=== PATIENT | female | born 1940 | race Caucasian/White ===

== ENCOUNTER → 2016-03-19 | Outpatient (CLI) | payer MEDICARE ==
[2016-03-19 07:48] LABS: ALT 32 U/L (9-52); AST 19 U/L (14-36); Alkaline Phosphatase 65 U/L (38-126); Anion Gap 11 mmol/L; Blood Urea Nitrogen 24 mg/dL (7-17); Calcium 9.8 mg/dL (8.4-10.2); Carbon Dioxide 29 mmol/L (22-30); Chloride 101 mmol/L (98-107); Cholesterol 224 mg/dL (<200); Glucose 154 mg/dL (74-99); HDL Cholesterol 56 mg/dL (40-60); Non-African American GFR(MDRD) 53 (>60 ml/min/1.73 sqM); Potassium 4.2 mmol/L (3.5-5.1); Sodium 141 mmol/L (137-145); Total Bilirubin 0.8 mg/dL (0.2-1.3); Total Protein 7.3 g/dL (6.3-8.2); Triglycerides 188 mg/dL (<150)
== END | disposition home or self-care (01) ==
LOC: LABWHC1 07:00
PROVIDERS: ATTEND Internal Medicine
DX: E11.9 Type 2 diabetes mellitus without complications (principal); E78.5 Hyperlipidemia, unspecified
CPT/HCPCS: 36415; 80053; 80061; 83036

== ENCOUNTER → 2016-06-13 | Outpatient (CLI) | payer MEDICARE ==
[2016-06-13 07:28] LABS: Appearance,Urine Cloudy (Clear); Bacteria,Urine Many /hpf; Bilirubin,Urine Negative (Negative); Glucose,Urine (UA) Negative (Negative); Ketones,Urine Negative (Negative); Leukocyte Esterase,Urine Large (Negative); Nitrite,Urine Negative (Negative); PH, Urine 5.5 (5.0-8.0); Particle Count 2012; Protein,Urine Negative (Negative); RBC,Urine 3 /hpf (0-5); Specific Gravity,Urine 1.009 (1.001-1.035); UA Billing (MACRO vs. MICRO) MICRO; Urobilinogen,Urine <2.0 mg/dL (<2.0); WBC,Urine >182 /hpf (0-5)
[2016-06-13 12:04] LABS: Calcium 9.9 mg/dL (8.4-10.2); Total Bilirubin 0.9 mg/dL (0.2-1.3); Total Protein 6.9 g/dL (6.3-8.2)
[2016-06-13 13:11] LABS: Hemoglobin A1C 7.9 % (4.2-6.1)
== END ==
LOC: LABWHC1 06:44
PROVIDERS: ATTEND Internal Medicine
DX: E11.9 Type 2 diabetes mellitus without complications (principal); E78.5 Hyperlipidemia, unspecified; E03.9 Hypothyroidism, unspecified
CPT/HCPCS: 36415; 80053; 80061; 81001; 82043; 83036; 84439; 84443

== ENCOUNTER → 2016-09-18 | Outpatient (CLI) | payer MEDICARE ==
[2016-09-18 07:05] LABS: CH 31.6; CHCM 33.7; HCT 39.8 % (34.0-46.0); HDW 2.35; HGB 13.1 gm/dL (11.4-16.0); MCH 30.9 pg (25.0-35.0); MCHC 32.8 g/dL (31.0-37.0); MCV 94.2 fL (80.0-100.0); Mean Platelet Volume 7.5; RBC 4.23 m/uL (3.80-5.40); RDW 13.3 % (11.5-15.5)
[2016-09-18 07:39] LABS: ALT 28 U/L (9-52); AST 20 U/L (14-36); Alkaline Phosphatase 56 U/L (38-126); Anion Gap 9 mmol/L; Blood Urea Nitrogen 15 mg/dL (7-17); Calcium 9.8 mg/dL (8.4-10.2); Carbon Dioxide 27 mmol/L (22-30); Chloride 103 mmol/L (98-107); Cholesterol 192 mg/dL (<200); Glucose 121 mg/dL (74-99); HDL Cholesterol 51 mg/dL (40-60); Hemoglobin A1C 8.6 % (4.2-6.1); Non-African American GFR(MDRD) >60 (>60 ml/min/1.73 sqM); Potassium 4.1 mmol/L (3.5-5.1); Sodium 139 mmol/L (137-145); Total Bilirubin 0.8 mg/dL (0.2-1.3); Total Protein 6.8 g/dL (6.3-8.2); Triglycerides 146 mg/dL (<150)
== END | disposition home or self-care (01) ==
LOC: LABWHC1 06:31
PROVIDERS: ATTEND Internal Medicine
DX: Z00.00 Encounter for general adult medical examination without abnormal findings (principal); E11.9 Type 2 diabetes mellitus without complications; E03.9 Hypothyroidism, unspecified; E78.5 Hyperlipidemia, unspecified
CPT/HCPCS: 36415; 80053; 80061; 83036; 84439; 84443; 85027

== ENCOUNTER → 2017-01-02 | Outpatient (CLI) | payer MEDICARE ==
--- NOTE | 2017-01-03 11:00 | MM ---
Reason for exam: screening (asymptomatic). Last mammogram was performed 1 year ago. History: Patient is postmenopausal. Family history of premenopausal breast cancer in maternal cousin at age 40. Benign core biopsy of the left breast. Benign excisional biopsy of the left breast. Took estrogen for 5 years. Took progesterone for 5 years. Physical Findings: A clinical breast exam by your physician is recommended on an annual basis and results should be correlated with mammographic findings. MG 3D Screening Mammo W/Cad Bilateral CC and MLO view(s) were taken. Prior study comparison: January 01, 2016, bilateral MG 3d screening mammo w/cad. December 30, 2014, bilateral MG screening mammo w CAD. There are scattered fibroglandular densities. There is no discrete abnormality. No significant changes when compared with prior studies. ASSESSMENT: Negative, BI-RAD 1 RECOMMENDATION: Routine screening mammogram of both breasts in 1 year.
== END | disposition home or self-care (01) ==
LOC: RADMAMWWP 09:54
PROVIDERS: ATTEND Obstetrics & Gynecology
DX: Z12.31 Encounter for screening mammogram for malignant neoplasm of breast (principal)
CPT/HCPCS: 77063; G0202

== ENCOUNTER → 2017-03-31 | Outpatient (CLI) | payer MEDICARE ==
[2017-03-31 07:58] LABS: Basophils % (A) 0 %; Eosinophils # (A) 0.2 k/uL (0-0.7); Eosinophils % (A) 3 %; HGB 13.4 gm/dL (11.4-16.0); Lymphocytes # (A) 1.2 k/uL (1.0-4.8); Lymphocytes % (A) 20 %; MCHC 32.8 g/dL (31.0-37.0); MCV 94.6 fL (80.0-100.0); Monocytes # (A) 0.4 k/uL (0-1.0); Monocytes % (A) 6 %; Neutrophils # (A) 4.1 k/uL (1.3-7.7); Neutrophils % (A) 69 %; Platelet Count 247 k/uL (150-450); RBC 4.33 m/uL (3.80-5.40); RDW 12.6 % (11.5-15.5)
[2017-03-31 08:24] LABS: ALT 33 U/L (9-52); AST 21 U/L (14-36); Albumin 4.2 g/dL (3.5-5.0); Alkaline Phosphatase 65 U/L (38-126); Anion Gap 12 mmol/L; Blood Urea Nitrogen 20 mg/dL (7-17); Calcium 10.3 mg/dL (8.4-10.2); Carbon Dioxide 29 mmol/L (22-30); Chloride 97 mmol/L (98-107); Cholesterol 219 mg/dL (<200); Glucose 184 mg/dL (74-99); HDL Cholesterol 55 mg/dL (40-60); LDL Cholesterol,Calculated 126 mg/dL (0-99); Potassium 4.1 mmol/L (3.5-5.1); Sodium 138 mmol/L (137-145); Triglycerides 189 mg/dL (<150)
[2017-03-31 08:39] LABS: T4, Free (Free Thyroxine) 1.17 ng/dL (0.78-2.19)
[2017-04-01 13:55] LABS: Hemoglobin A1C 8.6 % (4.0-6.0)
== END | disposition home or self-care (01) ==
LOC: LABWHC1 06:48
PROVIDERS: ATTEND Family Medicine
DX: E03.9 Hypothyroidism, unspecified (principal); E55.9 Vitamin D deficiency, unspecified; E78.5 Hyperlipidemia, unspecified; E11.65 Type 2 diabetes mellitus with hyperglycemia; J20.9 Acute bronchitis, unspecified
CPT/HCPCS: 36415; 80053; 80061; 82043; 82306; 82570; 83036; 84439; 84443; 85025

== ENCOUNTER → 2017-08-08 | Outpatient (CLI) | payer MEDICARE ==
[2017-08-08 07:23] LABS: HCT 42.2 % (34.0-46.0); HGB 13.7 gm/dL (11.4-16.0); MCH 30.5 pg (25.0-35.0); MCHC 32.6 g/dL (31.0-37.0); MCV 93.6 fL (80.0-100.0); Mean Platelet Volume 6.7; Platelet Count 253 k/uL (150-450); RDW 13.4 % (11.5-15.5); WBC 7.2 k/uL (3.8-10.6)
[2017-08-08 07:29] LABS: Albumin 4.2 g/dL (3.5-5.0); Calcium 9.9 mg/dL (8.4-10.2); Magnesium 1.6 mg/dL (1.6-2.3); Potassium 5.1 mmol/L (3.5-5.1); Total Bilirubin 0.9 mg/dL (0.2-1.3); Total Protein 6.7 g/dL (6.3-8.2)
[2017-08-08 07:45] LABS: T4, Free (Free Thyroxine) 1.28 ng/dL (0.78-2.19)
[2017-08-08 11:06] LABS: Vitamin D 25 Hydroxy 44.6 ng/mL (30.0-100.0)
[2017-08-08 11:21] LABS: Rheumatoid Factor 7 IU/mL (0-15)
[2017-08-08 11:42] LABS: Eosinophils # (M) 0.14 k/uL (0-0.7); Lymphocytes # (M) 1.44 k/uL (1.0-4.8); Monocytes # (M) 0.58 k/uL (0-1.0); Neutrophils # (M) 5.04 k/uL (1.3-7.7); Neutrophils % (M) 70 %; Nucleated Red Blood Cells 0 /100 WBC (0-0); Total Cells Counted 100
[2017-08-08 13:26] LABS: Hemoglobin A1C 8.5 % (4.0-6.0)
== END | disposition home or self-care (01) ==
LOC: LABWHC1 06:33
PROVIDERS: ATTEND Family Medicine
DX: E11.22 Type 2 diabetes mellitus with diabetic chronic kidney disease (principal); E11.65 Type 2 diabetes mellitus with hyperglycemia; N18.2 Chronic kidney disease, stage 2 (mild); E03.9 Hypothyroidism, unspecified; E55.9 Vitamin D deficiency, unspecified; R25.2 Cramp and spasm; M25.50 Pain in unspecified joint; E78.5 Hyperlipidemia, unspecified
CPT/HCPCS: 36415; 80053; 80061; 82043; 82306; 82570; 83036; 83735; 84439; 84443; 84550; 85027; 86038; 86431

== ENCOUNTER → 2017-11-11 | Outpatient (CLI) | payer MEDICARE ==
[2017-11-11 13:13] LABS: Basophils % (A) 0 %; Eosinophils # (A) 0.2 k/uL (0-0.7); Eosinophils % (A) 2 %; HCT 39.9 % (34.0-46.0); Lymphocytes # (A) 1.4 k/uL (1.0-4.8); Lymphocytes % (A) 16 %; MCH 30.4 pg (25.0-35.0); MCHC 32.6 g/dL (31.0-37.0); MCV 93.1 fL (80.0-100.0); Mean Platelet Volume 7.1; Monocytes # (A) 0.5 k/uL (0-1.0); Monocytes % (A) 6 %; Neutrophils # (A) 6.6 k/uL (1.3-7.7); Neutrophils % (A) 75 %; Platelet Count 282 k/uL (150-450); RBC 4.29 m/uL (3.80-5.40); RDW 13.2 % (11.5-15.5); WBC 8.8 k/uL (3.8-10.6)
[2017-11-11 13:43] LABS: Albumin 4.1 g/dL (3.5-5.0); Calcium 9.8 mg/dL (8.4-10.2); Magnesium 1.3 mg/dL (1.6-2.3); Phosphorus 3.8 mg/dL (2.5-4.5); Potassium 4.2 mmol/L (3.5-5.1); Total Bilirubin 0.7 mg/dL (0.2-1.3); Total Protein 6.9 g/dL (6.3-8.2)
[2017-11-11 13:49] LABS: T4, Free (Free Thyroxine) 1.18 ng/dL (0.78-2.19)
[2017-11-11 21:44] LABS: Hemoglobin A1C 7.4 % (4.0-6.0)
== END ==
LOC: LABWHC1 11:45
PROVIDERS: ATTEND Family Medicine
DX: E11.22 Type 2 diabetes mellitus with diabetic chronic kidney disease (principal); N18.2 Chronic kidney disease, stage 2 (mild); E11.65 Type 2 diabetes mellitus with hyperglycemia; R80.9 Proteinuria, unspecified; E03.9 Hypothyroidism, unspecified
CPT/HCPCS: 36415; 80053; 82043; 82570; 83036; 83735; 84100; 84439; 84443; 85025

== ENCOUNTER → 2018-02-26 | Outpatient (CLI) | payer MEDICARE ==
--- NOTE | 2018-03-01 13:18 | MM ---
Reason for exam: screening (asymptomatic). Last mammogram was performed 1 year and 2 months ago. History: Patient is postmenopausal. Family history of premenopausal breast cancer in maternal cousin at age 40. Benign core biopsy of the left breast. Benign excisional biopsy of the left breast. Took estrogen for 5 years. Took progesterone for 5 years. MG 3D Screening Mammo W/Cad Bilateral CC and MLO view(s) were taken. Prior study comparison: January 02, 2017, bilateral MG 3d screening mammo w/cad. January 01, 2016, bilateral MG 3d screening mammo w/cad. There are scattered fibroglandular densities. No suspicious abnormality. There are benign-appearing bilateral breast calcifications. No significant changes when compared with prior studies. ASSESSMENT: Benign, BI-RAD 2 RECOMMENDATION: Routine screening mammogram of both breasts in 1 year.
== END | disposition home or self-care (01) ==
LOC: RADMAMWWP 15:49
PROVIDERS: ATTEND Obstetrics & Gynecology
DX: Z12.31 Encounter for screening mammogram for malignant neoplasm of breast (principal); Z80.3 Family history of malignant neoplasm of breast
CPT/HCPCS: 77063; 77067

== ENCOUNTER → 2018-02-26 | Outpatient (CLI) | payer MEDICARE ==
[2018-02-26 07:38] LABS: HCT 40.3 % (34.0-46.0); HGB 13.1 gm/dL (11.4-16.0); MCH 30.1 pg (25.0-35.0); MCHC 32.6 g/dL (31.0-37.0); MCV 92.5 fL (80.0-100.0); Mean Platelet Volume 6.9; Platelet Count 274 k/uL (150-450); RBC 4.35 m/uL (3.80-5.40); RDW 13.5 % (11.5-15.5); WBC 6.6 k/uL (3.8-10.6)
[2018-02-26 12:22] LABS: Albumin 4.2 g/dL (3.80-4.90); Albumin/Globulin Ratio 2.21 (1.20-2.10); Anion Gap 8.3 mmol/L (4.00-12.00); Carbon Dioxide 28.7 mmol/L (21.6-31.8); Globulin 1.9 g/dL (1.6-3.3); LDL Cholesterol,Calculated 68.8 mg/dL (0.0-131.0); Magnesium 1.5 mg/dL (1.5-2.4); Parathyroid Hormone Intact 54.1 pg/mL (14.0-72.0); Phosphorus 3.6 mg/dL (2.4-5.1); Potassium 5.2 mmol/L (3.5-5.5); Total Bilirubin 0.8 mg/dL (0.3-1.2); Total Protein 6.1 g/dL (6.2-8.2); VLDL Calculation 32.2 mg/dL (5.00-40.00)
[2018-02-26 12:26] LABS: Vitamin D 25 Hydroxy 53.5 ng/mL (30.0-100.0)
[2018-02-26 14:03] LABS: Hemoglobin A1C 8.1 % (4.0-6.0)
== END | disposition home or self-care (01) ==
LOC: LABWHC1 06:52
PROVIDERS: ATTEND Family Medicine
DX: E11.22 Type 2 diabetes mellitus with diabetic chronic kidney disease (principal); N18.2 Chronic kidney disease, stage 2 (mild); E83.42 Hypomagnesemia; E55.9 Vitamin D deficiency, unspecified; E78.5 Hyperlipidemia, unspecified; R80.9 Proteinuria, unspecified
CPT/HCPCS: 36415; 80053; 80061; 82043; 82306; 82570; 83036; 83735; 83970; 84100; 85027

== ENCOUNTER → 2018-02-27 | Outpatient (CLI) | payer MEDICARE ==
--- NOTE | 2018-03-01 22:39 | MR ---
EXAMINATION TYPE: MR shoulder LT wo con DATE OF EXAM: 02/27/2018 COMPARISON: Outside left shoulder x-ray February 16, 2018 HISTORY: Lt shoulder pain S/P fall Oct 2017 TECHNIQUE: Multiplanar, multisequence imaging of the left shoulder is performed without contrast. FINDINGS: Rotator Cuff: Distal supraspinatus shows full-thickness retracted tear of the anterior one third port ion measuring roughly 14 mm parasagittal image 7. Infraspinatus tendon is intact. Subscapularis tendo n is intact with surrounding fluid anteriorly. Rotator cuff muscle bulk is preserved. Fluid surrounds the superior aspect supraspinatus muscle bulk. Acromioclavicular Joint: Fairly advanced narrowing with mild spurring acromioclavicular joint is iden tified, moderate capsular hypertrophy seen. Inferior fat plane is lost. Distal acromion morphology sh ows mild inferior spurring peripheral aspect. Glenohumeral Joint: Large glenohumeral joint effusion is present. Mild narrowing is seen. No signific ant spurring is present. Labrum: The superior labrum shows blunted appearance with increased signal likely reflecting degenera tive change or tear. Biceps Tendon: The long head of biceps is in normal location within bicipital groove. Bone marrow signal: No focal abnormal marrow signal is appreciated. Other: No additional significant abnormality is appreciated. IMPRESSION: 1. Full-thickness retracted tear anterior one third fibers of supraspinatus tendon. 2. Large glenohumeral joint effusion with anterior, inferior, and superior extension. 3. 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
== END ==
LOC: RADMRIMAIN 19:18
PROVIDERS: ATTEND Orthopaedic Surgery
DX: M75.122 Complete rotator cuff tear or rupture of left shoulder, not specified as traumatic (principal); M12.812 Other specific arthropathies, not elsewhere classified, left shoulder; M25.812 Other specified joint disorders, left shoulder

== ENCOUNTER 2018-03-31 08:55 | Day surgery (SDC) | payer MEDICARE ==
[2018-03-26 15:48] VITALS: BMI 30.7
--- NOTE | 2018-03-30 09:58 | HP ---
HISTORY AND PHYSICAL CHIEF COMPLAINT: Left shoulder pain. HISTORY OF PRESENT ILLNESS: Patient is a 77-year-old, right-hand dominant, retired female who presents with progressive left shoulder pain after an injury in October of last year. She is having a difficult time with any overhead use and at night. She has tried rest, medication, and therapy. She is quite limited because of pain. PAST MEDICAL HISTORY: Significant for type 2 diabetes, hypercholesteremia, hypertension, and hypothyroidism. PAST SURGICAL HISTORY: Negative. CURRENT MEDICATIONS: 1. Amlodipine. 2. Aspirin. 3. Levothyroxine. 4. Metformin. ALLERGIES: SULFA. FAMILY HISTORY: Significant for heart disease. SOCIAL HISTORY: Negative for current tobacco or alcohol use. REVIEW OF SYSTEMS: A 16-point review of systems otherwise reviewed and is noncontributory. PHYSICAL EXAMINATION: On examination, the patient is approximately 5 foot 1, 179 pounds of endomorphic habitus. HEENT exam is nonfocal. Neck is supple. Active motion left shoulder. Forward elevation 95 degrees, external rotation with arm at side 40 degrees, internal rotation to L2. Passively, I am able to forward elevate her 150 degrees. She has moderate subacromial crepitus. Motor strength is 5-/5 for external rotation with arm at side, 4/5 for abduction. Her distal neurovascular exam appears intact in the left upper extremity. MRI report from 02/27/2018 shows evidence of a supraspinatus tear with some retraction. There is a large effusion. There is a questionable superior labral tear as well. IMPRESSION: 1. Symptomatic left acute rotator cuff tear. 2. [id number] diabetes. RECOMMENDATIONS: I talked to the patient at length regarding her condition and treatment options. At this point, she is quite symptomatic despite conservative measures and opts to proceed with surgery. We will plan to proceed with arthroscopic evaluation with probable subacromial decompression, possible rotator cuff repair, and possible biceps tendon tenotomy. Risks and benefits were discussed at length in layman's terms. We will likely perform that as an outpatient procedure. BRIANL / EVARISTON: [id number] /
[~2018-03-31 08:55] MED LIST: DEXAMETHASONE SOD PHOSPHATE 10 MG/ML 1 ML VIAL IV ONE; HYDROmorphone 0.5 MG/0.5 ML SYRINGE IVP PRN; LACTATED RINGERS 1,000 ML IV SCH; LIDOCAINE 1% 20 ML VIAL (10MG/ML) FOR IV START INTRADERMA PRN; MIDAZOLAM (PF) 2 MG/2 ML VIAL IV PRN; ONDANSETRON 4 MG/2 ML VIAL IVP ONE; ceFAZolin IN SWFI 2 GM/20 ML SYRINGE IVP ONE; fentaNYL (PF) 50 MCG/ML 2 ML AMP IV PRN
[2018-03-31 09:56] LABS: Glucose,Whole Blood 187 mg/dL (75-99)
--- NOTE | 2018-03-31 10:47 | P.ONQ ---
Anesthesiology Proc Note - PNB - Peripheral Nerve Block Performed Left Interscalene Single Time Out Performed: Yes Procedure Start Time: 10:06 Indication: Acute Post-Operative Pain Specifically requested for management of pain by DrLanre: Nick Siegel Sedation Type: Sedate with meaningful contact maintained Preparation: Sterile Prep Position: Supine Catheter: None Needle Types: Other (see comment) (pajunk) Needle Size: 50mm (2") Needle Gauge: 21 Technique: Ultrasound Injectate: 0.5% Ropivacaine (see comment for volume) (20 cc) Blood Aspirated: No Pain Paresthesia on Injection Noted: No Resistance on Injection: Normal Events: Uneventful and Well Tolerated
[2018-03-31] MEDS ORDERED: fentaNYL (PF) 50 MCG/ML 2 ML AMP ONE (11:12)
[2018-03-31] MEDS ORDERED: LIDOCAINE 1% INJ 10MG/ML (20 ML MDV) ONE (11:12)
[2018-03-31] MEDS ORDERED: PROPOFOL 10 MG/ML 20 ML VIAL IV ONE (11:12)
[2018-03-31] MEDS ORDERED: MIDAZOLAM 2 MG/2 ML VIAL ONE (11:12)
[2018-03-31] MEDS ORDERED: SUCCINYLCHOLINE CHLORIDE 100 MG/5 ML SYR IV ONE (11:12)
[2018-03-31] MEDS ORDERED: PHENYLEPHRINE-0.9% NACL SYG 1 MG/10 ML SYRINGE ONE (11:12)
[2018-03-31] MEDS ORDERED: ROPIVACAINE 5 MG/ML 30 ML VIAL ONE (11:12)
[2018-03-31] MEDS ORDERED: EPINEPHrine (PF) 1 ML in SODIUM CHLORIDE 0.9% IRRIGATIO 3,000 ML IRRIGATION ONE ×8 (11:20)
[2018-03-31] MEDS ORDERED: LACTATED RINGERS 1,000 ML IV ONE (12:54)
--- NOTE | 2018-03-31 12:58 | P.OP ---
Date of Procedure: 03/31/18 Preoperative Diagnosis: Symptomatic left rotator cuff tear Postoperative Diagnosis: 2 cm left rotator cuff tear, high-grade partial-thickness tear long head biceps intra-articular Procedure(s) Performed: Left shoulder arthroscopic subacromial decompression/rotator cuff repair/biceps tenotomy Implants: Arthrex 4.75 mm swivel lock anchor 2, 5.5 mm swivel lock anchor 2. Anesthesia: [facility], [facility] Surgeon: Nick Siegel Moccasin Sewer #1: Karel Salazar Estimated Blood Loss (ml): 10 Pathology: none sent Condition: stable Disposition: PACU Indications for Procedure: The patient is a 77-year-old female who presents with left shoulder pain after a previous fall. Clinically she is noted of evidence of a symptom right rotator cuff tear. He discussion of the risks and benefits of operative intervention versus continued conservative measures was made with the patient. She opted proceed with surgery. Operative risks to include infection, neurovascular injury, development of blood clots, possible tendon rerupture, possible postoperative stiffness, and possible need for subsequent procedures was discussed. Informed consent was obtained. Operative Findings: As below Description of Procedure: The patient was brought to the operating room, and after induction of general anesthesia was placed in a beachchair position. A preoperative interscalene block was placed for postoperative analgesia. I examined the left shoulder. There was no gross block to passive motion or gross glenohumeral instability. The left upper extremity was prepped and draped in normal fashion. The bony outlines the acromion, distal clavicle, and coracoid process were outlined with a skin marker. The glenohumeral joint was inflated with 50 mL of saline utilizing a spinal needle from posterior approach. A posterior portal was made through a 5 mm skin incision 1 cm medial and inferior to the posterior lateral border time. A blunt trocar was used to easily into the joint. Diagnostic arthroscopy was performed. An anterior portal was made just lateral to the coracoid process entering the joint above the subscapularis tendon. The subscapularis tendon appeared to be intact. Anterior labrum was intact. The inferior recess was inspected. The posterior labrum was intact. There was a high-grade partial-thickness tear of the long head of the biceps involving interarticular portion. Was elected to proceed with release at this point. This was released from the superior labrum with electrocautery and was allowed to retract to the bicipital groove. On inspection the rotator cuff, a 3 centimeter tear involving the supraspinatus and a portion the infraspinatus was noted with some retraction. A lateral portal was made 2 centimeters inferior to the anterior lateral border of the acromion. The rotator cuff was then mobilized with a traction suture. This was then easily brought back to the greater tuberosity. The soft tissue on the undersurface of the acromion was debrided with a motorized shaver and electrocautery clearly defining the anterior medial and lateral borders as well as the distal clavicle. An anterior inferior acromioplasty was performed with a motorized earl starting anterolateral, then extending this posteriorly, then extending this medially. I converted to a flat acromion and this was verified in the posterior and lateral viewing portals. The greater tuberosity was lightly decorticating with a shaver down to a bleeding bony surface. An accessory superior lateral portals made just off the lateral edge of the acromion for anchor placement. 2 anchors were then placed just off the articular surface with the appropriate starting awl. 4.75 mm anchors preloaded with #2 fiber tape were placed. Good purchase was obtained. These fiber tapes were then passed the rotator cuff with a scorpion suture passer. A lateral row was created crisscrossing these tapes. Two 5.5 mm swivel lock anchors were placed laterally. Good purchase was obtained. Final arthroscopic view showed adequate compression at the footprint. The arthroscope was then removed. The portals were closed with simple 3-0 nylon sutures. A sterile dressing was applied in addition to an abductor brace. The patient was then awoken from general anesthesia and transferred to recovery room in good condition. Blood loss was estimated at 10 mL. No complications were incurred. Sponge and needle counts were correct in the case. Samm FATIMA assisted and the major components of the case to include arm positioning, anchor placement, and rotator cuff repair.
[2018-03-31 13:08] VITALS: TEMP 97.3
[2018-03-31 13:10] LABS: Glucose,Whole Blood 177 mg/dL (75-99)
[2018-03-31] MEDS: LABETALOL 5 MG/ML VIAL MDV IVP ONE ×2 (13:14→13:22)
[2018-03-31 14:21] VITALS: RESP 18
[2018-03-31] MEDS ORDERED: ACETAMINOPHEN TAB 500 MG TAB PO ONE (14:24)
[2018-03-31 15:04] VITALS: BP 137/85; PULSE 94
[2018-03-31 15:06] LABS: Glucose,Whole Blood 212 mg/dL (75-99)
== END 2018-03-31 15:48 | disposition home or self-care (01) ==
LOC: OR 08:55
PROVIDERS: ATTEND Orthopaedic Surgery
DX: S46.012A Strain of muscle(s) and tendon(s) of the rotator cuff of left shoulder, initial encounter (principal); S46.112A Strain of muscle, fascia and tendon of long head of biceps, left arm, initial encounter; W19.XXXA Unspecified fall, initial encounter; E11.9 Type 2 diabetes mellitus without complications; Z79.4 Long term (current) use of insulin; E78.00 Pure hypercholesterolemia, unspecified; I10 Essential (primary) hypertension; Z82.49 Family history of ischemic heart disease and other diseases of the circulatory system; R41.3 Other amnesia; E03.9 Hypothyroidism, unspecified; Z79.82 Long term (current) use of aspirin; Z79.890 Hormone replacement therapy; Z79.899 Other long term (current) drug therapy; Z88.2 Allergy status to sulfonamides; Z91.09 Other allergy status, other than to drugs and biological substances
CPT/HCPCS: 64415; 29826; 29827; C1713 ×3; C1894; J2250 ×2; J1100; J2405; J0171; J2001; J3010; J2795; J2370; J0330; J2704; J0690

== ENCOUNTER → 2018-10-12 | Outpatient (CLI) | payer MEDICARE ==
[2018-10-12 07:31] LABS: Basophils % (A) 0 %; Eosinophils # (A) 0.3 k/uL (0-0.7); Eosinophils % (A) 4 %; HGB 12.9 gm/dL (11.4-16.0); Lymphocytes # (A) 1.3 k/uL (1.0-4.8); Lymphocytes % (A) 19 %; MCH 30.5 pg (25.0-35.0); MCHC 33.1 g/dL (31.0-37.0); MCV 91.9 fL (80.0-100.0); Mean Platelet Volume 7.5; Monocytes # (A) 0.4 k/uL (0-1.0); Monocytes % (A) 6 %; Neutrophils # (A) 4.6 k/uL (1.3-7.7); Neutrophils % (A) 69 %; Platelet Count 291 k/uL (150-450); RBC 4.25 m/uL (3.80-5.40); RDW 14.2 % (11.5-15.5); WBC 6.7 k/uL (3.8-10.6)
[2018-10-12 11:38] LABS: African American GFR (CKD) 56.9 (60.0-200.0); Albumin 4.2 g/dL (3.80-4.90); Albumin/Globulin Ratio 2.21 (1.60-3.17); Anion Gap 6.6 mmol/L (4.00-12.00); BUN/Creat Ratio 16.36 Ratio (12.00-20.00); Calcium 9.8 mg/dL (8.7-10.3); Carbon Dioxide 25.4 mmol/L (21.6-31.8); Chol/HDL Ratio 2.96; Globulin 1.9 g/dL (1.6-3.3); LDL Cholesterol,Calculated 79.6 mg/dL (0.0-131.0); Magnesium 1.6 mg/dL (1.5-2.4); Potassium 4.4 mmol/L (3.5-5.5); Total Bilirubin 0.6 mg/dL (0.3-1.2); Total Protein 6.1 g/dL (6.2-8.2); VLDL Calculation 28.4 mg/dL (5.00-40.00)
[2018-10-12 11:44] LABS: T4, Free (Free Thyroxine) 1.3 ng/dL (0.80-1.80)
== END | disposition home or self-care (01) ==
LOC: LABWHC1 06:33
PROVIDERS: ATTEND Family Medicine
DX: E03.9 Hypothyroidism, unspecified (principal); E11.65 Type 2 diabetes mellitus with hyperglycemia; E78.5 Hyperlipidemia, unspecified; E83.42 Hypomagnesemia; N18.2 Chronic kidney disease, stage 2 (mild)
CPT/HCPCS: 36415; 80053; 80061; 82043; 82306; 82570; 83036; 83735; 84439; 84443; 85025

== ENCOUNTER → 2019-02-25 | Outpatient (CLI) | payer MEDICARE ==
[2019-02-25 18:52] LABS: T4, Free (Free Thyroxine) 1.4 ng/dL (0.80-1.80)
== END | disposition home or self-care (01) ==
LOC: LABWHC1 13:25
PROVIDERS: ATTEND Internal Medicine
DX: E03.9 Hypothyroidism, unspecified (principal)
CPT/HCPCS: 36415; 84439; 84443

== ENCOUNTER → 2019-03-30 | Outpatient (CLI) | payer MEDICARE ==
[2019-03-30 11:47] LABS: Urine Creatinine 42.9 mg/dL
[2019-03-30 11:53] LABS: African American GFR (CKD) 50.8 (60.0-200.0); Anion Gap 10.2 mmol/L (4.00-12.00); BUN/Creat Ratio 13.33 Ratio (12.00-20.00); Carbon Dioxide 28.8 mmol/L (21.6-31.8); Chol/HDL Ratio 2.75; Non-African American GFR(CKD) 43.9 (60.0-200.0); Potassium 4.3 mmol/L (3.5-5.5)
[2019-03-30 13:28] LABS: Hemoglobin A1C 8.2 % (4.0-6.0)
== END | disposition home or self-care (01) ==
LOC: LABWHC1 06:50
PROVIDERS: ATTEND Internal Medicine
DX: E11.65 Type 2 diabetes mellitus with hyperglycemia (principal)
CPT/HCPCS: 36415; 80048; 80061; 82043; 82570; 83036

== ENCOUNTER → 2019-04-27 | Outpatient (CLI) | payer MEDICARE ==
[2019-04-27 18:00] LABS: African American GFR (CKD) 56.5 (60.0-200.0); Magnesium 1.8 mg/dL (1.5-2.4); Non-African American GFR(CKD) 48.7 (60.0-200.0)
[2019-04-27 18:07] LABS: T4, Free (Free Thyroxine) 1.4 ng/dL (0.80-1.80)
== END | disposition home or self-care (01) ==
LOC: LABWHC1 07:34
PROVIDERS: ATTEND Internal Medicine
DX: E03.9 Hypothyroidism, unspecified (principal); E11.65 Type 2 diabetes mellitus with hyperglycemia; E55.9 Vitamin D deficiency, unspecified; R25.2 Cramp and spasm
CPT/HCPCS: 36415; 82306; 82565; 83735; 84439; 84443

== ENCOUNTER → 2019-10-13 | Outpatient (CLI) | payer MEDICARE ==
[2019-10-13 16:26] LABS: Anion Gap 8.8 mmol/L (4.00-12.00); Calcium 10.1 mg/dL (8.7-10.3); Carbon Dioxide 26.2 mmol/L (21.6-31.8); Non-African American GFR(CKD) 62.1 (60.0-200.0)
== END | disposition home or self-care (01) ==
LOC: LABWHC1 08:42
PROVIDERS: ATTEND Internal Medicine
DX: E11.65 Type 2 diabetes mellitus with hyperglycemia (principal)
CPT/HCPCS: 36415; 80048; 83036

== ENCOUNTER → 2020-03-15 | Outpatient (CLI) | payer MEDICARE ==
--- NOTE | 2020-03-17 08:15 | MM ---
Reason for exam: screening (asymptomatic). Last mammogram was performed 2 years and 1 month ago. History: Patient is postmenopausal. Family history of premenopausal breast cancer in maternal cousin at age 40. Benign core biopsy of the left breast. Benign excisional biopsy of the left breast. Took estrogen for 5 years. Took progesterone for 5 years. Physical Findings: A clinical breast exam by your physician is recommended on an annual basis and results should be correlated with mammographic findings. MG 3D Screening Mammo W/Cad Bilateral CC and MLO view(s) were taken. Prior study comparison: February 26, 2018, bilateral MG 3d screening mammo w/cad. January 02, 2017, bilateral MG 3d screening mammo w/cad. There are scattered fibroglandular densities. There is chronic nodularity bilaterally posteriorly on the right and subareolar on the left. No significant changes when compared with prior studies. ASSESSMENT: Benign, BI-RAD 2 RECOMMENDATION: Routine screening mammogram of both breasts in 1 year.
== END | disposition home or self-care (01) ==
LOC: RADMAMWWP 14:40
PROVIDERS: ATTEND Obstetrics & Gynecology
DX: Z12.31 Encounter for screening mammogram for malignant neoplasm of breast (principal); Z80.3 Family history of malignant neoplasm of breast
CPT/HCPCS: 77063; 77067

== ENCOUNTER → 2020-03-22 | Outpatient (CLI) | payer MEDICARE ==
[2020-03-22 11:01] LABS: African American GFR (CKD) 62.9 (60.0-200.0); Anion Gap 7.9 mmol/L (4.00-12.00); Calcium 9.8 mg/dL (8.7-10.3); Carbon Dioxide 28.1 mmol/L (21.6-31.8); Chol/HDL Ratio 2.92; LDL Cholesterol,Calculated 98.6 mg/dL (0.0-131.0); Non-African American GFR(CKD) 54.3 (60.0-200.0); Potassium 3.9 mmol/L (3.5-5.5); VLDL Calculation 24.4 mg/dL (5.00-40.00)
[2020-03-22 11:09] LABS: T4, Free (Free Thyroxine) 1.3 ng/dL (0.80-1.80)
[2020-03-22 16:24] LABS: Hemoglobin A1C 7.8 % (4.0-6.0)
[2020-03-22 23:24] LABS: Urine Creatinine 49.8 mg/dL
== END | disposition home or self-care (01) ==
LOC: LABWHC1 07:34
PROVIDERS: ATTEND Internal Medicine
DX: E11.65 Type 2 diabetes mellitus with hyperglycemia (principal)
CPT/HCPCS: 36415; 80048; 80061; 82043; 82570; 83036; 84439; 84443

== ENCOUNTER → 2020-07-18 | Outpatient (CLI) | payer MEDICARE ==
[2020-07-18 11:40] LABS: African American GFR (CKD) 62.9 (60.0-200.0); Anion Gap 7.4 mmol/L (4.00-12.00); Calcium 9.7 mg/dL (8.7-10.3); Carbon Dioxide 26.6 mmol/L (21.6-31.8); Non-African American GFR(CKD) 54.3 (60.0-200.0); Potassium 4.2 mmol/L (3.5-5.5)
[2020-07-18 12:54] LABS: Hemoglobin A1C 7.9 % (4.0-6.0)
== END | disposition home or self-care (01) ==
LOC: LABWHC1 07:08
PROVIDERS: ATTEND Nurse Practitioner
DX: E11.65 Type 2 diabetes mellitus with hyperglycemia (principal)
CPT/HCPCS: 36415; 80048; 80061; 83036

== ENCOUNTER → 2020-11-30 | Outpatient (CLI) | payer MEDICARE ==
[2020-11-30 17:27] LABS: African American GFR (CKD) 58.9 (60.0-200.0); Anion Gap 12.7 mmol/L (4.00-12.00); BUN/Creat Ratio 21.43 Ratio (12.00-20.00); Blood Urea Nitrogen 22.5 mg/dL (9.0-27.0); Calcium 10.4 mg/dL (8.7-10.3); Carbon Dioxide 23.4 mmol/L (21.6-31.8); Non-African American GFR(CKD) 50.8 (60.0-200.0); Potassium 4.4 mmol/L (3.5-5.5)
== END | disposition home or self-care (01) ==
LOC: LABWHC1 08:10
PROVIDERS: ATTEND Nurse Practitioner
DX: E11.65 Type 2 diabetes mellitus with hyperglycemia (principal)
CPT/HCPCS: 36415; 80048; 83036

== ENCOUNTER 2020-12-13 06:58 | Inpatient (IN) | payer MEDICARE ==
[2020-12-13] MEDS ORDERED: SODIUM CHLORIDE 0.9% 1,000 ML IV STA (07:25)
[2020-12-13 07:30] LABS: Glucose,Whole Blood 335 mg/dL (75-99)
[2020-12-13] MEDS ORDERED: DILTIAZEM DRIP BOLUS FROM BAG 1 MG SOLN IV ONE (07:53)
[2020-12-13 07:59] LABS: Basophils % (A) 0 %; Eosinophils # (A) 0.1 k/uL (0-0.7); Eosinophils % (A) 1 %; HCT 41.3 % (34.0-46.0); HGB 13.3 gm/dL (11.4-16.0); Lymphocytes # (A) 0.2 k/uL (1.0-4.8); Lymphocytes % (A) 3 %; MCH 30.7 pg (25.0-35.0); MCHC 32.2 g/dL (31.0-37.0); MCV 95.4 fL (80.0-100.0); Mean Platelet Volume 8.2; Monocytes # (A) 0.2 k/uL (0-1.0); Monocytes % (A) 3 %; Neutrophils # (A) 7.1 k/uL (1.3-7.7); Neutrophils % (A) 93 %; Platelet Count 173 k/uL (150-450); RBC 4.33 m/uL (3.80-5.40); RDW 12.9 % (11.5-15.5); WBC 7.7 k/uL (3.8-10.6)
[2020-12-13 08:09] LABS: ALT 30 U/L (4-34); AST 34 U/L (14-36); African American GFR (CKD) 50 (>60 ml/min/1.73 sqM); Albumin 3.4 g/dL (3.5-5.0); Alkaline Phosphatase 76 U/L (38-126); Anion Gap 10 mmol/L; Appearance,Urine Clear (Clear); Bilirubin,Urine Negative (Negative); Blood Urea Nitrogen 33 mg/dL (7-17); Blood,Urine Negative (Negative); Calcium 9.4 mg/dL (8.4-10.2); Carbon Dioxide 22 mmol/L (22-30); Chloride 96 mmol/L (98-107); Color,Urine Yellow; Glucose 336 mg/dL (74-99); Glucose,Urine (UA) 4+ (Negative); Hyaline Casts,Urine 1 /lpf (0-2); Ketones,Urine 1+ (Negative); Leukocyte Esterase,Urine Negative (Negative); Magnesium 1.6 mg/dL (1.6-2.3); Mucus,Urine Rare /hpf; Nitrite,Urine Negative (Negative); Non-African American GFR(CKD) 44 (>60 ml/min/1.73 sqM); PH, Urine 5.5 (5.0-8.0); Potassium 4.2 mmol/L (3.5-5.1); Protein,Urine 2+ (Negative); RBC,Urine 2 /hpf (0-5); Sodium 128 mmol/L (137-145); Specific Gravity,Urine 1.015 (1.001-1.035); Squamous Epithelial Cell,Urine <1 /hpf (0-4); Total Bilirubin 0.8 mg/dL (0.2-1.3); Total Protein 6.1 g/dL (6.3-8.2); Urobilinogen,Urine <2.0 mg/dL (<2.0); WBC,Urine 2 /hpf (0-5)
[2020-12-13 08:30] LABS: INR 0.9 (<1.2)
[2020-12-13] MEDS: DILTIAZEM 125 MG in SODIUM CHLORIDE 0.9% 100 ML IV SCH ×2 (08:32→16:44)
[2020-12-13 08:33] LABS: Partial Thromboplastin Time 19.5 sec (22.0-30.0)
[2020-12-13] MEDS: MAGNESIUM SULFATE-D5W PMX 1 GM in DEXTROSE/WATER 1 100ML.BAG IVPB SCH ×2 (08:43→10:06)
--- NOTE | 2020-12-13 08:57 | XR ---
EXAMINATION TYPE: XR chest 2V DATE OF EXAM: 12/13/2020 COMPARISON: NONE HISTORY: Trauma and pain TECHNIQUE: Frontal and lateral views of the chest are obtained. FINDINGS: There is no focal air space opacity, pleural effusion, or pneumothorax seen. Bandlike area of increased attenuation in the left mid lung may reflect atelectasis or scar. The aorta is dense. The cardiac silhouette size is enlarged, there are overlying leads, patient is rotated. The aorta is dense. There is thoracic spondylosis. The osseous structures are intact, there is arthropathy in the shoulders. IMPRESSION: Cardiomegaly. Probable atelectasis.
--- NOTE | 2020-12-13 08:57 | ED ---
General Adult HPI - General Chief complaint: Arrhythmia/Palpitations Stated complaint: Weakness Source: patient, EMS Mode of arrival: EMS Limitations: no limitations - History of Present Illness Initial comments: 80-year-old female with past medical history of diabetes, hypertension, hyperlipidemia presents to the emergency department with altered mental status, fall and weakness. Patient has had symptoms since this past weekend. She did not take her medications on Friday because she wasn't feeling well. Friday the patient had a fall. Her boyfriend called EMS. They performed a lift assist however the patient did not want to go to the hospital to be evaluated. She co ntinued to progress and became slightly confused. The boyfriend called EMS again today. EKG was performed and the patient was found to be in A. fib with a rate anywhere from 120-200. Patient denies a previous history of A. fib. When she sustained her fall she began developing left hip pain. Still has been able to ambulate. Denies any head trauma. Patient denies any fevers, chest pain. She denies shortness of breath however oxygenation at home was 88%. Denies history of DVT or PE. No lower external swelling. Appetite has been suppressed. No other alleviating, precipitating or modifying factors - Related Data Home Medications Medication Instructions Recorded Confirmed Aspirin 81 mg PO DAILY 12/31/13 12/13/20 Levothyroxine Sodium [Synthroid] 37.5 mcg PO QAM 12/31/13 12/13/20 Simvastatin [Zocor] 20 mg PO HS 12/31/13 12/13/20 metFORMIN HCL [Glucophage] 1,000 mg PO BID 03/26/17 12/13/20 Folic Acid 0.4 mg PO DAILY 03/26/18 12/13/20 Magnesium Oxide 400 mg PO DAILY 03/26/18 12/13/20 Ascorbic Acid [Vitamin C] 1,000 mg PO DAILY 12/13/20 12/13/20 Glimepiride [Amaryl] 2 mg PO AC-BRKFST 12/13/20 12/13/20 L.acidoph,Paracasei, B.lactis 1 cap PO DAILY 12/13/20 12/13/20 [Probiotic] Pioglitazone [Actos] 15 mg PO DAILY 12/13/20 12/13/20 Repaglinide [Prandin] 1 mg PO AC-BRKFST 12/13/20 12/13/20 Valsartan [Diovan] 160 mg PO DAILY 12/13/20 12/13/20 Vitamin E (Dl,Tocopheryl Acet) 400 unit PO DAILY 12/13/20 12/13/20 [Vitamin E (400 Iu = 180 mg)] amLODIPine [Norvasc] 5 mg PO DAILY 12/13/20 12/13/20 Allergies Allergy/AdvReac Type Severity Reaction Status Date / Time adhesive AdvReac peels skin Verified 12/13/20 11:41 off Sulfa (Sulfonamide AdvReac Diarrhea Verified 12/13/20 11:41 Antibiotics) food preservatives Allergy Unknown Uncoded 12/13/20 11:41 Review of Systems ROS Statement: Those systems with pertinent positive or pertinent negative responses have been documented in the HPI. ROS Other: All systems not noted in ROS Statement are negative. Past Medical History Past Medical History: Diabetes Mellitus, Hyperlipidemia, Hypertension, Memory Impairment, Osteoarthritis (OA), Skin Disorder, Thyroid Disorder Additional Past Medical History / Comment(s): Seasonal allergies, psoriasis. 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 Past Anesthesia/Blood Transfusion Reactions: No Reported Reaction Additional Past Anesthesia/Blood Transfusion Reaction / Comment(s): Clausterphobia Past Psychological History: Anxiety Smoking Status: Never smoker Past Alcohol Use History: Occasional Past Drug Use History: None Reported - Past Family History Mother Family Medical History: No Reported History General Exam Limitations: no limitations Course Vital Signs 12/13/20 12/13/20 12/13/20 07:22 07:51 08:39 Temperature 98.7 F Pulse Rate 163 H 147 H Pulse Rate [ 158 H Outsole Compressor ] Respiratory 22 20 Rate Blood Pressure 114/79 117/73 O2 Sat by Pulse 96 98 Oximetry 12/13/20 12/13/20 09:01 10:07 Temperature Pulse Rate 150 H 133 H Pulse Rate [ Outsole Compressor ] Respiratory 20 20 Rate Blood Pressure 111/81 107/74 O2 Sat by Pulse 98 96 Oximetry EKG Findings - EKG Comments: EKG Findings:: EKG demonstrates A. fib with a rapid ventricular rate. Rate of 162. QRS 66. QTC of 436. PVC. No acute ST segment elevations or amount of ST depression likely rate dependent Medical Decision Making - Medical Decision Making Upon arrival patient was placed into room 1. A thorough history and physical exam was performed. IV is established and laboratory studies were conducted. Review the patient's labs demonstrate that her d-dimer is 2.29. Sodium 128. Glucose 336. Lactic acid 2.8. Acetone negative. Covid not detected. Chest x- ray demonstrates cardiomegaly with probable atelectasis. Hip and pelvic x-ray d emonstrates no acute fractures. CT of the head and cervical spine demonstrates age-related atrophic and chronic small vessel ischemic change. Chest CT demonstrates few scattered filling defects within the second and third order branches right pulmonary artery as well as left lower lobe. Cannot exclude pulmonary embolism. 12-lead EKG does demonstrate atrial fibrillation for which the patient does not have a history of. She is placed on a Cardizem drip and a heparin drip. I did recommend admission to the hospital for lactic acidosis, hyperglycemia, new onset A. fib which the patient did agree to. Spoke with Dr. Agudelo who agreed to admit the patient. Patient remained in stable condition and is awaiting bed - Lab Data Result diagrams: 12/13/20 07:51 12/13/20 07:51 Lab Results 12/13/20 12/13/20 12/13/20 Range/Units 07:29 07:51 07:51 WBC 7.7 (3.8-10.6) k/uL RBC 4.33 (3.80-5.40) m/uL Hgb 13.3 (11.4-16.0) gm/dL Hct 41.3 (34.0-46.0) % MCV 95.4 (80.0-100.0) fL MCH 30.7 (25.0-35.0) pg MCHC 32.2 (31.0-37.0) g/dL RDW 12.9 (11.5-15.5) % Plt Count 173 (150-450) k/uL MPV 8.2 Neutrophils % 93 % Lymphocytes % 3 % Monocytes % 3 % Eosinophils % 1 % Basophils % 0 % Neutrophils # 7.1 (1.3-7.7) k/uL Lymphocytes # 0.2 L (1.0-4.8) k/uL Monocytes # 0.2 (0-1.0) k/uL Eosinophils # 0.1 (0-0.7) k/uL Basophils # 0.0 (0-0.2) k/uL PT 10.0 (9.0-12.0) sec INR 0.9 (<1.2) APTT 19.5 L (22.0-30.0) sec D-Dimer 2.29 H (<0.60) mg/L FEU Sodium (137-145) mmol/L Potassium (3.5-5.1) mmol/L Chloride (98-107) mmol/L Carbon Dioxide (22-30) mmol/L Anion Gap mmol/L BUN (7-17) mg/dL Creatinine (0.52-1.04) mg/dL Est GFR (CKD-EPI)AfAm (>60 ml/min/1.73 sqM) Est GFR (CKD-EPI)NonAf (>60 ml/min/1.73 sqM) Glucose (74-99) mg/dL POC Glucose (mg/dL) 335 H (75-99) mg/dL POC Glu [employer] Driver ID Valerio, Cecilia Lactic Ac Sepsis Rflx Plasma Lactic Acid Nikita (0.7-2.0) mmol/L Calcium (8.4-10.2) mg/dL Magnesium (1.6-2.3) mg/dL Total Bilirubin (0.2-1.3) mg/dL AST (14-36) U/L ALT (4-34) U/L Alkaline Phosphatase (38-126) U/L Troponin I (0.000-0.034) ng/mL Total Protein (6.3-8.2) g/dL Albumin (3.5-5.0) g/dL TSH (0.465-4.680) mIU/L Urine Color Urine Appearance (Clear) Urine pH (5.0-8.0) Ur Specific Neeses (1.001-1.035) Urine Protein (Negative) Urine Glucose (UA) (Negative) Urine Ketones (Negative) Urine Blood (Negative) Urine Nitrite (Negative) Urine Bilirubin (Negative) Urine Urobilinogen (<2.0) mg/dL Ur Leukocyte Esterase (Negative) Urine RBC (0-5) /hpf Urine WBC (0-5) /hpf Ur Squamous Epith Cells (0-4) /hpf Hyaline Casts (0-2) /lpf Urine Mucus (None) /hpf Acetone, Qual (Negative) Coronavirus (PCR) (Not Detectd) 12/13/20 12/13/20 12/13/20 Range/Units 07:51 07:51 07:51 WBC (3.8-10.6) k/uL RBC (3.80-5.40) m/uL Hgb (11.4-16.0) gm/dL Hct (34.0-46.0) % MCV (80.0-100.0) fL MCH (25.0-35.0) pg MCHC (31.0-37.0) g/dL RDW (11.5-15.5) % Plt Count (150-450) k/uL MPV Neutrophils % % Lymphocytes % % Monocytes % % Eosinophils % % Basophils % % Neutrophils # (1.3-7.7) k/uL Lymphocytes # (1.0-4.8) k/uL Monocytes # (0-1.0) k/uL Eosinophils # (0-0.7) k/uL Basophils # (0-0.2) k/uL PT (9.0-12.0) sec INR (<1.2) APTT (22.0-30.0) sec D-Dimer (<0.60) mg/L FEU Sodium 128 L (137-145) mmol/L Potassium 4.2 (3.5-5.1) mmol/L Chloride 96 L (98-107) mmol/L Carbon Dioxide 22 (22-30) mmol/L Anion Gap 10 mmol/L BUN 33 H (7-17) mg/dL Creatinine 1.20 H (0.52-1.04) mg/dL Est GFR (CKD-EPI)AfAm 50 (>60 ml/min/1.73 sqM) Est GFR (CKD-EPI)NonAf 44 (>60 ml/min/1.73 sqM) Glucose 336 H (74-99) mg/dL POC Glucose (mg/dL) (75-99) mg/dL POC Glu [employer] Driver ID Lactic Ac Sepsis Rflx Plasma Lactic Acid Nikita 2.8 H* (0.7-2.0) mmol/L Calcium 9.4 (8.4-10.2) mg/dL Magnesium 1.6 (1.6-2.3) mg/dL Total Bilirubin 0.8 (0.2-1.3) mg/dL AST 34 (14-36) U/L ALT 30 (4-34) U/L Alkaline Phosphatase 76 (38-126) U/L Troponin I (0.000-0.034) ng/mL Total Protein 6.1 L (6.3-8.2) g/dL Albumin 3.4 L (3.5-5.0) g/dL TSH 0.793 (0.465-4.680) mIU/L Urine Color Yellow Urine Appearance Clear (Clear) Urine pH 5.5 (5.0-8.0) Ur Specific Neeses 1.015 (1.001-1.035) Urine Protein 2+ H (Negative) Urine Glucose (UA) 4+ H (Negative) Urine Ketones 1+ H (Negative) Urine Blood Negative (Negative) Urine Nitrite Negative (Negative) Urine Bilirubin Negative (Negative) Urine Urobilinogen <2.0 (<2.0) mg/dL Ur Leukocyte Esterase Negative (Negative) Urine RBC 2 (0-5) /hpf Urine WBC 2 (0-5) /hpf Ur Squamous Epith Cells <1 (0-4) /hpf Hyaline Casts 1 (0-2) /lpf Urine Mucus Rare H (None) /hpf Acetone, Qual Negative (Negative) Coronavirus (PCR) (Not Detectd) 12/13/20 12/13/20 12/13/20 Range/Units 07:51 07:51 08:12 WBC (3.8-10.6) k/uL RBC (3.80-5.40) m/uL Hgb (11.4-16.0) gm/dL Hct (34.0-46.0) % MCV (80.0-100.0) fL MCH (25.0-35.0) pg MCHC (31.0-37.0) g/dL RDW (11.5-15.5) % Plt Count (150-450) k/uL MPV Neutrophils % % Lymphocytes % % Monocytes % % Eosinophils % % Basophils % % Neutrophils # (1.3-7.7) k/uL Lymphocytes # (1.0-4.8) k/uL Monocytes # (0-1.0) k/uL Eosinophils # (0-0.7) k/uL Basophils # (0-0.2) k/uL PT (9.0-12.0) sec INR (<1.2) APTT (22.0-30.0) sec D-Dimer (<0.60) mg/L FEU Sodium (137-145) mmol/L Potassium (3.5-5.1) mmol/L Chloride (98-107) mmol/L Carbon Dioxide (22-30) mmol/L Anion Gap mmol/L BUN (7-17) mg/dL Creatinine (0.52-1.04) mg/dL Est GFR (CKD-EPI)AfAm (>60 ml/min/1.73 sqM) Est GFR (CKD-EPI)NonAf (>60 ml/min/1.73 sqM) Glucose (74-99) mg/dL POC Glucose (mg/dL) (75-99) mg/dL POC Glu [employer] Driver ID Lactic Ac Sepsis Rflx Y Plasma Lactic Acid Nikita (0.7-2.0) mmol/L Calcium (8.4-10.2) mg/dL Magnesium (1.6-2.3) mg/dL Total Bilirubin (0.2-1.3) mg/dL AST (14-36) U/L ALT (4-34) U/L Alkaline Phosphatase (38-126) U/L Troponin I <0.012 (0.000-0.034) ng/mL Total Protein (6.3-8.2) g/dL Albumin (3.5-5.0) g/dL TSH (0.465-4.680) mIU/L Urine Color Urine Appearance (Clear) Urine pH (5.0-8.0) Ur Specific Neeses (1.001-1.035) Urine Protein (Negative) Urine Glucose (UA) (Negative) Urine Ketones (Negative) Urine Blood (Negative) Urine Nitrite (Negative) Urine Bilirubin (Negative) Urine Urobilinogen (<2.0) mg/dL Ur Leukocyte Esterase (Negative) Urine RBC (0-5) /hpf Urine WBC (0-5) /hpf Ur Squamous Epith Cells (0-4) /hpf Hyaline Casts (0-2) /lpf Urine Mucus (None) /hpf Acetone, Qual (Negative) Coronavirus (PCR) Not Detected (Not Detectd) 12/13/20 12/13/20 Range/Units 10:45 10:45 WBC (3.8-10.6) k/uL RBC (3.80-5.40) m/uL Hgb (11.4-16.0) gm/dL Hct (34.0-46.0) % MCV (80.0-100.0) fL MCH (25.0-35.0) pg MCHC (31.0-37.0) g/dL RDW (11.5-15.5) % Plt Count (150-450) k/uL MPV Neutrophils % % Lymphocytes % % Monocytes % % Eosinophils % % Basophils % % Neutrophils # (1.3-7.7) k/uL Lymphocytes # (1.0-4.8) k/uL Monocytes # (0-1.0) k/uL Eosinophils # (0-0.7) k/uL Basophils # (0-0.2) k/uL PT (9.0-12.0) sec INR (<1.2) APTT 23.9 (22.0-30.0) sec D-Dimer (<0.60) mg/L FEU Sodium (137-145) mmol/L Potassium (3.5-5.1) mmol/L Chloride (98-107) mmol/L Carbon Dioxide (22-30) mmol/L Anion Gap mmol/L BUN (7-17) mg/dL Creatinine (0.52-1.04) mg/dL Est GFR (CKD-EPI)AfAm (>60 ml/min/1.73 sqM) Est GFR (CKD-EPI)NonAf (>60 ml/min/1.73 sqM) Glucose (74-99) mg/dL POC Glucose (mg/dL) (75-99) mg/dL POC Glu [employer] Driver ID Lactic Ac Sepsis Rflx Plasma Lactic Acid Nikita 1.4 (0.7-2.0) mmol/L Calcium (8.4-10.2) mg/dL Magnesium (1.6-2.3) mg/dL Total Bilirubin (0.2-1.3) mg/dL AST (14-36) U/L ALT (4-34) U/L Alkaline Phosphatase (38-126) U/L Troponin I (0.000-0.034) ng/mL Total Protein (6.3-8.2) g/dL Albumin (3.5-5.0) g/dL TSH (0.465-4.680) mIU/L Urine Color Urine Appearance (Clear) Urine pH (5.0-8.0) Ur Specific Neeses (1.001-1.035) Urine Protein (Negative) Urine Glucose (UA) (Negative) Urine Ketones (Negative) Urine Blood (Negative) Urine Nitrite (Negative) Urine Bilirubin (Negative) Urine Urobilinogen (<2.0) mg/dL Ur Leukocyte Esterase (Negative) Urine RBC (0-5) /hpf Urine WBC (0-5) /hpf Ur Squamous Epith Cells (0-4) /hpf Hyaline Casts (0-2) /lpf Urine Mucus (None) /hpf Acetone, Qual (Negative) Coronavirus (PCR) (Not Detectd) Disposition Clinical Impression: New onset a-fib, Pulmonary embolism, Lactic acidosis Disposition: ADMITTED IP TO THIS [facility] Condition: Serious Is patient prescribed a controlled substance at d/c from ED?: No Decision to Admit Reason: Admit from [facility] Decision Date: 12/13/20 Decision Time: 11:14
--- NOTE | 2020-12-13 09:00 | XR ---
EXAMINATION TYPE: XR Hip LT and AP Pelvis DATE OF EXAM: 12/13/2020 COMPARISON: None HISTORY: Trauma, left hip pain TECHNIQUE: AP view of the pelvis is obtained. Two views of the left hip are obtained, total 4 images. FINDINGS: There is no acute fracture/dislocation evident in the pelvis. The hip and sacroiliac join ts appear symmetric and unremarkable. The overlying soft tissue appears unremarkable. Two views of left hip show no acute fracture or dislocation. No focal lytic or sclerotic lesion seen in the proximal left femur. The overlying soft tissue is unremarkable. Osteoarthritic changes are present within the hips right greater than left. Degenerative disc changes are present in the visuali zed spine. There are vascular calcifications within the pelvis. Bone mineralization is reduced. IMPRESSION: There is no acute fracture or dislocation in the pelvis or left hip.
--- NOTE | 2020-12-13 10:01 | CT ---
EXAMINATION TYPE: CT brain [facility] woodson DATE OF EXAM: 12/13/2020 COMPARISON: 12/07/2009 HISTORY: Recent fall, AMS CT DLP: 1437.[address] of the brain was performed. The ventricles, basal cisterns and sulci overlying the cerebral convexities demonstrate mild enlargem ent. There is no evidence for intracranial hemorrhage or sulcal effacement. There is decreased attenuatio n about the periventricular white matter and deep white matter of both cerebral hemispheres, compatib le with chronic small vessel ischemia. No mass effects are seen. If symptoms persist consider MRI. Osseous calvarium is intact. IMPRESSION: 1. Age related atrophic and chronic small vessel ischemic change without acute intracranial process seen at this time. CT Cervical Spine: Unenhanced CT of the cervical spine was performed with bone and soft tissue window settings submitted . Coronal and sagittal reconstruction is obtained. There is normal alignment and prevertebral soft tissues. No evidence for acute cervical fracture . Scattered degenerative disc disease and spondylosis. Biapical scarring. IMPRESSION: 1. No evidence for acute fracture or subluxation of the cervical spine.
--- NOTE | 2020-12-13 10:08 | CT ---
EXAMINATION TYPE: CT chest angio for PE DATE OF EXAM: 12/13/2020 COMPARISON: None HISTORY: Weakness, elevated d dimer, hypoxia, tachycardia CT DLP: 554.4 mGycm CONTRAST: CT chest with contrast and 3D reconstruction with MIP imaging is performed with IV Contrast, patient injected with 70 mL of Isovue 370. Contrast-enhanced CT of the chest was performed through the course of the pulmonary arteries with nehemiah g and mediastinal window settings submitted. 3D reconstruction with MIP imaging was also performed. PULMONARY ARTERIES: There are few scattered filling defects within the second and third order branche s right pulmonary arterial tree as well as the left lower lobe. I cannot exclude pulmonary embolism. No evidence for large central embolus. LUNGS: The lungs are clear and free of infiltrate. No evidence for atelectasis. No pulmonary nodule or mass is detected. No pleural effusion. MEDIASTINUM: Thoracic aorta is of normal caliber,however, evaluation is limited given timing of the contrast bolus. If there is concern for thoracic aortic pathology consider JESSE. Correlate clinicall y . The heart is not enlarged. No evidence for mediastinal mass. No mediastinal lymph nodes greater than 1cm. HILAR STRUCTURES: No evidence for mass. No hilar lymph nodes greater than 1 cm. UPPER ABDOMEN: No significant abnormality is seen. IMPRESSION: 1. There are few scattered filling defects within the second and third order branches right pulmonar y arterial tree as well as the left lower lobe. I cannot exclude pulmonary embolism.
[2020-12-13] MEDS ORDERED: HEPARIN SODIUM 1,000 UN/ML (10ML VL) IV PRN (10:21)
[2020-12-13] MEDS ORDERED: HEPARIN SODIUM 1,000 UN/ML (10ML VL) IV ONE (10:21)
[2020-12-13] MEDS ORDERED: NALOXONE 0.4 MG/ML 1 ML VIAL IV PRN (11:15)
[2020-12-13] MEDS: HEPARIN SOD,PORK IN 0.45% NACL 25,000 UNIT in 0.45% NACL 1 250ML.BAG IV SCH (11:19)
--- NOTE | 2020-12-13 14:05 | CONS ---
CONSULTATION Ms. Schwarz is a 80-year-old female with known history of hypertension, history of diabetes mellitus, history of hyperlipidemia, who presented to the hospital with change in mental status, feeling weak. Apparently she fell on Friday in the bathroom but did not have a syncopal episode. Subsequently she felt somewhat confused and eventually her symptoms resolved, but she felt the same way this morning and came into the emergency room. Patient was noted to be in atrial fibrillation in the emergency room, but she is unaware of the arrhythmia in the past, has not been told that she has atrial fibrillation. She is limited in her physical activity, has fatigue and some dyspnea. She has been under an increased amount of stress over the last few months. She denies any history of PND or orthopnea. No significant peripheral edema. No chest discomfort, and she is not aware of the arrhythmia. Her coronary risk factors are noted for hypertension, hyperlipidemia and diabetes. She is a nonsmoker. MEDICATIONS: Her medications at home included vitamin D, Prandin, Actos, Diovan 160 mg daily, amlodipine 5 mg daily, Amaryl 2 mg daily, metformin 1 gram twice a day, magnesium, folic acid, aspirin and levothyroxine. She stopped her simvastatin recently. REVIEW OF SYSTEMS: RESPIRATORY SYSTEM: She had the dyspnea. No recent wheezing or cough. GI SYSTEM: No recent GI bleeding. No peptic ulcer disease. SYSTEM: No dysuria or hematuria. NERVOUS SYSTEM: No stroke or seizure. PHYSICAL EXAMINATION: She is a 80-year-old female, alert, oriented, in no apparent distress. Blood pressure running in the 110s with a heart rate in the 130s to 160s. Afebrile. HEAD: Normocephalic. EYES: Sclerae anicteric. NECK: Good carotid upstroke. No bruit. No jugular venous distention. LUNGS: Clear to auscultation. HEART: Irregularly irregular. S1, S2. No S3, with systolic murmur heard at the base. No diastolic murmur. No rub. ABDOMEN: Soft, nontender. Positive bowel sounds. No organomegaly. EXTREMITIES: No edema. Intact distal pulses. Varicosities noted. LAB DATA: Hemoglobin 13.3, white blood cells 7.7, platelet count 173. D-dimer 2.29. Sodium 128. BUN and creatinine 32 and 1.2. Plasma lactic acid, venous, 2.8 down to 1.4. Her blood sugar was 336. Troponin less than 0.012. EKG revealed atrial fibrillation with rapid ventricular response and nonspecific ST-T wave changes. Chest CT angiogram revealed a few scattered filling defects in the second and third order branch of the right pulmonary artery. Possibility of a pulmonary embolism cannot be excluded. Head CT revealed no evidence of fracture. Pelvis CT showed no fracture. Chest x-ray shows probable atelectasis. IMPRESSION: 1. Change in mental status; could be related to hypoxemia or atrial fibrillation with rapid ventricular response. 2. Atrial fibrillation of new onset, not documented in the past. 3. History of hypertension. 4. Hyperlipidemia. 5. Diabetes mellitus. 6. Possible pulmonary embolism, although it appears to be in a small branch. Patient is not hypoxemic at this time. 7. Falls but no syncope. 8. Renal insufficiency with abnormal renal function tests, new. Reviewing the lab data from 11/30, the creatinine was 1.1. RECOMMENDATIONS: I will add to her regimen a beta ramez. Will continue on the intravenous anticoagulation at this time. I will restart the statin. I will obtain echocardiogram with Doppler to evaluate her status. Patient will need to be chronically anticoagulated in view of her CHADS VASC score. Will check her serial enzymes and depending on her progress, further recommendations will be made. Those findings and recommendations were discussed with the patient and her daughter, and they are in full understanding and agreement. Thank you for this consult. Will follow with you. RICKI / JUANCHO: [id number] /
[2020-12-13] MEDS: SODIUM CHLORIDE 0.9% 1,000 ML IV SCH ×2 (15:00→16:44)
[2020-12-13] MEDS: ATORVASTATIN 40 MG TAB PO SCH (15:00)
[2020-12-13] MEDS: METOPROLOL TARTRATE 25 MG TAB PO SCH ×2 (15:00→16:45)
[2020-12-13 16:42] LABS: Glucose,Whole Blood 341 mg/dL (75-99)
[2020-12-13] MEDS: INSULIN ASPART (NovoLOG) 100 UNIT/ML VIAL SQ SCH ×2 (17:44→20:49)
[2020-12-13] MEDS: ACETAMINOPHEN TAB 325 MG TAB PO PRN (18:45)
[2020-12-13 20:00] LABS: Glucose,Whole Blood 306 mg/dL (75-99)
[2020-12-13] MEDS ORDERED: NON FORMULARY DRUG (Simvastatin [Zocor] 20 MG Tablet) PO SCH (21:00)
[2020-12-13] MEDS ORDERED: INSULIN DETEMIR (LEVEMIR) 100 UNIT/ML SYR SQ SCH (21:00)
--- NOTE | 2020-12-13 21:40 | US ---
EXAMINATION TYPE: US venous doppler duplex LE DATE OF EXAM: 12/13/2020 9:02 PM COMPARISON: [facility] US 2011 CLINICAL HISTORY: R/O DVT, bilateral calf pain, recent fall. Bilateral calf pain, recent fall. No hx of DVT. Patient is on heparin. SIDE PERFORMED: Bilateral TECHNIQUE: The lower extremity deep venous system is examined utilizing real time linear array sonog stevie with graded compression, doppler sonography and color-flow sonography. VESSELS IMAGED: Common Femoral Vein Deep Femoral Vein Greater Saphenous Vein * Femoral Vein Popliteal Vein Small Saphenous Vein * Proximal Calf Veins (* superficial vessels) Right Leg: No evidence of DVT in veins imaged at this time. Left Leg: No evidence of DVT in veins imaged at this time. IMPRESSION: No evidence of deep vein thrombosis in both legs.
[2020-12-13 21:57] LABS: Chol/HDL Ratio 5.48 Ratio; HDL Cholesterol 37.8 mg/dL (40.00-60.00); VLDL Calculation 24.2 mg/dL (5.00-40.00)
--- NOTE | 2020-12-13 22:40 | P.HPIM ---
History of Present Illness H&P Date: 12/13/20 Chief Complaint: Altered mental status Patient is a 80-year-old female with a known history of hypertension, hyperlipidemia diabetes type 2 [id number], osteoarthritis, memory impairment, hypothyroidism and previous history of fall in October 2020 and anxiety presents to ER due to altered mental status,, generalized weakness and fall. Patient had similar symptoms couple days ago and felt very weak in the legs bilaterally, shaky and fell in the toilet. Patient states that she had aching feeling in the right calf region. Denied any loss of consciousness. Denies any head injury. Patient had similar episodes again today and was brought to ER for evaluation. Patient's boyfriend called EMS. EKG performed by EMS showed A. fib with RVR with heart rate went up to 200. Patient otherwise denied any complaints of dizziness or lightheadedness. No palpitations. No leg swelling. Patient has been afebrile. Denied complaints of dysuria or hematuria. No n ausea vomiting or abdominal pain or diarrhea. Patient was recently treated for urinary tract infection. Patient was hypoxic with oxygen saturation 88% on room air at home. No prior history of DVT/PE. Chest x-ray showed cardiomegaly. Probable atelectasis. Hip pain pelvic x-ray showed no acute fracture or dislocation in the pelvis or left hip. CT head and cervical spine showed is related atrophic and chronic small vessel ischemic changes without acute intracranial process. CT cervical spine showed unenhanced CT of the cervical spine was performed with bone and soft tissue window settings submitted. No acute evidence for acute fracture or subluxation the cervical spine. Patient was found to elevated D-dimer level 2.29. CT angiogram of the chest showed few scattered filling defects within the second and third order branches right pulmonary arterial tree as well as left lower lobe. Cannot exclude PE EKG showed atrial fibrillation with rapid ventricular rate. Review of Systems Constitutional: Patient denies any fever or chills . generalized weakness . no w eight loss. Abdomen: Patient denied nausea vomiting and diarrhea and abdominal pain. Cardiovascular: Patient denies any chest pain or short of breath no palpitations. Respiratory: patient denied any cough or sputum production. No shortness of breath Neurologic: Patient denied any numbness or tingling headache. Musculoskeletal: Patient denies any complaints of joint swelling or deformity. Skin: Negative Psychiatric: Negative Endocrine: No heat or cold intolerance. No recent weight gain. Genitourinary: No dysuria or hematuria. All other 14 point ROS negative except the above Past Medical History Past Medical History: Diabetes Mellitus, Hyperlipidemia, Hypertension, Memory Impairment, Osteoarthritis (OA), Skin Disorder, Thyroid Disorder Additional Past Medical History / Comment(s): Seasonal allergies, psoriasis. 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 Past Anesthesia/Blood Transfusion Reactions: No Reported Reaction Additional Past Anesthesia/Blood Transfusion Reaction / Comment(s): Clausterphobia Past Psychological History: Anxiety Smoking Status: Never smoker Past Alcohol Use History: Occasional Past Drug Use History: None Reported - Past Family History Mother Family Medical History: No Reported History Medications and Allergies Home Medications Medication Instructions Recorded Confirmed Type Aspirin 81 mg PO DAILY 12/31/13 12/13/20 History Levothyroxine Sodium [Synthroid] 37.5 mcg PO QAM 12/31/13 12/13/20 History Simvastatin [Zocor] 20 mg PO HS 12/31/13 12/13/20 History metFORMIN HCL [Glucophage] 1,000 mg PO BID 03/26/17 12/13/20 History Folic Acid 0.4 mg PO DAILY 03/26/18 12/13/20 History Magnesium Oxide 400 mg PO DAILY 03/26/18 12/13/20 History Ascorbic Acid [Vitamin C] 1,000 mg PO DAILY 12/13/20 12/13/20 History Glimepiride [Amaryl] 2 mg PO AC-BRKFST 12/13/20 12/13/20 History Insulin Glargine,Hum.rec.anlog 10 unit SQ HS 12/13/20 12/13/20 History [Lantus Solostar Pen] L.acidoph,Paracasei, B.lactis 1 cap PO DAILY 12/13/20 12/13/20 History [Probiotic] Pioglitazone [Actos] 15 mg PO DAILY 12/13/20 12/13/20 History Repaglinide [Prandin] 1 mg PO AC-BRKFST 12/13/20 12/13/20 History Valsartan [Diovan] 160 mg PO DAILY 12/13/20 12/13/20 History Vitamin E (Dl,Tocopheryl Acet) 400 unit PO DAILY 12/13/20 12/13/20 History [Vitamin E (400 Iu = 180 mg)] amLODIPine [Norvasc] 5 mg PO DAILY 12/13/20 12/13/20 History Allergies Allergy/AdvReac Type Severity Reaction Status Date / Time adhesive AdvReac peels skin Verified 12/13/20 11:41 off Sulfa (Sulfonamide AdvReac Diarrhea Verified 12/13/20 11:41 Antibiotics) food preservatives Allergy Unknown Uncoded 12/13/20 11:41 Physical Exam Vitals: Vital Signs Temp Pulse Pulse Resp BP Pulse Ox 12/13/20 10:07 133 H 20 107/74 96 12/13/20 09:01 150 H 20 111/81 98 12/13/20 08:39 147 H 20 117/73 98 12/13/20 07:51 158 H 12/13/20 07:22 98.7 F 163 H 22 114/79 96 Intake and Output 12/12/20 12/13/20 12/13/20 22:59 06:59 14:59 Intake Total 7.917 Balance 7.917 Intake: Intake, IV Titration 7.917 Amount Diltiazem 125 mg In 7.917 Sodium Chloride 0.9% 100 ml @ 5 MG/HR 5 mls/hr IV .Q24H [facility] Rx#:[id number] Other: Weight 90.718 kg PHYSICAL EXAMINATION: Patient is lying in the bed comfortably, no acute distress, awake alert and oriented.. HEENT: Normocephalic. Neck is supple. Pupils reactive. Nostrils clear. Oral cavity is moist. Neck reveals no JVD, carotid bruits, or thyromegaly. CHEST EXAMINATION: Trachea is central. Symmetrical expansion. Lung hilton clear to auscultation and percussion. CARDIAC: Normal S1, S2 with no gallops. No murmurs , irregular rhythm ABDOMEN: Soft. Bowel sounds normal. No organomegaly. No abdominal bruits. Extremities: reveal no edema. No clubbing or cyanosis Neurologically awake, alert, oriented x2 with well-coordinated movements. No focal deficits noted Skin: No rash or skin lesions. Psychiatric: Cooperative. Musculoskeletal: No joint swelling or deformity. Normal range of motion. Results CBC & Chem 7: 12/13/20 07:51 12/13/20 07:51 Labs: Abnormal Lab Results - Last 24 Hours (Table) 12/13/20 12/13/20 12/13/20 Range/Units 07:29 07:51 07:51 Lymphocytes # 0.2 L (1.0-4.8) k/uL APTT 19.5 L (22.0-30.0) sec D-Dimer 2.29 H (<0.60) mg/L FEU Sodium (137-145) mmol/L Chloride (98-107) mmol/L BUN (7-17) mg/dL Creatinine (0.52-1.04) mg/dL Glucose (74-99) mg/dL POC Glucose (mg/dL) 335 H (75-99) mg/dL Plasma Lactic Acid Nikita (0.7-2.0) mmol/L Total Protein (6.3-8.2) g/dL Albumin (3.5-5.0) g/dL Urine Protein (Negative) Urine Glucose (UA) (Negative) Urine Ketones (Negative) Urine Mucus (None) /hpf 12/13/20 12/13/20 12/13/20 Range/Units 07:51 07:51 07:51 Lymphocytes # (1.0-4.8) k/uL APTT (22.0-30.0) sec D-Dimer (<0.60) mg/L FEU Sodium 128 L (137-145) mmol/L Chloride 96 L (98-107) mmol/L BUN 33 H (7-17) mg/dL Creatinine 1.20 H (0.52-1.04) mg/dL Glucose 336 H (74-99) mg/dL POC Glucose (mg/dL) (75-99) mg/dL Plasma Lactic Acid Nikita 2.8 H* (0.7-2.0) mmol/L Total Protein 6.1 L (6.3-8.2) g/dL Albumin 3.4 L (3.5-5.0) g/dL Urine Protein 2+ H (Negative) Urine Glucose (UA) 4+ H (Negative) Urine Ketones 1+ H (Negative) Urine Mucus Rare H (None) /hpf Assessment and Plan Assessment: Altered mental status possible metabolic encephalopathy and hypoxia on admission. New onset atrial fibrillation with rapid regular rate Possible acute pulmonary embolism with hypoxia on admission and small filling defects in the CTA chest. Hypovolemic hyponatremia/ Pseudohyponatremia Acute kidney injury likely prerenal Hyperglycemia with uncontrolled diabetes type 2 memory impairment Hyperlipidemia Hypothyroidism Anxiety DVT prophylaxis already on full anticoagulation Plan: Patient will be continued on Cardizem drip and heparin drip and continue with gentle IV hydration. Monitor renal function closely and sodium level. Patient will be started on insulin sliding scale and hold hypoglycemics at this time and titrate dose as needed. A1c level will be ordered. Continue with home medications including statins. Follow-up closely. Time with Patient: Greater than 30
[2020-12-14] MEDS: METOPROLOL TARTRATE 25 MG TAB PO SCH ×2 (00:08→09:58)
[2020-12-14] MEDS: HEPARIN SOD,PORK IN 0.45% NACL 25,000 UNIT in 0.45% NACL 1 250ML.BAG IV SCH (03:49)
[2020-12-14] MEDS: SODIUM CHLORIDE 0.9% 1,000 ML IV SCH (03:50)
[2020-12-14 05:55] LABS: Basophils % (A) 1 %; Eosinophils # (A) 0.4 k/uL (0-0.7); Eosinophils % (A) 6 %; HCT 36.3 % (34.0-46.0); HGB 12.1 gm/dL (11.4-16.0); Lymphocytes # (A) 1.4 k/uL (1.0-4.8); Lymphocytes % (A) 21 %; MCH 31.9 pg (25.0-35.0); MCHC 33.3 g/dL (31.0-37.0); MCV 95.7 fL (80.0-100.0); Mean Platelet Volume 8.5; Monocytes # (A) 0.3 k/uL (0-1.0); Monocytes % (A) 4 %; Neutrophils # (A) 4.3 k/uL (1.3-7.7); Neutrophils % (A) 66 %; Platelet Count 210 k/uL (150-450); WBC 6.6 k/uL (3.8-10.6)
[2020-12-14 06:18] LABS: Potassium 3.2 mmol/L (3.5-5.1)
[2020-12-14 06:30] LABS: Magnesium 2.4 mg/dL (1.6-2.3)
[2020-12-14] MEDS ORDERED: Potassium Replacement Protocol 1 EACH MISC MISCELLANE PRN (06:38)
[2020-12-14 06:40] LABS: Glucose,Whole Blood 138 mg/dL (75-99)
[2020-12-14] MEDS: INSULIN ASPART (NovoLOG) 100 UNIT/ML VIAL SQ SCH ×4 (06:47→21:09)
[2020-12-14] MEDS: POTASSIUM CHLORIDE ER 20 MEQ TAB.ER PO SCH ×2 (06:47→09:58)
[2020-12-14] MEDS: ACETAMINOPHEN TAB 325 MG TAB PO PRN (07:09)
[2020-12-14] MEDS: ATORVASTATIN 40 MG TAB PO SCH (09:57)
[2020-12-14] MEDS: LEVOTHYROXINE 75 MCG TAB PO SCH (09:57)
[2020-12-14] MEDS: LACTOBACILLUS ACIDOPH & BULGAR 1 EACH PACKET PO SCH (09:57)
[2020-12-14] MEDS: ASCORBIC ACID 500 MG TAB PO SCH (09:58)
[2020-12-14] MEDS: VITAMIN E (DL,TOCOPHERYL ACET) 400 UNIT (180 MG) CAP PO SCH (09:58)
[2020-12-14] MEDS: FOLIC ACID 1 MG TAB PO SCH (09:58)
[2020-12-14] MEDS: ASPIRIN 81 MG PO SCH (09:58)
[2020-12-14] MEDS: MAGNESIUM OXIDE 400 MG TAB PO SCH (09:59)
--- NOTE | 2020-12-14 10:45 | ECHOF ---
Referral Reason:afib MEASUREMENTS -------- HEIGHT: 172.7 cm WEIGHT: 90.7 kg BP: 107/74 RVIDd: 2.9 cm (< 3.3) IVSd: 1.3 cm (0.6 - 1.1) LVIDd: 4.8 cm (3.9 - 5.3) LVPWd: 1.3 cm (0.6 - 1.1) IVSs: 1.8 cm LVIDs: 3.4 cm LVPWs: 2.0 cm LA Diam: 4.1 cm (2.7 - 3.8) LAESV Index (A-L): 30.38 ml/m Ao Diam: 3.1 cm (2.0 - 3.7) AV Cusp: 1.9 cm (1.5 - 2.6) RAP: 15.00 mmHg RVSP: 46.80 mmHg FINDINGS -------- Atrial fibrillation. This was a technically adequate study. The left ventricular size is normal. There is mild concentric left ventricular hypertrophy. Overa ll left ventricular systolic function is mild-moderately impaired with, an EF between 40 - 45 %. The right ventricle is normal in size. LA is midly dilated 29-33ml/m2. The right atrium is normal in size. Interatrial and interventricular septum intact. Trace to mild aortic regurgitation. The mitral valve leaflets are mildly thickened. Mild mitral annular calcification present. Mild tricuspid regurgitation present. There is mild to moderate pulmonary hypertension. The right ventricular systolic pressure, as measured by Doppler, is 46.80mmHg. Trace/mild (physiologic) pulmonic regurgitation. The aortic root size is normal. The inferior vena cava is dilated with poor inspiratory collapse which is consistent with estimated r ight atrial pressure of 15 mmHg. There is no pericardial effusion. CONCLUSIONS -------- 1. The left ventricular size is normal. 2. There is mild concentric left ventricular hypertrophy. 3. Overall left ventricular systolic function is mild-moderately impaired with, an EF between 40 - 45 %. 4. LA is midly dilated 29-33ml/m2. 5. Trace to mild aortic regurgitation. 6. The mitral valve leaflets are mildly thickened. 7. Mild mitral annular calcification present. 8. Mild tricuspid regurgitation present. 9. There is mild to moderate pulmonary hypertension. 10. The right ventricular systolic pressure, as measured by Doppler, is 46.80mmHg. 11. Trace/mild (physiologic) pulmonic regurgitation. 12. The inferior vena cava is dilated with poor inspiratory collapse which is consistent with estimat ed right atrial pressure of 15 mmHg. 13. There is no pericardial effusion. SURGICAL NURSE PRACTITIONER: Tressa Navarro RDCS
[2020-12-14 11:38] LABS: Glucose,Whole Blood 308 mg/dL (75-99)
[2020-12-14] MEDS: APIXABAN 5 MG TAB PO SCH ×2 (12:16→21:09)
[2020-12-14] MEDS: DILTIAZEM ORAL 30 MG TAB PO SCH ×3 (12:16→21:12)
--- NOTE | 2020-12-14 13:50 | P.PN ---
Subjective This is a 80-year-old female with a past medical history of hypertension, diabetes, hyperlipidemia. Patient presented to the hospital with change of mental status and feeling of weakness. In the emergency room patient was found to be in atrial fibrillation with rapid ventricular response. Cardiology was consulted. Echocardiogram revealed EF of 4045 percent, mild to moderate pulmonary hypertension. CTA revealed few scattered filling defects in the second and third order branch of right pulmonary artery. Possibility of pulmonary embolism cannot be excluded. Patient seen and examined at bedside, she endorses a cough and shortness of breath. She denies any chest pain, palpitations, lightheadedness, dizziness. Telemetry reviewed patient in atrial fibrillation with uncontrolled ventricular rates. She is currently maintained on IV heparin, aspirin 81 mg daily, atorvastatin 40 mg daily, IV Cardizem 10mg/hr, metoprolol titrate 25 mg twice a day. Labs reviewed, sodium 131, potassium 3.2, BUN 37, serum creatinine 1.1, TSH within normal limits. GENERAL: Well-appearing, well-nourished and in no acute distress. NECK: Supple without JVD or thyromegaly. LUNGS: Breath sounds diminished to auscultation bilaterally. Respiration equal and unlabored. No wheezes, rales or rhonchi. HEART: Irregular rate and rhythm without murmurs, rubs or gallops. S1 and S2 heard. EXTREMITIES: Normal range of motion, no edema. No clubbing or cyanosis. Peripheral pulses intact. ASSESSMENT Change in mental status, improved, could be related to hypoxemia or atrial fibrillation with RVR New onset paroxysmal atrial fibrillation, CHADSVASC score 5 History of hypertension Hyperlipidemia Type 2 diabetes Possible pulmonary embolism Fall but no syncope Acute kidney injury PLAN Stop IV Cardizem Start Cardizem 30mg TID Increase metoprolol tartrate to 50mg BID Start Lasix 20mg BID Start Eliquis 5mg BID, stop IV heparin Consult case managment for Eliquis coverage Continue statin Continue cardiac telemetry Further recommendations based on clinical course Nurse Practitioner note has been reviewed, I agree with a documented findings and plan of care. Patient was seen and examined. Objective - Vital Signs Vital signs: Vital Signs Temp 97.2 F L 12/14/20 12:00 Pulse 98 12/14/20 12:00 Resp 18 12/14/20 12:00 BP 101/62 12/14/20 12:00 Pulse Ox 94 L 12/14/20 12:00 Intake & Output 12/13/20 12/14/20 12/14/20 18:59 06:59 18:59 Intake Total 74.084 270 792.797 Output Total 400 600 Balance -325.916 -330 792.797 Weight 93.3 kg 92.1 kg Intake: IV 20 Invasive Line 1 10 Invasive Line 2 10 Intake, IV Titration 74.084 250 52.797 Amount Diltiazem 125 mg In 74.084 Sodium Chloride 0.9% 100 ml @ 5 MG/HR 5 mls/hr IV .Q24H [facility] Rx#:[id number] Heparin Sod,Pork in 0.45% 250 52.797 NaCl 25,000 unit In 0.45 % NaCl 1 250ml.bag @ 18 UNITS/KG/HR 16.329 mls/hr IV .[id number] [facility] Rx#: [id number] Oral 740 Output: Urine 400 600 Uretheral (Gomez) 400 Other: Voiding Method Bedside Commode # Voids 0 1 - Labs CBC & Chem 7: 12/14/20 05:18 12/14/20 05:18 Labs: Abnormal Lab Results - Last 24 Hours (Table) 12/13/20 12/13/20 12/13/20 Range/Units 13:21 16:37 16:38 APTT 56.4 H (22.0-30.0) sec Sodium (137-145) mmol/L Potassium (3.5-5.1) mmol/L BUN (7-17) mg/dL Creatinine (0.52-1.04) mg/dL Glucose (74-99) mg/dL POC Glucose (mg/dL) 341 H (75-99) mg/dL Magnesium (1.6-2.3) mg/dL Cholesterol 207.00 H (0.00-200.00) mg/dL LDL Cholesterol, Calc 145.0 H (0.0-131.0) mg/dL HDL Cholesterol 37.80 L (40.00-60.00) mg/dL 12/13/20 12/14/20 12/14/20 Range/Units 19:59 05:18 05:18 APTT 86.3 H (22.0-30.0) sec Sodium 131 L (137-145) mmol/L Potassium 3.2 L (3.5-5.1) mmol/L BUN 37 H (7-17) mg/dL Creatinine 1.16 H (0.52-1.04) mg/dL Glucose 133 H (74-99) mg/dL POC Glucose (mg/dL) 306 H (75-99) mg/dL Magnesium 2.4 H (1.6-2.3) mg/dL Cholesterol (0.00-200.00) mg/dL LDL Cholesterol, Calc (0.0-131.0) mg/dL HDL Cholesterol (40.00-60.00) mg/dL 12/14/20 12/14/20 Range/Units 06:34 11:35 APTT (22.0-30.0) sec Sodium (137-145) mmol/L Potassium (3.5-5.1) mmol/L BUN (7-17) mg/dL Creatinine (0.52-1.04) mg/dL Glucose (74-99) mg/dL POC Glucose (mg/dL) 138 H 308 H (75-99) mg/dL Magnesium (1.6-2.3) mg/dL Cholesterol (0.00-200.00) mg/dL LDL Cholesterol, Calc (0.0-131.0) mg/dL HDL Cholesterol (40.00-60.00) mg/dL
--- NOTE | 2020-12-14 14:24 | XR ---
EXAMINATION TYPE: XR chest 1V portable DATE OF EXAM: 12/14/2020 CLINICAL HISTORY: Difficulty breathing progress study. TECHNIQUE: Single AP portable upright view of the chest is obtained. COMPARISON: Chest x-ray and CTA chest from one day earlier FINDINGS: Some mild linear scarring and/or atelectasis bilaterally. Persistent cardiomegaly with ath erosclerotic thoracic aorta. Osseous structures are intact. IMPRESSION: Cardiomegaly with mild bilateral mid to lower lung linear scarring and/or atelectasis.
--- NOTE | 2020-12-14 14:47 | P.PN ---
Subjective Progress Note Date: 12/14/20 Patient is a 80-year-old female with a known history of hypertension, hyperlipidemia diabetes type 2 [id number], osteoarthritis, memory impairment, hypothyroidism and previous history of fall in October 2020 and anxiety presents to ER due to altered mental status,, generalized weakness and fall. Patient had similar symptoms couple days ago and felt very weak in the legs bilaterally, shaky and fell in the toilet. Patient states that she had aching feeling in the right calf region. Denied any loss of consciousness. Denies any head injury. Patient had similar episodes again today and was brought to ER for evaluation. Patient's boyfriend called EMS. EKG performed by EMS showed A. fib with RVR with heart rate went up to 200. Patient otherwise denied any complaints of dizziness or lightheadedness. No palpitations. No leg swelling. Patient has been afebrile. Denied complaints of dysuria or hematuria. No nausea vomiting or abdominal pain or diarrhea. Patient was recently treated for urinary tract infection. Patient was hypoxic with oxygen saturation 88% on room air at home. No prior history of DVT/PE. Chest x-ray showed cardiomegaly. Probable atelectasis. Hip pain pelvic x-ray showed no acute fracture or dislocation in the pelvis or left hip. CT head and cervical spine showed is related atrophic and chronic small vessel ischemic changes without acute intracranial process. CT cervical spine showed unenhanced CT of the cervical spine was performed with bone and soft tissue window settings submitted. No acute evidence for acute fracture or subluxation the cervical spine. Patient was found to elevated D-dimer level 2.29. CT angiogram of the chest showed few scattered filling defects within the second and third order branches right pulmonary arterial tree as well as left lower lobe. Cannot exclude PE EKG showed atrial fibrillation with rapid ventricular rate. 12/14/2020 Patient is seen and evaluated in follow-up this morning continues to be on IV heparin along with IV Cardizem and cardiology following closely. Patient admitted for atrial fibrillation with RVR new onset. Working on transitioning to oral medications along with anticoagulant and metoprolol. Patient also on gentle IV hydration as she had some acute kidney injury which is mildly improved at 1.16, sodium is low at 131 and potassium was found to be 3.2 and will replace. IV fluids as continued. Daughter at the bedside states patient has been feeling slightly more short of breath with a dry cough since admission which could be a component of IV fluids. Will obtain chest x-ray. Repeat labs for the morning pending. Review of systems: Constitutional: No reports of fatigue, fever, or chills Cardiovascular: No reports of chest pain or palpitations Respiratory: reports mild shortness of breath with hoarseness and mild cough GI: No reports of nausea, vomiting, or diarrhea : No reports of dysuria or retention Neurovascular: Reports generalized weakness All medications have been reviewed Physical exam: Patient is lying in the bed comfortably, no acute distress, awake alert and oriented.. HEENT: Normocephalic. Neck is supple. Pupils reactive. Nostrils clear. Oral c avity is moist. Neck reveals no JVD, carotid bruits, or thyromegaly. CHEST EXAMINATION: Trachea is central. Symmetrical expansion. Lung hilton clear to auscultation and percussion. CARDIAC: Normal S1, S2 with no gallops. No murmurs , irregular rhythm ABDOMEN: Soft. Bowel sounds normal. No organomegaly. No abdominal bruits. Extremities: reveal no edema. No clubbing or cyanosis Neurologically awake, alert, oriented x2 with well-coordinated movements. No focal deficits noted Skin: No rash or skin lesions. Psychiatric: Cooperative. Musculoskeletal: No joint swelling or deformity. Normal range of motion. Assessment: Altered mental status possible metabolic encephalopathy and hypoxia on admission, improved New onset atrial fibrillation with rapid regular rate Possible acute pulmonary embolism with hypoxia on admission and small filling defects in the CTA chest. Hypovolemic hyponatremia/ Pseudohyponatremia Mild hypokalemia Acute kidney injury likely prerenal, improving Hyperglycemia with uncontrolled diabetes type 2 memory impairment Hyperlipidemia Hypothyroidism Anxiety DVT prophylaxis: eliquis Plan: Recommend continue current medications and management. Patient being followed closely by cardiology and working on transitioning off Cardizem drip and heparin drip to Eliquis and oral Cardizem with metoprolol. Patient having some mild hoarseness of her voice and shortness of breath which may be a component of the IV fluids and will discontinue IV fluids. Potassium was found to be mildly low at 3.1 and will replace per protocol and repeat a.m. labs. Patient and daughter at the bedside stating she is more weak and requiring assistance with getting up and will have PT/OT evaluate the patient. Blood sugars mildly elevated and will continue with sliding scale along with long-acting and continue Accu-Cheks before meals and at bedtime. Cardiology also initiating low dose Lasix twice daily oral and will continue to monitor. Chest x-ray shows cardiomegaly with mild bilateral mid to lower lung lineal scarring and/or atelectasis. Patient is currently room air. Venous Doppler of bilateral lower extremities were negative for DVT and echo shows mild concentric left ventricular hypertrophy with overall left ventricular systolic function is mild to moderately impaired with an EF of 40-45% with mild mitral annular calcification present along with mild tricuspid regurgitation with mild to moderate pulmonary hypertension. Will repeat a.m. labs and continue to monitor closely. A1c is pending at this time and will continue to hold oral hypoglycemics at this time. Further recommendations to follow based on the clinical course of the patient. Possible discharge in 24-48 hours. Objective - Vital Signs Vital signs: Vital Signs Temp 97.6 F 12/14/20 04:00 Pulse 92 12/14/20 04:00 Resp 18 12/14/20 04:00 BP 125/78 12/14/20 04:00 Pulse Ox 95 12/14/20 04:00 Intake & Output 12/13/20 12/14/20 12/14/20 18:59 06:59 18:59 Intake Total 74.084 270 292.797 Output Total 400 600 Balance -325.916 -330 292.797 Weight 93.3 kg 92.1 kg Intake: IV 20 Invasive Line 1 10 Invasive Line 2 10 Intake, IV Titration 74.084 250 52.797 Amount Diltiazem 125 mg In 74.084 Sodium Chloride 0.9% 100 ml @ 5 MG/HR 5 mls/hr IV .Q24H [facility] Rx#:[id number] Heparin Sod,Pork in 0.45% 250 52.797 NaCl 25,000 unit In 0.45 % NaCl 1 250ml.bag @ 18 UNITS/KG/HR 16.329 mls/hr IV .[id number] [facility] Rx#: [id number] Oral 240 Output: Urine 400 600 Uretheral (Gomez) 400 Other: Voiding Method Bedside Commode # Voids 0 1 - Labs CBC & Chem 7: 12/14/20 05:18 12/14/20 05:18 Labs: Abnormal Lab Results - Last 24 Hours (Table) 12/13/20 12/13/20 12/13/20 Range/Units 13:21 16:37 16:38 APTT 56.4 H (22.0-30.0) sec Sodium (137-145) mmol/L Potassium (3.5-5.1) mmol/L BUN (7-17) mg/dL Creatinine (0.52-1.04) mg/dL Glucose (74-99) mg/dL POC Glucose (mg/dL) 341 H (75-99) mg/dL Magnesium (1.6-2.3) mg/dL Cholesterol 207.00 H (0.00-200.00) mg/dL LDL Cholesterol, Calc 145.0 H (0.0-131.0) mg/dL HDL Cholesterol 37.80 L (40.00-60.00) mg/dL 12/13/20 12/14/20 12/14/20 Range/Units 19:59 05:18 05:18 APTT 86.3 H (22.0-30.0) sec Sodium 131 L (137-145) mmol/L Potassium 3.2 L (3.5-5.1) mmol/L BUN 37 H (7-17) mg/dL Creatinine 1.16 H (0.52-1.04) mg/dL Glucose 133 H (74-99) mg/dL POC Glucose (mg/dL) 306 H (75-99) mg/dL Magnesium 2.4 H (1.6-2.3) mg/dL Cholesterol (0.00-200.00) mg/dL LDL Cholesterol, Calc (0.0-131.0) mg/dL HDL Cholesterol (40.00-60.00) mg/dL 12/14/20 Range/Units 06:34 APTT (22.0-30.0) sec Sodium (137-145) mmol/L Potassium (3.5-5.1) mmol/L BUN (7-17) mg/dL Creatinine (0.52-1.04) mg/dL Glucose (74-99) mg/dL POC Glucose (mg/dL) 138 H (75-99) mg/dL Magnesium (1.6-2.3) mg/dL Cholesterol (0.00-200.00) mg/dL LDL Cholesterol, Calc (0.0-131.0) mg/dL HDL Cholesterol (40.00-60.00) mg/dL
[2020-12-14 16:37] LABS: Glucose,Whole Blood 303 mg/dL (75-99)
[2020-12-14] MEDS ORDERED: METOPROLOL TARTRATE 25 MG TAB PO STA (18:42)
[2020-12-14 18:44] LABS: Glucose,Whole Blood 276 mg/dL (75-99)
--- NOTE | 2020-12-14 19:35 | CT ---
EXAMINATION TYPE: CT brain wo con DATE OF EXAM: 12/14/2020 COMPARISON: 12/13/2020 HISTORY: confusion and weakness CT DLP: 1261.[address] of the brain was performed. The ventricles, basal cisterns and sulci overlying the cerebral convexities demonstrate mild enlargem ent. There is no evidence for intracranial hemorrhage or sulcal effacement. There is decreased attenuation about the periventricular white matter and deep white matter of both c erebral hemispheres, compatible with chronic small vessel ischemia. Differential diagnosis does inclu de demyelination. No mass effects are seen.No midline shift. Osseous calvarium is intact. If symptoms persist consider MRI. IMPRESSION: 1. Age related atrophic and chronic small vessel ischemic change without acute intracranial process s een at this time.
[2020-12-14] MEDS: FUROSEMIDE 20 MG TAB PO SCH (21:09)
[2020-12-14] MEDS: INSULIN DETEMIR (LEVEMIR) 100 UNIT/ML SYR SQ SCH (21:09)
[2020-12-14] MEDS: QUEtiapine 25 MG TAB PO SCH (21:09)
[2020-12-14] MEDS: METOPROLOL TARTRATE 50 MG TAB PO SCH (21:09)
[2020-12-14 21:10] LABS: Glucose,Whole Blood 219 mg/dL (75-99)
[2020-12-14 22:26] LABS: Basophils % (A) 0 %; Eosinophils # (A) 0.1 k/uL (0-0.7); Eosinophils % (A) 1 %; HCT 33.5 % (34.0-46.0); HGB 10.9 gm/dL (11.4-16.0); Lymphocytes # (A) 0.8 k/uL (1.0-4.8); Lymphocytes % (A) 12 %; MCH 31.4 pg (25.0-35.0); MCHC 32.4 g/dL (31.0-37.0); MCV 96.8 fL (80.0-100.0); Mean Platelet Volume 8.3; Monocytes # (A) 0.3 k/uL (0-1.0); Monocytes % (A) 4 %; Neutrophils # (A) 5.6 k/uL (1.3-7.7); Neutrophils % (A) 81 %; Platelet Count 181 k/uL (150-450); RBC 3.46 m/uL (3.80-5.40)
[2020-12-14 22:38] LABS: Potassium 4.3 mmol/L (3.5-5.1)
[2020-12-14] MEDS: DILTIAZEM 125 MG in SODIUM CHLORIDE 0.9% 100 ML IV SCH (22:57)
[2020-12-15] MEDS: BENZONATATE 100 MG CAP PO PRN ×3 (04:55→21:32)
[2020-12-15 05:18] LABS: Appearance,Urine Clear (Clear); Bilirubin,Urine Negative (Negative); Blood,Urine Negative (Negative); Color,Urine Yellow; Glucose,Urine (UA) 2+ (Negative); Ketones,Urine Negative (Negative); Leukocyte Esterase,Urine Negative (Negative); Mucus,Urine Rare /hpf; Nitrite,Urine Negative (Negative); PH, Urine 5.5 (5.0-8.0); Protein,Urine 1+ (Negative); RBC,Urine 3 /hpf (0-5); Specific Gravity,Urine 1.017 (1.001-1.035); Urobilinogen,Urine <2.0 mg/dL (<2.0); WBC,Urine <1 /hpf (0-5)
[2020-12-15 07:02] LABS: Glucose,Whole Blood 180 mg/dL (75-99)
[2020-12-15] MEDS: INSULIN ASPART (NovoLOG) 100 UNIT/ML VIAL SQ SCH ×4 (10:01→21:33)
[2020-12-15] MEDS: DILTIAZEM 125 MG in SODIUM CHLORIDE 0.9% 100 ML IV SCH (10:11)
[2020-12-15] MEDS: APIXABAN 5 MG TAB PO SCH ×2 (10:12→21:31)
[2020-12-15] MEDS: ASCORBIC ACID 500 MG TAB PO SCH (10:13)
[2020-12-15] MEDS: MAGNESIUM OXIDE 400 MG TAB PO SCH (10:13)
[2020-12-15] MEDS: ASPIRIN 81 MG PO SCH (10:13)
[2020-12-15] MEDS: LEVOTHYROXINE 75 MCG TAB PO SCH (10:13)
[2020-12-15] MEDS: ATORVASTATIN 40 MG TAB PO SCH (10:13)
[2020-12-15] MEDS: VITAMIN E (DL,TOCOPHERYL ACET) 400 UNIT (180 MG) CAP PO SCH (10:13)
[2020-12-15] MEDS: FOLIC ACID 1 MG TAB PO SCH (10:14)
[2020-12-15] MEDS: METOPROLOL TARTRATE 50 MG TAB PO SCH ×2 (10:14→21:33)
[2020-12-15] MEDS: FUROSEMIDE 20 MG TAB PO SCH ×2 (10:14→21:31)
[2020-12-15] MEDS: LACTOBACILLUS ACIDOPH & BULGAR 1 EACH PACKET PO SCH (10:14)
[2020-12-15 10:22] LABS: Calcium 9.3 mg/dL (8.4-10.2); Potassium 4.1 mmol/L (3.5-5.1)
[2020-12-15] MEDS ORDERED: FUROSEMIDE 10 MG/ML 4 ML VIAL IV STA (11:04)
[2020-12-15 11:21] LABS: Glucose,Whole Blood 222 mg/dL (75-99)
--- NOTE | 2020-12-15 11:40 | P.CNNES ---
History of Present Illness Consult date: 12/15/20 Requesting physician: Lisa Frey Reason for Consult: new onset altered mental status. Rule out TIA/stroke History of Present Illness: This is a 80-year-old woman with medical history of reported history of hypertension, hyperlipidemia, type 2 diabetes, hypothyroidism, previous history of fall in October 2020 osteoarthritis, anxiety presented emergency department on the 12/13/2020 for altered mental status, generalized weakness and a fall. History was obtained from patient's daughter who is at bedside. Neurologist consulted for altered mental status. Per the patient's daughter she stated that the this past Friday (11/21/20) patient went to bathroom and the one to get up but her legs gave out. She did not lose any consciousness. She felt cold and tremulous. She denied any tongue bites or soreness. As a result of her weakness she was crawling on the floor. She spoke with her daughter over the phone but patient refused going the hospital. Her boyfriend that came to her house and he called EMS but patient refused to be taken to the hospital. Again on 12/13/2020 daughter stated that the patient was taken to the hospital via EMS since wasn't feeling well was tremulous and it is reported that she was confused as well. She denies any trauma to her head from the fall. Then when she was in the hospital initially she was doing well but then yesterday in the morning and early afternoon she was doing well as well as walking to the bathroom talking and conversing being herself but then the she went to sleep and in the late afternoon and the after 5:00pm when she was walk-in she was confused had difficulty walking to the bathroom. According to the patient as well as daughter she's been having raspy cough shortness of breath and wheezing since the patient was started on new medication in the hospital they think. She had a mechanical fall about 3 weeks ago. Of note ED the patient was found to have new onset A. fib and was started on are on IV heparin drip that was stopped and that currently the patient started on Eliquis 5 mg 1 tablet twice a day. Currently patient is back to baseline. She denies any history of strokes, TIAs or seizures in the past. According to the daughter patient had history of trauma to the head about 3 years ago from a fall and was a mechanical fall and she had the bruises over his all bleeding. She refused to go the hospital. As a result of the fall she was having confusion but with time that was improving. She was having difficulty with walk-in and balance since the fall. The daughter her mentation the improved since the fall but time to time she'll have episodes of confusion. Some of the workup in hospital consisted of: Initial vital signs: Blood pressure of 114/79, heart rate of 163, respiratory of 22, temperature of 98.7 Fahrenheit oral and pulse ox of 96% room air. And this hospital stay the patient has been tachycardic as mentioned earlier in the 160s but it's been ranging in the 110 to 160. Patient has been afebrile. He's been hypoxic with a peak O2 of [address] of the head and CT cervical spine on 12/13/2020 inch reported as age- related atrophic and chronic small vessel ischemic change without acute intracranial process seen at this time. While the CT of the cervical spine was reported as no evidence for fracture that is acute or subluxation of the cervical spine. She had CT of the head on 12/14/2020 is reported as age-related atrophic and chronic small vessel ischemic change without acute intracranial process seen at this time. I personally reviewed the CT of the head and there is no evidence of acute or subacute ischemia or any hemorrhage. The echo was reported as mild concentric left ventricular hypertrophy. Ejection fraction of 40-45%. Left atrium is mildly dilated that. White blood cell is 7.7 thousand she had no leukocytosis during this stay. Most recent sodium was 127. Creatinine 0.90, glucose has been in the range of 180s to 300. And her hemoglobin A1c as a 8.7. Calcium is 9.0, magnesium is 2.4. AST of 34 and ALT of 30. Lipid Panel: Triglyceride is 21, cholesterol 207, LDL is 145 and HDL of the 37. TSH is a 0.793. Fontenot virus PCR was not detected. Review of Systems Review of system: The 12 point system was reviewed and apparent positive and n egative per HPI. Past Medical History Past Medical History: Diabetes Mellitus, Hyperlipidemia, Hypertension, Memory Impairment, Osteoarthritis (OA), Skin Disorder, Thyroid Disorder Additional Past Medical History / Comment(s): Seasonal allergies, psoriasis. 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 Past Anesthesia/Blood Transfusion Reactions: No Reported Reaction Additional Past Anesthesia/Blood Transfusion Reaction / Comment(s): Gideon rivas Past Psychological History: Anxiety Smoking Status: Never smoker Past Alcohol Use History: Occasional Past Drug Use History: None Reported - Past Family History Mother Family Medical History: No Reported History Additional Family Medical History / Comment(s): Valve replacement, CAD Medications and Allergies Home Medications Medication Instructions Recorded Confirmed Type Aspirin 81 mg PO DAILY 12/31/13 12/13/20 History Levothyroxine Sodium [Synthroid] 37.5 mcg PO QAM 12/31/13 12/13/20 History Simvastatin [Zocor] 20 mg PO HS 12/31/13 12/13/20 History metFORMIN HCL [Glucophage] 1,000 mg PO BID 03/26/17 12/13/20 History Folic Acid 0.4 mg PO DAILY 03/26/18 12/13/20 History Magnesium Oxide 400 mg PO DAILY 03/26/18 12/13/20 History Ascorbic Acid [Vitamin C] 1,000 mg PO DAILY 12/13/20 12/13/20 History Glimepiride [Amaryl] 2 mg PO AC-BRKFST 12/13/20 12/13/20 History Insulin Glargine,Hum.rec.anlog 10 unit SQ HS 12/13/20 12/13/20 History [Lantus Solostar Pen] L.acidoph,Paracasei, B.lactis 1 cap PO DAILY 12/13/20 12/13/20 History [Probiotic] Pioglitazone [Actos] 15 mg PO DAILY 12/13/20 12/13/20 History Repaglinide [Prandin] 1 mg PO AC-BRKFST 12/13/20 12/13/20 History Valsartan [Diovan] 160 mg PO DAILY 12/13/20 12/13/20 History Vitamin E (Dl,Tocopheryl Acet) 400 unit PO DAILY 12/13/20 12/13/20 History [Vitamin E (400 Iu = 180 mg)] amLODIPine [Norvasc] 5 mg PO DAILY 12/13/20 12/13/20 History Apixaban [Eliquis] 5 mg PO BID 30 Days #60 tab 12/14/20 Rx Allergies Allergy/AdvReac Type Severity Reaction Status Date / Time adhesive AdvReac peels skin Verified 12/13/20 11:41 off Sulfa (Sulfonamide AdvReac Diarrhea Verified 12/13/20 11:41 Antibiotics) food preservatives Allergy Unknown Uncoded 12/13/20 11:41 Physical Examination - Vital Signs Vital Signs: Vital Signs Temp Pulse Resp BP Pulse Ox 12/15/20 10:08 97.2 F L 133 H 18 108/62 93 L 12/15/20 07:46 140 H 12/15/20 04:00 133 H 18 127/70 93 L 12/15/20 00:00 150 H 18 106/73 96 12/14/20 20:00 97.9 F 122 H 18 134/89 96 12/14/20 17:30 99.7 F H 125 H 18 137/87 95 12/14/20 16:10 140 H 12/14/20 12:00 97.2 F L 98 18 101/62 94 L Intake and Output 12/14/20 12/15/20 12/15/20 22:59 06:59 14:59 Output Total 150 Balance -150 Output: Urine 150 Other: Voiding Method Diaper Diaper Incontinent Incontinent # Voids 1 1 # Bowel Movements 1 GENERAL: The patient is lying in bed and is not in acute distress. CHEST: The heart rate is regular rate rhythm. No murmurs to auscultation. No carotid bruit bilaterally. LUNG: Sounded wheezy occasionally. Not labored breathing. ABDOMEN/GI: Bowel sounds present in all 4 quadrants. No tenderness to palpation throughout. NEUROLOGICAL: Higher mental function: The patient is awake, alert, oriented to self, place and time. Patient is following commands. No aphasia and no neglect. Cranial nerves: The pupils are round, equal and reactive to light and accommodation. Visual hilton are full to confrontation throughout. Has ptosis of both eyes. Extraocular movement is intact no nystagmus is noted. Facial sensation is normal to touch throughout. The facial strength is normal throughout. Hearing is normal bilaterally to hand rub. Tongue is midline and moved [id number] without any difficulty. No dysarthria is noted. Shoulder shrug is normal bilaterally. Motor: The strength is 5 over 5 throughout. Normal tone and bulk. Cerebellum: Normal finger to nose bilaterally. Sensation: Sensation is normal to touch throughout. Reflexes (right/left): 2+ in uppers while in patellar she refused because of pain while ankles are 1+ Plantars are downgoing bilaterally. Results Urinalysis negative for urinary tract infection. Acetone is negative. - Laboratory Findings CBC and BMP: 12/14/20 22:15 12/15/20 09:29 Abnormal Lab Findings: Abnormal Labs 12/13/20 12/13/20 12/13/20 07:29 07:51 07:51 RBC Hgb Hct Lymphocytes # 0.2 L APTT 19.5 L D-Dimer 2.29 H Sodium Potassium Chloride Carbon Dioxide BUN Creatinine Glucose POC Glucose (mg/dL) 335 H Hemoglobin A1c Plasma Lactic Acid Nikita Magnesium Total Protein Albumin Cholesterol LDL Cholesterol, Calc HDL Cholesterol Urine Protein Urine Glucose (UA) Urine Ketones Urine Mucus 12/13/20 12/13/20 12/13/20 07:51 07:51 07:51 RBC Hgb Hct Lymphocytes # APTT D-Dimer Sodium 128 L Potassium Chloride 96 L Carbon Dioxide BUN 33 H Creatinine 1.20 H Glucose 336 H POC Glucose (mg/dL) Hemoglobin A1c Plasma Lactic Acid Nikita 2.8 H* Magnesium Total Protein 6.1 L Albumin 3.4 L Cholesterol LDL Cholesterol, Calc HDL Cholesterol Urine Protein 2+ H Urine Glucose (UA) 4+ H Urine Ketones 1+ H Urine Mucus Rare H 12/13/20 12/13/20 12/13/20 13:21 16:37 16:38 RBC Hgb Hct Lymphocytes # APTT 56.4 H D-Dimer Sodium Potassium Chloride Carbon Dioxide BUN Creatinine Glucose POC Glucose (mg/dL) 341 H Hemoglobin A1c Plasma Lactic Acid Nikita Magnesium Total Protein Albumin Cholesterol 207.00 H LDL Cholesterol, Calc 145.0 H HDL Cholesterol 37.80 L Urine Protein Urine Glucose (UA) Urine Ketones Urine Mucus 12/13/20 12/14/20 12/14/20 19:59 05:18 05:18 RBC Hgb Hct Lymphocytes # APTT 86.3 H D-Dimer Sodium 131 L Potassium 3.2 L Chloride Carbon Dioxide BUN 37 H Creatinine 1.16 H Glucose 133 H POC Glucose (mg/dL) 306 H Hemoglobin A1c Plasma Lactic Acid Nikita Magnesium 2.4 H Total Protein Albumin Cholesterol LDL Cholesterol, Calc HDL Cholesterol Urine Protein Urine Glucose (UA) Urine Ketones Urine Mucus 12/14/20 12/14/20 12/14/20 05:18 06:34 11:35 RBC Hgb Hct Lymphocytes # APTT D-Dimer Sodium Potassium Chloride Carbon Dioxide BUN Creatinine Glucose POC Glucose (mg/dL) 138 H 308 H Hemoglobin A1c 8.7 H Plasma Lactic Acid Nikita Magnesium Total Protein Albumin Cholesterol LDL Cholesterol, Calc HDL Cholesterol Urine Protein Urine Glucose (UA) Urine Ketones Urine Mucus 12/14/20 12/14/20 12/14/20 16:34 18:25 20:20 RBC Hgb Hct Lymphocytes # APTT D-Dimer Sodium Potassium Chloride Carbon Dioxide BUN Creatinine Glucose POC Glucose (mg/dL) 303 H 276 H 219 H Hemoglobin A1c Plasma Lactic Acid Nikita Magnesium Total Protein Albumin Cholesterol LDL Cholesterol, Calc HDL Cholesterol Urine Protein Urine Glucose (UA) Urine Ketones Urine Mucus 12/14/20 12/14/20 12/14/20 22:15 22:15 22:36 RBC 3.46 L Hgb 10.9 L Hct 33.5 L Lymphocytes # 0.8 L APTT D-Dimer Sodium 127 L Potassium Chloride Carbon Dioxide 21 L BUN 29 H Creatinine Glucose 213 H POC Glucose (mg/dL) Hemoglobin A1c Plasma Lactic Acid Nikita Magnesium Total Protein Albumin Cholesterol LDL Cholesterol, Calc HDL Cholesterol Urine Protein 1+ H Urine Glucose (UA) 2+ H Urine Ketones Urine Mucus Rare H 12/15/20 06:33 RBC Hgb Hct Lymphocytes # APTT D-Dimer Sodium Potassium Chloride Carbon Dioxide BUN Creatinine Glucose POC Glucose (mg/dL) 180 H Hemoglobin A1c Plasma Lactic Acid Nikita Magnesium Total Protein Albumin Cholesterol LDL Cholesterol, Calc HDL Cholesterol Urine Protein Urine Glucose (UA) Urine Ketones Urine Mucus Assessment and Plan Assessment: Altered mental status seems due to multifactorial: Metabolic encephalopathy, mild hypoxic encephalopathy--currently patient is back to baseline. Delerium due to above (and possibly her episode of confusion could be due to sun-downing) Diabetes mellitus and her current hemoglobin A1c is 8.7 which is not controlled on presentation her glucose was 336 History of unsteady gait/falls: unknown exact etiology at this time. Possibly multifactorial: Uncontrolled diabetes that can cause neuropathy, also possibly result of concussion (which her falls started). New Onset atrial fibrillation on eliquis History of concussion about 3 years ago (ever since having balance issues) Dyslipidemia History of hypertension History of a hyperlipidemia Osteoarthritis Osteoarthritis Plan: I ordered MRI of the brain. I ordered routine EEG. I'll not start the patient on an antiepileptic drug unless there is epileptiform discharges or seizure on the EEG. Ordered vitamin B-12 and folate level. Ordered orthostatic vitals. Ordered every 4 hours neuro checks. PT and OT are consulted Cardiology team is on board We'll defer the sugar management and the rest of the medical management to the primary team. Upon discharge the patient needs to follow-up with a neurologist within 2-3 weeks. Recommend neuropsychology balance as an outpatient. The plan was discussed with the patient, her daughter was at bedside and the patient's nurse. Thank you for the consultation. Will Cabrera MD Neuro-Hospitalist. Time with Patient: Greater than 30
[2020-12-15] MEDS: DILTIAZEM ORAL 30 MG TAB PO SCH (11:47)
[2020-12-15] MEDS ORDERED: ALPRAZolam 0.5 MG TAB PO STA (12:14)
--- NOTE | 2020-12-15 13:03 | PN ---
PROGRESS NOTE Mrs. Schwarz is a 80-year-old female who presented with symptoms of progressive dyspnea, change in mental status and feeling weak. She was noted to be in atrial fibrillation on presentation. She still has dyspnea and some wheezing and she has some cough. She continues to be in atrial fibrillation with episodes of rapid ventricular response. She denies any chest pain. She denies any knowledge of the arrhythmia. No palpitations. No syncope. She had an echocardiogram performed that revealed an ejection fraction of 40% to 45% with mild mitral and tricuspid regurgitation with mild to moderate pulmonary hypertension. She underwent a chest x-ray yesterday that showed mild bilateral possible atelectasis. She continues to be on IV Cardizem drip in addition to metoprolol tartrate 50 mg twice a day, Eliquis 5 mg twice a day, Lasix 20 mg twice a day, insulin, and Lipitor 40 mg daily. PHYSICAL EXAMINATION: Blood pressure is running in the 120s with a heart rate in the 110s to 120s. Afebrile. LUNGS: A few crackles. No wheezes. HEART: Irregularly irregular. S1, S2. No S3. No rub. ABDOMEN: Soft, nontender. EXTREMITIES: No edema. LAB DATA: BUN and creatinine 23 and 0.92. Potassium 4.1. Sodium 130. IMPRESSION: 1. Symptoms of cough and dyspnea. Clinically she is not in overt heart failure. The possibility of underlying lung disease cannot be totally excluded. 2. Atrial fibrillation of unknown duration. She continues to have episodes of rapid ventricular response. Anticoagulation was initiated. 3. Diabetes. 4. Hyperlipidemia. 5. History of hypertension. 6. Acute renal injury, improved. RECOMMENDATIONS: I will give her one dose of IV Lasix at this time. Will switch her to oral Cardizem. I will obtain the input of Dr. Jones regarding her lung status. At this time I see no evidence of hemodynamic compromise that requires an attempt to cardiovert her and restore sinus mechanism. I have discussed those findings with the family and the patient. Depending her progress, further recommendations will be made. MMODL / IJN: [id number] /
--- NOTE | 2020-12-15 14:23 | P.CNPUL ---
History of Present Illness Consult date: 12/15/20 Requesting physician: Balbina Agudelo Reason for consult: dyspnea, cough Chief complaint: Altered mental status. History of present illness: This is a 80-year-old female no previous pulmonary history whatsoever. Patient had no previous history of COPD, no previous history of asthma, nonsmoker, patient is known to have history of hypertension dyslipidemia type 2 diabetes hypothyroidism admitted through the emergency room on 12/13 for altered mental status and generalized weakness, and recurrent fall. On 11/21/20, patient fell in the bathroom, however she did not lose consciousness. She felt cold and tremulous. She was able to crawl on the floor, and when daughter came to see her at home, patient refused to go to the hospital. EMS was called and, again the patient refused to be taken to the hospital. On 12/13, agent was noted to be tremulous, confused, and had some difficulty walking to the bathroom. She was also noted to have some raspy cough, shortness of breath, and at times wheezing. In the ER, patient was noted to have atrial fibrillation with RVR. And she was started on IV heparin, and later transitioned to Eliquis at 5 mg tablets twice a day. Since admission the patient has been seen by many consultants including cardiology and neurology, and I was asked to see the patient because of intermittent cough. And some shortness of breath. CT angiogram done on admission didn't show filling defects within the second and third order branches of the right pulmonary artery clearly consistent with pulmonary embolism. However the patient is already on Eliquis, and she received heparin for her atrial fibrillation and RVR, hence no need to pursue this any further, and on physical examination patient sounded quite clear and did not have any rhonchi or wheezes on physical examination. Chest x-ray yesterday showed cardiomegaly and minimal bibasilar atelectasis. No evidence of congestive heart failure, and no evidence of pneumonia. Review of Systems Constitutional: Mostly generalized weakness, no fever no chills, no weight loss.. Abdomen: Negative. Cardiovascular: Negative except for the patient presented with A. fib and RVR with generalized weakness and intermittent episodes of mental status changes as well as falling. Respiratory: As noted in HPI, mostly intermittent cough, occasional wheezing. Shortness of breath. Neurologic: As noted in HPI. Musculoskeletal: Weakness and falling easily. Skin: Negative Psychiatric: Negative Endocrine: Negative. Genitourinary: Negative. Past Medical History Past Medical History: Diabetes Mellitus, Hyperlipidemia, Hypertension, Memory Impairment, Osteoarthritis (OA), Skin Disorder, Thyroid Disorder Additional Past Medical History / Comment(s): Seasonal allergies, psoriasis. 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 Past Anesthesia/Blood Transfusion Reactions: No Reported Reaction Additional Past Anesthesia/Blood Transfusion Reaction / Comment(s): Clausterphobia Past Psychological History: Anxiety Smoking Status: Never smoker Past Alcohol Use History: Occasional Past Drug Use History: None Reported - Past Family History Mother Family Medical History: No Reported History Additional Family Medical History / Comment(s): Valve replacement, CAD Medications and Allergies Home Medications Medication Instructions Recorded Confirmed Type Aspirin 81 mg PO DAILY 12/31/13 12/13/20 History Levothyroxine Sodium [Synthroid] 37.5 mcg PO QAM 12/31/13 12/13/20 History Simvastatin [Zocor] 20 mg PO HS 12/31/13 12/13/20 History metFORMIN HCL [Glucophage] 1,000 mg PO BID 03/26/17 12/13/20 History Folic Acid 0.4 mg PO DAILY 03/26/18 12/13/20 History Magnesium Oxide 400 mg PO DAILY 03/26/18 12/13/20 History Ascorbic Acid [Vitamin C] 1,000 mg PO DAILY 12/13/20 12/13/20 History Glimepiride [Amaryl] 2 mg PO AC-BRKFST 12/13/20 12/13/20 History Insulin Glargine,Hum.rec.anlog 10 unit SQ HS 12/13/20 12/13/20 History [Lantus Solostar Pen] L.acidoph,Paracasei, B.lactis 1 cap PO DAILY 12/13/20 12/13/20 History [Probiotic] Pioglitazone [Actos] 15 mg PO DAILY 12/13/20 12/13/20 History Repaglinide [Prandin] 1 mg PO AC-BRKFST 12/13/20 12/13/20 History Valsartan [Diovan] 160 mg PO DAILY 12/13/20 12/13/20 History Vitamin E (Dl,Tocopheryl Acet) 400 unit PO DAILY 12/13/20 12/13/20 History [Vitamin E (400 Iu = 180 mg)] amLODIPine [Norvasc] 5 mg PO DAILY 12/13/20 12/13/20 History Apixaban [Eliquis] 5 mg PO BID 30 Days #60 tab 12/14/20 Rx Allergies Allergy/AdvReac Type Severity Reaction Status Date / Time adhesive AdvReac peels skin Verified 12/13/20 11:41 off Sulfa (Sulfonamide AdvReac Diarrhea Verified 12/13/20 11:41 Antibiotics) food preservatives Allergy Unknown Uncoded 12/13/20 11:41 Physical Exam Vitals: Vital Signs Temp Pulse Resp BP Pulse Ox 12/15/20 11:15 97.6 F 104 H 18 106/72 96 12/15/20 10:08 97.2 F L 133 H 18 108/62 93 L 12/15/20 07:46 140 H 12/15/20 04:00 133 H 18 127/70 93 L 12/15/20 00:00 150 H 18 106/73 96 12/14/20 20:00 97.9 F 122 H 18 134/89 96 12/14/20 17:30 99.7 F H 125 H 18 137/87 95 12/14/20 16:10 140 H Intake and Output 12/14/20 12/15/20 12/15/20 22:59 06:59 14:59 Intake Total 352.333 Output Total 150 Balance -150 352.333 Intake: Intake, IV Titration 112.333 Amount Diltiazem 125 mg In 112.333 Sodium Chloride 0.9% 100 ml @ 10 MG/HR 10 mls/hr IV .[id number] [facility] Rx#: [id number] Oral 240 Output: Urine 150 Other: Voiding Method Diaper Diaper Incontinent Incontinent # Voids 1 1 2 # Bowel Movements 1 Weight 87.5 kg Physical Exam revealed a 80-year-old female in no distress. Head: Atraumatic, normocephalic. HEENT:[Neck is supple.] [No neck masses.] [No thyromegaly.] [No JVD.] Chest: [Symmetrical chest expansion. Clear throughout, no crackles, no rhonchi, no wheezes.] Cardiac Exam: [Irregular irregular rhythm, no S3 gallop. 2/6 systolic murmur throughout the precordium..] Abdomen: [Obese, Soft, nontender, no megaly, no rebound, no guarding, normal bowel sounds.] Extremities: [No clubbing, no edema, no cyanosis.] Neurological Exam: Alert oriented 3, no gross focal neurologic deficits. However she was noted to be intermittently lethargic, forgetful during my conversation with her, and she was forgetting what she was telling me earlier. Psychiatric: Depressed mood, blunt affect, and confused mental status. Results - Laboratory Findings CBC and BMP: 12/14/20 22:15 12/15/20 09:29 PT/INR, D-dimer PT 10.0 sec (9.0-12.0) 12/13/20 07:51 INR 0.9 (<1.2) 12/13/20 07:51 D-Dimer 2.29 mg/L FEU (<0.60) H 12/13/20 07:51 Abnormal lab findings: Abnormal Labs 12/13/20 12/13/20 12/13/20 07:29 07:51 07:51 RBC Hgb Hct Lymphocytes # 0.2 L APTT 19.5 L D-Dimer 2.29 H Sodium Potassium Chloride Carbon Dioxide BUN Creatinine Glucose POC Glucose (mg/dL) 335 H Hemoglobin A1c Plasma Lactic Acid Nikita Magnesium Total Protein Albumin Cholesterol LDL Cholesterol, Calc HDL Cholesterol Urine Protein Urine Glucose (UA) Urine Ketones Urine Mucus 12/13/20 12/13/20 12/13/20 07:51 07:51 07:51 RBC Hgb Hct Lymphocytes # APTT D-Dimer Sodium 128 L Potassium Chloride 96 L Carbon Dioxide BUN 33 H Creatinine 1.20 H Glucose 336 H POC Glucose (mg/dL) Hemoglobin A1c Plasma Lactic Acid Nikita 2.8 H* Magnesium Total Protein 6.1 L Albumin 3.4 L Cholesterol LDL Cholesterol, Calc HDL Cholesterol Urine Protein 2+ H Urine Glucose (UA) 4+ H Urine Ketones 1+ H Urine Mucus Rare H 12/13/20 12/13/20 12/13/20 13:21 16:37 16:38 RBC Hgb Hct Lymphocytes # APTT 56.4 H D-Dimer Sodium Potassium Chloride Carbon Dioxide BUN Creatinine Glucose POC Glucose (mg/dL) 341 H Hemoglobin A1c Plasma Lactic Acid Nikita Magnesium Total Protein Albumin Cholesterol 207.00 H LDL Cholesterol, Calc 145.0 H HDL Cholesterol 37.80 L Urine Protein Urine Glucose (UA) Urine Ketones Urine Mucus 12/13/20 12/14/20 12/14/20 19:59 05:18 05:18 RBC Hgb Hct Lymphocytes # APTT 86.3 H D-Dimer Sodium 131 L Potassium 3.2 L Chloride Carbon Dioxide BUN 37 H Creatinine 1.16 H Glucose 133 H POC Glucose (mg/dL) 306 H Hemoglobin A1c Plasma Lactic Acid Nikita Magnesium 2.4 H Total Protein Albumin Cholesterol LDL Cholesterol, Calc HDL Cholesterol Urine Protein Urine Glucose (UA) Urine Ketones Urine Mucus 12/14/20 12/14/20 12/14/20 05:18 06:34 11:35 RBC Hgb Hct Lymphocytes # APTT D-Dimer Sodium Potassium Chloride Carbon Dioxide BUN Creatinine Glucose POC Glucose (mg/dL) 138 H 308 H Hemoglobin A1c 8.7 H Plasma Lactic Acid Nikita Magnesium Total Protein Albumin Cholesterol LDL Cholesterol, Calc HDL Cholesterol Urine Protein Urine Glucose (UA) Urine Ketones Urine Mucus 12/14/20 12/14/20 12/14/20 16:34 18:25 20:20 RBC Hgb Hct Lymphocytes # APTT D-Dimer Sodium Potassium Chloride Carbon Dioxide BUN Creatinine Glucose POC Glucose (mg/dL) 303 H 276 H 219 H Hemoglobin A1c Plasma Lactic Acid Nikita Magnesium Total Protein Albumin Cholesterol LDL Cholesterol, Calc HDL Cholesterol Urine Protein Urine Glucose (UA) Urine Ketones Urine Mucus 12/14/20 12/14/20 12/14/20 22:15 22:15 22:36 RBC 3.46 L Hgb 10.9 L Hct 33.5 L Lymphocytes # 0.8 L APTT D-Dimer Sodium 127 L Potassium Chloride Carbon Dioxide 21 L BUN 29 H Creatinine Glucose 213 H POC Glucose (mg/dL) Hemoglobin A1c Plasma Lactic Acid Nikita Magnesium Total Protein Albumin Cholesterol LDL Cholesterol, Calc HDL Cholesterol Urine Protein 1+ H Urine Glucose (UA) 2+ H Urine Ketones Urine Mucus Rare H 12/15/20 12/15/20 12/15/20 06:33 09:29 11:20 RBC Hgb Hct Lymphocytes # APTT D-Dimer Sodium 130 L Potassium Chloride Carbon Dioxide BUN 23 H Creatinine Glucose 196 H POC Glucose (mg/dL) 180 H 222 H Hemoglobin A1c Plasma Lactic Acid Nikita Magnesium Total Protein Albumin Cholesterol LDL Cholesterol, Calc HDL Cholesterol Urine Protein Urine Glucose (UA) Urine Ketones Urine Mucus - Diagnostic Findings Chest x-ray: image reviewed (As noted in HPI) CT scan - chest: image reviewed (As noted in HPI) Assessment and Plan Assessment: Impression: Altered mental status, most likely secondary to acute metabolic encephalopathy. Suspect acute or subacute pulmonary embolism patient is now on Eliquis. Bibasilar atelectasis on chest x-ray. Shortness of breath secondary to above. Atrial fibrillation with RVR, on multiple meds and on Eliquis. New onset. Benign essential hypertension. Dyslipidemia. Degenerative joint disease. Type 2 diabetes. Recommendation: Neurologically patient is being followed by neurology, and extensive workup has been ordered including MRI of the brain which is pending. EEG is pending. Cardiac miller, patient is being followed by cardiology. Pulmonary-miller, my recommendation is to continue Eliquis. Encourage incentive spirometry. Bronchodilators in the form of DuoNeb. Discussed her condition with family at bedside. We will continue to follow. Time with Patient: Greater than 30
--- NOTE | 2020-12-15 14:35 | MR ---
MR brain without contrast HISTORY: Altered mental status, claustrophobia Multiplanar multisequence imaging through the brain, fast brain protocol was utilized due to patient' s inability to cooperate Correlation CT brain 12/14/2020 There is extensive motion. Cortical atrophy is present. Confluent hyperintensities present in the per iventricular, pericallosal white matter and inversion recovery T2-weighted sequences. No evident hemo rrhage or hydrocephalus. Subacute ischemia suspected along the left frontal cortex medially, axial im age #17 of series 408, suspect some corresponding hyperintensity is present and inversion recovery an d T2-weighted sequences. Orbits are symmetric. IMPRESSION: Small focus of subacute infarction involving the left frontal lobe cortex medial aspect. Age-related changes of atrophy and chronic small vessel ischemia. Exam is somewhat limited.
--- NOTE | 2020-12-15 14:50 | P.PN ---
Subjective Progress Note Date: 12/15/20 Patient is a 80-year-old female with a known history of hypertension, hyperlipidemia diabetes type 2 lie-wqremvb-lsilpwxsh, osteoarthritis, memory impairment, hypothyroidism and previous history of fall in October 2020 and anxiety presents to ER due to altered mental status,, generalized weakness and fall. Patient had similar symptoms couple days ago and felt very weak in the legs bilaterally, shaky and fell in the toilet. Patient states that she had aching feeling in the right calf region. Denied any loss of consciousness. Denies any head injury. Patient had similar episodes again today and was brought to ER for evaluation. Patient's boyfriend called EMS. EKG performed by EMS showed A. fib with RVR with heart rate went up to 200. Patient otherwise denied any complaints of dizziness or lightheadedness. No palpitations. No leg swelling. Patient has been afebrile. Denied complaints of dysuria or hematuria. No nausea vomiting or abdominal pain or diarrhea. Patient was recently treated for urinary tract infection. Patient was hypoxic with oxygen saturation 88% on room air at home. No prior history of DVT/PE. Chest x-ray showed cardiomegaly. Probable atelectasis. Hip pain pelvic x-ray showed no acute fracture or dislocation in the pelvis or left hip. CT head and cervical spine showed is related atrophic and chronic small vessel ischemic changes without acute intracranial process. CT cervical spine showed unenhanced CT of the cervical spine was performed with bone and soft tissue window settings submitted. No acute evidence for acute fracture or subluxation the cervical spine. Patient was found to elevated D-dimer level 2.29. CT angiogram of the chest showed few scattered filling defects within the second and third order branches right pulmonary arterial tree as well as left lower lobe. Cannot exclude PE EKG showed atrial fibrillation with rapid ventricular rate. 12/14/2020 Patient is seen and evaluated in follow-up this morning continues to be on IV heparin along with IV Cardizem and cardiology following closely. Patient admitted for atrial fibrillation with RVR new onset. Working on transitioning to oral medications along with anticoagulant and metoprolol. Patient also on gentle IV hydration as she had some acute kidney injury which is mildly improved at 1.16, sodium is low at 131 and potassium was found to be 3.2 and will replace. IV fluids as continued. Daughter at the bedside states patient has been feeling slightly more short of breath with a dry cough since admission which could be a component of IV fluids. Will obtain chest x-ray. Repeat labs for the morning pending. 12/15/2020 patient is seen and evaluated and follow-up this morning with daughter at the bedside again and continues to be lethargic and mildly confused. Patient had an episode of increased confusion and altered mental status and slightly combative with nursing staff last night and CT of the brain was done showing age-related atrophic and chronic small vessel ischemia without acute intracranial process seen along with some decreased attenuation at the periventricular white matter and deep white matter of both cerebral hemispheres. MRI suggested if symptoms persist. Neurology was consulted recommending MRI. Urinalysis was done which was negative and patient recently finished antibiotic therapy of UTI in the outpatient setting. patient denies any burning or frequency with urinary retention. patient was transitioned off of Cardizem drip to oral along with metoprolol and oral anticoagulant and heparin was discontinued and throughout the night patient went back into A. fib RVR and was placed back on Cardizem. Patient started experiencing some shortness of breath again along with this cough and pulmonary will be consulted. Cardiology following closely. Review of systems: Constitutional: No reports of fatigue, fever, or chills Cardiovascular: No reports of chest pain or palpitations Respiratory: reports mild shortness of breath with hoarseness and mild cough GI: No reports of nausea, vomiting, or diarrhea : No reports of dysuria or retention Neurovascular: Reports generalized weakness All medications have been reviewed Active Medications Acetaminophen (Acetaminophen Tab 325 Mg Tab) 650 mg PO Q6HR PRN PRN Reason: Mild Pain or Fever > 100.5 Last Admin: 12/14/20 07:09 Dose: 650 mg Documented by: Albuterol/Ipratropium (Ipratropium-Albuterol 3 Ml Neb) 3 ml INHALATION RT-QID PRN PRN Reason: Shortness Of Breath Or Wheezing Apixaban (Apixaban 5 Mg Tab) 5 mg PO BID [facility]; Protocol Last Admin: 12/15/20 10:12 Dose: 5 mg Documented by: Ascorbic Acid (Ascorbic Acid 500 Mg Tab) 1,000 mg PO DAILY [facility] Last Admin: 12/15/20 10:13 Dose: 1,000 mg Documented by: Aspirin (Aspirin 81 Mg) 81 mg PO DAILY [facility] Last Admin: 12/15/20 10:13 Dose: 81 mg Documented by: Atorvastatin Calcium (Atorvastatin 40 Mg Tab) 40 mg PO DAILY [facility] Last Admin: 12/15/20 10:13 Dose: 40 mg Documented by: Benzonatate (Benzonatate 100 Mg Cap) 100 mg PO TID PRN PRN Reason: Cough Last Admin: 12/15/20 12:34 Dose: 100 mg Documented by: Diltiazem HCl (Diltiazem Oral 60 Mg Tab) 60 mg PO TID [facility] Folic Acid (Folic Acid 1 Mg Tab) 0.4 mg PO DAILY [facility] Last Admin: 12/15/20 10:14 Dose: 0.4 mg Documented by: Furosemide (Furosemide 20 Mg Tab) 20 mg PO BID [facility] Last Admin: 12/15/20 10:14 Dose: Not Given Documented by: Insulin Aspart (Insulin Aspart (Novolog) 100 Unit/Ml Vial) 0 unit SQ [facility]; Protocol Last Admin: 12/15/20 11:23 Dose: 3 unit Documented by: Insulin Detemir (Insulin Detemir (Levemir) 100 Unit/Ml Syr) 15 unit SQ [facility] Last Admin: 12/14/20 21:09 Dose: 15 unit Documented by: Lactobacillus Acidoph/Bulgaricus (Lactobacillus Acidoph & Bulgar 1 Each Packet) 1 each PO DAILY [facility] Last Admin: 12/15/20 10:14 Dose: Not Given Documented by: Levothyroxine Sodium (Levothyroxine 75 Mcg Tab) 37.5 mcg PO QAM [facility] Last Admin: 12/15/20 10:13 Dose: 37.5 mcg Documented by: Magnesium Oxide (Magnesium Oxide 400 Mg Tab) 400 mg PO DAILY [facility] Last Admin: 12/15/20 10:13 Dose: 400 mg Documented by: Metoprolol Tartrate (Metoprolol Tartrate 50 Mg Tab) 50 mg PO BID [facility] Last Admin: 12/15/20 10:14 Dose: 50 mg Documented by: Miscellaneous Information (Potassium Replacement Protocol 1 Each [facility]) 1 each MISCELLANE DAILY PRN; Protocol PRN Reason: Per Protocol Naloxone HCl (Naloxone 0.4 Mg/Ml 1 Ml Vial) 0.2 mg IV Q2M PRN PRN Reason: Opioid Reversal Quetiapine Fumarate (Quetiapine 25 Mg Tab) 25 mg PO HS [facility] Last Admin: 12/14/20 21:09 Dose: 25 mg Documented by: Vitamin E (Vitamin E (Dl,Tocopheryl Acet) 400 Unit (180 Mg) Cap) 400 unit PO DAILY [facility] Last Admin: 12/15/20 10:13 Dose: 400 unit Documented by: Physical exam: Patient is sitting up in the bed , awake alert and oriented this morning.. HEENT: Normocephalic. Neck is supple. Pupils reactive. Nostrils clear. Oral cavity is moist. Neck reveals no JVD, carotid bruits, or thyromegaly. CHEST EXAMINATION: Trachea is central. Symmetrical expansion. Diminished breath sounds bilaterally with some mild expiratory wheezing noted.. CARDIAC: Normal S1, S2 with no gallops. No murmurs , irregular rhythm ABDOMEN: Soft. Bowel sounds normal. No organomegaly. No abdominal bruits. Extremities: reveal no edema. No clubbing or cyanosis Neurologically awake, alert, oriented x2 with well-coordinated movements. No focal deficits noted Skin: No rash or skin lesions. Psychiatric: Cooperative. Musculoskeletal: No joint swelling or deformity. Normal range of motion. Assessment: Altered mental status possible metabolic encephalopathy and hypoxia on admission New onset atrial fibrillation with rapid regular rate Possible acute pulmonary embolism with hypoxia on admission and small filling defects in the CTA chest. Hypovolemic hyponatremia/ Pseudohyponatremia Mild hypokalemia Acute kidney injury likely prerenal Hyperglycemia with uncontrolled diabetes type 2 memory impairment Hyperlipidemia Hypothyroidism Anxiety DVT prophylaxis: eliquis Plan: Recommend continue current medications and management. Patient being followed closely by cardiology andis recently transitioned off Cardizem drip and heparin and placed on oral Cardizem and Eliquis and metoprolol. patient had an episode of A. fib with RVR in the middle of the night and placed back on IV Cardizem and cardiology following closely. Patient was also having an episode of increased confusion and underwent brain CT as mentioned previously. Neurology consulted and urinalysis was done which was negative. brain MRI ordered and pending at this time. Patient continues with this cough and hoarseness of voice while being on the Cardizem drip which started again when placed back on Cardizem drip throughout the night and will consult pulmonary and appreciate input. Patient and daughter at the bedside stating she is more weak and requiring assistance with getting up and will have PT/OT evaluate the patient. Blood sugars mildly elevated and will continue with sliding scale along with long-acting and continue Accu-Cheks before meals and at bedtime. will increase long-acting insulin as blood sugars are elevated still. Patient will receive a dose of IV Lasix today. Echo shows mild concentric left ventricular hypertrophy with overall left ventricular systolic function is mild to moderately impaired with an EF of 40-45% with mild mitral annular calcification present along with mild tricuspid regurgitation with mild to moderate pulmonary hypertension. Will repeat a.m. labs and continue to monitor closely. A1c is pending at this time and will continue to hold oral hypoglycemics at this time. Further recommendations to follow based on the clinical course of the patient. Objective - Vital Signs Vital signs: Vital Signs Temp 97.9 F 12/14/20 20:00 Pulse 140 H 12/15/20 07:46 Resp 18 12/15/20 04:00 BP 127/70 12/15/20 04:00 Pulse Ox 93 L 12/15/20 04:00 Intake & Output 12/14/20 12/15/20 12/15/20 18:59 06:59 18:59 Intake Total 812.797 Output Total 150 Balance 812.797 -150 Intake: IV 20 Invasive Line 1 10 Invasive Line 2 10 Intake, IV Titration 52.797 Amount Heparin Sod,Pork in 0.45% 52.797 NaCl 25,000 unit In 0.45 % NaCl 1 250ml.bag @ 18 UNITS/KG/HR 16.329 mls/hr IV .[id number] [facility] Rx#: [id number] Oral 740 Output: Urine 150 Other: Voiding Method Diaper Incontinent # Voids 1 1 # Bowel Movements 1 - Labs CBC & Chem 7: 12/14/20 22:15 12/15/20 09:29 Labs: Abnormal Lab Results - Last 24 Hours (Table) 12/14/20 12/14/20 12/14/20 Range/Units 05:18 11:35 16:34 RBC (3.80-5.40) m/uL Hgb (11.4-16.0) gm/dL Hct (34.0-46.0) % Lymphocytes # (1.0-4.8) k/uL Sodium (137-145) mmol/L Carbon Dioxide (22-30) mmol/L BUN (7-17) mg/dL Glucose (74-99) mg/dL POC Glucose (mg/dL) 308 H 303 H (75-99) mg/dL Hemoglobin A1c 8.7 H (4.0-6.0) % Urine Protein (Negative) Urine Glucose (UA) (Negative) Urine Mucus (None) /hpf 12/14/20 12/14/20 12/14/20 Range/Units 18:25 20:20 22:15 RBC 3.46 L (3.80-5.40) m/uL Hgb 10.9 L (11.4-16.0) gm/dL Hct 33.5 L (34.0-46.0) % Lymphocytes # 0.8 L (1.0-4.8) k/uL Sodium (137-145) mmol/L Carbon Dioxide (22-30) mmol/L BUN (7-17) mg/dL Glucose (74-99) mg/dL POC Glucose (mg/dL) 276 H 219 H (75-99) mg/dL Hemoglobin A1c (4.0-6.0) % Urine Protein (Negative) Urine Glucose (UA) (Negative) Urine Mucus (None) /hpf 12/14/20 12/14/20 12/15/20 Range/Units 22:15 22:36 06:33 RBC (3.80-5.40) m/uL Hgb (11.4-16.0) gm/dL Hct (34.0-46.0) % Lymphocytes # (1.0-4.8) k/uL Sodium 127 L (137-145) mmol/L Carbon Dioxide 21 L (22-30) mmol/L BUN 29 H (7-17) mg/dL Glucose 213 H (74-99) mg/dL POC Glucose (mg/dL) 180 H (75-99) mg/dL Hemoglobin A1c (4.0-6.0) % Urine Protein 1+ H (Negative) Urine Glucose (UA) 2+ H (Negative) Urine Mucus Rare H (None) /hpf
[2020-12-15] MEDS ORDERED: DILTIAZEM ORAL 60 MG TAB PO SCH (16:00)
--- NOTE | 2020-12-15 16:25 | EEG ---
ELECTROENCEPHALOGRAM REPORT DATE OF SERVICE: 12/15/2020. CLINICAL HISTORY: There is a 80-year-old woman with altered mental status. The video EEG is obtained to evaluate for seizure epileptiform activity. RELEVANT MEDICATION: The patient is not on any antiepileptic drugs. EEG TYPE: A routine 21-channel EEG is performed with video using the using the 10/20 electrode placement system. DESCRIPTION: Awake state is obtained. During awake state the background consists of low to moderate voltage of 8 to 8.5 hertz that is well modulated. There is no physiological sleep architecture seen. There is no focal slowing seen. Interictal and ictal is none. ACTIVATION PROCEDURE: Photic stimulation did not evoke a posterior driving response. There is no abnormality during the photic stimulation. Hyperventilation is not performed. CLINICAL INTERPRETATION: This is a normal routine EEG. There are no focal slowing, epileptiform discharges or seizure on the EEG. Clinical correlation is recommended. RICKI / JUANCHO: [id number] / [email or web address]
[2020-12-15 16:29] LABS: Glucose,Whole Blood 274 mg/dL (75-99)
[2020-12-15 16:38] LABS: Folate, Serum >20.00 ng/mL (4.40-31.00)
[2020-12-15] MEDS: DILTIAZEM ORAL 60 MG TAB PO SCH ×2 (16:42→23:47)
[2020-12-15] MEDS ORDERED: METOPROLOL TARTRATE 50 MG TAB PO STA (18:13)
--- NOTE | 2020-12-15 19:08 | US ---
EXAMINATION TYPE: US carotid duplex BILAT DATE OF EXAM: 12/15/2020 COMPARISON: NONE CLINICAL HISTORY: stroke. PE's. HTN controlled with meds. EXAM MEASUREMENTS: RIGHT: Peak Systolic Velocity (PSV) cm/sec ----- Right CCA: 52.6 ----- Right ICA: 94.4 ----- Right ECA: 63.6 ICA/CCA ratio: 1.8 RIGHT: End Diastole cm/sec ----- Right CCA: 9.8 ----- Right ICA: 25.4 ----- Right ECA: 0.0 LEFT: Peak Systolic Velocity (PSV) cm/sec ----- Left CCA: 64.6 ----- Left ICA: 147.5 ----- Left ECA: 71.1 ICA/CCA ratio: 2.3 LEFT: End Diastole cm/sec ----- Left CCA: 16.7 ----- Left ICA: 51.5 ----- Left ECA: 0.0 VERTEBRALS (direction of flow): Right Vertebral: Antegrade Left Vertebral: Antegrade Rhythm: Arrhythmia Suboptimal exam due to arrhythmia. Limited due to patient small patient neck/window for exam Plaque in bilateral bulbs. Elevated mid and distal left ICA, but could be due to curvature of vessel . IMPRESSION: There is antegrade flow in the vertebral arteries. The images and measurements suggest less than 25% stenosis in both internal carotid arteries. Criteria for Assigning % of Stenosis / Diameter reduction (Estimation based on the indirect measurements of the internal carotid artery velocities (ICA PSV). 1. Normal (no stenosis)=ICA PSV < 125 cm/s: ratio < 2.0: ICA EDV<40 cm/s. 2. Less than 50% stenosis=ICA PSV < 125 cm/s: ratio < 2.0: ICA EDV<40 cm/s. 3. 50 to 69% stenosis=ICA PSV of 125 to 230 cm/s: ration 2.0 ? 4.0: ICA EDV 40-100 cm/s. 4. Greater than 70% stenosis to near occlusion= ICA PSV > 230 cm/s: ratio > 4.0: ICA EDV > 100 cm/s. 5. Near occlusion= ICA PSV velocities may be low or undetectable: variable ratio and ICA EDV. 6. Total occlusion=unable to detect flow.
[2020-12-15 20:15] LABS: Glucose,Whole Blood 242 mg/dL (75-99)
[2020-12-15] MEDS: QUEtiapine 25 MG TAB PO SCH (21:32)
[2020-12-15] MEDS: INSULIN DETEMIR (LEVEMIR) 100 UNIT/ML SYR SQ SCH (21:34)
[2020-12-16 06:18] LABS: Glucose,Whole Blood 189 mg/dL (75-99)
[2020-12-16] MEDS: INSULIN ASPART (NovoLOG) 100 UNIT/ML VIAL SQ SCH ×4 (07:03→22:37)
[2020-12-16] MEDS: BENZONATATE 100 MG CAP PO PRN ×2 (07:14→22:37)
--- NOTE | 2020-12-16 09:39 | P.PN ---
Subjective Progress Note Date: 12/16/20 He seen at bedside and is accompanied by her daughter and brother who are at bedside. The daughter stated the patient had a better sleep yesterday and continues to sleep today which she is happy about. Denies any new neurological problems. Objective - Vital Signs Vital signs: Vital Signs Temp 97.8 F 12/15/20 19:31 Pulse 92 12/16/20 04:00 Resp 20 12/16/20 04:00 BP 108/72 12/16/20 04:00 Pulse Ox 92 L 12/16/20 04:00 Intake & Output 12/15/20 12/16/20 12/16/20 18:59 06:59 18:59 Intake Total 592.333 Output Total 300 Balance 592.333 -300 Weight 87.5 kg 93.5 kg Intake: Intake, IV Titration 112.333 Amount Diltiazem 125 mg In 112.333 Sodium Chloride 0.9% 100 ml @ 10 MG/HR 10 mls/hr IV .[id number] [facility] Rx#: [id number] Oral 480 Output: Urine 300 Other: Voiding Method External Catheter # Voids 0 - Exam GENERAL: The patient is lying in bed and is not in acute distress. NEUROLOGICAL: Somnolent so exam was limited and per daughter to allow her sleep. She does not have facial weakness. Other exam is limited. WORK-UP: Orthostatic is the supine of 116/79, sitting is 115/72 and standing is 124/80. Orthostatics is negative. Creatinine 0.90, glucose has been in the range of 180s to 300. And her hemoglobin A1c as a 8.7. Calcium is 9.0, magnesium is 2.4. AST of 34 and ALT of 30. Lipid Panel: Triglyceride is 21, cholesterol 207, LDL is 145 and HDL of the 37. TSH is a 0.793. Vitamin B-12 is 481 and the serum folate is more than 20. Fontenot virus PCR was not detected. CT of the head and CT cervical spine on 12/13/2020 inch reported as age-related atrophic and chronic small vessel ischemic change without acute intracranial process seen at this time. While the CT of the cervical spine was reported as no evidence for fracture that is acute or subluxation of the cervical spine. CT of the head on 12/14/2020 is reported as age-related atrophic and chronic small vessel ischemic change without acute intracranial process seen at this time. I personally reviewed the CT of the head and there is no evidence of acute or subacute ischemia or any hemorrhage. The echo was reported as mild concentric left ventricular hypertrophy. Ejection fraction of 40-45%. Left atrium is mildly dilated that. MRI of the brain is reported as small focus of subacute infarct involving the frontal lobe cortex medial aspect. Age-related changes of atrophy and chronic s mall vessel ischemia. I did review the MRI and the patient does have a infarct over the left frontal lobe which seems small. Carotid duplex on 12/15/2020 is reported as there is antegrade flow in the vertebral arteries. The images and measurements suggest less than 25% stenosis in both internal carotid arteries. Routine EEG on 12/15/2020 is normal. 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 Delerium due to above (and possibly her episode of confusion could be due to sun-downing) New Onset atrial fibrillation on eliquis Diabetes mellitus and her current hemoglobin A1c is 8.7 which is not controlled on presentation her glucose was 336 History of unsteady gait/falls: unknown exact etiology at this time. Possibly multifactorial: Uncontrolled diabetes that can cause neuropathy, also possibly result of concussion (which her falls started). History of concussion about 3 years ago (ever since having balance issues) Dyslipidemia History of hypertension History of a hyperlipidemia Osteoarthritis Osteoarthritis Plan: Patient is currently on Eliquis 5 mg 1 tablet twice a day as well as aspirin 81 mg daily. We'll defer the use of aspirin to the primary as well as cardiology team from a neurological perspective IS sufficient enough. Notified the patient daughter and son that there is a risk of a bleed since the patient has a history of falls and the benefits and the risk was explained to them and that was decided that for the patient to continue on Eliquis and if she has any further falls though consider stopping Eliquis down the line. Continue Lipitor 40 mg daily for secondary stroke prophylaxis (the patient has any muscle cramps recommend to decrease the dose to 20 mg daily and if she continues to also have muscle cramps try 10 mg and if that doesn't help to stop fattens because of the side effects). Continue every 4 hours neuro checks. PT and OT are consulted Cardiology team is on board Pulmonary team is on board. We'll defer the sugar management and the rest of the medical management to the primary team. Upon discharge the patient needs to follow-up with a neurologist (consider Dr. Korey Blackman) within 1-2 weeks. Recommend neuropsychology balance as an outpatient. I feel patient would benefit from rehab. The plan was discussed with the patient daughter and brother who are at bedside. She is clear from neurological perspective. Will Cabrera MD Neuro-Hospitalist. Time with Patient: Less than 30
[2020-12-16] MEDS: DILTIAZEM ORAL 60 MG TAB PO SCH ×3 (09:52→22:36)
[2020-12-16] MEDS: ATORVASTATIN 40 MG TAB PO SCH (09:53)
[2020-12-16] MEDS: APIXABAN 5 MG TAB PO SCH ×2 (09:53→22:36)
[2020-12-16] MEDS: MAGNESIUM OXIDE 400 MG TAB PO SCH (09:53)
[2020-12-16] MEDS: ASPIRIN 81 MG PO SCH (09:53)
[2020-12-16] MEDS: METOPROLOL TARTRATE 50 MG TAB PO SCH ×2 (09:53→17:57)
[2020-12-16] MEDS: ASCORBIC ACID 500 MG TAB PO SCH (09:53)
[2020-12-16] MEDS: LACTOBACILLUS ACIDOPH & BULGAR 1 EACH PACKET PO SCH (09:53)
[2020-12-16] MEDS: VITAMIN E (DL,TOCOPHERYL ACET) 400 UNIT (180 MG) CAP PO SCH (09:53)
[2020-12-16] MEDS: FOLIC ACID 1 MG TAB PO SCH (09:53)
[2020-12-16] MEDS: LEVOTHYROXINE 75 MCG TAB PO SCH (09:54)
[2020-12-16] MEDS: FUROSEMIDE 20 MG TAB PO SCH ×2 (09:54→22:36)
[2020-12-16 10:29] LABS: Calcium 9.2 mg/dL (8.4-10.2); Potassium 3.6 mmol/L (3.5-5.1)
[2020-12-16 11:46] LABS: Glucose,Whole Blood 336 mg/dL (75-99)
--- NOTE | 2020-12-16 14:45 | PN ---
PROGRESS NOTE HISTORY: Mrs. Schwarz is a 80-year-old female who presented with change in mental status and weakness. She was noted to be in atrial fibrillation. She continues to have a cough on and off, although slightly better. She denies any chest discomfort. She denies any palpitations. Her ventricular response is under better control. She was evaluated by Dr. Jones yesterday. She was continued on the bronchodilators. She underwent an MRI that was consistent with a focus subacute infarction involving the left frontal lobe. She continues to be at this time on Eliquis 5 mg twice a day, aspirin 81 mg daily, diltiazem 60 mg 3 times a day, Lasix 20 mg twice a day, metoprolol tartrate 50 mg twice a day. PHYSICAL EXAMINATION: Blood pressure 108/60 with a heart rate in 90s. Lungs with decreased air exchange. No wheezes. Heart is irregularly, irregular, S1, S2. No S3. No rub. Abdomen soft nontender. Extremities no edema. IMPRESSION: 1. Atrial fibrillation, rate controlled and anticoagulated. 2. Probable pulmonary embolism. 3. Cerebrovascular accident. 4. Change in mental status. 5. History of diabetes. 6. Hypertension. 7. Hyperlipidemia. RECOMMENDATIONS: From the cardiac standpoint, we will continue present therapy. Increase her level of activity. I will continue on the low-dose diuretics at this point. Depending on her progress, she should be discharged home in the next 48 hours. RICKI / JUANCHO: [id number] /
[2020-12-16 16:54] LABS: Glucose,Whole Blood 271 mg/dL (75-99)
--- NOTE | 2020-12-16 17:01 | P.PN ---
Subjective Progress Note Date: 12/16/20 Principal diagnosis: Altered mental status suspect acute metabolic encephalopathy This is a 80-year-old female no previous pulmonary history whatsoever. Patient had no previous history of COPD, no previous history of asthma, nonsmoker, patient is known to have history of hypertension dyslipidemia type 2 diabetes hypothyroidism admitted through the emergency room on 12/13 for altered mental status and generalized weakness, and recurrent fall. On 11/21/20, patient fell in the bathroom, however she did not lose consciousness. She felt cold and tremulous. She was able to crawl on the floor, and when daughter came to see her at home, patient refused to go to the hospital. EMS was called and, again the patient refused to be taken to the hospital. On 12/13, agent was noted to be tremulous, confused, and had some difficulty walking to the bathroom. She was also noted to have some raspy cough, shortness of breath, and at times wheezing. In the ER, patient was noted to have atrial fibrillation with RVR. And she was started on IV heparin, and later transitioned to Eliquis at 5 mg tablets twice a day. Since admission the patient has been seen by many consultants including cardiology and neurology, and I was asked to see the patient because of intermittent cough. And some shortness of breath. CT angiogram done on admission didn't show filling defects within the second and third order branches of the right pulmonary artery clearly consistent with pulmonary embolism. However the patient is already on Eliquis, and she received heparin for her atrial fibrillation and RVR, hence no need to pursue this any further, and on physical examination patient sounded quite clear and did not have any rhonchi or wheezes on physical examination. Chest x-ray yesterday showed cardiomegaly and minimal bibasilar atelectasis. No evidence of congestive heart failure, and no evidence of pneumonia. The patient is seen today 12/16/2020 in follow-up on the selective care unit. Currently resting comfortably in bed. Awake and alert in no acute distress. A bit more oriented today. Maintaining O2 saturations in the low 90s on room air. No worsening shortness of breath. MRI of the brain revealed a small focus of subacute infarct involving the left frontal lobe cortex medial aspect. Age related changes of atrophy and chronic small vessel ischemia. Carotid Dopplers revealed less than 25% stenosis bilaterally. EEG normal. Sodium 129. Potassium 3.6. Creatinine 0.89. Glucose 312. She remains anticoagulated with Eliquis. Continued on bronchodilators, Tessalon Perles. He remains on beta blockers. Heart rate better controlled. Objective - Vital Signs Vital signs: Vital Signs Temp 97.8 F 12/16/20 13:15 Pulse 96 12/16/20 13:15 Resp 16 12/16/20 13:15 BP 108/63 12/16/20 13:15 Pulse Ox 95 12/16/20 13:15 Intake & Output 12/15/20 12/16/20 12/16/20 18:59 06:59 18:59 Intake Total 592.333 236 Output Total 300 301 Balance 592.333 -300 -65 Weight 87.5 kg 93.5 kg Intake: Intake, IV Titration 112.333 Amount Diltiazem 125 mg In 112.333 Sodium Chloride 0.9% 100 ml @ 10 MG/HR 10 mls/hr IV .[id number] [facility] Rx#: [id number] Oral 480 236 Output: Urine 300 300 Stool 1 Other: Voiding Method External Catheter External Catheter # Voids 0 - Exam GENERAL EXAM: Alert, oriented, 72-year-old female patient, on room air, comfortable in no apparent distress. HEAD: Normocephalic. EYES: Normal reaction of pupils, equal size. NOSE: Clear with pink turbinates. THROAT: No erythema or exudates. NECK: No masses, no JVD. CHEST: No chest wall deformity. LUNGS: Equal air entry with no crackles, wheeze, rhonchi or dullness. CVS: S1 and S2 normal with no audible murmur, irregular rhythm. ABDOMEN: No hepatosplenomegaly, normal bowel sounds, no guarding or rigidity. SPINE: No scoliosis or deformity SKIN: No rashes CENTRAL NERVOUS SYSTEM: No gross focal deficits, tone is normal in all 4 extremities. EXTREMITIES: There is no peripheral edema. No clubbing, no cyanosis. Peripheral pulses are intact. - Labs CBC & Chem 7: 12/14/20 22:15 12/16/20 09:24 Labs: Abnormal Lab Results - Last 24 Hours (Table) 12/15/20 12/16/20 12/16/20 Range/Units 20:14 06:17 09:24 Sodium 129 L (137-145) mmol/L BUN 22 H (7-17) mg/dL Glucose 312 H (74-99) mg/dL POC Glucose (mg/dL) 242 H 189 H (75-99) mg/dL 12/16/20 Range/Units 11:43 Sodium (137-145) mmol/L BUN (7-17) mg/dL Glucose (74-99) mg/dL POC Glucose (mg/dL) 336 H (75-99) mg/dL Assessment and Plan Assessment: 1 Altered mental status, most likely secondary to acute metabolic encephalopathy. Improved. EEG normal. Carotid doppler normal. MRI of the brain did show a small focus of subacute infarction involving the left frontal lobe cortex medial aspect. 2 Suspect acute or subacute pulmonary embolism patient is now on Eliquis. 3 Bibasilar atelectasis on chest x-ray. 4 Shortness of breath secondary to above. 5 Atrial fibrillation with RVR, on multiple meds and on Eliquis. New onset. 6 Benign essential hypertension. 7 Dyslipidemia. 8 Degenerative joint disease. 9 Type 2 diabetes. Plan: The patient was seen and evaluated by Dr. Robert Castaneda from the pulmonary standpoint, on room air Anticoagulated with Eliquis We will see as needed I, the cosigning physician, performed a history & physical examination of the patient. Lungs sounds are clear. Maintaining good O2 saturations in the 90s on room air. I discussed the assessment and plan of care with my nurse practitioner, Krista Cid. I attest to the above note as dictated by her.
[2020-12-16] MEDS: SODIUM CHLORIDE 0.9% 1,000 ML IV SCH (17:57)
[2020-12-16] MEDS: ACETAMINOPHEN TAB 325 MG TAB PO PRN (20:10)
[2020-12-16 21:42] LABS: Glucose,Whole Blood 301 mg/dL (75-99)
[2020-12-16] MEDS: QUEtiapine 25 MG TAB PO SCH (22:36)
[2020-12-16] MEDS: INSULIN DETEMIR (LEVEMIR) 100 UNIT/ML SYR SQ SCH (22:37)
[2020-12-17 06:18] LABS: Glucose,Whole Blood 271 mg/dL (75-99)
[2020-12-17] MEDS: INSULIN ASPART (NovoLOG) 100 UNIT/ML VIAL SQ SCH ×4 (06:46→22:28)
[2020-12-17] MEDS: LEVOTHYROXINE 75 MCG TAB PO SCH (08:28)
[2020-12-17] MEDS: ASCORBIC ACID 500 MG TAB PO SCH (08:28)
[2020-12-17] MEDS: VITAMIN E (DL,TOCOPHERYL ACET) 400 UNIT (180 MG) CAP PO SCH (08:28)
[2020-12-17] MEDS: DILTIAZEM ORAL 60 MG TAB PO SCH ×3 (08:28→22:27)
[2020-12-17] MEDS: FOLIC ACID 1 MG TAB PO SCH (08:28)
[2020-12-17] MEDS: LACTOBACILLUS ACIDOPH & BULGAR 1 EACH PACKET PO SCH (08:28)
[2020-12-17] MEDS: APIXABAN 5 MG TAB PO SCH ×2 (08:28→22:27)
[2020-12-17] MEDS: ATORVASTATIN 40 MG TAB PO SCH (08:28)
[2020-12-17] MEDS: FUROSEMIDE 20 MG TAB PO SCH ×2 (08:28→22:29)
[2020-12-17] MEDS: METOPROLOL TARTRATE 50 MG TAB PO SCH ×2 (08:29→22:27)
[2020-12-17] MEDS: ASPIRIN 81 MG PO SCH (08:29)
[2020-12-17 09:27] LABS: Calcium 9.5 mg/dL (8.4-10.2)
[2020-12-17 12:07] LABS: Glucose,Whole Blood 370 mg/dL (75-99)
--- NOTE | 2020-12-17 13:32 | PN ---
PROGRESS NOTE Mrs. Schwarz is a 80-year-old female who presented with symptoms of progressive and change in mental status. Was found to have evidence of atrial fibrillation as well as pulmonary embolism and cerebrovascular accident. She is feeling better today. Her breathing is better. Her cough has improved. She denies any dizziness or palpitation. She denies any nausea. She is more active physically. She continues to be at this time on Eliquis 5 mg twice a day, aspirin once a day, Lipitor 40 mg daily, diltiazem 60 mg 3 times a day, furosemide 20 mg twice a day, metoprolol tartrate 50 mg twice a day. PHYSICAL EXAMINATION: Blood pressure 106/70 with a heart rate in the 80s. LUNGS: With no wheezes or rales. HEART: Irregular regular. S1, S2. No S3 with a systolic murmur at the base, no diastolic murmur. ABDOMEN: Soft, nontender. EXTREMITIES: No edema. LAB DATA: Lab data revealed BUN and creatinine 23 and 1.02, potassium 4.0. IMPRESSION: 1. Change in mental status with evidence of cerebrovascular accident. 2. Atrial fibrillation, rate controlled and anticoagulated. 3. Pulmonary embolism. 4. Diabetes mellitus. 5. Hyperlipidemia. RECOMMENDATIONS: From the cardiac standpoint, I will continue to increase her level of activity, follow her symptoms. If she remains stable I would expect she should be able to be discharged home and followed as an outpatient. RICKI / JUANCHO: [id number] /
[2020-12-17] MEDS: SODIUM CHLORIDE 0.9% 1,000 ML IV SCH (16:30)
[2020-12-17 16:42] LABS: Glucose,Whole Blood 210 mg/dL (75-99)
[2020-12-17 20:17] LABS: Glucose,Whole Blood 222 mg/dL (75-99)
[2020-12-17] MEDS: INSULIN DETEMIR (LEVEMIR) 100 UNIT/ML SYR SQ SCH (22:27)
[2020-12-17] MEDS: ACETAMINOPHEN TAB 325 MG TAB PO PRN (22:29)
[2020-12-17] MEDS: BENZONATATE 100 MG CAP PO PRN (22:29)
[2020-12-17] MEDS: QUEtiapine 25 MG TAB PO SCH (22:29)
[2020-12-18] MEDS: IPRATROPIUM-ALBUTEROL 3 ML NEB INHALATION PRN ×2 (00:44→05:39)
--- NOTE | 2020-12-18 02:27 | P.PN ---
Subjective Progress Note Date: 12/16/20 Principal diagnosis: Subacute left frontal lobe infarct Atrial fibrillation with RVR Altered mental status; possible metabolic encephalopathy Suspect acute or subacute pulmonary embolism 12/16/2020 Patient is seen and evaluated at bedside in the selective care unit. patient is currently resting in bed and seems to be in no acute distress. Patient is awake, alert, and slightly more oriented today compared to yesterday. Patient's O2 saturations are being maintained in the low 90s. Patient does not complain of shortness or breath or worsening of shortness of breath. MRI scan of brain reveals small focus of subacute infarct involving the left fontal lobe's medial aspect. Vital signs have been reviewed: Sodium is 129, Potassium is 3.6, Creatinine is 0.90, and Glucose is 312 Lab results have been reviewed: Dopplers reveal less than 25% stenosis bi laterally, EEG is normal Patient remains on Elaquis for anticoagulation therapy and continued on bro nchodilators Continue with supportive care. , Objective - Vital Signs Vital signs: Vital Signs Temp 97.8 F 12/16/20 13:15 Pulse 96 12/16/20 13:15 Resp 16 12/16/20 13:15 BP 108/63 12/16/20 13:15 Pulse Ox 95 12/16/20 13:15 Intake & Output 12/15/20 12/16/20 12/16/20 18:59 06:59 18:59 Intake Total 592.333 236 Output Total 300 301 Balance 592.333 -300 -65 Weight 87.5 kg 93.5 kg Intake: Intake, IV Titration 112.333 Amount Diltiazem 125 mg In 112.333 Sodium Chloride 0.9% 100 ml @ 10 MG/HR 10 mls/hr IV .[id number] [facility] Rx#: [id number] Oral 480 236 Output: Urine 300 300 Stool 1 Other: Voiding Method External Catheter External Catheter # Voids 0 - Labs CBC & Chem 7: 12/14/20 22:15 12/17/20 08:35 Labs: Abnormal Lab Results - Last 24 Hours (Table) 12/15/20 12/15/20 12/16/20 Range/Units 16:25 20:14 06:17 Sodium (137-145) mmol/L BUN (7-17) mg/dL Glucose (74-99) mg/dL POC Glucose (mg/dL) 274 H 242 H 189 H (75-99) mg/dL 12/16/20 12/16/20 Range/Units 09:24 11:43 Sodium 129 L (137-145) mmol/L BUN 22 H (7-17) mg/dL Glucose 312 H (74-99) mg/dL POC Glucose (mg/dL) 336 H (75-99) mg/dL
--- NOTE | 2020-12-18 02:33 | P.PN ---
Subjective Progress Note Date: 12/17/20 Principal diagnosis: Subacute left frontal lobe infarct Atrial fibrillation with RVR Altered mental status; possible metabolic encephalopathy Suspect acute or subacute pulmonary embolism 12/16/2020 Patient is seen and evaluated at bedside in the selective care unit. patient is currently resting in bed and seems to be in no acute distress. Patient is awake, alert, and slightly more oriented today compared to yesterday. Patient's O2 saturations are being maintained in the low 90s. Patient does not complain of shortness or breath or worsening of shortness of breath. MRI scan of brain reveals small focus of subacute infarct involving the left fontal lobe's medial aspect. Vital signs have been reviewed: Sodium is 129, Potassium is 3.6, Creatinine is 0.90, and Glucose is 312 Lab results have been reviewed: Dopplers reveal less than 25% stenosis bilaterally, EEG is normal Patient remains on Elaquis for anticoagulation therapy and continued on bronchodilators Continue with supportive care. 12/17/2020 Patient is seen and evaluated at bedside. Patient is discussed with nursing staff. Patient is feeling better today. She states that her breathing is better and her cough has improved. She denies any dizziness or palpitations or even nausea. Patient remains on anticoagulation therapy with Eliquis along with aspirin, Lipitor, Diltiazem, Fureosemide, Metoprolol. Patients vital signs are reviewed with BP of 106/70, heart rate in 80s Lab results are reviewed with BUN 23 and creatinine at 1.02 Patient does not seem to be in any acute distress, there are no major changes or events since yesterday. Continue with supportive care Objective - Vital Signs Vital signs: Vital Signs Temp 98.0 F 12/17/20 12:04 Pulse 67 12/17/20 12:04 Resp 18 12/17/20 14:00 BP 122/79 12/17/20 12:04 Pulse Ox 99 12/17/20 12:04 Intake & Output 12/16/20 12/17/20 12/17/20 18:59 06:59 18:59 Intake Total 1314 358 Output Total 901 650 300 Balance 413 -650 58 Weight 96.6 kg Intake: Oral 1314 358 Output: Urine 900 650 300 Stool 1 Other: Voiding Method External Catheter External Catheter # Voids 1 # Bowel Movements 1 - Labs CBC & Chem 7: 12/14/20 22:15 12/17/20 08:35 Labs: Abnormal Lab Results - Last 24 Hours (Table) 12/16/20 12/16/20 12/17/20 Range/Units 16:52 21:40 06:16 Sodium (137-145) mmol/L BUN (7-17) mg/dL Glucose (74-99) mg/dL POC Glucose (mg/dL) 271 H 301 H 271 H (75-99) mg/dL 12/17/20 12/17/20 Range/Units 08:35 12:04 Sodium 134 L (137-145) mmol/L BUN 23 H (7-17) mg/dL Glucose 283 H (74-99) mg/dL POC Glucose (mg/dL) 370 H (75-99) mg/dL
[2020-12-18 06:03] LABS: Glucose,Whole Blood 231 mg/dL (75-99)
[2020-12-18] MEDS: INSULIN ASPART (NovoLOG) 100 UNIT/ML VIAL SQ SCH ×4 (06:54→21:09)
[2020-12-18] MEDS: METOPROLOL TARTRATE 50 MG TAB PO SCH (08:45)
[2020-12-18] MEDS: ASPIRIN 81 MG PO SCH (08:46)
[2020-12-18] MEDS: VITAMIN E (DL,TOCOPHERYL ACET) 400 UNIT (180 MG) CAP PO SCH (08:46)
[2020-12-18] MEDS: APIXABAN 5 MG TAB PO SCH ×2 (08:46→21:07)
[2020-12-18] MEDS: MAGNESIUM OXIDE 400 MG TAB PO SCH (08:46)
[2020-12-18] MEDS: LEVOTHYROXINE 75 MCG TAB PO SCH (08:46)
[2020-12-18] MEDS: ASCORBIC ACID 500 MG TAB PO SCH (08:46)
[2020-12-18] MEDS: ATORVASTATIN 40 MG TAB PO SCH (08:46)
[2020-12-18] MEDS: DILTIAZEM ORAL 60 MG TAB PO SCH ×3 (08:47→21:07)
[2020-12-18] MEDS: FUROSEMIDE 20 MG TAB PO SCH ×2 (08:47→17:10)
[2020-12-18] MEDS: LACTOBACILLUS ACIDOPH & BULGAR 1 EACH PACKET PO SCH (08:47)
[2020-12-18] MEDS: FOLIC ACID 1 MG TAB PO SCH (08:47)
[2020-12-18 11:50] LABS: Glucose,Whole Blood 487 mg/dL (75-99)
[2020-12-18] MEDS ORDERED: METOPROLOL TARTRATE 25 MG TAB PO STA (11:56)
[2020-12-18] MEDS ORDERED: INSULIN ASPART (NovoLOG) 100 UNIT/ML VIAL SQ ONE (13:00)
--- NOTE | 2020-12-18 15:18 | P.PN ---
Subjective Progress Note Date: 12/18/20 HISTORY OF PRESENT ILLNESS: This is a 80-year-old female with a past medical history of hypertension, diabetes, hyperlipidemia. Patient presented to the hospital with change of men kristina status and feeling of weakness. In the emergency room patient was found to be in atrial fibrillation with rapid ventricular response. Cardiology was consulted. Echocardiogram revealed EF of 4045 percent, mild to moderate pulmonary hypertension. CTA revealed few scattered filling defects in the second and third order branch of right pulmonary artery. Possibility of pulmonary embolism cannot be excluded. Patient seen and examined at bedside, she endorses a cough and shortness of breath. She denies any chest pain, palpitations, lightheadedness, dizziness. Telemetry reviewed patient in atrial fibrillation with uncontrolled ventricular rates. She is currently maintained on IV heparin, aspirin 81 mg daily, atorvastatin 40 mg daily, IV Cardizem 10mg/hr, metoprolol titrate 25 mg twice a day. Labs reviewed, sodium 131, potassium 3.2, BUN 37, serum creatinine 1.1, TSH within normal limits. 12/18/2020 Patient examined this morning by Dr. Umana. Patient denies chest pain or pressure. Denies SOB. Telemetry reveals atrial fibrillation with a heart rate 100-120. PHYSICAL EXAM: VITAL SIGNS: Reviewed. GENERAL: Well-developed in no acute distress. NECK: Supple. No JVD or thyromegaly LUNGS: Respirations even and unlabored. Lungs diminished to auscultation bilaterally. HEART: Irregular rate and rhythm. S1 and S2 heard. EXTREMITIES: Normal range of motion. No clubbing or cyanosis. Peripheral pulses intact. Bilateral lower extremity edema ASSESSMENT: Altered mental status New-onset paroxysmal atrial fibrillation with RVR Hypertension Hyperlipidemia Diabetes Status post fall Acute kidney injury Subacute left frontal lobe infarct Acute or subacute pulmonary embolism PLAN: Continue current cardiac medications Increase metoprolol to 75mg BID Give additional 25mg now Patient may be discharged home this afternoon if heart rate improves Nurse practitioner note has been reviewed by physician. Signing provider agrees with the documented findings, assessment, and plan of care. Objective - Vital Signs Vital signs: Vital Signs Temp 97.1 F L 12/18/20 08:00 Pulse 98 12/18/20 14:00 Resp 20 12/18/20 14:00 BP 141/66 12/18/20 12:00 Pulse Ox 97 12/18/20 12:00 Intake & Output 12/17/20 12/18/20 12/18/20 18:59 06:59 18:59 Intake Total 358 420 Output Total 300 250 200 Balance 58 -250 220 Weight 97.1 kg Intake: Oral 358 420 Output: Urine 300 250 200 Other: Voiding Method External Catheter # Voids 1 1 1 # Bowel Movements 1 - Labs CBC & Chem 7: 12/14/20 22:15 12/17/20 08:35 Labs: Abnormal Lab Results - Last 24 Hours (Table) 12/17/20 12/17/20 12/18/20 Range/Units 16:40 20:15 06:01 POC Glucose (mg/dL) 210 H 222 H 231 H (75-99) mg/dL 12/18/20 Range/Units 11:48 POC Glucose (mg/dL) 487 H (75-99) mg/dL
[2020-12-18] MEDS: ACETAMINOPHEN TAB 325 MG TAB PO PRN (15:59)
[2020-12-18] MEDS: BENZONATATE 100 MG CAP PO PRN (16:03)
[2020-12-18] MEDS: ALPRAZolam 0.25 MG TAB PO PRN (16:30)
[2020-12-18 16:45] LABS: Glucose,Whole Blood 145 mg/dL (75-99)
[2020-12-18] MEDS: SODIUM CHLORIDE 0.9% 1,000 ML IV SCH (19:03)
[2020-12-18 19:59] LABS: Glucose,Whole Blood 182 mg/dL (75-99)
[2020-12-18] MEDS: QUEtiapine 25 MG TAB PO SCH (21:08)
[2020-12-18] MEDS: METOPROLOL TARTRATE 25 MG TAB PO SCH (21:08)
[2020-12-18] MEDS: INSULIN DETEMIR (LEVEMIR) 100 UNIT/ML SYR SQ SCH (21:09)
--- NOTE | 2020-12-19 02:04 | P.PN ---
Subjective Progress Note Date: 12/18/20 Patient is a 80-year-old female with a known history of hypertension, hyperlipidemia diabetes type 2 [id number], osteoarthritis, memory impairment, hypothyroidism and previous history of fall in October 2020 and anxiety presents to ER due to altered mental status,, generalized weakness and fall. Patient had similar symptoms couple days ago and felt very weak in the legs bilaterally, shaky and fell in the toilet. Patient states that she had aching feeling in the right calf region. Denied any loss of consciousness. Denies any head injury. Patient had similar episodes again today and was brought to ER for evaluation. Patient's boyfriend called EMS. EKG performed by EMS showed A. fib with RVR with heart rate went up to 200. Patient otherwise denied any complaints of dizziness or lightheadedness. No palpitations. No leg swelling. Patient has been afebrile. Denied complaints of dysuria or hematuria. No nausea vomiting or abdominal pain or diarrhea. Patient was recently treated for urinary tract infection. Patient was hypoxic with oxygen saturation 88% on room air at home. No prior history of DVT/PE. Chest x-ray showed cardiomegaly. Probable atelectasis. Hip pain pelvic x-ray showed no acute fracture or dislocation in the pelvis or left hip. CT head and cervical spine showed is related atrophic and chronic small vessel ischemic changes without acute intracranial process. CT cervical spine showed unenhanced CT of the cervical spine was performed with bone and soft tissue window settings submitted. No acute evidence for acute fracture or subluxation the cervical spine. Patient was found to elevated D-dimer level 2.29. CT angiogram of the chest showed few scattered filling defects within the second and third order branches right pulmonary arterial tree as well as left lower lobe. Cannot exclude PE EKG showed atrial fibrillation with rapid ventricular rate. 12/14/2020 Patient is seen and evaluated in follow-up this morning continues to be on IV heparin along with IV Cardizem and cardiology following closely. Patient admitted for atrial fibrillation with RVR new onset. Working on transitioning to oral medications along with anticoagulant and metoprolol. Patient also on gentle IV hydration as she had some acute kidney injury which is mildly improved at 1.16, sodium is low at 131 and potassium was found to be 3.2 and will replace. IV fluids as continued. Daughter at the bedside states patient has been feeling slightly more short of breath with a dry cough since admission which could be a component of IV fluids. Will obtain chest x-ray. Repeat labs for the morning pending. 12/15/2020 patient is seen and evaluated and follow-up this morning with daughter at the bedside again and continues to be lethargic and mildly confused. Patient had an episode of increased confusion and altered mental status and slightly combative with nursing staff last night and CT of the brain was done showing age-related atrophic and chronic small vessel ischemia without acute intracranial process seen along with some decreased attenuation at the periventricular white matter and deep white matter of both cerebral hemispheres. MRI suggested if symptoms persist. Neurology was consulted recommending MRI. Urinalysis was done which was negative and patient recently finished antibiotic therapy of UTI in the outpatient setting. patient denies any burning or frequency with urinary retention. patient was transitioned off of Cardizem drip to oral along with metoprolol and oral anticoagulant and heparin was discontinued and throughout the night patient went back into A. fib RVR and was placed back on Cardizem. Patient started experiencing some shortness of breath again along with this cough and pulmonary will be consulted. Cardiology following closely. 12/18/2020 Patient is seen and evaluated this morning sitting up at the side of the bed conversing with family members present. Multiple medical consultations following recommending outpatient follow up with neurology and pulmonary. Cardiology following closely and making adjustments to medications as she continues to have an elevated HR. Patient is extremely anxious as well. Patient denies any worsening shortness of breath or chest pain or palpitations. Patient continues with cough. Review of systems: Constitutional: No reports of fatigue, fever, or chills, anxious Cardiovascular: No reports of chest pain or palpitations Respiratory: reports no worsening shortness of breath with continued hoarseness and mild cough GI: No reports of nausea, vomiting, or diarrhea : No reports of dysuria or retention Neurovascular: Reports generalized weakness All medications have been reviewed Active Medications Acetaminophen (Acetaminophen Tab 325 Mg Tab) 650 mg PO Q6HR PRN PRN Reason: Mild Pain or Fever > 100.5 Last Admin: 12/18/20 15:59 Dose: 650 mg Documented by: Albuterol/Ipratropium (Ipratropium-Albuterol 3 Ml Neb) 3 ml INHALATION RT-QID PRN PRN Reason: Shortness Of Breath Or Wheezing Last Admin: 12/18/20 05:39 Dose: 3 ml Documented by: Alprazolam (Alprazolam 0.25 Mg Tab) 0.125 mg PO BID PRN PRN Reason: Anxiety Last Admin: 12/18/20 16:30 Dose: 0.125 mg Documented by: Apixaban (Apixaban 5 Mg Tab) 5 mg PO BID [facility]; Protocol Last Admin: 12/18/20 21:07 Dose: 5 mg Documented by: Ascorbic Acid (Ascorbic Acid 500 Mg Tab) 1,000 mg PO DAILY [facility] Last Admin: 12/18/20 08:46 Dose: 1,000 mg Documented by: Aspirin (Aspirin 81 Mg) 81 mg PO DAILY [facility] Last Admin: 12/18/20 08:46 Dose: 81 mg Documented by: Atorvastatin Calcium (Atorvastatin 40 Mg Tab) 40 mg PO DAILY [facility] Last Admin: 12/18/20 08:46 Dose: 40 mg Documented by: Benzonatate (Benzonatate 100 Mg Cap) 100 mg PO TID PRN PRN Reason: Cough Last Admin: 12/18/20 16:03 Dose: 100 mg Documented by: Diltiazem HCl (Diltiazem Oral 60 Mg Tab) 60 mg PO TID [facility] Last Admin: 12/18/20 21:07 Dose: 60 mg Documented by: Folic Acid (Folic Acid 1 Mg Tab) 0.4 mg PO DAILY [facility] Last Admin: 12/18/20 08:47 Dose: 0.4 mg Documented by: Furosemide (Furosemide 20 Mg Tab) 20 mg PO BID@0900,1600 [facility] Sodium Chloride (Saline 0.9%) 1,000 mls @ 50 mls/hr IV .Q20H [facility] Last Admin: 12/18/20 19:03 Dose: Not Given Documented by: Insulin Aspart (Insulin Aspart (Novolog) 100 Unit/Ml Vial) 0 unit SQ ACHS [facility]; Protocol Last Admin: 12/18/20 21:09 Dose: 2 unit Documented by: Insulin Detemir (Insulin Detemir (Levemir) 100 Unit/Ml Syr) 20 unit SQ HS [facility] Last Admin: 12/18/20 21:09 Dose: 20 unit Documented by: Lactobacillus Acidoph/Bulgaricus (Lactobacillus Acidoph & Bulgar 1 Each Packet) 1 each PO DAILY [facility] Last Admin: 12/18/20 08:47 Dose: 1 each Documented by: Levothyroxine Sodium (Levothyroxine 75 Mcg Tab) 37.5 mcg PO QAM [facility] Last Admin: 12/18/20 08:46 Dose: 37.5 mcg Documented by: Magnesium Oxide (Magnesium Oxide 400 Mg Tab) 400 mg PO DAILY [facility] Last Admin: 12/18/20 08:46 Dose: 400 mg Documented by: Metoprolol Tartrate (Metoprolol Tartrate 25 Mg Tab) 75 mg PO BID [facility] Last Admin: 12/18/20 21:08 Dose: 75 mg Documented by: Miscellaneous Information (Potassium Replacement Protocol 1 Each Misc) 1 each MISCELLANE DAILY PRN; Protocol PRN Reason: Per Protocol Naloxone HCl (Naloxone 0.4 Mg/Ml 1 Ml Vial) 0.2 mg IV Q2M PRN PRN Reason: Opioid Reversal Quetiapine Fumarate (Quetiapine 25 Mg Tab) 25 mg PO HS [facility] Last Admin: 12/18/20 21:08 Dose: 25 mg Documented by: Vitamin E (Vitamin E (Dl,Tocopheryl Acet) 400 Unit (180 Mg) Cap) 400 unit PO DAILY [facility] Last Admin: 12/18/20 08:46 Dose: 400 unit Documented by: Physical exam: Patient is sitting up at the side of the bed , awake alert and oriented this morning HEENT: Normocephalic. Neck is supple. Pupils reactive. Nostrils clear. Oral cavity is moist. Neck reveals no JVD, carotid bruits, or thyromegaly. CHEST EXAMINATION: Trachea is central. Symmetrical expansion. Diminished breath sounds bilaterally CARDIAC: Normal S1, S2 with no gallops. No murmurs , irregular rhythm ABDOMEN: Soft. Bowel sounds normal. No organomegaly. No abdominal bruits. Extremities: reveal no edema. No clubbing or cyanosis Neurologically awake, alert, oriented x3 with well-coordinated movements. No focal deficits noted Skin: No rash or skin lesions. Psychiatric: Cooperative. Musculoskeletal: No joint swelling or deformity. Normal range of motion. Assessment: Altered mental status possible metabolic encephalopathy and hypoxia on admission New onset paroxysmal atrial fibrillation with rapid regular rate Possible acute pulmonary embolism with hypoxia on admission and small filling defects in the CTA chest. Hypovolemic hyponatremia/ Pseudohyponatremia Mild hypokalemia Acute kidney injury likely prerenal Hyperglycemia with uncontrolled diabetes type 2 memory impairment Hyperlipidemia Hypothyroidism Anxiety DVT prophylaxis: eliquis Full code Plan: Recommend continue current medications and management. Patient being followed closely by cardiology and making medication adjustments to help control heart rate. Blood sugars increasingly elevated and will continue with sliding scale along with will also increase dose of long-acting and continue Accu-Cheks before meals and at bedtime. Will continue to monitor closely. Further recommendations to follow based on the clinical course of the patient. Awaiting insurance authorization to go to [facility] for continued PT/OT therapy. Possible discharge in 24-48 hours. Prognosis is guarded. Objective - Vital Signs Vital signs: Vital Signs Temp 97.1 F L 12/17/20 20:00 Pulse 77 12/18/20 05:50 Resp 22 12/18/20 04:00 BP 125/85 12/18/20 04:00 Pulse Ox 96 12/18/20 04:00 Intake & Output 12/17/20 12/18/20 12/18/20 18:59 06:59 18:59 Intake Total 358 180 Output Total 300 250 200 Balance 58 -250 -20 Weight 97.1 kg Intake: Oral 358 180 Output: Urine 300 250 200 Other: Voiding Method External Catheter # Voids 1 1 # Bowel Movements 1 - Labs CBC & Chem 7: 12/14/20 22:15 12/17/20 08:35 Labs: Abnormal Lab Results - Last 24 Hours (Table) 12/17/20 12/17/20 12/17/20 Range/Units 08:35 12:04 16:40 Sodium 134 L (137-145) mmol/L BUN 23 H (7-17) mg/dL Glucose 283 H (74-99) mg/dL POC Glucose (mg/dL) 370 H 210 H (75-99) mg/dL 12/17/20 12/18/20 Range/Units 20:15 06:01 Sodium (137-145) mmol/L BUN (7-17) mg/dL Glucose (74-99) mg/dL POC Glucose (mg/dL) 222 H 231 H (75-99) mg/dL
[2020-12-19] MEDS: SODIUM CHLORIDE 0.9% 1,000 ML IV SCH (03:26)
[2020-12-19 06:29] LABS: Glucose,Whole Blood 157 mg/dL (75-99)
[2020-12-19] MEDS: INSULIN ASPART (NovoLOG) 100 UNIT/ML VIAL SQ SCH ×5 (07:01→22:40)
[2020-12-19 07:35] LABS: Calcium 9.8 mg/dL (8.4-10.2)
[2020-12-19 08:12] VITALS: BMI 31.7
[2020-12-19] MEDS: IPRATROPIUM-ALBUTEROL 3 ML NEB INHALATION PRN (09:34)
[2020-12-19] MEDS: APIXABAN 5 MG TAB PO SCH ×2 (10:18→20:34)
[2020-12-19] MEDS: ASPIRIN 81 MG PO SCH (10:18)
[2020-12-19] MEDS: ASCORBIC ACID 500 MG TAB PO SCH (10:18)
[2020-12-19] MEDS: LEVOTHYROXINE 75 MCG TAB PO SCH (10:19)
[2020-12-19] MEDS: LACTOBACILLUS ACIDOPH & BULGAR 1 EACH PACKET PO SCH (10:19)
[2020-12-19] MEDS: FOLIC ACID 1 MG TAB PO SCH (10:19)
[2020-12-19] MEDS: ATORVASTATIN 40 MG TAB PO SCH (10:19)
[2020-12-19] MEDS: FUROSEMIDE 20 MG TAB PO SCH ×2 (10:19→16:29)
[2020-12-19] MEDS: VITAMIN E (DL,TOCOPHERYL ACET) 400 UNIT (180 MG) CAP PO SCH (10:20)
[2020-12-19] MEDS: MAGNESIUM OXIDE 400 MG TAB PO SCH (10:20)
[2020-12-19] MEDS: DILTIAZEM ORAL 30 MG TAB PO SCH ×3 (10:20→20:34)
[2020-12-19] MEDS: METOPROLOL TARTRATE 50 MG TAB PO SCH ×2 (10:21→20:34)
[2020-12-19] MEDS: ALPRAZolam 0.25 MG TAB PO PRN (10:32)
[2020-12-19 12:09] LABS: Glucose,Whole Blood 327 mg/dL (75-99)
[2020-12-19] MEDS: DILTIAZEM ORAL 60 MG TAB PO SCH (12:20)
[2020-12-19] MEDS: METOPROLOL TARTRATE 25 MG TAB PO SCH (12:20)
--- NOTE | 2020-12-19 13:47 | P.PN ---
Subjective Progress Note Date: 12/19/20 HISTORY OF PRESENT ILLNESS: This is a 80-year-old female with a past medical history of hypertension, diabetes, hyperlipidemia. Patient presented to the hospital with change of men kristina status and feeling of weakness. In the emergency room patient was found to be in atrial fibrillation with rapid ventricular response. Cardiology was consulted. Echocardiogram revealed EF of 4045 percent, mild to moderate pulmonary hypertension. CTA revealed few scattered filling defects in the second and third order branch of right pulmonary artery. Possibility of pulmonary embolism cannot be excluded. Patient seen and examined at bedside, she endorses a cough and shortness of breath. She denies any chest pain, palpitations, lightheadedness, dizziness. Telemetry reviewed patient in atrial fibrillation with uncontrolled ventricular rates. She is currently maintained on IV heparin, aspirin 81 mg daily, atorvastatin 40 mg daily, IV Cardizem 10mg/hr, metoprolol titrate 25 mg twice a day. Labs reviewed, sodium 131, potassium 3.2, BUN 37, serum creatinine 1.1, TSH within normal limits. 12/18/2020 Patient examined this morning by Dr. Umana. Patient denies chest pain or pressure. Denies SOB. Telemetry reveals atrial fibrillation with a heart rate 100-120. 12/19/2020 Patient remains in atrial fibrillation with controlled ventricular rates. She denies chest pain or pressure. Denies shortness of breath. She is very anxious to be discharged home today. PHYSICAL EXAM: VITAL SIGNS: Reviewed. GENERAL: Well-developed in no acute distress. NECK: Supple. No JVD or thyromegaly LUNGS: Respirations even and unlabored. Lungs diminished to auscultation bilaterally. HEART: Irregular rate and rhythm. S1 and S2 heard. EXTREMITIES: Normal range of motion. No clubbing or cyanosis. Peripheral pulses intact. Bilateral lower extremity edema ASSESSMENT: Altered mental status New-onset paroxysmal atrial fibrillation with RVR Hypertension Hyperlipidemia Diabetes Status post fall Acute kidney injury Subacute left frontal lobe infarct Acute or subacute pulmonary embolism PLAN: Continue current cardiac medications Increase Cardizem to 90 mg 3 times a day Increase metoprolol to 100 mg twice a day Patient may be discharged home this afternoon if heart rate improves Nurse practitioner note has been reviewed by physician. Signing provider agrees with the documented findings, assessment, and plan of care. Objective - Vital Signs Vital signs: Vital Signs Temp 98.0 F 12/19/20 12:00 Pulse 111 H 11/02/21 12:00 Resp 22 12/19/20 09:48 BP 126/79 12/19/20 12:00 Pulse Ox 94 L 12/19/20 08:00 Intake & Output 12/18/20 12/19/20 12/19/20 18:59 06:59 18:59 Intake Total 660 240 118 Output Total 200 Balance 460 240 118 Weight 94.8 kg 94.8 kg Intake: Oral 660 240 118 Output: Urine 200 Other: Voiding Method Toilet Toilet Diaper Diaper # Voids 1 2 1 - Labs CBC & Chem 7: 12/14/20 22:15 12/19/20 06:37 Labs: Abnormal Lab Results - Last 24 Hours (Table) 12/18/20 12/18/20 12/19/20 Range/Units 16:43 19:56 06:28 BUN (7-17) mg/dL Glucose (74-99) mg/dL POC Glucose (mg/dL) 145 H 182 H 157 H (75-99) mg/dL 12/19/20 12/19/20 Range/Units 06:37 12:07 BUN 20 H (7-17) mg/dL Glucose 141 H (74-99) mg/dL POC Glucose (mg/dL) 327 H (75-99) mg/dL
--- NOTE | 2020-12-19 15:30 | P.DS ---
Providers Date of admission: 12/13/20 11:16 Expected date of discharge: 12/19/20 Attending physician: Balbina Agudelo Consults: 12/13/20 11:15 Consult Physician Urgent Consulting Provider: [facility] Consult Reason/Comments: new onset afib Do you want consulting provider notified?: Yes 12/14/20 23:12 Consult Physician Routine Consulting Provider: Will Cabrera Consult Reason/Comments: new onset ams, r/o cva/tia Do you want consulting provider notified?: Yes, Notify in am 12/15/20 11:05 Consult Physician Routine Consulting Provider: Klaudia Jones Consult Reason/Comments: shortness of breath, wheezing, unclear if underlying lung disease Do you want consulting provider notified?: Yes Primary care physician: Stated None Hospital Course: Final diagnosis Altered mental status possible metabolic encephalopathy and hypoxia on admission New onset paroxysmal atrial fibrillation with rapid regular rate Subacute infarct over the medial left frontal lobe likely embolic in the setting of new onset atrial fibrillation Possible acute pulmonary embolism with hypoxia on admission and small filling defects in the CTA chest. Hypovolemic hyponatremia/ Pseudohyponatremia Mild hypokalemia Acute kidney injury likely prerenal Hyperglycemia with uncontrolled diabetes type 2 memory impairment Hyperlipidemia Hypothyroidism Anxiety DVT prophylaxis: eliquis Full code Discharge disposition Patient is being discharged in a stable condition with guarded prognosis to [facility] for continued PT/OT therapy. Patient will follow-up with Dr. Lofton in the outpatient setting upon discharge. Patient is to follow-up with cardiology outpatient in 1-2 weeks. Patient to follow up with neurology in the outpatient setting as well. Total time taken is greater than 35 minutes. Hospital course Patient is a 80-year-old female with a known history of hypertension, hyperlipidemia diabetes type 2 [id number], osteoarthritis, memory impairment, hypothyroidism and previous history of fall in October 2020 and anxiety presents to ER due to altered mental status,, generalized weakness and fall. Patient had similar symptoms couple days ago and felt very weak in the legs bilaterally, shaky and fell in the toilet. Patient states that she had aching feeling in the right calf region. Denied any loss of consciousness. Denies any head injury. Patient had similar episodes again today and was brought to ER for evaluation. Patient's boyfriend called EMS. EKG performed by EMS showed A. fib with RVR with heart rate went up to 200. Patient otherwise denied any complaints of dizziness or lightheadedness. No palpitations. No leg swelling. Patient has been afebrile. Denied complaints of dysuria or hematuria. No nausea vomiting or abdominal pain or diarrhea. Patient was recently treated for urinary tract infection. Patient was hypoxic with oxygen saturation 88% on room air at home. No prior history of DVT/PE. Chest x-ray showed cardiomegaly. Probable atelectasis. Hip pain pelvic x-ray showed no acute fracture or dislocation in the pelvis or left hip. CT head and cervical spine showed is related atrophic and chronic small vessel ischemic changes without acute intracranial process. CT cervical spine showed unenhanced CT of the cervical spine was performed with bone and soft tissue window settings submitted. No acute evidence for acute fra cture or subluxation the cervical spine. Patient was found to elevated D-dimer level 2.29. CT angiogram of the chest showed few scattered filling defects within the second and third order branches right pulmonary arterial tree as well as left lower lobe. Cannot exclude PE EKG showed atrial fibrillation with rapid ventricular rate. 12/14/2020 Patient is seen and evaluated in follow-up this morning continues to be on IV heparin along with IV Cardizem and cardiology following closely. Patient admitted for atrial fibrillation with RVR new onset. Working on transitioning to oral medications along with anticoagulant and metoprolol. Patient also on gentle IV hydration as she had some acute kidney injury which is mildly improved at 1.16, sodium is low at 131 and potassium was found to be 3.2 and will replace. IV fluids as continued. Daughter at the bedside states patient has been feeling slightly more short of breath with a dry cough since admission which could be a component of IV fluids. Will obtain chest x-ray. Repeat labs for the morning pending. 12/15/2020 patient is seen and evaluated and follow-up this morning with daughter at the bedside again and continues to be lethargic and mildly confused. Patient had an episode of increased confusion and altered mental status and slightly combative with nursing staff last night and CT of the brain was done showing age-related atrophic and chronic small vessel ischemia without acute intracranial process seen along with some decreased attenuation at the periventricular white matter and deep white matter of both cerebral hemispheres. MRI suggested if symptoms persist. Neurology was consulted recommending MRI. Urinalysis was done which was negative and patient recently finished antibiotic therapy of UTI in the outpatient setting. patient denies any burning or frequency with urinary retention. patient was transitioned off of Cardizem drip to oral along with metoprolol and oral anticoagulant and heparin was discontinued and throughout the night patient went back into A. fib RVR and was placed back on Cardizem. Patient started experiencing some shortness of breath again along with this cough and pulmonary will be consulted. Cardiology following closely. 12/18/2020 Patient is seen and evaluated this morning sitting up at the side of the bed conversing with family members present. Multiple medical consultations following recommending outpatient follow up with neurology and pulmonary. Cardiology following closely and making adjustments to medications as she continues to have an elevated HR. Patient is extremely anxious as well. Patient denies any worsening shortness of breath or chest pain or palpitations. Patient continues with cough. 12/19/2020 Patient is seen in follow-up this morning continues to have elevated heart rate and adjustments are being made to oral Cardizem and metoprolol and cardiology following closely. If heart rate improves patient may be discharged to [facility] this afternoon. Patient is extremely anxious and adamant about being discharged today. She will continue on current medication regimen on the med reconciliation. Currently no reports of chest pain, shortness of breath, or palpitations. Patient is afebrile. No reports of nausea or vomiting and patient is tolerating diet. Patient will be discharged to [facility] today. Guarded prognosis. Patient is sitting up in the chair , awake alert and oriented this morning HEENT: Normocephalic. Neck is supple. Pupils reactive. Nostrils clear. Oral cavity is moist. Neck reveals no JVD, carotid bruits, or thyromegaly. CHEST EXAMINATION: Trachea is central. Symmetrical expansion. Diminished breath sounds bilaterally CARDIAC: Normal S1, S2 with no gallops. No murmurs , irregular rhythm ABDOMEN: Soft. Bowel sounds normal. No organomegaly. No abdominal bruits. Extremities: reveal no edema. No clubbing or cyanosis Neurologically awake, alert, oriented x3 with well-coordinated movements. No focal deficits noted Skin: No rash or skin lesions. Psychiatric: Cooperative. Musculoskeletal: No joint swelling or deformity. Normal range of motion. Please refer to medication reconciliation sheet for a list of medications. Patient Condition at Discharge: Stable Plan - Discharge Summary Discharge Rx Participant: No New Discharge Prescriptions: New Diltiazem Oral [Cardizem*] 90 mg PO TID tab Ipratropium-Albuterol Nebulize [Duoneb 0.5 mg-3 mg/3 ml Soln] 3 ml INHALATION RT-QID PRN ml PRN Reason: Shortness Of Breath Or Wheezing Furosemide [Lasix] 20 mg PO BID@0900,1600 tab Atorvastatin [Lipitor] 40 mg PO DAILY tab QUEtiapine [SEROquel] 25 mg PO HS tab Acetaminophen Tab [Tylenol] 650 mg PO Q6HR PRN tab PRN Reason: Mild Pain Or Fever > 100.5 Apixaban [Eliquis] 5 mg PO BID 30 Days #60 tab Metoprolol Tartrate [Lopressor] 100 mg PO BID tab INSULIN ASPART (NovoLOG) [NovoLOG (formulary)] 0 unit SQ ACHS ml Benzonatate [Tessalon Perles] 100 mg PO TID PRN cap PRN Reason: Cough Continue Aspirin 81 mg PO DAILY Levothyroxine Sodium [Synthroid] 37.5 mcg PO QAM Folic Acid 0.4 mg PO DAILY Magnesium Oxide 400 mg PO DAILY Glimepiride [Amaryl] 2 mg PO AC-BRKFST Vitamin E (Dl,Tocopheryl Acet) [Vitamin E (400 Iu = 180 mg)] 400 unit PO DAILY Ascorbic Acid [Vitamin C] 1,000 mg PO DAILY L.acidoph,Paracasei, B.lactis [Probiotic] 1 cap PO DAILY Changed Insulin Glargine,Hum.rec.anlog [Lantus Solostar Pen] 20 unit SQ HS #0 Discontinued Simvastatin [Zocor] 20 mg PO HS metFORMIN HCL [Glucophage] 1,000 mg PO BID Repaglinide [Prandin] 1 mg PO AC-BRKFST Pioglitazone [Actos] 15 mg PO DAILY Valsartan [Diovan] 160 mg PO DAILY amLODIPine [Norvasc] 5 mg PO DAILY Discharge Medication List Aspirin 81 mg PO DAILY 12/31/13 [History] Levothyroxine Sodium [Synthroid] 37.5 mcg PO QAM 12/31/13 [History] Folic Acid 0.4 mg PO DAILY 03/26/18 [History] Magnesium Oxide 400 mg PO DAILY 03/26/18 [History] Ascorbic Acid [Vitamin C] 1,000 mg PO DAILY 12/13/20 [History] Glimepiride [Amaryl] 2 mg PO AC-BRKFST 12/13/20 [History] L.acidoph,Paracasei, B.lactis [Probiotic] 1 cap PO DAILY 12/13/20 [History] Vitamin E (Dl,Tocopheryl Acet) [Vitamin E (400 Iu = 180 mg)] 400 unit PO DAILY 12/13/20 [History] Apixaban [Eliquis] 5 mg PO BID 30 Days #60 tab 12/14/20 [Rx] Acetaminophen Tab [Tylenol] 650 mg PO Q6HR PRN tab 12/19/20 [Rx] Atorvastatin [Lipitor] 40 mg PO DAILY tab 12/19/20 [Rx] Benzonatate [Tessalon Perles] 100 mg PO TID PRN cap 12/19/20 [Rx] Diltiazem Oral [Cardizem*] 90 mg PO TID tab 12/19/20 [Rx] Furosemide [Lasix] 20 mg PO BID@0900,1600 tab 12/19/20 [Rx] INSULIN ASPART (NovoLOG) [NovoLOG (formulary)] 0 unit SQ ACHS ml 12/19/20 [Rx] Insulin Glargine,Hum.rec.anlog [Lantus Solostar Pen] 20 unit SQ HS #0 12/19/20 [Rx] Ipratropium-Albuterol Nebulize [Duoneb 0.5 mg-3 mg/3 ml Soln] 3 ml INHALATION RT-QID PRN ml 12/19/20 [Rx] Metoprolol Tartrate [Lopressor] 100 mg PO BID tab 12/19/20 [Rx] QUEtiapine [SEROquel] 25 mg PO HS tab 12/19/20 [Rx] Follow up Appointment(s)/Referral(s): Morenita Venegas MD [STAFF PHYSICIAN] - 2 Weeks None,Stated [Primary Care Provider] - 1-2 days Activity/Diet/Wound Care/Special Instructions: Copay for Eliquis will be $40 monthly after the $90 deductible is met. Patient is going to [facility] Activity as tolerated Continue consistent carb heart healthy diet Follow-up with cardiology outpatient Follow-up with neurology outpatient Follow-up with primary care provider upon discharge Discharge Disposition: TRANSFER TO SNF/ECF
[2020-12-19 16:45] LABS: Glucose,Whole Blood 327 mg/dL (75-99)
[2020-12-19 17:16] VITALS: RESP 18
[2020-12-19 19:57] LABS: Glucose,Whole Blood 312 mg/dL (75-99)
[2020-12-19] MEDS: QUEtiapine 25 MG TAB PO SCH (20:34)
[2020-12-19] MEDS: INSULIN DETEMIR (LEVEMIR) 100 UNIT/ML SYR SQ SCH (20:35)
[2020-12-19 22:21] LABS: Glucose,Whole Blood 302 mg/dL (75-99)
[2020-12-20] MEDS: SODIUM CHLORIDE 0.9% 1,000 ML IV SCH (01:57)
[2020-12-20 02:09] VITALS: TEMP 98.8
[2020-12-20] MEDS: ACETAMINOPHEN TAB 325 MG TAB PO PRN (04:59)
[2020-12-20 05:56] VITALS: PULSE 60
[2020-12-20 06:24] LABS: Glucose,Whole Blood 269 mg/dL (75-99)
[2020-12-20] MEDS: INSULIN ASPART (NovoLOG) 100 UNIT/ML VIAL SQ SCH ×2 (06:39→12:17)
[2020-12-20] MEDS: DILTIAZEM ORAL 30 MG TAB PO SCH (09:44)
[2020-12-20] MEDS: LEVOTHYROXINE 75 MCG TAB PO SCH (09:45)
[2020-12-20] MEDS: FOLIC ACID 1 MG TAB PO SCH (09:45)
[2020-12-20] MEDS: ATORVASTATIN 40 MG TAB PO SCH (09:45)
[2020-12-20] MEDS: ASPIRIN 81 MG PO SCH (09:45)
[2020-12-20] MEDS: FUROSEMIDE 20 MG TAB PO SCH (09:45)
[2020-12-20] MEDS: METOPROLOL TARTRATE 50 MG TAB PO SCH (09:45)
[2020-12-20] MEDS: LACTOBACILLUS ACIDOPH & BULGAR 1 EACH PACKET PO SCH (09:45)
[2020-12-20] MEDS: MAGNESIUM OXIDE 400 MG TAB PO SCH (09:45)
[2020-12-20] MEDS: APIXABAN 5 MG TAB PO SCH (09:45)
[2020-12-20] MEDS: VITAMIN E (DL,TOCOPHERYL ACET) 400 UNIT (180 MG) CAP PO SCH (09:46)
[2020-12-20] MEDS: ASCORBIC ACID 500 MG TAB PO SCH (09:46)
[2020-12-20 10:51] VITALS: BP 116/73
[2020-12-20 11:37] LABS: Glucose,Whole Blood 293 mg/dL (75-99)
--- NOTE | 2020-12-20 12:19 | XR ---
Abdomen HISTORY: Right-sided abdomen pain Frontal view the abdomen on 2 images, no comparisons There is retained fecal debris throughout much of the distribution of the colon. Lung bases are clear . There is no evident bowel obstruction or pneumoperitoneum. No pathologic calcification is evident. Osteoarthritic change is extensive in the right hip. Probable phleboliths are present within the pelv is. Close chronic vascular calcifications are also noted incidentally throughout the abdomen. IMPRESSION: Correlate for possible fecal stasis. Additional findings above.
--- NOTE | 2020-12-20 13:19 | P.DS ---
Providers Date of admission: 12/13/20 11:16 Expected date of discharge: 12/20/20 Attending physician: Balbina Agudelo Consults: 12/13/20 11:15 Consult Physician Urgent Consulting Provider: [facility] Consult Reason/Comments: new onset afib Do you want consulting provider notified?: Yes 12/14/20 23:12 Consult Physician Routine Consulting Provider: Will Cabrera Consult Reason/Comments: new onset ams, r/o cva/tia Do you want consulting provider notified?: Yes, Notify in am 12/15/20 11:05 Consult Physician Routine Consulting Provider: Klaudia Jones Consult Reason/Comments: shortness of breath, wheezing, unclear if underlying lung disease Do you want consulting provider notified?: Yes Primary care physician: Stated None Hospital Course: Final diagnosis Altered mental status possible metabolic encephalopathy and hypoxia on admission, improved New onset paroxysmal atrial fibrillation with rapid regular rate Subacute infarct over the medial left frontal lobe likely embolic in the setting of new onset atrial fibrillation Possible acute pulmonary embolism with hypoxia on admission and small filling defects in the CTA chest. Hypovolemic hyponatremia/ Pseudohyponatremia Mild hypokalemia Acute kidney injury likely prerenal Hyperglycemia with uncontrolled diabetes type 2 memory impairment Hyperlipidemia Hypothyroidism Anxiety DVT prophylaxis: eliquis Full code Discharge disposition Patient is being discharged in a stable condition with guarded prognosis to [facility] for continued PT/OT therapy. Patient will follow-up with Dr. Lofton in the outpatient setting upon discharge. Patient is to follow-up with cardiology outpatient in 1-2 weeks. Patient to follow up with neurology in the outpatient setting as well. Total time taken is greater than 35 minutes. Hospital course Patient is a 80-year-old female with a known history of hypertension, hyperlipidemia diabetes type 2 [id number], osteoarthritis, memory impairment, hypothyroidism and previous history of fall in October 2020 and anxiety presents to ER due to altered mental status,, generalized weakness and fall. Patient had similar symptoms couple days ago and felt very weak in the legs bilaterally, shaky and fell in the toilet. Patient states that she had aching feeling in the right calf region. Denied any loss of consciousness. Denies any head injury. Patient had similar episodes again today and was brought to ER for evaluation. Patient's boyfriend called EMS. EKG performed by EMS showed A. fib with RVR with heart rate went up to 200. Patient otherwise denied any complaints of dizziness or lightheadedness. No palpitations. No leg swelling. Patient has been afebrile. Denied complaints of dysuria or hematuria. No nausea vomiting or abdominal pain or diarrhea. Patient was recently treated for urinary tract infection. Patient was hypoxic with oxygen saturation 88% on room air at home. No prior history of DVT/PE. Chest x-ray showed cardiomegaly. Probable atelectasis. Hip pain pelvic x-ray showed no acute fracture or dislocation in the pelvis or left hip. CT head and cervical spine showed is related atrophic and chronic small vessel ischemic changes without acute intracranial process. CT cervical spine showed unenhanced CT of the cervical spine was performed with bone and soft tissue window settings submitted. No acute evidence for acute fracture or subluxation the cervical spine. Patient was found to elevated D-dimer level 2.29. CT angiogram of the chest showed few scattered filling defects within the second and third order branches right pulmonary arterial tree as well as left lower lobe. Cannot exclude PE EKG showed atrial fibrillation with rapid ventricular rate. 12/14/2020 Patient is seen and evaluated in follow-up this morning continues to be on IV heparin along with IV Cardizem and cardiology following closely. Patient admitted for atrial fibrillation with RVR new onset. Working on transitioning to oral medications along with anticoagulant and metoprolol. Patient also on gentle IV hydration as she had some acute kidney injury which is mildly improved at 1.16, sodium is low at 131 and potassium was found to be 3.2 and will replace. IV fluids as continued. Daughter at the bedside states patient has been feeling slightly more short of breath with a dry cough since admission which could be a component of IV fluids. Will obtain chest x-ray. Repeat labs for the morning pending. 12/15/2020 patient is seen and evaluated and follow-up this morning with daughter at the bedside again and continues to be lethargic and mildly confused. Patient had an episode of increased confusion and altered mental status and slightly combative with nursing staff last night and CT of the brain was done showing age-related atrophic and chronic small vessel ischemia without acute intracranial process seen along with some decreased attenuation at the periventricular white matter and deep white matter of both cerebral hemispheres. MRI suggested if symptoms persist. Neurology was consulted recommending MRI. Urinalysis was done which was negative and patient recently finished antibiotic therapy of UTI in the outpatient setting. patient denies any burning or frequency with urinary retention. patient was transitioned off of Cardizem drip to oral along with metoprolol and oral anticoagulant and heparin was discontinued and throughout the night patient went back into A. fib RVR and was placed back on Cardizem. Patient started experiencing some shortness of breath again along with this cough and pulmonary will be consulted. Cardiology following closely. 12/18/2020 Patient is seen and evaluated this morning sitting up at the side of the bed conversing with family members present. Multiple medical consultations following recommending outpatient follow up with neurology and pulmonary. Cardiology following closely and making adjustments to medications as she continues to have an elevated HR. Patient is extremely anxious as well. Patient denies any worsening shortness of breath or chest pain or palpitations. Patient continues with cough. 12/19/2020 Patient is seen in follow-up this morning continues to have elevated heart rate and adjustments are being made to oral Cardizem and metoprolol and cardiology following closely. If heart rate improves patient may be discharged to [facility] this afternoon. Patient is extremely anxious and adamant about being discharged today. She will continue on current medication regimen on the med reconciliation. Currently no reports of chest pain, shortness of breath, or palpitations. Patient is afebrile. No reports of nausea or vomiting and patient is tolerating diet. Patient will be discharged to [facility] today. Guarded prognosis. 12/20/2020 Patient is seen and evaluated and follow-up this morning and per nursing staff converted to normal sinus around 3 or 4 this morning and patient is continued on metoprolol and Cardizem and will continue on current dose and recommend outpatient neurology and cardiology. She was having some right lower abdominal pain and discomfort next to the umbilical region that is related to her coughing spells that she has been experiencing an x-ray was done which was negative and showed some osteoarthritic changes in the right hip otherwise not abnormal and instructed the patient to hold pressure 1 coughing and deep breathing to that area and continue with physical therapy. She denies any chest pain or worsening shortness of breath. Patient is afebrile. Patient tolerating diet with no reports of nausea or vomiting noted. Patient is being discharged to [facility] today. Patient is sitting up in the chair , awake alert and oriented this morning HEENT: Normocephalic. Neck is supple. Pupils reactive. Nostrils clear. Oral cavity is moist. Neck reveals no JVD, carotid bruits, or thyromegaly. CHEST EXAMINATION: Trachea is central. Symmetrical expansion. Diminished breath sounds bilaterally CARDIAC: Normal S1, S2 with no gallops. No murmurs , irregular rhythm ABDOMEN: Soft. Bowel sounds normal. No organomegaly. No abdominal bruits. Extremities: reveal no edema. No clubbing or cyanosis Neurologically awake, alert, oriented x3 with well-coordinated movements. No focal deficits noted Skin: No rash or skin lesions. Psychiatric: Cooperative. Musculoskeletal: No joint swelling or deformity. Normal range of motion. Please refer to medication reconciliation sheet for a list of medications. Patient Condition at Discharge: Stable Plan - Discharge Summary Discharge Rx Participant: No New Discharge Prescriptions: New Diltiazem Oral [Cardizem*] 90 mg PO TID tab Ipratropium-Albuterol Nebulize [Duoneb 0.5 mg-3 mg/3 ml Soln] 3 ml INHALATION RT-QID PRN ml PRN Reason: Shortness Of Breath Or Wheezing Furosemide [Lasix] 20 mg PO BID@0900,1600 tab Atorvastatin [Lipitor] 40 mg PO DAILY tab QUEtiapine [SEROquel] 25 mg PO HS tab Acetaminophen Tab [Tylenol] 650 mg PO Q6HR PRN tab PRN Reason: Mild Pain Or Fever > 100.5 Apixaban [Eliquis] 5 mg PO BID 30 Days #60 tab Metoprolol Tartrate [Lopressor] 100 mg PO BID tab INSULIN ASPART (NovoLOG) [NovoLOG (formulary)] 0 unit SQ ACHS ml Benzonatate [Tessalon Perles] 100 mg PO TID PRN cap PRN Reason: Cough Continue Aspirin 81 mg PO DAILY Levothyroxine Sodium [Synthroid] 37.5 mcg PO QAM Folic Acid 0.4 mg PO DAILY Magnesium Oxide 400 mg PO DAILY Glimepiride [Amaryl] 2 mg PO AC-BRKFST Vitamin E (Dl,Tocopheryl Acet) [Vitamin E (400 Iu = 180 mg)] 400 unit PO DAILY Ascorbic Acid [Vitamin C] 1,000 mg PO DAILY L.acidoph,Paracasei, B.lactis [Probiotic] 1 cap PO DAILY Changed Insulin Glargine,Hum.rec.anlog [Lantus Solostar Pen] 20 unit SQ HS #0 Discontinued Simvastatin [Zocor] 20 mg PO HS metFORMIN HCL [Glucophage] 1,000 mg PO BID Repaglinide [Prandin] 1 mg PO AC-BRKFST Pioglitazone [Actos] 15 mg PO DAILY Valsartan [Diovan] 160 mg PO DAILY amLODIPine [Norvasc] 5 mg PO DAILY Discharge Medication List Aspirin 81 mg PO DAILY 12/31/13 [History] Levothyroxine Sodium [Synthroid] 37.5 mcg PO QAM 12/31/13 [History] Folic Acid 0.4 mg PO DAILY 03/26/18 [History] Magnesium Oxide 400 mg PO DAILY 03/26/18 [History] Ascorbic Acid [Vitamin C] 1,000 mg PO DAILY 12/13/20 [History] Glimepiride [Amaryl] 2 mg PO AC-BRKFST 12/13/20 [History] L.acidoph,Paracasei, B.lactis [Probiotic] 1 cap PO DAILY 12/13/20 [History] Vitamin E (Dl,Tocopheryl Acet) [Vitamin E (400 Iu = 180 mg)] 400 unit PO DAILY 12/13/20 [History] Apixaban [Eliquis] 5 mg PO BID 30 Days #60 tab 12/14/20 [Rx] Acetaminophen Tab [Tylenol] 650 mg PO Q6HR PRN tab 12/19/20 [Rx] Atorvastatin [Lipitor] 40 mg PO DAILY tab 12/19/20 [Rx] Benzonatate [Tessalon Perles] 100 mg PO TID PRN cap 12/19/20 [Rx] Diltiazem Oral [Cardizem*] 90 mg PO TID tab 12/19/20 [Rx] Furosemide [Lasix] 20 mg PO BID@0900,1600 tab 12/19/20 [Rx] INSULIN ASPART (NovoLOG) [NovoLOG (formulary)] 0 unit SQ ACHS ml 12/19/20 [Rx] Insulin Glargine,Hum.rec.anlog [Lantus Solostar Pen] 20 unit SQ HS #0 12/19/20 [Rx] Ipratropium-Albuterol Nebulize [Duoneb 0.5 mg-3 mg/3 ml Soln] 3 ml INHALATION RT-QID PRN ml 12/19/20 [Rx] Metoprolol Tartrate [Lopressor] 100 mg PO BID tab 12/19/20 [Rx] QUEtiapine [SEROquel] 25 mg PO HS tab 12/19/20 [Rx] Follow up Appointment(s)/Referral(s): Morenita Venegas MD [STAFF PHYSICIAN] - 2 Weeks None,Stated [Primary Care Provider] - 1-2 days Activity/Diet/Wound Care/Special Instructions: Copay for Eliquis will be $40 monthly after the $90 deductible is met. Patient is going to [employer] Activity as tolerated Continue consistent carb heart healthy diet Follow-up with cardiology outpatient Follow-up with neurology outpatient Follow-up with primary care provider upon discharge Discharge Disposition: TRANSFER TO SNF/ECF
--- NOTE | 2020-12-20 14:23 | P.PN ---
Subjective Progress Note Date: 12/20/20 HISTORY OF PRESENT ILLNESS: This is a 80-year-old female with a past medical history of hypertension, diabetes, hyperlipidemia. Patient presented to the hospital with change of men kristina status and feeling of weakness. In the emergency room patient was found to be in atrial fibrillation with rapid ventricular response. Cardiology was consulted. Echocardiogram revealed EF of 4045 percent, mild to moderate pulmonary hypertension. CTA revealed few scattered filling defects in the second and third order branch of right pulmonary artery. Possibility of pulmonary embolism cannot be excluded. Patient seen and examined at bedside, she endorses a cough and shortness of breath. She denies any chest pain, palpitations, lightheadedness, dizziness. Telemetry reviewed patient in atrial fibrillation with uncontrolled ventricular rates. She is currently maintained on IV heparin, aspirin 81 mg daily, atorvastatin 40 mg daily, IV Cardizem 10mg/hr, metoprolol titrate 25 mg twice a day. Labs reviewed, sodium 131, potassium 3.2, BUN 37, serum creatinine 1.1, TSH within normal limits. 12/18/2020 Patient examined this morning by Dr. Umana. Patient denies chest pain or pressure. Denies SOB. Telemetry reveals atrial fibrillation with a heart rate 100-120. 12/19/2020 Patient remains in atrial fibrillation with controlled ventricular rates. She denies chest pain or pressure. Denies shortness of breath. She is very anxious to be discharged home today. 12/20/2020 Patient examined at the bedside. Patient denies chest pain or pressure. No shortness of breath. Patient has converted to sinus mechanism. Vital signs stable. PHYSICAL EXAM: VITAL SIGNS: Reviewed. GENERAL: Well-developed in no acute distress. NECK: Supple. No JVD or thyromegaly LUNGS: Respirations even and unlabored. Lungs diminished to auscultation bilaterally. HEART: Irregular rate and rhythm. S1 and S2 heard. EXTREMITIES: Normal range of motion. No clubbing or cyanosis. Peripheral pulses intact. Bilateral lower extremity edema ASSESSMENT: Altered mental status New-onset paroxysmal atrial fibrillation with RVR Hypertension Hyperlipidemia Diabetes Status post fall Acute kidney injury Subacute left frontal lobe infarct Acute or subacute pulmonary embolism PLAN: Patient is stable for discharge from a cardiac standpoint. We will sign off. Please reconsult if needed. Nurse practitioner note has been reviewed by physician. Signing provider agrees with the documented findings, assessment, and plan of care. Objective - Vital Signs Vital signs: Vital Signs Temp 98.8 F 12/20/20 00:00 Pulse 60 12/20/20 08:00 Resp 18 12/20/20 08:00 BP 116/73 12/20/20 08:00 Pulse Ox 94 L 12/19/20 08:00 Intake & Output 12/19/20 12/20/20 12/20/20 18:59 06:59 18:59 Intake Total 356 118 Output Total 1 Balance 356 117 Weight 94.8 kg Intake: Oral 356 118 Output: Stool 1 Other: Voiding Method Toilet Toilet Toilet Diaper Diaper Diaper # Voids 4 2 1 - Labs CBC & Chem 7: 12/14/20 22:15 12/19/20 06:37 Labs: Abnormal Lab Results - Last 24 Hours (Table) 12/19/20 12/19/20 12/19/20 Range/Units 16:43 19:55 22:20 POC Glucose (mg/dL) 327 H 312 H 302 H (75-99) mg/dL 12/20/20 12/20/20 Range/Units 06:23 11:36 POC Glucose (mg/dL) 269 H 293 H (75-99) mg/dL
== END 2020-12-20 13:46 | DRG 64 ==
LOC: EC 06:58 → 3SCARD 11:16
PROVIDERS: ADMIT Internal Medicine; ATTEND Internal Medicine
DX: I63.40 Cerebral infarction due to embolism of unspecified cerebral artery (principal); I26.99 Other pulmonary embolism without acute cor pulmonale; G93.41 Metabolic encephalopathy; E87.1 Hypo-osmolality and hyponatremia; E87.2 Acidosis; G93.1 Anoxic brain damage, not elsewhere classified; N17.9 Acute kidney failure, unspecified; R00.2 Palpitations; E03.9 Hypothyroidism, unspecified; E11.65 Type 2 diabetes mellitus with hyperglycemia; E78.5 Hyperlipidemia, unspecified; E86.1 Hypovolemia; E87.6 Hypokalemia; F41.9 Anxiety disorder, unspecified; I10 Essential (primary) hypertension; I27.20 Pulmonary hypertension, unspecified; I48.0 Paroxysmal atrial fibrillation; I65.23 Occlusion and stenosis of bilateral carotid arteries; Z20.822 Contact with and (suspected) exposure to COVID-19; M16.11 Unilateral primary osteoarthritis, right hip; R09.02 Hypoxemia; W19.XXXA Unspecified fall, initial encounter; Z79.01 Long term (current) use of anticoagulants; Z79.82 Long term (current) use of aspirin; Z79.84 Long term (current) use of oral hypoglycemic drugs; Z79.899 Other long term (current) drug therapy; Z82.49 Family history of ischemic heart disease and other diseases of the circulatory system; Z87.440 Personal history of urinary (tract) infections; Z87.820 Personal history of traumatic brain injury; Z90.710 Acquired absence of both cervix and uterus; Z91.81 History of falling
CPT/HCPCS: 36415; 70450; 70551; 71045; 71046; 71275; 72125; 73502; 74018; 80048; 80053; 80061; 81001; 82009; 82607; 82746; 83036; 83605; 83735; 84132; 84443; 84484; 85025; 85379; 85610; 85730; 87635; 93005; 93306; 93880; 93970; 94640; 94760; 95816; 96365; 96366; 96367; 96368; 99285

== ENCOUNTER 2021-05-31 21:27 | Emergency (ER) | payer MEDICARE ==
[2021-05-31 22:20] VITALS: RESP 18
--- NOTE | 2021-05-31 22:20 | ED ---
General Adult HPI - General Chief complaint: Fall Stated complaint: hip pain Time Seen by Provider: 05/31/21 21:54 Source: patient Mode of arrival: ambulatory - History of Present Illness Initial comments: Patient is a 80-year-old female on blood thinners presenting for evaluation post fall. Patient states that one week ago she had a mechanical fall landing on her left side. Patient states that the fall occurred while bringing in groceries, her foot was caught onto the handle and she did not realize before stepping forward. Patient states that it seemed her hip and knee pain were getting progressively better, but over the last few days she has been taking Tylenol around the clock and has been having constant aching pain of the hip and knee. Patient is still able to bear weight and ambulate with her walker which is normal for her at baseline. She denies numbness, tingling, weakness, back pain, vision changes, hearing changes, chest pain, shortness of breath, loss of consciousness, palpitations,, abdominal pain, nausea, vomiting, dizziness. - Related Data Home Medications Medication Instructions Recorded Confirmed Levothyroxine Sodium [Synthroid] 37.5 mcg PO DAILY 12/31/13 05/31/21 Ascorbic Acid [Vitamin C] 1,000 mg PO DAILY@0900 12/13/20 05/31/21 Vitamin E (Dl,Tocopheryl Acet) 400 unit PO HS@209912/13/20 05/31/21 [Vitamin E (400 Iu = 180 mg)] Amiodarone [Cordarone] 200 mg PO DAILY@0905/31/21 05/31/21 Apixaban [Eliquis] 5 mg PO BID@0900,209905/31/21 05/31/21 Atorvastatin [Lipitor] 20 mg PO HS@209905/31/21 05/31/21 Cholecalciferol [Vitamin D3 (25 50 mcg PO DAILY@89905/31/21 05/31/21 Mcg = 1000 Iu)] Diltiazem Oral [Cardizem*] 30 mg PO TID@0900,1400,209905/31/21 05/31/21 Fish Oil/Dha/Epa [Fish Oil 1,200 1 cap PO DAILY@0905/31/21 05/31/21 mg Fish Oil] Folic Acid 0.8 mg PO HS@209905/31/21 05/31/21 Furosemide [Lasix] 20 mg PO BID@0900,1400 05/31/21 05/31/21 Insulin Glargine,Hum.rec.anlog 28 unit SQ HS@2100 05/31/21 05/31/21 [Lantus Solostar Pen] Magnesium Oxide [Gay] 500 mg PO DAILY@1400 05/31/21 05/31/21 Metoprolol Tartrate [Lopressor] 50 mg PO BID@0900,1700 05/31/21 05/31/21 Pioglitazone [Actos] 15 mg PO DAILY@0900 05/31/21 05/31/21 Vitamin K2 100 mcg PO DAILY@1400 05/31/21 05/31/21 Zinc Gluconate [Zinc] 50 mg PO DAILY@1400 05/31/21 05/31/21 metFORMIN HCL [Glucophage] 500 mg PO BID@0900,1700 05/31/21 05/31/21 Allergies Allergy/AdvReac Type Severity Reaction Status Date / Time adhesive AdvReac peels skin Verified 05/31/21 23:05 off Sulfa (Sulfonamide AdvReac Diarrhea Verified 05/31/21 23:05 Antibiotics) food preservatives Allergy Unknown Uncoded 05/31/21 23:05 Review of Systems ROS Statement: Those systems with pertinent positive or pertinent negative responses have been documented in the HPI. ROS Other: All systems not noted in ROS Statement are negative. Past Medical History Past Medical History: Atrial Fibrillation, Diabetes Mellitus, Hyperlipidemia, Hypertension, Memory Impairment, Osteoarthritis (OA), Skin Disorder, Thyroid Disorder Additional Past Medical History / Comment(s): Seasonal allergies, psoriasis. 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 Past Anesthesia/Blood Transfusion Reactions: No Reported Reaction Additional Past Anesthesia/Blood Transfusion Reaction / Comment(s): Clausterphobia Past Psychological History: Anxiety Smoking Status: Never smoker Past Alcohol Use History: Occasional Past Drug Use History: None Reported - Past Family History Mother Family Medical History: No Reported History Additional Family Medical History / Comment(s): Valve replacement, CAD General Exam Limitations: no limitations General appearance: alert, in no apparent distress Head exam: Present: atraumatic, normocephalic, normal inspection Eye exam: Present: normal appearance, PERRL, EOMI. Absent: scleral icterus, conjunctival injection, periorbital swelling Neck exam: Present: normal inspection Extremities exam: Present: normal inspection, full ROM. Absent: tenderness Left Hip exam: Present: normal inspection, full ROM. Absent: tenderness, swelling Knee exam: Present: normal inspection, full ROM. Absent: tenderness, swelling Neurological exam: Present: alert, oriented X3, CN II-XII intact Expanded Patient oriented to: Present: person, place, time Speech: Present: fluid speech Cranial nerves: EOM's Intact: Normal Eye Response: (4) open spontaneously Motor Response: (6) obeys commands Verbal Response: (5) oriented Henning Total: 15 Psychiatric exam: Present: normal affect, normal mood Skin exam: Present: warm, dry, intact, normal color. Absent: rash Course Vital Signs 05/31/21 05/31/21 21:41 23:56 Temperature 97.8 F 97.7 F Pulse Rate 56 L 53 L Respiratory 18 18 Rate Blood Pressure 178/69 152/72 O2 Sat by Pulse 96 96 Oximetry Medical Decision Making - Medical Decision Making Patient is a 80-year-old female presenting with chief complaint of left hip and knee pain. Patient states that the pain initially began about 1 week ago after she had a mechanical fall at home landing on the left side. Patient is on blood thinners. Patient has consistently been taking Tylenol throughout the week, in the last few days pain has intensified in the hip and knee. Patient is able to bear weight and ambulate with the use of her walker, which she normally ut ilizes at baseline. Exam is unremarkable, no focal neurological deficits, no pain with palpation of the hip or knee, there is full range of motion. X-ray of hip and knee are negative for fracture or dislocation. CT of the brain and cervical spine without contrast shows no acute intracranial process or fracture of the cervical spine. I explained the findings to the patient. Continue use of Tylenol for pain control as needed. Occasional use of 400 mg of Motrin once a day for pain control may be appropriate, discussed this with her PCP. Follow- up with PCP this week. Inform your physical therapist of your current condition. Educated on return parameters and answered all questions. Report back to ER with any worsening symptoms. Patient conveyed verbal understanding and agreed to the plan. I discussed this case with my attending Dr. Bee. Disposition Clinical Impression: Knee pain, Hip pain Disposition: HOME SELF-CARE Condition: Good Instructions (If sedation given, give patient instructions): Fall Prevention for Older Adults (ED), Knee Pain (ED), Hip Pain (ED) Additional Instructions: Follow-up with her primary care regarding this issue. Informed her physical therapist of this issue. Take Tylenol as needed for pain control. An occasional dose of 400 mg of Motrin may be helpful in controlling the pain, discussed Motrin use with primary care provider. Apply heat and ice as needed. Report back to ER if any worsening symptoms. Is patient prescribed a controlled substance at d/c from ED?: No Referrals: Ar Lofton MD [Primary Care Provider] - 1-2 days Time of Disposition: 23:37
--- NOTE | 2021-05-31 22:47 | XR ---
EXAMINATION TYPE: XR Hip LT and AP Pelvis DATE OF EXAM: 05/31/2021 COMPARISON: 12/13/2020 HISTORY: Fall. Pain TECHNIQUE: 3 views FINDINGS: Pelvic ring is intact. Proximal femurs are intact. There is moderate narrowing of the right hip joint space with spur formation. Sacroiliac joints are intact. Proximal left femur and hip joint are intact. No fracture seen. There is some vascular calcification. IMPRESSION: No fracture seen of the left hip. Moderate osteoarthritis in the right hip joint. No change.
--- NOTE | 2021-05-31 22:49 | XR ---
EXAMINATION TYPE: XR knee complete LT DATE OF EXAM: 05/31/2021 COMPARISON: NONE HISTORY: Fall. Pain TECHNIQUE: 3 views FINDINGS: There is narrowing of the medial joint space. There is spurring of the medial femoral and t ibial condyles. There is spurring at the patella. No fracture seen. No evidence of joint effusion. IMPRESSION: Moderate osteoarthritis. No fracture seen.
--- NOTE | 2021-05-31 23:01 | CT ---
EXAMINATION TYPE: CT brain flavioine wo con DATE OF EXAM: 05/31/2021 COMPARISON: 12/13/2020 HISTORY: Fall, on blood thinners CT DLP: 1485.2 mGycm Automated exposure control for dose reduction was used. Images of the brain and cervical spine obtained without contrast. Cervical vertebra show fairly normal alignment. There is a minimal anterior subluxation at C7-T1. Fac et joints are intact. There is mild facet arthropathy at C7-T1. There is degenerative disc space narr owing throughout the cervical spine. There is spurring of the endplates. No fracture seen. The skull base is intact. There is normal aeration of the mastoid sinuses. There is cerebral atrophy. There is patchy hypodensity in the periventricular white matter. Calvarium is intact. Skull base is intact. IMPRESSION: Cerebral atrophy and chronic small vessel ischemia. No acute intracranial abnormality. No change. Multilevel cervical spondylotic changes. Degenerative first degree C7-T1 spondylolisthesis. No change compared to old exam. No fracture.
[2021-05-31 23:58] VITALS: BP 152/72; PULSE 53; TEMP 97.7
== END 2021-05-31 23:57 | disposition home or self-care (01) ==
LOC: EC 21:27
DX: Z91.048 Other nonmedicinal substance allergy status (principal); M25.552 Pain in left hip; M25.562 Pain in left knee; E11.9 Type 2 diabetes mellitus without complications; I10 Essential (primary) hypertension; E07.9 Disorder of thyroid, unspecified; Z79.899 Other long term (current) drug therapy; Z88.2 Allergy status to sulfonamides; Z91.02 Food additives allergy status; W19.XXXA Unspecified fall, initial encounter
CPT/HCPCS: 70450; 72125; 73502; 99284

== ENCOUNTER → 2021-08-18 | Outpatient (CLI) | payer MEDICARE ==
--- NOTE | 2021-08-18 17:37 | MR ---
EXAMINATION TYPE: MR hip LT wo con DATE OF EXAM: 08/18/2021 COMPARISON: None HISTORY: Multiplanar multiecho imaging of the pelvis and left hip without contrast. The pelvic ring is intact. The proximal left femur and hip joint appear intact. No evidence of any si gnificant hip joint effusion. There is more hip joint fluid on the right side compared to the left. T here is some narrowing of the hip joint spaces and more noticeable on the right side compared to the left. There is mild acetabular bilateral spurring. Spurring is more on the right side compared to the left. There is spurring of the right femoral head. There is increased fluid signal around the greater trochanter of the left femur on the STIR images in the soft tissues that measures 7 x 1 x 3 cm. IMPRESSION: There is evidence of left side trochanteric bursitis with edema around the greater trochanter. There is moderate osteoarthritis in the right hip joint. There is minimal osteoarthritis in the left hip joint.
== END | disposition home or self-care (01) ==
LOC: RADMRIMAIN 14:16
PROVIDERS: ATTEND Orthopaedic Surgery
DX: M70.62 Trochanteric bursitis, left hip (principal); M25.552 Pain in left hip

== ENCOUNTER → 2021-11-06 | Outpatient (CLI) | payer MEDICARE ==
[2021-11-06 07:50] LABS: Basophils % (A) 0 %; Eosinophils # (A) 0.2 k/uL (0-0.7); Eosinophils % (A) 3 %; HCT 38.3 % (34.0-46.0); HGB 12.1 gm/dL (11.4-16.0); Lymphocytes # (A) 1.3 k/uL (1.0-4.8); Lymphocytes % (A) 19 %; MCH 30.8 pg (25.0-35.0); MCHC 31.7 g/dL (31.0-37.0); MCV 97.1 fL (80.0-100.0); Mean Platelet Volume 8.6; Monocytes # (A) 0.4 k/uL (0-1.0); Monocytes % (A) 7 %; Neutrophils # (A) 4.7 k/uL (1.3-7.7); Neutrophils % (A) 70 %; Platelet Count 318 k/uL (150-450); RBC 3.95 m/uL (3.80-5.40); RDW 13.4 % (11.5-15.5); WBC 6.8 k/uL (3.8-10.6)
[2021-11-06 07:57] LABS: ALT 18 U/L (4-34); AST 18 U/L (14-36); African American GFR (CKD) 57 (>60 ml/min/1.73 sqM); Albumin 3.6 g/dL (3.5-5.0); Albumin/Globulin Ratio 1.4; Alkaline Phosphatase 67 U/L (38-126); Anion Gap 9 mmol/L; Blood Urea Nitrogen 14 mg/dL (7-17); Calcium 9.5 mg/dL (8.4-10.2); Carbon Dioxide 29 mmol/L (22-30); Chloride 100 mmol/L (98-107); Globulin 2.6 g/dL; Glucose 124 mg/dL (74-99); Non-African American GFR(CKD) 49 (>60 ml/min/1.73 sqM); Potassium 3.6 mmol/L (3.5-5.1); Sodium 138 mmol/L (137-145); Total Bilirubin 0.8 mg/dL (0.2-1.3); Total Protein 6.2 g/dL (6.3-8.2)
== END | disposition home or self-care (01) ==
LOC: LABWHC1 07:22
PROVIDERS: ATTEND Family Medicine
DX: Z00.01 Encounter for general adult medical examination with abnormal findings (principal)
CPT/HCPCS: 36415; 80053; 85025

== ENCOUNTER 2022-03-14 16:23 | Inpatient (IN) | payer MEDICARE ==
--- NOTE | 2022-03-14 17:08 | ED ---
Altered Mental Status HPI - General Chief Complaint: Altered Mental Status Stated Complaint: AMS,Weakness Time Seen by Provider: 03/14/22 16:46 Source: patient, family, RN notes reviewed Mode of arrival: wheelchair Limitations: no limitations - History of Present Illness Initial Comments: This is a 81-year-old female who presents to the emergency department for weakness. Her daughter states that in December, she was diagnosed with RSV and took 4-5 weeks to recover. Afterwards, she has never the same. However the last week has been particularly bad. She has been very weak, is no longer able to drive, and is now requiring a walker to get around. She has also had bowel movements without any warning and gets confused at random points throughout the day. During these points of confusion, she forgets to eat, feed her dog, and let her dog out. She is also having difficulty getting herself dressed during the day. Her daughter is concerned about a UTI or another stroke. Additionally, she lives alone, and her daughter has had to stay with her over this last week. Denies any fevers, chills, sore throat, cough, dyspnea, chest pain, palpitations, abdominal pain, nausea, vomiting, diarrhea, back pain, or headaches. MD Complaint: altered mental status, weakness - Related Data Home Medications Medication Instructions Recorded Confirmed Levothyroxine Sodium [Synthroid] 37.5 mcg PO DAILY 12/31/13 05/31/21 Ascorbic Acid [Vitamin C] 1,000 mg PO DAILY@0900 12/13/20 05/31/21 Vitamin E (Dl,Tocopheryl Acet) 400 unit PO HS@209912/13/20 05/31/21 [Vitamin E (400 Iu = 180 mg)] Amiodarone [Cordarone] 200 mg PO DAILY@89905/31/21 05/31/21 Apixaban [Eliquis] 5 mg PO BID@0900,209905/31/21 05/31/21 Atorvastatin [Lipitor] 20 mg PO HS@209905/31/21 05/31/21 Cholecalciferol [Vitamin D3 (25 50 mcg PO DAILY@0905/31/21 05/31/21 Mcg = 1000 Iu)] Diltiazem Oral [Cardizem*] 30 mg PO TID@0900,1400,209905/31/21 05/31/21 Fish Oil/Dha/Epa [Fish Oil 1,200 1 cap PO DAILY@0900 05/31/21 05/31/21 mg Fish Oil] Folic Acid 0.8 mg PO HS@209905/31/21 05/31/21 Furosemide [Lasix] 20 mg PO BID@0900,1400 05/31/21 05/31/21 Insulin Glargine,Hum.rec.anlog 28 unit SQ HS@209905/31/21 05/31/21 [Lantus Solostar Pen] Magnesium Oxide [Gay] 500 mg PO DAILY@1400 05/31/21 05/31/21 Metoprolol Tartrate [Lopressor] 50 mg PO BID@0900,1700 05/31/21 05/31/21 Pioglitazone [Actos] 15 mg PO DAILY@0900 05/31/21 05/31/21 Vitamin K2 100 mcg PO DAILY@1400 05/31/21 05/31/21 Zinc Gluconate [Zinc] 50 mg PO DAILY@1400 05/31/21 05/31/21 metFORMIN HCL [Glucophage] 500 mg PO BID@0900,1700 05/31/21 05/31/21 Allergies Allergy/AdvReac Type Severity Reaction Status Date / Time adhesive AdvReac peels skin Verified 05/31/21 23:05 off Sulfa (Sulfonamide AdvReac Diarrhea Verified 05/31/21 23:05 Antibiotics) food preservatives Allergy Unknown Uncoded 05/31/21 23:05 Review of Systems ROS Statement: Those systems with pertinent positive or pertinent negative responses have been documented in the HPI. ROS Other: All systems not noted in ROS Statement are negative. Past Medical History Past Medical History: Atrial Fibrillation, Diabetes Mellitus, Hyperlipidemia, Hypertension, Memory Impairment, Osteoarthritis (OA), Skin Disorder, Thyroid Disorder Additional Past Medical History / Comment(s): Seasonal allergies, psoriasis. 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 Past Anesthesia/Blood Transfusion Reactions: No Reported Reaction Additional Past Anesthesia/Blood Transfusion Reaction / Comment(s): Clausterphobia Past Psychological History: Anxiety Smoking Status: Never smoker Past Alcohol Use History: Occasional Past Drug Use History: None Reported - Past Family History Mother Family Medical History: No Reported History Additional Family Medical History / Comment(s): Valve replacement, CAD General Exam Limitations: no limitations General appearance: alert, in no apparent distress Head exam: Present: atraumatic, normocephalic, normal inspection Eye exam: Present: normal appearance, PERRL, EOMI. Absent: scleral icterus, conjunctival injection, periorbital swelling Respiratory exam: Present: normal lung sounds bilaterally. Absent: respiratory distress, wheezes, rales, rhonchi, stridor Cardiovascular Exam: Present: regular rate, normal rhythm, normal heart sounds. Absent: systolic murmur, diastolic murmur, rubs, gallop, clicks GI/Abdominal exam: Present: soft, normal bowel sounds. Absent: distended, tenderness, guarding, rebound, rigid Neurological exam: Present: alert, oriented X3, CN II-XII intact Psychiatric exam: Present: normal affect, normal mood Skin exam: Present: warm, dry, intact, normal color. Absent: rash Course Vital Signs 03/14/22 03/14/22 16:29 18:54 Temperature 98.4 F 97.5 F L Pulse Rate 57 L 64 Respiratory 16 14 Rate Blood Pressure 164/79 142/76 O2 Sat by Pulse 96 94 L Oximetry Medical Decision Making - Medical Decision Making This is a 81-year-old female who presents to the emergency department for weakness and altered mental status. Was pt. sent in by a medical professional or institution? @ -No Did you speak to anyone other than the patient for history? @ -Her daughter Did you review nursing and triage notes? @ -Yes, and I agree, it is accurate with regards to the patient's symptoms. Were old charts reviewed? @ -No Differential Diagnosis? @ -Differential Altered Mental Status: Hypoglycemia, DKA, hypercapnia, ETOH, overdose, CO poisoning, trauma, myxedema coma, HTN encephalopathy, infection, encephalitis, psychosis, intercranial hemorrhage, hepatic encephalopathy, meningitis, CVA, this is not meant to be an all-inclusive list Differential Weakness: Hypoglycemia, shock, sepsis, hyponatremia, anemia, infection, SC, ETOH, adverse medicine reaction, overdose, stroke, this is not meant to be an all-inclusive list. EKG interpreted by me (3pts min.)? @ -Sinus bradycardia. Ventricular rate 55 bpm, SC interval 163 ms, QRS duration 86 ms, QTC 464 ms. X-rays interpreted by me (1pt min.)? @ -My interpretation of the chest x-ray identifies no localized consolidations or infiltrates. CT interpreted by me (1pt min.)? @ -CT scan of the brain obtained, my interpretation identifies no signs of an acute intracranial hemorrhage or acute ischemic changes. What testing was considered but not performed? (CT, X-rays, U/S, labs)? Why? @ -None What meds were considered but not given? Why? @ -None Did you discuss the management of the patient with other professionals? @ -No Did you reconcile home meds? @ -No Was smoking cessation discussed for >3mins.? @ -No Was critical care preformed (if so, how long)? @ -No Were there social determinants of health that impacted care today? How? (Homelessness, low income, unemployed, alcoholism, drug addiction, transportation, low edu. Level, literacy, decrease access to med. care, fci, rehab)? @ -No Was there de-escalation of care discussed even if they declined? (Discuss DNR or withdrawal of care, Hospice)? @ -No What co-morbidities impacted this encounter? (DM, HTN, Smoking, COPD, CAD, Cancer, CVA, Hep., AIDS, mental health diagnosis, sleep apnea, morbid obesity)? @ -Diabetes mellitus, atrial fibrillation, hyperlipidemia, hypertension, memory impairment. Was patient admitted / discharged? @ -Admitted. Lab work obtained and found to be nonactionable. Chest x-ray and computed tomography scan of the brain obtained, all revealing no acute findings. Urinalysis is consistent with an infection. She was given a dose of ceftriaxone in the emergency department. Given the patient's increasing weakness and confusion and because she lives alone, patient will be admitted to medicine for IV antibiotics and evaluation by PT/OT. Undiagnosed new problem with uncertain prognosis? @ -None Drug Therapy requiring intensive monitoring for toxicity (Heparin, Nitro, Insulin, Cardizem)? @ -None Were any procedures done? @ -None Diagnosis/symptom? @ -UTI Acute, or Chronic, or Acute on Chronic? @ -Acute Uncomplicated (without systemic symptoms) or Complicated (systemic symptoms)? @ -Complicated Side effects of treatment? @ -None Exacerbation, Progression, or Severe Exacerbation] @ -Not applicable Poses a threat to life or bodily function? @ -Yes Diagnosis/symptom? @ -Weakness Acute, or Chronic, or Acute on Chronic? @ -Acute Uncomplicated (without systemic symptoms) or Complicated (systemic symptoms)? @ -Complicated Side effects of treatment? @ -None Exacerbation, Progression, or Severe Exacerbation] @ -Progression Poses a threat to life or bodily function? @ -Yes This case was discussed in detail with the attending ED physician, Dr. Bustillos. Presentation, findings, and treatment plan discussed in detail as well. - Lab Data Result diagrams: 03/14/22 17:30 03/14/22 17:30 Lab Results 03/14/22 03/14/22 03/14/22 Range/Units 16:14 17:30 17:30 WBC 7.1 (3.8-10.6) k/uL RBC 3.89 (3.80-5.40) m/uL Hgb 12.1 (11.4-16.0) gm/dL Hct 37.4 (34.0-46.0) % MCV 96.1 (80.0-100.0) fL MCH 31.0 (25.0-35.0) pg MCHC 32.2 (31.0-37.0) g/dL RDW 14.9 (11.5-15.5) % Plt Count 209 (150-450) k/uL MPV 8.4 Neutrophils % 77 % Lymphocytes % 13 % Monocytes % 6 % Eosinophils % 2 % Basophils % 0 % Neutrophils # 5.5 (1.3-7.7) k/uL Lymphocytes # 0.9 L (1.0-4.8) k/uL Monocytes # 0.4 (0-1.0) k/uL Eosinophils # 0.1 (0-0.7) k/uL Basophils # 0.0 (0-0.2) k/uL PT 9.9 (9.0-12.0) sec INR 0.9 (<1.2) APTT 24.9 (22.0-30.0) sec Sodium (137-145) mmol/L Potassium (3.5-5.1) mmol/L Chloride (98-107) mmol/L Carbon Dioxide (22-30) mmol/L Anion Gap mmol/L BUN (7-17) mg/dL Creatinine (0.52-1.04) mg/dL Est GFR (CKD-EPI)AfAm (>60 ml/min/1.73 sqM) Est GFR (CKD-EPI)NonAf (>60 ml/min/1.73 sqM) Glucose (74-99) mg/dL Calcium (8.4-10.2) mg/dL Total Bilirubin (0.2-1.3) mg/dL AST (14-36) U/L ALT (4-34) U/L Alkaline Phosphatase (38-126) U/L Troponin I (0.000-0.034) ng/mL Total Protein (6.3-8.2) g/dL Albumin (3.5-5.0) g/dL Urine Color Yellow Urine Appearance Cloudy H (Clear) Urine pH 6.5 (5.0-8.0) Ur Specific [place] 1.012 (1.001-1.035) Urine Protein 3+ H (Negative) Urine Glucose (UA) 4+ H (Negative) Urine Ketones Negative (Negative) Urine Blood Trace H (Negative) Urine Nitrite Negative (Negative) Urine Bilirubin Negative (Negative) Urine Urobilinogen <2.0 (<2.0) mg/dL Ur Leukocyte Esterase Moderate H (Negative) Urine RBC 1 (0-5) /hpf Urine WBC 79 H (0-5) /hpf Urine WBC Clumps Few H (None) /hpf Urine Bacteria Many H (None) /hpf Urine Mucus Rare H (None) /hpf Influenza Type A (PCR) (Not Detectd) Influenza Type B (PCR) (Not Detectd) RSV (PCR) (Not Detectd) SARS-CoV-2 (PCR) (Not Detectd) 03/14/22 03/14/22 03/14/22 Range/Units 17:30 17:30 17:30 WBC (3.8-10.6) k/uL RBC (3.80-5.40) m/uL Hgb (11.4-16.0) gm/dL Hct (34.0-46.0) % MCV (80.0-100.0) fL MCH (25.0-35.0) pg MCHC (31.0-37.0) g/dL RDW (11.5-15.5) % Plt Count (150-450) k/uL MPV Neutrophils % % Lymphocytes % % Monocytes % % Eosinophils % % Basophils % % Neutrophils # (1.3-7.7) k/uL Lymphocytes # (1.0-4.8) k/uL Monocytes # (0-1.0) k/uL Eosinophils # (0-0.7) k/uL Basophils # (0-0.2) k/uL PT (9.0-12.0) sec INR (<1.2) APTT (22.0-30.0) sec Sodium 135 L (137-145) mmol/L Potassium 3.7 (3.5-5.1) mmol/L Chloride 102 (98-107) mmol/L Carbon Dioxide 30 (22-30) mmol/L Anion Gap 3 mmol/L BUN 15 (7-17) mg/dL Creatinine 0.97 (0.52-1.04) mg/dL Est GFR (CKD-EPI)AfAm 65 (>60 ml/min/1.73 sqM) Est GFR (CKD-EPI)NonAf 56 (>60 ml/min/1.73 sqM) Glucose 280 H (74-99) mg/dL Calcium 9.2 (8.4-10.2) mg/dL Total Bilirubin 0.8 (0.2-1.3) mg/dL AST 22 (14-36) U/L ALT 24 (4-34) U/L Alkaline Phosphatase 70 (38-126) U/L Troponin I <0.012 (0.000-0.034) ng/mL Total Protein 5.9 L (6.3-8.2) g/dL Albumin 3.4 L (3.5-5.0) g/dL Urine Color Urine Appearance (Clear) Urine pH (5.0-8.0) Ur Specific [place] (1.001-1.035) Urine Protein (Negative) Urine Glucose (UA) (Negative) Urine Ketones (Negative) Urine Blood (Negative) Urine Nitrite (Negative) Urine Bilirubin (Negative) Urine Urobilinogen (<2.0) mg/dL Ur Leukocyte Esterase (Negative) Urine RBC (0-5) /hpf Urine WBC (0-5) /hpf Urine WBC Clumps (None) /hpf Urine Bacteria (None) /hpf Urine Mucus (None) /hpf Influenza Type A (PCR) Not Detected (Not Detectd) Influenza Type B (PCR) Not Detected (Not Detectd) RSV (PCR) Not Detected (Not Detectd) SARS-CoV-2 (PCR) Not Detected (Not Detectd) - Radiology Data Radiology results: report reviewed, image reviewed Disposition Clinical Impression: AMS (altered mental status), UTI (urinary tract infection) Disposition: ADMITTED IP TO THIS HOSP
[2022-03-14 17:45] LABS: Appearance,Urine Cloudy (Clear); Bacteria,Urine Many /hpf; Bilirubin,Urine Negative (Negative); Blood,Urine Trace (Negative); Color,Urine Yellow; Glucose,Urine (UA) 4+ (Negative); Ketones,Urine Negative (Negative); Leukocyte Esterase,Urine Moderate (Negative); Mucus,Urine Rare /hpf; Nitrite,Urine Negative (Negative); PH, Urine 6.5 (5.0-8.0); Protein,Urine 3+ (Negative); RBC,Urine 1 /hpf (0-5); Specific Gravity,Urine 1.012 (1.001-1.035); Urobilinogen,Urine <2.0 mg/dL (<2.0); WBC,Urine 79 /hpf (0-5)
[2022-03-14 17:47] LABS: Basophils % (A) 0 %; Eosinophils # (A) 0.1 k/uL (0-0.7); Eosinophils % (A) 2 %; HCT 37.4 % (34.0-46.0); HGB 12.1 gm/dL (11.4-16.0); Lymphocytes # (A) 0.9 k/uL (1.0-4.8); Lymphocytes % (A) 13 %; MCHC 32.2 g/dL (31.0-37.0); MCV 96.1 fL (80.0-100.0); Mean Platelet Volume 8.4; Monocytes # (A) 0.4 k/uL (0-1.0); Monocytes % (A) 6 %; Neutrophils # (A) 5.5 k/uL (1.3-7.7); Neutrophils % (A) 77 %; Platelet Count 209 k/uL (150-450); RBC 3.89 m/uL (3.80-5.40); RDW 14.9 % (11.5-15.5); WBC 7.1 k/uL (3.8-10.6)
--- NOTE | 2022-03-14 17:51 | XR ---
EXAMINATION TYPE: XR chest 2V DATE OF EXAM: 03/14/2022 COMPARISON: Chest x-ray December 14, 2020 HISTORY: Altered mental status and weakness. TECHNIQUE: Frontal and lateral views of the chest are obtained. FINDINGS: Cardiomegaly is redemonstrated. There is some chronic parenchymal change without suspicious new focal air space opacity, pleural effusion, or pneumothorax seen. The osseous structures are int act. IMPRESSION: Cardiomegaly without acute pulmonary process.
[2022-03-14 17:57] LABS: Albumin 3.4 g/dL (3.5-5.0); Calcium 9.2 mg/dL (8.4-10.2); INR 0.9 (<1.2); Partial Thromboplastin Time 24.9 sec (22.0-30.0); Potassium 3.7 mmol/L (3.5-5.1); Prothrombin Time 9.9 sec (9.0-12.0); Total Bilirubin 0.8 mg/dL (0.2-1.3); Total Protein 5.9 g/dL (6.3-8.2)
--- NOTE | 2022-03-14 18:22 | CT ---
EXAMINATION TYPE: CT brain wo con DATE OF EXAM: 03/14/2022 HISTORY: AMS, shaking CT DLP: 1159.4 mGycm. Automated Exposure Control for Dose Reduction was Utilized. TECHNIQUE: CT scan of the head is performed without contrast. COMPARISON: CT brain May 31, 2021. FINDINGS: There is no acute intracranial hemorrhage or midline shift identified. There is mild to m oderate diffuse ventricular and sulcal prominence consistent with diffuse age-related cerebral atroph y. There is mild to moderate low-attenuation in the periventricular white matter consistent with chr onic small vessel ischemic change. The globes are intact and the visualized sinuses are clear. IMPRESSION: No acute intracranial hemorrhage or midline shift. There is mild to moderate diffuse ce rebral atrophy and chronic small vessel ischemic change redemonstrated. No significant change from p rior CT.
[2022-03-14] MEDS ORDERED: cefTRIAXone IN SWFI 1,000 MG/10 ML SYRINGE IVP STA (18:50)
[2022-03-14] MEDS ORDERED: NALOXONE 0.4 MG/ML 1 ML VIAL IV PRN (18:53)
[2022-03-14] MEDS ORDERED: HYDROcodone/APAP 5-325MG 1 EACH TAB PO PRN (18:53)
[2022-03-14] MEDS ORDERED: ONDANSETRON 4 MG/2 ML VIAL IVP PRN (18:53)
[2022-03-14] MEDS ORDERED: ACETAMINOPHEN TAB 325 MG TAB PO PRN (18:53)
[2022-03-14 20:28] LABS: Glucose,Whole Blood 235 mg/dL (70-110)
[2022-03-15] MEDS ORDERED: DEXTROSE 50% SYRINGE 50 ML IVP PRN ×2 (00:09)
[2022-03-15] MEDS: OFLOXACIN 0.3% OPHTH DROPS 5 ML BOTTLE LEFT EYE SCH ×5 (00:50→21:10)
[2022-03-15] MEDS: KETOROLAC 0.5% OPHTH DROPS 5 ML BTL LEFT EYE SCH ×5 (00:50→21:07)
[2022-03-15] MEDS: prednisoLONE ACETATE 1% OPHTH DROPS 5 ML BTL LEFT EYE SCH ×5 (00:50→21:03)
[2022-03-15] MEDS: LOSARTAN 50 MG TAB PO SCH (02:55)
[2022-03-15] MEDS: LEVOTHYROXINE 75 MCG TAB PO SCH (05:59)
[2022-03-15 07:55] LABS: Glucose,Whole Blood 234 mg/dL (70-110)
[2022-03-15] MEDS: INSULIN ASPART (NovoLOG) 100 UNIT/ML VIAL SQ SCH ×6 (08:43→21:06)
[2022-03-15] MEDS: APIXABAN 5 MG TAB PO SCH ×2 (08:44→21:05)
[2022-03-15] MEDS: METOPROLOL TARTRATE 50 MG TAB PO SCH ×2 (08:44→18:33)
[2022-03-15] MEDS: FOLIC ACID 1 MG TAB PO SCH (08:45)
[2022-03-15] MEDS: AMIODARONE 200 MG TAB PO SCH (08:45)
[2022-03-15] MEDS: CHOLECALCIFEROL 25 MCG (1000 IU) TABLET PO SCH (08:46)
[2022-03-15] MEDS: PIOGLITAZONE 15 MG TAB PO SCH (08:46)
[2022-03-15 08:59] LABS: Basophils # (A) 0.01 X 10*3/uL (0.00-0.10); Basophils % (A) 0.1 %; Eosinophils % (A) 2.9 %; HCT 34.4 % (37.2-46.3); HGB 11.1 g/dL (12.0-15.0); Immature Grans, Automated 0.3 %; Lymphocytes # (A) 1.23 X 10*3/uL (0.90-5.00); Lymphocytes % (A) 17.7 %; MCHC 32.3 g/dL (32.0-37.0); MCV 96.1 fL (80.0-97.0); Mean Platelet Volume 10.9 fL (9.5-12.2); Monocytes # (A) 0.66 X 10*3/uL (0.20-1.00); Monocytes % (A) 9.5 %; NRBC Per 100 WBC 0 /100 WBCS (0.0-0.0); Neutrophils # (A) 4.84 X 10*3/uL (1.80-7.70); Neutrophils % (A) 69.5 %; Platelet Count 218 X 10*3/uL (140-440); RBC 3.58 X 10*6/uL (4.10-5.20); RDW 14.4 % (11.5-14.5); WBC 6.96 X 10*3/uL (4.50-10.00)
[2022-03-15 09:30] LABS: African American GFR (CKD) 53.5 (60.0-200.0); Anion Gap 8.9 mmol/L (10.00-18.00); BUN/Creat Ratio 10.18 Ratio (12.00-20.00); Blood Urea Nitrogen 11.5 mg/dL (9.0-27.0); Calcium 9.3 mg/dL (8.7-10.3); Carbon Dioxide 29.3 mmol/L (20.0-27.5); Non-African American GFR(CKD) 46.2 (60.0-200.0); Potassium 3.4 mmol/L (3.5-5.5)
--- NOTE | 2022-03-15 10:43 | P.HPIM ---
History of Present Illness This is a pleasant 81 years old female with past medical history of atrial fibrillation on Eliquis, diabetes mellitus, hyperlipidemia, hypertension, memory problems, osteoarthritis, hypothyroidism Patient states she came from home because she has tremor. However per documentation she is alert and confused. Also patient she knows she is in [facility] but she could not tell me the date or the name of the president however she follows commands appropriately, answers appropriately and she has insight into her illness. She denies any headache dizziness weakness or numbness. No chest pain or dyspnea. No dysuria urgency or suprapubic pain or tenderness. No other urinary complaints. No vomiting diarrhea or abdominal pain. He has recent surgery in her left eye, she cannot remember all the details, no complaints regarding this right now She denies smoking alcohol or illicit drugs Walker at bedside Patient is afebrile and vital signs stable, blood pressure is on the high side unremarkable including CBC, INR, BMP and liver enzymes. TSH is normal at 1.9. Troponin is negative. EKG showing sinus bradycardia at [address]-T changes CT of the brain: No acute intracranial hemorrhage or midline shift. No significant change from prior Chest x-ray: Cardiomegaly with no acute changes Urine analysis was suspicious of infection Covid and influenza not detected Past Medical History Past Medical History: Atrial Fibrillation, Diabetes Mellitus, Hyperlipidemia, Hypertension, Memory Impairment, Osteoarthritis (OA), Skin Disorder, Thyroid Disorder Additional Past Medical History / Comment(s): Seasonal allergies, psoriasis. 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; Cataract surgery on right eye Feb 26; left eye on Mar 12 with lens implants Past Anesthesia/Blood Transfusion Reactions: No Reported Reaction Additional Past Anesthesia/Blood Transfusion Reaction / Comment(s): Claustrophobia Past Psychological History: Anxiety Smoking Status: Never smoker Past Alcohol Use History: Occasional Past Drug Use History: None Reported - Past Family History Mother Family Medical History: No Reported History Additional Family Medical History / Comment(s): Valve replacement, CAD Medications and Allergies Home Medications Medication Instructions Recorded Confirmed Type Levothyroxine Sodium [Synthroid] 37.5 mcg PO DAILY@0900 12/31/13 03/14/22 History Amiodarone [Cordarone] 100 mg PO DAILY@0900 05/31/21 03/14/22 History Apixaban [Eliquis] 5 mg PO BID@0900,2100 05/31/21 03/14/22 History Atorvastatin [Lipitor] 20 mg PO HS@209905/31/21 03/14/22 History Cholecalciferol [Vitamin D3 (25 50 mcg PO DAILY@0900 05/31/21 03/14/22 History Mcg = 1000 Iu)] Folic Acid 0.8 mg PO DAILY@0900 05/31/21 03/14/22 History Furosemide [Lasix] 20 mg PO BID@0900,1400 05/31/21 03/14/22 History Insulin Glargine,Hum.rec.anlog 20 unit SQ HS@209905/31/21 03/14/22 History [Lantus Solostar Pen] Metoprolol Tartrate [Lopressor] 50 mg PO BID@0900,1700 05/31/21 03/14/22 History Pioglitazone [Actos] 15 mg PO DAILY@0900 05/31/21 03/14/22 History metFORMIN HCL [Glucophage] 500 mg PO BID@0900,1700 05/31/21 03/14/22 History Ketorolac 0.5% Ophth Soln [Acular 1 drops LEFT EYE QID 03/14/22 03/14/22 History 0.5%] Losartan Potassium [Cozaar] 50 mg PO DAILY@0900 03/14/22 03/14/22 History Ofloxacin 0.3% Ophth Soln [Ocuflox 1 drops LEFT EYE QID 03/14/22 03/14/22 History Ophth Soln] prednisoLONE ACETATE 1% OPHTH 1 drops LEFT EYE QID 03/14/22 03/14/22 History [Pred Forte 1%] Allergies Allergy/AdvReac Type Severity Reaction Status Date / Time adhesive AdvReac peels skin Verified 03/14/22 19:39 off Sulfa (Sulfonamide AdvReac Diarrhea Verified 03/14/22 19:39 Antibiotics) food preservatives Allergy Unknown Uncoded 05/31/21 23:05 Physical Exam Vitals: Vital Signs Temp Pulse Pulse Resp BP BP Pulse Ox 03/14/22 20:00 97.5 F L 54 L 18 198/75 96 03/14/22 18:54 97.5 F L 64 14 142/76 94 L 03/14/22 16:29 98.4 F 57 L 16 164/79 96 Intake and Output 03/14/22 03/14/22 03/15/22 14:59 22:59 06:59 Other: Voiding Method Toilet Bedside Commode Weight 92.986 kg -GENERAL: The patient is alert and oriented x1, not in any acute distress. Well developed, well nourished. -HEENT: Pupils are round and equally reacting to light. EOMI. No scleral icterus. No conjunctival pallor. Normocephalic, atraumatic. No pharyngeal erythema. No thyromegaly. Left eye with dressing in place CARDIOVASCULAR: S1 and S2 present. No murmurs, rubs, or gallops. PULMONARY: Chest is clear to auscultation, no wheezing or crackles. ABDOMEN: Soft, nontender, nondistended, normoactive bowel sounds. No palpable organomegaly. MUSCULOSKELETAL: No joint swelling or deformity. EXTREMITIES: No cyanosis, clubbing, or pedal edema. NEUROLOGICAL: Gross neurological examination did not reveal any focal deficits. SKIN: No rashes. no petechiae. Results CBC & Chem 7: 03/15/22 05:54 03/15/22 05:54 Labs: Abnormal Lab Results - Last 24 Hours (Table) 03/14/22 03/14/22 03/14/22 Range/Units 16:14 17:30 17:30 Lymphocytes # 0.9 L (1.0-4.8) k/uL Sodium 135 L (137-145) mmol/L Glucose 280 H (74-99) mg/dL POC Glucose (mg/dL) (70-110) mg/dL Total Protein 5.9 L (6.3-8.2) g/dL Albumin 3.4 L (3.5-5.0) g/dL Urine Appearance Cloudy H (Clear) Urine Protein 3+ H (Negative) Urine Glucose (UA) 4+ H (Negative) Urine Blood Trace H (Negative) Ur Leukocyte Esterase Moderate H (Negative) Urine WBC 79 H (0-5) /hpf Urine WBC Clumps Few H (None) /hpf Urine Bacteria Many H (None) /hpf Urine Mucus Rare H (None) /hpf 03/14/22 Range/Units 20:26 Lymphocytes # (1.0-4.8) k/uL Sodium (137-145) mmol/L Glucose (74-99) mg/dL POC Glucose (mg/dL) 235 H (70-110) mg/dL Total Protein (6.3-8.2) g/dL Albumin (3.5-5.0) g/dL Urine Appearance (Clear) Urine Protein (Negative) Urine Glucose (UA) (Negative) Urine Blood (Negative) Ur Leukocyte Esterase (Negative) Urine WBC (0-5) /hpf Urine WBC Clumps (None) /hpf Urine Bacteria (None) /hpf Urine Mucus (None) /hpf Thrombosis Risk Factor Assmnt - Choose All That Apply Any of the Below Risk Factors Present?: Yes Each Factor Represents 1 point: Obesity (BMI >25), Swollen legs (current) Other Risk Factors: Yes Each Risk Factor Represents 3 Points: Age 75 years or older, History of DVT/PE Other congenital or acquired thrombophilia - If yes, enter type in comment: No Thrombosis Risk Factor Assessment Total Risk Factor Score: 8 Thrombosis Risk Factor Assessment Level: High Risk Assessment and Plan Assessment: Acute urinary tract infection Metabolic encephalopathy secondary to above, mild Chronic atrial fibrillation on Eliquis Mild bilateral pitting leg edema Diabetes mellitus Hypertension, uncontrolled on admission Hyperlipidemia History of recent arthritis Hypothyroidism Plan: continue with antibiotic Follow-up urine culture continue with metoprolol and losartan, and Lasix 40 mg daily. Continue of flexor seen eyedrops via follow-up with statuary painter and PCP upon discharge Continue with Levemir 20 units and Actos 15 mg, and at insulin lispro 3 units with meals Labs and medication were reviewed.. Continue same treatment. Continue with symptomatic treatment. Resume home medication. Monitor lytes and vitals. DVT and GI prophylaxis. Further recommendations as per clinical course of the patient DVT prophylaxis: On Eliquis GI Prophylaxis: Pepcid PT/OT: Pending Prognosis is guarded
[2022-03-15 11:28] LABS: Glucose,Whole Blood 286 mg/dL (70-110)
[2022-03-15] MEDS: FUROSEMIDE 40 MG TAB PO SCH (13:18)
--- NOTE | 2022-03-15 17:00 | P.CONS ---
History of Present Illness - Reason for Consult Consult date: 03/15/22 - History of Present Illness Patient is a 81 year old female with a past medical history significant for diabetes mellitus hypertension hyperlipidemia memory impairment atrial fibrillation apparently the patient did have a RSV infection in December 2021 and the patient did have a hard time recovering from it since then the patient has been very weak no longer able to drive and requiring a walker to get around the patient also complained of generalized weakness but no focal weakness denies having any falls loss of consciousness or hitting her head patient also combining of diarrhea with loose stools without any warning however denies having any blood or mucus in the stools and no abdominal pain patient did have some vague urinary symptoms with concern for UTI the patient has been brought in the hospital for further evaluation on arrival to the hospital the patient was afebrile and no fever has been recorded subsequently patient did have a normal white count, did have normal BUN/creatinine liver enzymes are normal patient did have a positive UA, influenza RSV and covid PCR were negative, patient did have a CT of the brain that was negative for any bleed chest x-ray without acute pulmonary participation did received a dose of Rocephin has been admitted to the hospital infectious disease was consulted for further management of antibiotic therapy Past Medical History Past Medical History: Atrial Fibrillation, Diabetes Mellitus, Hyperlipidemia, Hypertension, Memory Impairment, Osteoarthritis (OA), Skin Disorder, Thyroid Disorder Additional Past Medical History / Comment(s): Seasonal allergies, psoriasis. 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; Cataract surgery on right eye Feb 26; left eye on Mar 12 with lens implants Past Anesthesia/Blood Transfusion Reactions: No Reported Reaction Additional Past Anesthesia/Blood Transfusion Reaction / Comm: Claustrophobia Past Psychological History: Anxiety Smoking Status: Never smoker Past Alcohol Use History: Occasional Past Drug Use History: None Reported - Past Family History Mother Family Medical History: No Reported History Additional Family Medical History / Comment(s): Valve replacement, CAD Medications and Allergies Home Medications Medication Instructions Recorded Confirmed Type Levothyroxine Sodium [Synthroid] 37.5 mcg PO DAILY@0900 12/31/13 03/14/22 Hi story Amiodarone [Cordarone] 100 mg PO DAILY@0900 05/31/21 03/14/22 History Apixaban [Eliquis] 5 mg PO BID@0900,2100 05/31/21 03/14/22 History Atorvastatin [Lipitor] 20 mg PO HS@209905/31/21 03/14/22 History Cholecalciferol [Vitamin D3 (25 50 mcg PO DAILY@0900 05/31/21 03/14/22 History Mcg = 1000 Iu)] Folic Acid 0.8 mg PO DAILY@0900 05/31/21 03/14/22 History Furosemide [Lasix] 20 mg PO BID@0900,1400 05/31/21 03/14/22 History Insulin Glargine,Hum.rec.anlog 20 unit SQ HS@209905/31/21 03/14/22 History [Lantus Solostar Pen] Metoprolol Tartrate [Lopressor] 50 mg PO BID@0900,1700 05/31/21 03/14/22 History Pioglitazone [Actos] 15 mg PO DAILY@0900 05/31/21 03/14/22 History metFORMIN HCL [Glucophage] 500 mg PO BID@0900,1700 05/31/21 03/14/22 History Ketorolac 0.5% Ophth Soln [Acular 1 drops LEFT EYE QID 03/14/22 03/14/22 History 0.5%] Losartan Potassium [Cozaar] 50 mg PO DAILY@0900 03/14/22 03/14/22 History Ofloxacin 0.3% Ophth Soln [Ocuflox 1 drops LEFT EYE QID 03/14/22 03/14/22 History Ophth Soln] prednisoLONE ACETATE 1% OPHTH 1 drops LEFT EYE QID 03/14/22 03/14/22 History [Pred Forte 1%] Allergies Allergy/AdvReac Type Severity Reaction Status Date / Time adhesive AdvReac peels skin Verified 03/14/22 19:39 off Sulfa (Sulfonamide AdvReac Diarrhea Verified 03/14/22 19:39 Antibiotics) salsa Allergy Abdominal Uncoded 03/15/22 14:53 Pain Physical Exam Vitals: Vital Signs Temp Pulse Pulse Resp BP BP Pulse Ox 03/15/22 09:36 52 L 01/27/23 07:20 97.7 F 56 L 14 179/71 95 03/15/22 02:00 98.2 F 51 L 16 191/75 94 L 03/14/22 20:00 97.5 F L 54 L 18 198/75 96 03/14/22 18:54 97.5 F L 64 14 142/76 94 L 03/14/22 16:29 98.4 F 57 L 16 164/79 96 Intake and Output 03/14/22 03/15/22 03/15/22 22:59 06:59 14:59 Intake Total 590 Balance 590 Intake: Oral 590 Other: Voiding Method Toilet Toilet Bedside Commode Bedside Commode # Voids 3 2 # Bowel Movements 1 Weight 92.986 kg Results CBC & Chem 7: 03/15/22 05:54 03/15/22 05:54 Labs: Abnormal Lab Results - Last 24 Hours (Table) 03/14/22 03/14/22 03/14/22 Range/Units 16:14 17:30 17:30 RBC (4.10-5.20) X 10*6/uL Hgb (12.0-15.0) g/dL Hct (37.2-46.3) % Lymphocytes # 0.9 L (1.0-4.8) k/uL Sodium 135 L (137-145) mmol/L Potassium (3.5-5.5) mmol/L Carbon Dioxide (20.0-27.5) mmol/L Anion Gap (10.00-18.00) mmol/L Est GFR (CKD-EPI)AfAm (60.0-200.0) Est GFR (CKD-EPI)NonAf (60.0-200.0) BUN/Creatinine Ratio (12.00-20.00) Ratio Glucose 280 H (74-99) mg/dL POC Glucose (mg/dL) (70-110) mg/dL Hemoglobin A1c (0.0-6.0) % Total Protein 5.9 L (6.3-8.2) g/dL Albumin 3.4 L (3.5-5.0) g/dL Urine Appearance Cloudy H (Clear) Urine Protein 3+ H (Negative) Urine Glucose (UA) 4+ H (Negative) Urine Blood Trace H (Negative) Ur Leukocyte Esterase Moderate H (Negative) Urine WBC 79 H (0-5) /hpf Urine WBC Clumps Few H (None) /hpf Urine Bacteria Many H (None) /hpf Urine Mucus Rare H (None) /hpf 03/14/22 03/15/22 03/15/22 Range/Units 20:26 05:54 05:54 RBC 3.58 L (4.10-5.20) X 10*6/uL Hgb 11.1 L (12.0-15.0) g/dL Hct 34.4 L (37.2-46.3) % Lymphocytes # (1.0-4.8) k/uL Sodium (137-145) mmol/L Potassium (3.5-5.5) mmol/L Carbon Dioxide (20.0-27.5) mmol/L Anion Gap (10.00-18.00) mmol/L Est GFR (CKD-EPI)AfAm (60.0-200.0) Est GFR (CKD-EPI)NonAf (60.0-200.0) BUN/Creatinine Ratio (12.00-20.00) Ratio Glucose (74-99) mg/dL POC Glucose (mg/dL) 235 H (70-110) mg/dL Hemoglobin A1c 9.3 H (0.0-6.0) % Total Protein (6.3-8.2) g/dL Albumin (3.5-5.0) g/dL Urine Appearance (Clear) Urine Protein (Negative) Urine Glucose (UA) (Negative) Urine Blood (Negative) Ur Leukocyte Esterase (Negative) Urine WBC (0-5) /hpf Urine WBC Clumps (None) /hpf Urine Bacteria (None) /hpf Urine Mucus (None) /hpf 03/15/22 03/15/22 Range/Units 05:54 07:51 RBC (4.10-5.20) X 10*6/uL Hgb (12.0-15.0) g/dL Hct (37.2-46.3) % Lymphocytes # (1.0-4.8) k/uL Sodium (137-145) mmol/L Potassium 3.4 L (3.5-5.5) mmol/L Carbon Dioxide 29.3 H (20.0-27.5) mmol/L Anion Gap 8.90 L (10.00-18.00) mmol/L Est GFR (CKD-EPI)AfAm 53.5 L (60.0-200.0) Est GFR (CKD-EPI)NonAf 46.2 L (60.0-200.0) BUN/Creatinine Ratio 10.18 L (12.00-20.00) Ratio Glucose 227 H (74-99) mg/dL POC Glucose (mg/dL) 234 H (70-110) mg/dL Hemoglobin A1c (0.0-6.0) % Total Protein (6.3-8.2) g/dL Albumin (3.5-5.0) g/dL Urine Appearance (Clear) Urine Protein (Negative) Urine Glucose (UA) (Negative) Urine Blood (Negative) Ur Leukocyte Esterase (Negative) Urine WBC (0-5) /hpf Urine WBC Clumps (None) /hpf Urine Bacteria (None) /hpf Urine Mucus (None) /hpf Microbiology - Last 24 Hours (Table) 03/14/22 16:14 Urine Culture - Preliminary Urine,Voided Assessment and Plan Plan: 1patient is in the hospital with generalized weakness have some vague urinary symptoms positive UA concerning for a symptomatic urinary tract infection from enteric Gram-negative pathogen 2-sulfa ALLERGY. that we limit the number of antibiotic safety use 3we will start the patient Rocephin 2 g daily while waiting for the cultures to finalize 4gentle IV fluid We will follow on clinical condition and cultures to further adjust medication if needed Thank you for this consultation will follow this patient with you Time with Patient: Greater than 30
[2022-03-15 17:39] LABS: Glucose,Whole Blood 187 mg/dL (70-110)
[2022-03-15 20:28] LABS: Glucose,Whole Blood 224 mg/dL (70-110)
[2022-03-15] MEDS: ATORVASTATIN 20 MG TAB PO SCH (21:05)
[2022-03-15] MEDS: INSULIN DETEMIR (LEVEMIR) 100 UNIT/ML SYR SQ SCH (21:06)
[2022-03-16] MEDS: LEVOTHYROXINE 75 MCG TAB PO SCH (06:20)
[2022-03-16 07:30] LABS: Glucose,Whole Blood 135 mg/dL (70-110)
[2022-03-16] MEDS: INSULIN ASPART (NovoLOG) 100 UNIT/ML VIAL SQ SCH ×7 (08:05→21:11)
[2022-03-16] MEDS: AMIODARONE 200 MG TAB PO SCH (08:43)
[2022-03-16] MEDS: APIXABAN 5 MG TAB PO SCH ×2 (08:44→21:11)
[2022-03-16] MEDS: LOSARTAN 50 MG TAB PO SCH (08:44)
[2022-03-16] MEDS: FUROSEMIDE 40 MG TAB PO SCH (08:44)
[2022-03-16] MEDS: FOLIC ACID 1 MG TAB PO SCH (08:44)
[2022-03-16] MEDS: CHOLECALCIFEROL 25 MCG (1000 IU) TABLET PO SCH (08:44)
[2022-03-16] MEDS: prednisoLONE ACETATE 1% OPHTH DROPS 5 ML BTL LEFT EYE SCH ×4 (08:45→21:12)
[2022-03-16] MEDS: METOPROLOL TARTRATE 50 MG TAB PO SCH ×2 (08:49→16:07)
[2022-03-16] MEDS: KETOROLAC 0.5% OPHTH DROPS 5 ML BTL LEFT EYE SCH ×4 (09:56→21:12)
[2022-03-16] MEDS: PIOGLITAZONE 15 MG TAB PO SCH (09:56)
[2022-03-16] MEDS: OFLOXACIN 0.3% OPHTH DROPS 5 ML BOTTLE LEFT EYE SCH ×4 (09:57→21:12)
[2022-03-16 11:25] LABS: Basophils # (A) 0.01 X 10*3/uL (0.00-0.10); Basophils % (A) 0.1 %; Eosinophils # (A) 0.22 X 10*3/uL (0.04-0.35); Eosinophils % (A) 3.1 %; HCT 35.6 % (37.2-46.3); HGB 11.2 g/dL (12.0-15.0); Immature Grans, Automated 0.4 %; Lymphocytes # (A) 1.08 X 10*3/uL (0.90-5.00); Lymphocytes % (A) 15.4 %; MCH 30.8 pg (27.0-32.0); MCHC 31.5 g/dL (32.0-37.0); MCV 97.8 fL (80.0-97.0); Mean Platelet Volume 10.7 fL (9.5-12.2); Monocytes # (A) 0.62 X 10*3/uL (0.20-1.00); Monocytes % (A) 8.8 %; NRBC Per 100 WBC 0 /100 WBCS (0.0-0.0); Neutrophils # (A) 5.05 X 10*3/uL (1.80-7.70); Neutrophils % (A) 72.2 %; Platelet Count 247 X 10*3/uL (140-440); RBC 3.64 X 10*6/uL (4.10-5.20); RDW 14.6 % (11.5-14.5); WBC 7.01 X 10*3/uL (4.50-10.00)
[2022-03-16 11:46] LABS: African American GFR (CKD) 45.2 (60.0-200.0); Anion Gap 9.1 mmol/L (10.00-18.00); BUN/Creat Ratio 14.77 Ratio (12.00-20.00); Blood Urea Nitrogen 19.2 mg/dL (9.0-27.0); Calcium 9.3 mg/dL (8.7-10.3); Carbon Dioxide 29.9 mmol/L (20.0-27.5); Potassium 3.9 mmol/L (3.5-5.5)
[2022-03-16 12:16] LABS: Glucose,Whole Blood 376 mg/dL (70-110)
[2022-03-16 13:26] VITALS: BMI 33.0
--- NOTE | 2022-03-16 15:56 | P.PN ---
Subjective This is a pleasant 81 years old female with past medical history of atrial fibrillation on Eliquis, diabetes mellitus, hyperlipidemia, hypertension, memory problems, osteoarthritis, hypothyroidism Patient states she came from home because she has tremor. However per documentation she is alert and confused. Also patient she knows she is in [facility] but she could not tell me the date or the name of the president however she follows commands appropriately, answers appropriately and she has insight into her illness. She denies any headache dizziness weakness or numbness. No chest pain or dyspnea. No dysuria urgency or suprapubic pain or tenderness. No other urinary complaints. No vomiting diarrhea or abdominal pain. He has recent surgery in her left eye, she cannot remember all the details, no complaints regarding this right now She denies smoking alcohol or illicit drugs Walker at bedside Patient is afebrile and vital signs stable, blood pressure is on the high side unremarkable including CBC, INR, BMP and liver enzymes. TSH is normal at 1.9. Troponin is negative. EKG showing sinus bradycardia at [address]-T changes CT of the brain: No acute intracranial hemorrhage or midline shift. No signific ant change from prior Chest x-ray: Cardiomegaly with no acute changes Urine analysis was suspicious of infection Covid and influenza not detected 03/16/2022 Patient clinically stable, awake and alert, she has mild confusion which looks her baseline. No significant urinary symptoms or suprapubic tenderness Weakness is improving Urine culture is growing gram-negative bacilli She Ceftriaxone Old Lasix for Slightly Trending up Creatinine 1.1 up to 1.3 Blood Sugar Is Better Controlled after Placing the Patient and Short Acting Insulin 5 Units with Meals. PT/OT: Home Health Care Which Is Ordered Objective - Vital Signs Vital signs: Vital Signs Temp 97.8 F 03/16/22 07:17 Pulse 50 L 03/16/22 08:30 Resp 13 03/16/22 08:30 BP 179/82 03/16/22 07:17 Pulse Ox 95 03/16/22 02:03 FiO2 Intake & Output 03/15/22 03/16/22 03/16/22 18:59 06:59 18:59 Intake Total 500 Balance 500 Intake: Oral 500 Other: Voiding Method Toilet Toilet Toilet Bedside Commode Bedside Commode Bedside Commode # Voids 2 1 1 # Bowel Movements 1 1 - Exam -GENERAL: The patient is alert and oriented x1, not in any acute distress. Well developed, well nourished. HEENT: Pupils are round and equally reacting to light. EOMI. No scleral icterus. No conjunctival pallor. Normocephalic, atraumatic. No pharyngeal erythema. No thyromegaly. CARDIOVASCULAR: S1 and S2 present. No murmurs, rubs, or gallops. PULMONARY: Chest is clear to auscultation, no wheezing or crackles. ABDOMEN: Soft, nontender, nondistended, normoactive bowel sounds. No palpable organomegaly. MUSCULOSKELETAL: No joint swelling or deformity. EXTREMITIES: No cyanosis, clubbing, or pedal edema. NEUROLOGICAL: Gross neurological examination did not reveal any focal deficits. SKIN: No rashes. no petechiae. - Labs CBC & Chem 7: 03/16/22 07:13 03/16/22 07:13 Labs: Abnormal Lab Results - Last 24 Hours (Table) 03/15/22 03/15/22 03/16/22 Range/Units 17:37 20:19 07:13 RBC 3.64 L (4.10-5.20) X 10*6/uL Hgb 11.2 L (12.0-15.0) g/dL Hct 35.6 L (37.2-46.3) % MCV 97.8 H (80.0-97.0) fL MCHC 31.5 L (32.0-37.0) g/dL RDW 14.6 H (11.5-14.5) % Carbon Dioxide (20.0-27.5) mmol/L Anion Gap (10.00-18.00) mmol/L Est GFR (CKD-EPI)AfAm (60.0-200.0) Est GFR (CKD-EPI)NonAf (60.0-200.0) Glucose (70-110) mg/dL POC Glucose (mg/dL) 187 H 224 H (70-110) mg/dL 03/16/22 03/16/22 03/16/22 Range/Units 07:13 07:20 12:13 RBC (4.10-5.20) X 10*6/uL Hgb (12.0-15.0) g/dL Hct (37.2-46.3) % MCV (80.0-97.0) fL MCHC (32.0-37.0) g/dL RDW (11.5-14.5) % Carbon Dioxide 29.9 H (20.0-27.5) mmol/L Anion Gap 9.10 L (10.00-18.00) mmol/L Est GFR (CKD-EPI)AfAm 45.2 L (60.0-200.0) Est GFR (CKD-EPI)NonAf 39.0 L (60.0-200.0) Glucose 129 H (70-110) mg/dL POC Glucose (mg/dL) 135 H 376 H (70-110) mg/dL Microbiology - Last 24 Hours (Table) 03/14/22 16:14 Urine Culture - Preliminary Urine,Voided Gram Neg Bacilli Assessment and Plan Assessment: Acute urinary tract infection Metabolic encephalopathy secondary to above, mild Chronic atrial fibrillation on Eliquis Mild bilateral pitting leg edema Diabetes mellitus Hypertension, uncontrolled on admission Hyperlipidemia History of recent arthritis Hypothyroidism Plan: continue with antibiotic Follow-up urine culture continue with metoprolol and losartan, and Lasix 40 mg daily. Continue of flexor seen eyedrops via follow-up with professor of poultry science and PCP upon discharge Continue with Levemir 20 units and Actos 15 mg, and at insulin lispro 3 units with meals Labs and medication were reviewed.. Continue same treatment. Continue with symptomatic treatment. Resume home medication. Monitor lytes and vitals. DVT and GI prophylaxis. Further recommendations as per clinical course of the patient DVT prophylaxis: On Eliquis GI Prophylaxis: Pepcid PT/OT: Pending Prognosis is guarded
[2022-03-16 16:57] LABS: Glucose,Whole Blood 163 mg/dL (70-110)
--- NOTE | 2022-03-16 17:59 | P.PN ---
Subjective Progress Note Date: 03/16/22 Principal diagnosis: Urinary tract infection Patient is a 81 year old female with a past medical history significant for diabetes mellitus hypertension hyperlipidemia memory impairment atrial fibrillation , presenting to the hospital with weakness. Has some diarrhea positive UA concerning for symptomatic UTI. on today's evaluation that is 03/16/2022, the patient denies having any fever or any chills, the patient is breathing comfortably on room air, the patient denies any chest pain shortness of breath or cough no nausea vomiting no abdominal pain or diarrhea Objective - Vital Signs Vital signs: Vital Signs Temp 97.8 F 03/16/22 07:17 Pulse 50 L 03/16/22 07:17 Resp 13 03/16/22 07:17 BP 179/82 03/16/22 07:17 Pulse Ox 95 03/16/22 02:03 FiO2 Intake & Output 03/15/22 03/16/22 03/16/22 18:59 06:59 18:59 Intake Total 500 Balance 500 Intake: Oral 500 Other: Voiding Method Toilet Toilet Bedside Commode Bedside Commode # Voids 2 1 # Bowel Movements 1 1 - Exam GENERAL DESCRIPTION: An elderly female up in the chair in no distress RESPIRATORY SYSTEM: Unlabored breathing , decreased breath sounds at bases HEART: S1 S2 regular rate and rhythm , ABDOMEN: Soft , no tenderness EXTREMITIES: No edema feet - Labs CBC & Chem 7: 03/16/22 07:13 03/16/22 07:13 Labs: Abnormal Lab Results - Last 24 Hours (Table) 03/15/22 03/15/22 03/15/22 Range/Units 11:25 17:37 20:19 POC Glucose (mg/dL) 286 H 187 H 224 H (70-110) mg/dL 03/16/22 Range/Units 07:20 POC Glucose (mg/dL) 135 H (70-110) mg/dL Microbiology - Last 24 Hours (Table) 03/14/22 16:14 Urine Culture - Preliminary Urine,Voided Gram Neg Bacilli Assessment and Plan (1) UTI (urinary tract infection) Current Visit: Yes Status: Acute Code(s): N39.0 - URINARY TRACT INFECTION, SITE NOT SPECIFIED SNOMED Code(s): 61200546 Plan: 1patient is in the hospital with generalized weakness have some vague urinary symptoms positive UA concerning for a symptomatic urinary tract infection from enteric Gram-negative pathogen 2-sulfa ALLERGY. that we limit the number of antibiotic safe to use 3. Urine cultures are currently growing gram-negative bacilli, patient to continue with Rocephin 2 g daily while waiting for the cultures to finalize Time with Patient: Less than 30
[2022-03-16 20:43] LABS: Glucose,Whole Blood 214 mg/dL (70-110)
[2022-03-16] MEDS: INSULIN DETEMIR (LEVEMIR) 100 UNIT/ML SYR SQ SCH (21:11)
[2022-03-16] MEDS: ATORVASTATIN 20 MG TAB PO SCH (21:11)
[2022-03-17] MEDS: LEVOTHYROXINE 75 MCG TAB PO SCH (05:33)
[2022-03-17 07:16] LABS: Glucose,Whole Blood 124 mg/dL (70-110)
[2022-03-17] MEDS: INSULIN ASPART (NovoLOG) 100 UNIT/ML VIAL SQ SCH ×7 (07:47→21:00)
[2022-03-17] MEDS: CHOLECALCIFEROL 25 MCG (1000 IU) TABLET PO SCH (08:49)
[2022-03-17] MEDS: FOLIC ACID 1 MG TAB PO SCH (08:49)
[2022-03-17] MEDS: AMIODARONE 200 MG TAB PO SCH (08:49)
[2022-03-17] MEDS: APIXABAN 5 MG TAB PO SCH ×2 (08:50→21:00)
[2022-03-17] MEDS: LOSARTAN 50 MG TAB PO SCH (08:50)
[2022-03-17] MEDS: PIOGLITAZONE 15 MG TAB PO SCH (08:50)
[2022-03-17] MEDS: prednisoLONE ACETATE 1% OPHTH DROPS 5 ML BTL LEFT EYE SCH ×4 (08:51→21:01)
[2022-03-17] MEDS: KETOROLAC 0.5% OPHTH DROPS 5 ML BTL LEFT EYE SCH ×4 (08:51→21:00)
[2022-03-17] MEDS: OFLOXACIN 0.3% OPHTH DROPS 5 ML BOTTLE LEFT EYE SCH ×4 (08:51→21:00)
[2022-03-17] MEDS: METOPROLOL TARTRATE 50 MG TAB PO SCH ×2 (10:01→18:03)
[2022-03-17 11:40] LABS: Glucose,Whole Blood 209 mg/dL (70-110)
[2022-03-17 12:47] LABS: African American GFR (CKD) 56 (>60 ml/min/1.73 sqM); Anion Gap 3 mmol/L; Blood Urea Nitrogen 21 mg/dL (7-17); Calcium 8.8 mg/dL (8.4-10.2); Carbon Dioxide 30 mmol/L (22-30); Chloride 103 mmol/L (98-107); Glucose 177 mg/dL (74-99); Non-African American GFR(CKD) 49 (>60 ml/min/1.73 sqM); Potassium 3.8 mmol/L (3.5-5.1); Sodium 136 mmol/L (137-145)
[2022-03-17] MEDS ORDERED: amLODIPine 10 MG TAB PO SCH (13:30)
--- NOTE | 2022-03-17 15:02 | P.PN ---
Subjective This is a pleasant 81 years old female with past medical history of atrial fibrillation on Eliquis, diabetes mellitus, hyperlipidemia, hypertension, memory problems, osteoarthritis, hypothyroidism Patient states she came from home because she has tremor. However per documentation she is alert and confused. Also patient she knows she is in [facility] but she could not tell me the date or the name of the president however she follows commands appropriately, answers appropriately and she has insight into her illness. She denies any headache dizziness weakness or numbness. No chest pain or dyspnea. No dysuria urgency or suprapubic pain or tenderness. No other urinary complaints. No vomiting diarrhea or abdominal pain. He has recent surgery in her left eye, she cannot remember all the details, no complaints regarding this right now She denies smoking alcohol or illicit drugs Walker at bedside Patient is afebrile and vital signs stable, blood pressure is on the high side unremarkable including CBC, INR, BMP and liver enzymes. TSH is normal at 1.9. Troponin is negative. EKG showing sinus bradycardia at [address]-T changes CT of the brain: No acute intracranial hemorrhage or midline shift. No signific ant change from prior Chest x-ray: Cardiomegaly with no acute changes Urine analysis was suspicious of infection Covid and influenza not detected 03/16/2022 Patient clinically stable, awake and alert, she has mild confusion which looks her baseline. No significant urinary symptoms or suprapubic tenderness Weakness is improving Urine culture is growing gram-negative bacilli She Ceftriaxone Old Lasix for Slightly Trending up Creatinine 1.1 up to 1.3 Blood Sugar Is Better Controlled after Placing the Patient and Short Acting Insulin 5 Units with Meals. PT/OT: Home Health Care Which Is Ordered 03/17/2022 Clinically was doing well and she become asymptomatic regarding her urinary tract infection, urine culture final result is back and patient could be discharged on Ceftin 5 days and patient and daughter agreed with this plan however prior to leaving recheck blood pressure showed severely elevated blood pressure 217/107, and later on came down to 200/98 after we give her Norvasc 10 mg daily, we'll keep monitoring her blood pressure, because of his hypertensive urgency with going to hold discharged today and monitor especially patient is also on Eliquis The daughter also does not want her mother to take NovoLog or short acting insulin with meals because it gets her confused between the short and long acting and she was in the hospital one time before because of this confusion however the daughter and patient are willing to follow up with her concierge Dr. Duggan in one week as instructed Possible discharge in 24-48 hours if she keeps improving Also IV line went bad and the daughter does not want to put another IV line for her mother therefore switch antibiotic and to Keflex Creatinine came down to 1.0 Objective - Vital Signs Vital signs: Vital Signs Temp 98 F 03/17/22 13:15 Pulse 62 03/17/22 13:18 Resp 18 03/17/22 13:15 BP 200/98 03/17/22 13:41 Pulse Ox 92 L 03/17/22 13:18 FiO2 Intake & Output 03/16/22 03/17/22 03/17/22 18:59 06:59 18:59 Intake Total 360 500 Balance 360 500 Weight 92.986 kg Intake: Oral 360 500 Other: Voiding Method Toilet Toilet Toilet Bedside Commode Bedside Commode Bedside Commode # Voids 4 2 3 # Bowel Movements 1 1 - Exam -GENERAL: The patient is alert and oriented x1, not in any acute distress. Well developed, well nourished. HEENT: Pupils are round and equally reacting to light. EOMI. No scleral icterus. No conjunctival pallor. Normocephalic, atraumatic. No pharyngeal erythema. No thyromegaly. CARDIOVASCULAR: S1 and S2 present. No murmurs, rubs, or gallops. PULMONARY: Chest is clear to auscultation, no wheezing or crackles. ABDOMEN: Soft, nontender, nondistended, normoactive bowel sounds. No palpable organomegaly. MUSCULOSKELETAL: No joint swelling or deformity. EXTREMITIES: No cyanosis, clubbing, or pedal edema. NEUROLOGICAL: Gross neurological examination did not reveal any focal deficits. SKIN: No rashes. no petechiae. - Labs CBC & Chem 7: 03/16/22 07:13 03/17/22 12:11 Labs: Abnormal Lab Results - Last 24 Hours (Table) 03/16/22 03/16/22 03/17/22 Range/Units 16:56 20:33 07:14 Sodium (137-145) mmol/L BUN (7-17) mg/dL Creatinine (0.52-1.04) mg/dL Glucose (74-99) mg/dL POC Glucose (mg/dL) 163 H 214 H 124 H (70-110) mg/dL 03/17/22 03/17/22 Range/Units 11:39 12:11 Sodium 136 L (137-145) mmol/L BUN 21 H (7-17) mg/dL Creatinine 1.09 H (0.52-1.04) mg/dL Glucose 177 H (74-99) mg/dL POC Glucose (mg/dL) 209 H (70-110) mg/dL Microbiology - Last 24 Hours (Table) 03/14/22 16:14 Urine Culture - Final Urine,Voided Klebsiella oxytoca Assessment and Plan Assessment: Acute urinary tract infection Metabolic encephalopathy secondary to above, mild Chronic atrial fibrillation on Eliquis Mild bilateral pitting leg edema Diabetes mellitus Hypertension, uncontrolled on admission Hyperlipidemia History of recent arthritis Hypothyroidism Plan: continue with antibiotic, currently on Keflex. Discharged on Ceftin Follow-up urine culture continue with metoprolol, losartan, and Norvasc. She was on Lasix 40 mg daily. Continue of antibiotic eyedrops and follow-up with air control/anti air warfare officer and PCP upon discharge Continue with Levemir 20 units and Actos 15 mg, and at insulin lispro 3 units with meals Labs and medication were reviewed.. Continue same treatment. Continue with symptomatic treatment. Resume home medication. Monitor lytes and vitals. DVT and GI prophylaxis. Further recommendations as per clinical course of the patient DVT prophylaxis: On Eliquis GI Prophylaxis: Pepcid PT/OT: Home health care, patient and daughter declined the rehab Prognosis is guarded
--- NOTE | 2022-03-17 15:48 | P.PN ---
Subjective Progress Note Date: 03/17/22 Principal diagnosis: Urinary tract infection Patient is a 81 year old female with a past medical history significant for diabetes mellitus hypertension hyperlipidemia memory impairment atrial fibrillation , presenting to the hospital with weakness. Has some diarrhea positive UA concerning for symptomatic UTI. on today's evaluation that is 03/17/2022, the patient remains to be afebrile, the patient is breathing comfortably on room air, the patient denies any chest pain shortness of breath or cough no nausea vomiting no abdominal pain or diarrhea, the patient is feeling slightly better once to go home Objective - Vital Signs Vital signs: Vital Signs Temp 98 F 03/17/22 13:15 Pulse 62 03/17/22 13:18 Resp 18 03/17/22 13:15 BP 200/98 03/17/22 13:41 Pulse Ox 92 L 03/17/22 13:18 FiO2 Intake & Output 03/16/22 03/17/22 03/17/22 18:59 06:59 18:59 Intake Total 360 500 Balance 360 500 Weight 92.986 kg Intake: Oral 360 500 Other: Voiding Method Toilet Toilet Toilet Bedside Commode Bedside Commode Bedside Commode # Voids 4 2 3 # Bowel Movements 1 1 - Exam GENERAL DESCRIPTION: An elderly female up in the chair in no distress RESPIRATORY SYSTEM: Unlabored breathing , decreased breath sounds at bases HEART: S1 S2 regular rate and rhythm , ABDOMEN: Soft , no tenderness EXTREMITIES: No edema feet - Labs CBC & Chem 7: 03/16/22 07:13 03/17/22 12:11 Labs: Abnormal Lab Results - Last 24 Hours (Table) 03/16/22 03/16/22 03/17/22 Range/Units 16:56 20:33 07:14 Sodium (137-145) mmol/L BUN (7-17) mg/dL Creatinine (0.52-1.04) mg/dL Glucose (74-99) mg/dL POC Glucose (mg/dL) 163 H 214 H 124 H (70-110) mg/dL 03/17/22 03/17/22 Range/Units 11:39 12:11 Sodium 136 L (137-145) mmol/L BUN 21 H (7-17) mg/dL Creatinine 1.09 H (0.52-1.04) mg/dL Glucose 177 H (74-99) mg/dL POC Glucose (mg/dL) 209 H (70-110) mg/dL Microbiology - Last 24 Hours (Table) 03/14/22 16:14 Urine Culture - Final Urine,Voided Klebsiella oxytoca Assessment and Plan (1) UTI (urinary tract infection) Current Visit: Yes Status: Acute Code(s): N39.0 - URINARY TRACT INFECTION, SITE NOT SPECIFIED SNOMED Code(s): 56606579 Plan: 1patient is in the hospital with generalized weakness have some vague urinary symptoms positive UA concerning for a symptomatic urinary tract infection from enteric Gram-negative pathogen 2-sulfa ALLERGY. that we limit the number of antibiotic safe to use 3. Patient seemed to have shown some clinical improvement urine culture finaliz ed with Klebsiella that is sensitive to Rocephin continue while inpatient finishing therapy with oral Ceftin Time with Patient: Less than 30
[2022-03-17] MEDS: CEPHALEXIN 500 MG CAP PO SCH ×2 (15:52→21:00)
[2022-03-17 17:23] LABS: Glucose,Whole Blood 200 mg/dL (70-110)
[2022-03-17 20:46] LABS: Glucose,Whole Blood 213 mg/dL (70-110)
[2022-03-17] MEDS: INSULIN DETEMIR (LEVEMIR) 100 UNIT/ML SYR SQ SCH (20:59)
[2022-03-17] MEDS: ATORVASTATIN 20 MG TAB PO SCH (21:00)
[2022-03-17] MEDS: hydrALAZINE HCL 25 MG TAB PO SCH (21:30)
[2022-03-18] MEDS: LEVOTHYROXINE 75 MCG TAB PO SCH (05:48)
[2022-03-18 07:36] LABS: Glucose,Whole Blood 146 mg/dL (70-110)
[2022-03-18] MEDS: INSULIN ASPART (NovoLOG) 100 UNIT/ML VIAL SQ SCH ×7 (07:38→20:53)
[2022-03-18] MEDS: hydrALAZINE HCL 25 MG TAB PO SCH (08:03)
[2022-03-18] MEDS: LOSARTAN 50 MG TAB PO SCH ×2 (08:04→09:50)
[2022-03-18] MEDS: FOLIC ACID 1 MG TAB PO SCH (08:18)
[2022-03-18] MEDS: PIOGLITAZONE 15 MG TAB PO SCH (08:18)
[2022-03-18] MEDS: APIXABAN 5 MG TAB PO SCH ×2 (08:18→20:54)
[2022-03-18] MEDS: CHOLECALCIFEROL 25 MCG (1000 IU) TABLET PO SCH (08:18)
[2022-03-18] MEDS: CEPHALEXIN 500 MG CAP PO SCH ×3 (08:18→20:53)
[2022-03-18] MEDS: METOPROLOL TARTRATE 50 MG TAB PO SCH ×3 (08:19→15:33)
[2022-03-18] MEDS: prednisoLONE ACETATE 1% OPHTH DROPS 5 ML BTL LEFT EYE SCH ×4 (08:20→20:54)
[2022-03-18] MEDS: OFLOXACIN 0.3% OPHTH DROPS 5 ML BOTTLE LEFT EYE SCH ×4 (08:20→20:54)
[2022-03-18] MEDS: KETOROLAC 0.5% OPHTH DROPS 5 ML BTL LEFT EYE SCH ×4 (08:20→20:55)
[2022-03-18 08:41] LABS: African American GFR (CKD) 59 (>60 ml/min/1.73 sqM); Anion Gap 2 mmol/L; Blood Urea Nitrogen 20 mg/dL (7-17); Calcium 9.1 mg/dL (8.4-10.2); Carbon Dioxide 30 mmol/L (22-30); Chloride 107 mmol/L (98-107); Glucose 160 mg/dL (74-99); Non-African American GFR(CKD) 51 (>60 ml/min/1.73 sqM); Potassium 3.9 mmol/L (3.5-5.1); Sodium 139 mmol/L (137-145)
[2022-03-18] MEDS: AMIODARONE 200 MG TAB PO SCH (09:49)
--- NOTE | 2022-03-18 12:22 | P.PN ---
Subjective Progress Note Date: 03/18/22 Principal diagnosis: Urinary tract infection Patient is a 81 year old female with a past medical history significant for diabetes mellitus hypertension hyperlipidemia memory impairment atrial fibrillation , presenting to the hospital with weakness. Has some diarrhea positive UA concerning for symptomatic UTI. on today's evaluation that is 03/18/2022, the patient continues to be afebrile, the patient is breathing comfortably on room air, the patient denies any chest pain shortness of breath or cough , the patient denies nausea vomiting no abdominal pain or diarrhea, the patient is feeling slightly better and has been insisting on going home Objective - Vital Signs Vital signs: Vital Signs Temp 97.4 F L 03/18/22 08:00 Pulse 61 03/18/22 08:00 Resp 18 03/18/22 08:00 BP 148/81 03/18/22 09:36 Pulse Ox 97 03/18/22 08:00 FiO2 Intake & Output 03/17/22 03/18/22 03/18/22 18:59 06:59 18:59 Intake Total 500 Balance 500 Intake: Oral 500 Other: Voiding Method Toilet Bedside Commode # Voids 3 2 # Bowel Movements 1 - Exam GENERAL DESCRIPTION: An elderly female up in the chair in no distress RESPIRATORY SYSTEM: Unlabored breathing , decreased breath sounds at bases HEART: S1 S2 regular rate and rhythm , ABDOMEN: Soft , no tenderness EXTREMITIES: No edema feet - Labs CBC & Chem 7: 03/16/22 07:13 03/18/22 08:13 Labs: Abnormal Lab Results - Last 24 Hours (Table) 03/17/22 03/17/22 03/17/22 Range/Units 11:39 12:11 17:22 Sodium 136 L (137-145) mmol/L BUN 21 H (7-17) mg/dL Creatinine 1.09 H (0.52-1.04) mg/dL Glucose 177 H (74-99) mg/dL POC Glucose (mg/dL) 209 H 200 H (70-110) mg/dL 03/17/22 03/18/22 03/18/22 Range/Units 20:35 07:35 08:13 Sodium (137-145) mmol/L BUN 20 H (7-17) mg/dL Creatinine (0.52-1.04) mg/dL Glucose 160 H (74-99) mg/dL POC Glucose (mg/dL) 213 H 146 H (70-110) mg/dL Assessment and Plan (1) UTI (urinary tract infection) Current Visit: Yes Status: Acute Code(s): N39.0 - URINARY TRACT INFECTION, SITE NOT SPECIFIED SNOMED Code(s): 57167607 Plan: 1patient is in the hospital with generalized weakness have some vague urinary symptoms positive UA concerning for a symptomatic urinary tract infection from enteric Gram-negative pathogen 2-sulfa ALLERGY. that we limit the number of antibiotic safe to use 3. Patient has shown clinical improvement urine culture finalized with Klebsiella that is sensitive pathogen, patient able to finish therapy with oral Ceftin prescription was already sent to the pharmacy Daughter at the bedside questions were answered Time with Patient: Less than 30
[2022-03-18 12:24] LABS: Glucose,Whole Blood 242 mg/dL (70-110)
[2022-03-18] MEDS: FUROSEMIDE 20 MG TAB PO SCH ×2 (13:49→15:22)
[2022-03-18 17:32] LABS: Glucose,Whole Blood 194 mg/dL (70-110)
[2022-03-18] MEDS: CLOTRIMAZOLE 1% CREAM 30 GM TUBE TOPICAL SCH ×2 (18:01→20:55)
[2022-03-18] MEDS ORDERED: LOSARTAN 50 MG TAB PO STA (18:02)
[2022-03-18 20:18] LABS: Glucose,Whole Blood 235 mg/dL (70-110)
--- NOTE | 2022-03-18 20:51 | P.PN ---
Subjective This is a pleasant 81 years old female with past medical history of atrial fibrillation on Eliquis, diabetes mellitus, hyperlipidemia, hypertension, memory problems, osteoarthritis, hypothyroidism Patient states she came from home because she has tremor. However per documentation she is alert and confused. Also patient she knows she is in [facility] but she could not tell me the date or the name of the president however she follows commands appropriately, answers appropriately and she has insight into her illness. She denies any headache dizziness weakness or numbness. No chest pain or dyspnea. No dysuria urgency or suprapubic pain or tenderness. No other urinary complaints. No vomiting diarrhea or abdominal pain. He has recent surgery in her left eye, she cannot remember all the details, no complaints regarding this right now She denies smoking alcohol or illicit drugs Walker at bedside Patient is afebrile and vital signs stable, blood pressure is on the high side unremarkable including CBC, INR, BMP and liver enzymes. TSH is normal at 1.9. Troponin is negative. EKG showing sinus bradycardia at [address]-T changes CT of the brain: No acute intracranial hemorrhage or midline shift. No signific ant change from prior Chest x-ray: Cardiomegaly with no acute changes Urine analysis was suspicious of infection Covid and influenza not detected 03/16/2022 Patient clinically stable, awake and alert, she has mild confusion which looks her baseline. No significant urinary symptoms or suprapubic tenderness Weakness is improving Urine culture is growing gram-negative bacilli She Ceftriaxone Old Lasix for Slightly Trending up Creatinine 1.1 up to 1.3 Blood Sugar Is Better Controlled after Placing the Patient and Short Acting Insulin 5 Units with Meals. PT/OT: Home Health Care Which Is Ordered 03/17/2022 Clinically was doing well and she become asymptomatic regarding her urinary tract infection, urine culture final result is back and patient could be discharged on Ceftin 5 days and patient and daughter agreed with this plan however prior to leaving recheck blood pressure showed severely elevated blood pressure 217/107, and later on came down to 200/98 after we give her Norvasc 10 mg daily, we'll keep monitoring her blood pressure, because of his hypertensive urgency with going to hold discharged today and monitor especially patient is also on Eliquis The daughter also does not want her mother to take NovoLog or short acting insulin with meals because it gets her confused between the short and long acting and she was in the hospital one time before because of this confusion however the daughter and patient are willing to follow up with her lance crewmember/mlrs sergeant Dr. Duggan in one week as instructed Possible discharge in 24-48 hours if she keeps improving Also IV line went bad and the daughter does not want to put another IV line for her mother therefore switch antibiotic and to Keflex Creatinine came down to 1.0 03/19/2022 pt urinry syptoms are improved and final urine culture is back showing klebsiella, pt can finish her therapy with oral ceftin upon discharge but pt blood pressure was uncontrolled today and went up again to 189/69, despite pt was started in morning on all of her bp medications of losratan 50 mg metoprolol 50 mg bid and lasix 20 mg po bid her creatinine is improve and is 1.0. no other symptoms because of uncontrolled bp we added losartan 50 mg x 1 and we are going to consult cardiology for further management, we are going to keep the pt for more close monitoring of her bp pt has ithcing and vaginal discharge and clotrimazole cream topical is added Objective - Vital Signs Vital signs: Vital Signs Temp 97.4 F L 03/18/22 12:59 Pulse 60 03/18/22 12:59 Resp 20 03/18/22 12:59 BP 189/69 03/18/22 18:06 Pulse Ox 97 03/18/22 12:59 FiO2 Intake & Output 03/18/22 03/18/22 03/19/22 06:59 18:59 06:59 Intake Total 500 240 Balance 500 240 Intake: Oral 500 240 Other: # Voids 2 3 1 - Exam -GENERAL: The patient is alert and oriented x1, not in any acute distress. Well developed, well nourished. HEENT: Pupils are round and equally reacting to light. EOMI. No scleral icterus. No conjunctival pallor. Normocephalic, atraumatic. No pharyngeal erythema. No thyromegaly. CARDIOVASCULAR: S1 and S2 present. No murmurs, rubs, or gallops. PULMONARY: Chest is clear to auscultation, no wheezing or crackles. ABDOMEN: Soft, nontender, nondistended, normoactive bowel sounds. No palpable organomegaly. MUSCULOSKELETAL: No joint swelling or deformity. EXTREMITIES: No cyanosis, clubbing, or pedal edema. NEUROLOGICAL: Gross neurological examination did not reveal any focal deficits. SKIN: No rashes. no petechiae. - Labs CBC & Chem 7: 03/16/22 07:13 03/18/22 08:13 Labs: Abnormal Lab Results - Last 24 Hours (Table) 03/17/22 03/18/22 03/18/22 Range/Units 20:35 07:35 08:13 BUN 20 H (7-17) mg/dL Glucose 160 H (74-99) mg/dL POC Glucose (mg/dL) 213 H 146 H (70-110) mg/dL 03/18/22 03/18/22 03/18/22 Range/Units 12:23 17:31 20:17 BUN (7-17) mg/dL Glucose (74-99) mg/dL POC Glucose (mg/dL) 242 H 194 H 235 H (70-110) mg/dL Assessment and Plan Assessment: labile Hypertension, uncontrolled on admission Acute urinary tract infection, improving Metabolic encephalopathy secondary to above, mild. resolved Chronic atrial fibrillation on Eliquis Mild bilateral pitting leg edema Diabetes mellitus Hyperlipidemia History of recent arthritis Hypothyroidism Plan: continue with antibiotic, currently on Keflex ( she lost her iv). Discharged on Ceftin Follow-up urine culture continue with metoprolol, losartan, and lasix 20 mg bid, give losartan 50 mg x1 and consult cardiology service Continue of antibiotic eyedrops and follow-up with event marketing representative and PCP upon discharge Continue with Levemir 20 units and Actos 15 mg, and at insulin lispro 3 units with meals ( pt and dtr refuse short acting insulin upon dc, risk and benefits are explained) Labs and medication were reviewed.. Continue same treatment. Continue with symptomatic treatment. Resume home medication. Monitor lytes and vitals. DVT and GI prophylaxis. Further recommendations as per clinical course of the patient DVT prophylaxis: On Eliquis GI Prophylaxis: Pepcid PT/OT: Home health care, patient and daughter declined the rehab Prognosis is guarded
[2022-03-18] MEDS: INSULIN DETEMIR (LEVEMIR) 100 UNIT/ML SYR SQ SCH (20:53)
[2022-03-18] MEDS: ATORVASTATIN 20 MG TAB PO SCH (20:54)
[2022-03-19] MEDS: LEVOTHYROXINE 75 MCG TAB PO SCH (05:23)
[2022-03-19 07:26] LABS: Glucose,Whole Blood 84 mg/dL (70-110)
[2022-03-19] MEDS: INSULIN ASPART (NovoLOG) 100 UNIT/ML VIAL SQ SCH ×2 (07:30)
[2022-03-19] MEDS: AMIODARONE 200 MG TAB PO SCH (07:31)
[2022-03-19] MEDS: CEPHALEXIN 500 MG CAP PO SCH (07:32)
[2022-03-19] MEDS: METOPROLOL TARTRATE 50 MG TAB PO SCH (07:32)
[2022-03-19] MEDS: LOSARTAN 50 MG TAB PO SCH (07:32)
[2022-03-19] MEDS: FUROSEMIDE 20 MG TAB PO SCH (07:32)
[2022-03-19] MEDS: CHOLECALCIFEROL 25 MCG (1000 IU) TABLET PO SCH (07:32)
[2022-03-19] MEDS: APIXABAN 5 MG TAB PO SCH (07:32)
[2022-03-19] MEDS: FOLIC ACID 1 MG TAB PO SCH (07:32)
[2022-03-19] MEDS: prednisoLONE ACETATE 1% OPHTH DROPS 5 ML BTL LEFT EYE SCH (07:33)
[2022-03-19] MEDS: OFLOXACIN 0.3% OPHTH DROPS 5 ML BOTTLE LEFT EYE SCH (07:34)
[2022-03-19] MEDS: KETOROLAC 0.5% OPHTH DROPS 5 ML BTL LEFT EYE SCH (07:34)
[2022-03-19 07:59] VITALS: PULSE 59; RESP 18; TEMP 97.9
--- NOTE | 2022-03-19 09:00 | P.CRDCN ---
History of Present Illness Consult date: 03/19/22 History of present illness: HISTORY OF PRESENT ILLNESS: This is a 81-year-old female with a past medical history significant for paroxysmal atrial fibrillation, hypertension, hyperlipidemia, and diabetes. Patient follows in the office with Dr. Venegas. We have been asked to see the patient in consultation for uncontrolled hypertension. Patient is admitted to the hospital secondary to altered mental status and urinary tract infection. Patient examined this morning sitting up in the chair. Patient denies chest pain or pressure. She denies shortness of breath. She denies dizziness or lightheadedness. Blood pressures have been somewhat labile with a systolic ranging between 130 and 180. * EKG reveals sinus mechanism with no signs of acute ischemia * Chest xray cardiomegaly without acute pulmonary process * Laboratory data: WBC 7.01. Hemoglobin 11.2. Platelet count 14.6. Sodium 139. Potassium 3.9. BUN 20. Creatinine 1.04. * Current home cardiac medications include Lasix 20 mg twice a day, metoprolol tartrate 50 mg twice a day, amiodarone 100 mg daily, Eliquis 5 mg twice a day, losartan 50 mg daily, Lipitor 20 mg at night * Most recent echocardiogram obtained in November 2020 revealed ejection fraction 42% with mild TR * Patient underwent Lexiscan stress test in January 2021 which was negative for ischemia REVIEW OF SYSTEMS: At the time of my exam: CONSTITUTIONAL: Denies fever or chills. HEENT: Denies blurred vision, vision changes, or eye pain. Denies hemoptysis CARDIOVASCULAR: Denies chest pain. Denies orthopnea. Denies PND. Denies palpitations RESPIRATORY: Denies shortness of breath. GASTROINTESTINAL: Denies abdominal pain. Denies nausea or vomiting. HEMATOLOGIC: Denies bleeding disorders. GENITOURINARY: Denies any blood in urine. SKIN: Denies pruitis. Denies rash. PHYSICAL EXAM: VITAL SIGNS: Reviewed. GENERAL: Well-developed in no acute distress. HEENT: Head is normocephalic. Pupils are equal, round. Sclerae anicteric. Mucous membranes of the mouth are moist. Neck supple. No JVD or thyromegaly LUNGS: Respirations even and unlabored. Lungs essentially clear to auscultation bilaterally. HEART: Regular rate and rhythm. S1 and S2 heard. ABDOMEN: Soft. Nondistended. Nontender. EXTREMITIES: Normal range of motion. No clubbing or cyanosis. Peripheral pulses intact. Trace bilateral lower extremity edema NEUROLOGIC: Awake and alert. Oriented x 3. ASSESSMENT: Urinary tract infection Altered mental status Hypertension Hyperlipidemia Paroxysmal atrial fibrillation Diabetes PLAN: Continue with same cardiac medications at this time Patient may be discharged home today and follow up outpatient with Dr. Venegas Thank you for this consultation. We will sign off. Please reconsult if needed. Nurse practitioner note has been reviewed by physician. Signing provider agrees with the documented findings, assessment, and plan of care. Past Medical History Past Medical History: Atrial Fibrillation, Diabetes Mellitus, Hyperlipidemia, Hypertension, Memory Impairment, Osteoarthritis (OA), Skin Disorder, Thyroid Disorder Additional Past Medical History / Comment(s): Seasonal allergies, psoriasis. 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; Cataract surgery on right eye Feb 26; left eye on Mar 12 with lens implants Past Anesthesia/Blood Transfusion Reactions: No Reported Reaction Additional Past Anesthesia/Blood Transfusion Reaction / Comment(s): Claustrophobia Past Psychological History: Anxiety Smoking Status: Never smoker Past Alcohol Use History: Occasional Past Drug Use History: None Reported - Past Family History Mother Family Medical History: No Reported History Additional Family Medical History / Comment(s): Valve replacement, CAD Medications and Allergies Home Medications Medication Instructions Recorded Confirmed Type Levothyroxine Sodium [Synthroid] 37.5 mcg PO DAILY@0900 12/31/13 03/14/22 History Amiodarone [Cordarone] 100 mg PO DAILY@89905/31/21 03/14/22 History Apixaban [Eliquis] 5 mg PO BID@09,209905/31/21 03/14/22 History Atorvastatin [Lipitor] 20 mg PO HS@209905/31/21 03/14/22 History Cholecalciferol [Vitamin D3 (25 50 mcg PO DAILY@0900 05/31/21 03/14/22 History Mcg = 1000 Iu)] Folic Acid 0.8 mg PO DAILY@0905/31/21 03/14/22 History Furosemide [Lasix] 20 mg PO BID@0900,1400 05/31/21 03/14/22 History Insulin Glargine,Hum.rec.anlog 20 unit SQ HS@2100 05/31/21 03/14/22 History [Lantus Solostar Pen] Metoprolol Tartrate [Lopressor] 50 mg PO BID@0900,1700 05/31/21 03/14/22 History Pioglitazone [Actos] 15 mg PO DAILY@0900 05/31/21 03/14/22 History metFORMIN HCL [Glucophage] 500 mg PO BID@0900,1700 05/31/21 03/14/22 History Ketorolac 0.5% Ophth Soln [Acular 1 drops LEFT EYE QID 03/14/22 03/14/22 History 0.5%] Losartan Potassium [Cozaar] 50 mg PO DAILY@0900 03/14/22 03/14/22 History Ofloxacin 0.3% Ophth Soln [Ocuflox 1 drops LEFT EYE QID 03/14/22 03/14/22 History Ophth Soln] prednisoLONE ACETATE 1% OPHTH 1 drops LEFT EYE QID 03/14/22 03/14/22 History [Pred Forte 1%] cefUROXime axetiL [Cefuroxime] 500 mg PO BID 5 Days #10 tab 03/17/22 Rx Allergies Allergy/AdvReac Type Severity Reaction Status Date / Time adhesive AdvReac peels skin Verified 03/14/22 19:39 off Sulfa (Sulfonamide AdvReac Diarrhea Verified 03/14/22 19:39 Antibiotics) salsa Allergy Abdominal Uncoded 03/15/22 14:53 Pain Physical Exam Vitals: Vital Signs Temp Pulse Resp BP BP Pulse Ox 03/19/22 07:24 97.9 F 59 L 18 96 03/19/22 01:59 97.7 F 61 15 164/73 97 03/18/22 19:22 98.2 F 56 L 14 132/68 97 03/18/22 18:06 189/69 03/18/22 15:20 133/71 03/18/22 12:59 97.4 F L 60 20 184/77 97 03/18/22 09:36 148/81 Intake and Output 03/18/22 03/19/22 03/19/22 22:59 06:59 14:59 Intake Total 240 Balance 240 Intake: Oral 240 Other: Voiding Method Toilet Bedside Commode # Voids 1 1 3 # Bowel Movements 1 Results 03/16/22 07:13 03/18/22 08:13 Current Medications Generic Name Dose Route Start Last Admin Trade Name Freq PRN Reason Stop Dose Admin Acetaminophen 650 mg 03/14/22 18:53 Acetaminophen Tab 325 Mg Tab PO Q6HR PRN Mild Pain or Fever > 100.5 Hydrocodone Bitart/Acetaminophen 1 each 03/14/22 18:53 Hydrocodone/Apap 5-325mg 1 Each Tab PO Q4HR PRN Moderate Pain (Scale 4 to 6) Amiodarone HCl 100 mg 03/15/22 09:00 03/19/22 07:31 Amiodarone 200 Mg Tab PO 100 mg DAILY@0900 GOVIND Administration Apixaban 5 mg 03/15/22 09:00 03/19/22 07:32 Apixaban 5 Mg Tab PO 5 mg BID@0900,2100 [facility] Administration Protocol Atorvastatin Calcium 20 mg 03/15/22 21:00 03/18/22 20:54 Atorvastatin 20 Mg Tab PO 20 mg HS@2100 GOVIND Administration Cephalexin 500 mg 03/17/22 16:00 03/19/22 07:32 Cephalexin 500 Mg Cap PO 500 mg TID GOVIND Administration Protocol Cholecalciferol 50 mcg 03/15/22 09:00 03/19/22 07:32 Cholecalciferol 25 Mcg (1000 Iu) Tablet PO 50 mcg DAILY@0900 [facility] Administration Clotrimazole 1 applic 03/18/22 14:00 03/18/22 20:55 Clotrimazole 1% Cream 30 Gm Tube TOPICAL 03/25/22 14:01 1 applic HS [facility] Administration Protocol Dextrose/Water 25 ml 03/15/22 00:09 Dextrose 50% Syringe 50 Ml IVP PER PROTOCOL PRN Hypoglycemia Protocol Dextrose/Water 50 ml 03/15/22 00:09 Dextrose 50% Syringe 50 Ml IVP PER PROTOCOL PRN Hypoglycemia Protocol Folic Acid 1 mg 03/15/22 09:00 03/19/22 07:32 Folic Acid 1 Mg Tab PO 1 mg DAILY@0900 GOVIND Administration Furosemide 20 mg 03/18/22 13:40 03/19/22 07:32 Furosemide 20 Mg Tab PO 20 mg BID@0900,1600 GOVIND Administration Insulin Aspart 0 unit 03/15/22 07:30 03/19/22 07:30 Insulin Aspart (Novolog) 100 Unit/Ml Vial SQ Not Given ACHS [facility] Protocol Insulin Aspart 5 unit 03/16/22 07:30 03/19/22 07:30 Insulin Aspart (Novolog) 100 Unit/Ml Vial SQ Not Given AC-TID [facility] Insulin Detemir 20 unit 03/15/22 21:00 03/18/22 20:53 Insulin Detemir (Levemir) 100 Unit/Ml Syr SQ 20 unit HS@2100 [facility] Administration Ketorolac Tromethamine 1 drops 03/15/22 00:15 03/19/22 07:34 Ketorolac 0.5% Ophth Drops 5 Ml Btl LEFT EYE 1 drops QID [facility] Administration Levothyroxine Sodium 37.5 mcg 03/15/22 06:30 03/19/22 05:23 Levothyroxine 75 Mcg Tab PO 37.5 mcg DAILY@0630 [facility] Administration Losartan Potassium 50 mg 03/15/22 09:00 03/19/22 07:32 Losartan 50 Mg Tab PO 50 mg DAILY@0900 [facility] Administration Metoprolol Tartrate 50 mg 03/15/22 09:00 03/19/22 07:32 Metoprolol Tartrate 50 Mg Tab PO 50 mg BID@0900,1700 [facility] Administration Naloxone HCl 0.2 mg 03/14/22 18:53 Naloxone 0.4 Mg/Ml 1 Ml Vial IV Q2M PRN Opioid Reversal Ofloxacin 1 drops 03/15/22 00:15 03/19/22 07:34 Ofloxacin 0.3% Ophth Drops 5 Ml Bottle LEFT EYE 1 drops QID [facility] Administration Ondansetron HCl 4 mg 03/14/22 18:53 Ondansetron 4 Mg/2 Ml Vial IVP Q8HR PRN Nausea And Vomiting Pioglitazone HCl 15 mg 03/15/22 09:00 03/18/22 08:18 Pioglitazone 15 Mg Tab PO 15 mg DAILY@0900 [facility] Administration Prednisolone Acetate 1 drops 03/15/22 00:15 03/19/22 07:33 Prednisolone Acetate 1% Ophth Drops 5 Ml Btl LEFT EYE 1 drops QID [facility] Administration Intake and Output 03/18/22 03/19/22 03/19/22 22:59 06:59 14:59 Intake Total 240 Balance 240 Intake: Oral 240 Other: Voiding Method Toilet Bedside Commode # Voids 1 1 3 # Bowel Movements 1 03/16/22 07:13 03/18/22 08:13
[2022-03-19 09:18] VITALS: BP 155/69
[2022-03-19 09:31] LABS: African American GFR (CKD) 49.8 (60.0-200.0); Anion Gap 10.4 mmol/L (10.00-18.00); BUN/Creat Ratio 15.83 Ratio (12.00-20.00); Calcium 9.3 mg/dL (8.7-10.3); Carbon Dioxide 29.6 mmol/L (20.0-27.5); Non-African American GFR(CKD) 42.9 (60.0-200.0); Potassium 3.8 mmol/L (3.5-5.5)
[2022-03-19] MEDS: PIOGLITAZONE 15 MG TAB PO SCH (10:16)
--- NOTE | 2022-03-19 12:21 | P.PN ---
Subjective Progress Note Date: 03/19/22 Principal diagnosis: Urinary tract infection Patient is a 81 year old female with a past medical history significant for diabetes mellitus hypertension hyperlipidemia memory impairment atrial fibrillation , presenting to the hospital with weakness. Has some diarrhea positive UA concerning for symptomatic UTI. on today's evaluation that is 03/19/2022, the patient remains to be afebrile, the patient is breathing comfortably on room air, the patient denies chest pain shortness of breath or cough , the patient denies nausea vomiting no abdominal pain or diarrhea, the patient is feeling better no new symptoms Objective - Vital Signs Vital signs: Vital Signs Temp 97.9 F 03/19/22 07:24 Pulse 59 L 03/19/22 07:24 Resp 18 03/19/22 07:24 BP 155/69 03/19/22 09:14 Pulse Ox 96 03/19/22 07:24 FiO2 Intake & Output 03/18/22 03/19/22 03/19/22 18:59 06:59 18:59 Intake Total 240 Balance 240 Intake: Oral 240 Other: Voiding Method Toilet Bedside Commode # Voids 3 1 3 # Bowel Movements 1 - Exam GENERAL DESCRIPTION: An elderly female up in the chair in no distress RESPIRATORY SYSTEM: Unlabored breathing , decreased breath sounds at bases HEART: S1 S2 regular rate and rhythm , ABDOMEN: Soft , no tenderness EXTREMITIES: No edema feet - Labs CBC & Chem 7: 03/16/22 07:13 03/19/22 05:40 Labs: Abnormal Lab Results - Last 24 Hours (Table) 03/18/22 03/18/22 03/18/22 Range/Units 12:23 17:31 20:17 Carbon Dioxide (20.0-27.5) mmol/L Est GFR (CKD-EPI)AfAm (60.0-200.0) Est GFR (CKD-EPI)NonAf (60.0-200.0) POC Glucose (mg/dL) 242 H 194 H 235 H (70-110) mg/dL 03/19/22 Range/Units 05:40 Carbon Dioxide 29.6 H (20.0-27.5) mmol/L Est GFR (CKD-EPI)AfAm 49.8 L (60.0-200.0) Est GFR (CKD-EPI)NonAf 42.9 L (60.0-200.0) POC Glucose (mg/dL) (70-110) mg/dL Assessment and Plan (1) UTI (urinary tract infection) Current Visit: Yes Status: Acute Code(s): N39.0 - URINARY TRACT INFECTION, SITE NOT SPECIFIED SNOMED Code(s): 09508425 Plan: 1patient is in the hospital with generalized weakness have some vague urinary symptoms positive UA concerning for a symptomatic urinary tract infection from enteric Gram-negative pathogen 2-sulfa ALLERGY. that we limit the number of antibiotic safe to use 3. Patient has shown clinical improvement urine culture finalized with Klebsiella that is sensitive pathogen, patient antibiotics switched to Omnicef with the plan to finish therapy with oral Ceftin and close outpatient follow-up Time with Patient: Less than 30
[2022-03-19] MEDS ORDERED: CEFDINIR 300 MG CAP PO SCH (21:00)
--- NOTE | 2022-03-20 06:21 | P.DS ---
Providers Date of admission: 03/14/22 18:43 Attending physician: Allison Figueroa Consults: 03/15/22 10:46 Consult Physician Routine Consulting Provider: Aman Mcnally Consult Reason/Comments: uti Do you want consulting provider notified?: Yes 03/18/22 18:03 Consult Physician Routine Consulting Provider: Morenita Venegas Consult Reason/Comments: uncontrolled hypertension Do you want consulting provider notified?: Yes Primary care physician: [facility] Course: Date of service 03/19/2022 Diagnoses: Acute urinary tract infection, improving Metabolic encephalopathy secondary to above, mild. resolved labile Hypertension, uncontrolled on admission Chronic atrial fibrillation on Eliquis Mild bilateral pitting leg edema Diabetes mellitus Hyperlipidemia History of recent arthritis Hypothyroidism Hospital course: This is a pleasant 81 years old female with past medical history of atrial fibrillation on Eliquis, diabetes mellitus, hyperlipidemia, hypertension, memory problems, osteoarthritis, hypothyroidism Patient states she came from home because she has tremor. However per documentation she is alert and confused. Also patient she knows she is in [facility] but she could not tell me the date or the name of the president however she follows commands appropriately, answers appropriately and she has insight into her illness. Patient was found to have acute urinary tract infection secondary to Klebsiella and she responded to treatment with ceftriaxone to finish treatment with short course of oral antibiotics on Ceftin upon discharge, and infectious disease were following the case closely as well. Patient was found to have labile blood pressure and she she was treated with spermatic antihypertensive medication on the top of the scheduled antihypertensive medication including metoprolol, losartan and Lasix. Cardiology consult was obtained and they cleared her for discharge on the current regiment. Her blood pressure remains stable since the night earlier. Patient remains asymptomatic, no chest pain or dyspnea, no headache weakness or numbness, her urinary symptoms improved and she denies any urinary symptoms upon discharge, also no diarrhea vomiting or abdominal pain and she tolerates that well. Gait is at baseline as she uses her walker. Patient was cleared for discharge by both consultants from infectious disease team and cardiology team Also I discussed the case with her daughter Nova and she agrees with the plan for her medical problems, also she agrees with discharge the patient today. Patient is a to go home. Problems and management plan were discussed with the patient and he verbalized understanding and acceptance Patient was found stable and can be discharged home in guarded prognosis however he needs follow-up as an outpatient. Patient was instructed to follow up with PCP Dr. Lofton within one week and patient agrees Patient was instructed to follow up with her frog farmer Dr. Venegas and hand ii blocker Dr. Duggan in 1-2 weeks(patient and daughter refused short- acting insulin for uncontrolled diabetes because sometimes she makes short- acting and long-acting insulin and one time she was in the hospital for this reason, therefore we inspected patient to follow-up with her hand ii blocker as above) Physical exam Gen: patient is a AAOx3, no distress CVS: S1-S2, RRR, no murmur Lungs: B/L CTA, no wheezing Abdomen: soft, no distention, no tenderness, positive bowel sounds Extremity: no leg edema or induration Time spent more than 35 minutes Plan - Discharge Summary New Discharge Prescriptions: New cefUROXime axetiL [Cefuroxime] 500 mg PO BID 5 Days #10 tab Clotrimazole Cream [Lotrimin Cream] 1 applic TOPICAL HS 5 Days #1 each Continue Levothyroxine Sodium [Synthroid] 37.5 mcg PO DAILY@0900 Atorvastatin [Lipitor] 20 mg PO HS@2100 Folic Acid 0.8 mg PO DAILY@0900 Cholecalciferol [Vitamin D3 (25 Mcg = 1000 Iu)] 50 mcg PO DAILY@0900 Apixaban [Eliquis] 5 mg PO BID@0900,2100 prednisoLONE ACETATE 1% OPHTH [Pred Forte 1%] 1 drops LEFT EYE QID Ofloxacin 0.3% Ophth Soln [Ocuflox Ophth Soln] 1 drops LEFT EYE QID metFORMIN HCL [Glucophage] 500 mg PO BID@0900,1700 Pioglitazone [Actos] 15 mg PO DAILY@0900 Metoprolol Tartrate [Lopressor] 50 mg PO BID@0900,1700 Insulin Glargine,Hum.rec.anlog [Lantus Solostar Pen] 20 unit SQ HS@2100 Furosemide [Lasix] 20 mg PO BID@0900,1400 Amiodarone [Cordarone] 100 mg PO DAILY@0900 Ketorolac 0.5% Ophth Soln [Acular 0.5%] 1 drops LEFT EYE QID Losartan Potassium [Cozaar] 50 mg PO DAILY@0900 Discharge Medication List Levothyroxine Sodium [Synthroid] 37.5 mcg PO DAILY@0900 12/31/13 [History] Amiodarone [Cordarone] 100 mg PO DAILY@0905/31/21 [History] Apixaban [Eliquis] 5 mg PO BID@0900,209905/31/21 [History] Atorvastatin [Lipitor] 20 mg PO HS@209905/31/21 [History] Cholecalciferol [Vitamin D3 (25 Mcg = 1000 Iu)] 50 mcg PO DAILY@89905/31/21 [History] Folic Acid 0.8 mg PO DAILY@89905/31/21 [History] Furosemide [Lasix] 20 mg PO BID@0900,1400 05/31/21 [History] Insulin Glargine,Hum.rec.anlog [Lantus Solostar Pen] 20 unit SQ HS@209905/31/21 [History] Metoprolol Tartrate [Lopressor] 50 mg PO BID@0900,17005/31/21 [History] Pioglitazone [Actos] 15 mg PO DAILY@89905/31/21 [History] metFORMIN HCL [Glucophage] 500 mg PO BID@0900,17005/31/21 [History] Ketorolac 0.5% Ophth Soln [Acular 0.5%] 1 drops LEFT EYE QID 03/14/22 [History] Losartan Potassium [Cozaar] 50 mg PO DAILY@89903/14/22 [History] Ofloxacin 0.3% Ophth Soln [Ocuflox Ophth Soln] 1 drops LEFT EYE QID 03/14/22 [History] prednisoLONE ACETATE 1% OPHTH [Pred Forte 1%] 1 drops LEFT EYE QID 03/14/22 [History] cefUROXime axetiL [Cefuroxime] 500 mg PO BID 5 Days #10 tab 03/17/22 [Rx] Clotrimazole Cream [Lotrimin Cream] 1 applic TOPICAL HS 5 Days #1 each 03/19/22 [Rx] Follow up Appointment(s)/Referral(s): Morenita Venegas MD [STAFF PHYSICIAN] - 03/29/22 3:00 pm (Appointment is at the [facility].) Ar Lofton MD [Primary Care Provider] - 03/21/22 3:20 pm Luis Duggan MD [REFERRING] - 04/02/22 2:45 pm Ambulatory/Diagnostic Orders: Basic Metabolic Panel [LAB.AMB] Time Frame: 3 Days, Facility: [facility], Location: [facility] Patient Instructions/Handouts: Cefuroxime (By mouth), Butenafine (On the skin), Urinary Tract Infection in Women (DC), Altered Mental Status (ED) Activity/Diet/Wound Care/Special Instructions: Low carbohydrate diet 1600 kcal per day activity is restricted till you see your doctor Check your glucose 4 times a day before each meal and at bedtime, keep the results in a log book and bring it to your doctor on your appointment date If you have glucose less than 70 or more than 400 and call 911 and come to emergency room we recommend to check her BMP in 2-3 days we recommend close monitoring of blood pressure as outpatient Discharge Disposition: HOME SELF-CARE
== END 2022-03-19 12:23 | disposition home or self-care (01) | DRG 689 ==
LOC: EC 16:23 → 5NMEDONC 18:43
PROVIDERS: ADMIT Hospitalist; ATTEND Hospitalist
DX: N39.0 Urinary tract infection, site not specified (principal); G93.41 Metabolic encephalopathy; I48.0 Paroxysmal atrial fibrillation; N89.8 Other specified noninflammatory disorders of vagina; I11.9 Hypertensive heart disease without heart failure; I16.0 Hypertensive urgency; F40.240 Claustrophobia; E78.5 Hyperlipidemia, unspecified; B96.1 Klebsiella pneumoniae [K. pneumoniae] as the cause of diseases classified elsewhere; E03.9 Hypothyroidism, unspecified; E11.9 Type 2 diabetes mellitus without complications; F41.9 Anxiety disorder, unspecified; R60.0 Localized edema; M19.90 Unspecified osteoarthritis, unspecified site; R25.1 Tremor, unspecified; R19.7 Diarrhea, unspecified; E66.9 Obesity, unspecified; Z68.33 Body mass index [BMI] 33.0-33.9, adult; L40.9 Psoriasis, unspecified; R41.3 Other amnesia; Z20.822 Contact with and (suspected) exposure to COVID-19; Z28.310 Unvaccinated for COVID-19; Z91.81 History of falling; Z79.899 Other long term (current) drug therapy; Z79.890 Hormone replacement therapy; Z79.84 Long term (current) use of oral hypoglycemic drugs; Z79.4 Long term (current) use of insulin; Z79.01 Long term (current) use of anticoagulants; Z88.2 Allergy status to sulfonamides
CPT/HCPCS: 36415; 70450; 71046; 80048; 80053; 81001; 83036; 84443; 84484; 85025; 85610; 85730; 87077; 87086; 87186; 87636; 93005; 96374; 99285

== ENCOUNTER 2022-05-20 21:44 | Inpatient (IN) | payer MEDICARE ==
[2022-05-20 21:55] LABS: Glucose,Whole Blood 137 mg/dL (70-110)
[2022-05-20 22:37] LABS: Albumin 2.9 g/dL (3.5-5.0); Calcium 8.8 mg/dL (8.4-10.2); Magnesium 1.8 mg/dL (1.6-2.3); Potassium 4.8 mmol/L (3.5-5.1); Total Bilirubin 1.5 mg/dL (0.2-1.3); Total Protein 5.3 g/dL (6.3-8.2)
[2022-05-20 22:57] LABS: Amorphous Sediment,Urine Rare /hpf; Appearance,Urine Cloudy (Clear); Bacteria,Urine Many /hpf; Bilirubin,Urine 1+ (Negative); Blood,Urine Trace (Negative); Color,Urine Dark Brown; Glucose,Urine (UA) Negative (Negative); Hyaline Casts,Urine 11 /lpf (0-2); Ketones,Urine Negative (Negative); Leukocyte Esterase,Urine Large (Negative); Mucus,Urine Rare /hpf; Nitrite,Urine Positive (Negative); Protein,Urine 3+ (Negative); RBC,Urine 9 /hpf (0-5); Specific Gravity,Urine 1.017 (1.001-1.035); Squamous Epithelial Cell,Urine <1 /hpf (0-4); WBC,Urine >182 /hpf (0-5)
[2022-05-20 23:00] LABS: Basophils % (A) 0 %; Eosinophils % (A) 0 %; Lymphocytes # (A) 1.7 k/uL (1.0-4.8); Lymphocytes % (A) 17 %; MCH 31.8 pg (25.0-35.0); MCHC 33.8 g/dL (31.0-37.0); Mean Platelet Volume 8.6; Monocytes # (A) 0.6 k/uL (0-1.0); Monocytes % (A) 6 %; Neutrophils # (A) 7.5 k/uL (1.3-7.7); Neutrophils % (A) 74 %; Platelet Count 293 k/uL (150-450); RBC 2.56 m/uL (3.80-5.40); RDW 14.6 % (11.5-15.5)
[2022-05-20] MEDS ORDERED: SODIUM CHLORIDE 0.9% 1,000 ML IV ONE (23:09)
[2022-05-20 23:13] LABS: HGB 8.1 gm/dL (11.4-16.0)
--- NOTE | 2022-05-20 23:13 | ED ---
General Adult HPI - General Chief complaint: Altered Mental Status Stated complaint: UTI Time Seen by Provider: 05/20/22 21:45 Source: EMS Mode of arrival: EMS Limitations: altered mental status - History of Present Illness Initial comments: This is a 81-year-old female who presents emergency department via EMS for altered mental status and complaining of a left hip contusion. The patient was ANO times one and cannot provide any details. It was reported by EMS that the patient was [facility] in [facility] the jail for increasing altered mental status tozack . The patient is reportedly ANO 4 at baseline however was ANO times one throughout the day today. The patient had an unknown fall and suffered a contusion over the left hip that had been x-rayed several times without any known pathology noted. The patient had a large contusion noted and had te nderness with a hematoma noted. The patient cannot provide any further history at this time nor was there any further history obtained by EMS. - Related Data Home Medications Medication Instructions Recorded Confirmed Levothyroxine Sodium [Synthroid] 37.5 mcg PO DAILY 12/31/13 05/20/22 Apixaban [Eliquis] 5 mg PO BID 05/31/21 05/20/22 Cholecalciferol [Vitamin D3 (25 50 mcg PO DAILY 05/31/21 05/20/22 Mcg = 1000 Iu)] Folic Acid 0.8 mg PO DAILY 05/31/21 05/20/22 Insulin Glargine,Hum.rec.anlog 30 unit SQ HS 05/31/21 05/20/22 [Lantus Solostar Pen] Metoprolol Tartrate [Lopressor] 50 mg PO BID 05/31/21 05/20/22 metFORMIN HCL [Glucophage] 500 mg PO BID 05/31/21 05/20/22 Acetaminophen [Tylenol 8 Hour] 650 mg PO Q8H PRN 05/20/22 05/20/22 Loperamide HCl [Loperamide HCl 7.5 mg PO Q12H PRN 05/20/22 05/20/22 Oral Susp] Oxybutynin Chloride [Ditropan XL] 5 mg PO DAILY 05/20/22 05/20/22 Tirzepatide [Mounjaro] 5 mg SQ FR 05/20/22 05/20/22 Previous Rx's Medication Instructions Recorded Furosemide [Lasix] 20 mg PO DAILY tab 03/25/22 Losartan [Cozaar] 50 mg PO BID tab 03/25/22 Spironolactone [Aldactone] 25 mg PO DAILY tab 03/25/22 Allergies Allergy/AdvReac Type Severity Reaction Status Date / Time adhesive AdvReac peels skin Verified 05/20/22 22:14 off Sulfa (Sulfonamide AdvReac Diarrhea Verified 05/20/22 22:14 Antibiotics) Review of Systems ROS Statement: Those systems with pertinent positive or pertinent negative responses have been documented in the HPI. ROS Other: All systems not noted in ROS Statement are negative. Past Medical History Past Medical History: Atrial Fibrillation, Diabetes Mellitus, Hyperlipidemia, Hypertension, Memory Impairment, Osteoarthritis (OA), Skin Disorder, Thyroid Disorder Additional Past Medical History / Comment(s): Seasonal allergies, psoriasis. 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; Cataract surgery on right eye Feb 26; left eye on Mar 12 with lens implants Past Anesthesia/Blood Transfusion Reactions: No Reported Reaction Additional Past Anesthesia/Blood Transfusion Reaction / Comment(s): Claustrophobia Past Psychological History: Anxiety Smoking Status: Never smoker Past Alcohol Use History: Occasional Past Drug Use History: None Reported - Past Family History Mother Family Medical History: No Reported History Additional Family Medical History / Comment(s): Valve replacement, CAD General Exam Limitations: altered mental status (ANOx1) General appearance: alert, in no apparent distress Head exam: Present: atraumatic, normocephalic, normal inspection Eye exam: Present: normal appearance, PERRL Pupils: Present: normal accommodation ENT exam: Present: normal exam, normal oropharynx, mucous membranes moist Neck exam: Present: normal inspection, full ROM Respiratory exam: Present: normal lung sounds bilaterally Cardiovascular Exam: Present: regular rate, normal rhythm, normal heart sounds GI/Abdominal exam: Present: soft, normal bowel sounds Extremities exam: Present: full ROM, other (Large hematoma and contusion noted over the left hip measuring approximately 30 cm x 40 cm) Back exam: Present: normal inspection, full ROM Neurological exam: Present: alert, altered (ANOx1) Psychiatric exam: Present: normal affect, normal mood Skin exam: Present: warm, dry Course Vital Signs 05/20/22 05/21/22 21:54 00:18 Temperature 97.6 F Pulse Rate 66 Respiratory 22 Rate Blood Pressure 138/61 O2 Sat by Pulse 100 Oximetry EKG Findings - EKG Comments: EKG Findings:: An EKG was obtained and was interpreted by myself showing a rate of 63, RI interval 160, QRS duration of 88 and QTC of 384. This EKG showed a normal sinus rhythm with no ST segment elevation or depression noted. Medical Decision Making - Medical Decision Making Was pt. sent in by a medical professional or institution (, PA, ORNAMENTAL METAL WORKER HELPER, urgent care, hospital, or jail...) When possible be specific @ -No Did you speak to anyone other than the patient for history (EMS, parent, family, police, friend...)? What history was obtained from this source @ -Yes, patient's daughter and family Did you review nursing and triage notes (agree or disagree)? Why? @ -I reviewed and agree with nursing and triage notes Were old charts reviewed (outside hosp., previous admission, EMS record, old EKG, old radiological studies, urgent care reports/EKG's, jail records)? Report findings @ -No old charts were reviewed Differential Diagnosis (chest pain, altered mental status, abdominal pain women, abdominal pain men, vaginal bleeding, weakness, fever, dyspnea, syncope, headache, dizziness, GI bleed, back pain, seizure, CVA, palpatations, mental health)? @ -UTI, sepsis, dehydration EKG interpreted by me (3pts min.). @ -As above X-rays interpreted by me (1pt min.). @ -None done CT interpreted by me (1pt min.). @ -CT of the left hip was obtained and was interpreted by myself showing left lateral thigh hematoma measuring up to 9.3 cm is without evidence of fracture. There was mild left hydronephrosis with renal sinus dilation partially v isualized. There was colonic diverticulosis. There was moderate to severe arterial atherosclerosis. U/S interpreted by me (1pt. min.). @ -None done What testing was considered but not performed or refused? (CT, X-rays, U/S, labs)? Why? @ -None What meds were considered but not given or refused? Why? @ -None Did you discuss the management of the patient with other professionals (professionals i.e. , PA, ORNAMENTAL METAL WORKER HELPER, lab, RT, psych nurse, social research assistant, liquified natural gas specialist, teacher, licensed loan officer assistant, case making machine operator)? Give summary @ -Yes, admitting team, [facility] was contacted. Was smoking cessation discussed for >3mins.? @ -No Was critical care preformed (if so, how long)? @ -No Were there social determinants of health that impacted care today? How? (Homelessness, low income, unemployed, alcoholism, drug addiction, transportation, low edu. Level, literacy, decrease access to med. care, half-way, rehab)? @ -No Was there de-escalation of care discussed even if they declined (Discuss DNR or withdrawal of care, Hospice)? DNR status @ -No What co-morbidities impacted this encounter? (DM, HTN, Smoking, COPD, CAD, Cancer, CVA, ARF, Chemo, Hep., AIDS, mental health diagnosis, sleep apnea, morbid obesity)? @ -Hypertension, atrial fibrillation on Eliquis Was patient admitted / discharged? Hospital course, mention meds given and route, prescriptions, significant lab abnormalities, going to OR and other pertinent info. @ -The patient was seen and evaluated emergency department. Physical exam, the patient was resting in bed without any acute distress but was ANO times one. The patient had a CT of her left hip she had multiple x-rays that show any acute fractures however had a large hematoma and contusion noted. The rest of laboratory workup did show an MAGDA and UTI as well as hyponatremia and decreased hemoglobin secondary to being on Eliquis with a hematoma noted. Due to these findings, the patient will be admitted for further workup and evaluation. [facility] was contacted and accepted the patient for admission. It was agreed upon between her myself that we would place general surgery on consult and did not need any emergent intervention. The patient continued to remain stable and had continued pain and spasms of the left hip therefore was given pain medications as well as a muscle relaxer. The patient's family was updated and agreed with this plan. The patient was admitted in stable condition. Undiagnosed new problem with uncertain prognosis? @ -No Drug Therapy requiring intensive monitoring for toxicity (Heparin, Nitro, Insulin, Cardizem)? @ -No Were any procedures done? @ -No Diagnosis/symptom? @ -Altered mental status secondary to UTI Acute, or Chronic, or Acute on Chronic? @ -Acute Uncomplicated (without systemic symptoms) or Complicated (systemic symptoms)? @ -Complicated Side effects of treatment? @ -No Exacerbation, Progression, or Severe Exacerbation? @ -No Poses a threat to life or bodily function? How? (Chest pain, [place], [place], pneumonia, PE, COPD, DKA, ARF, appy, cholecystitis, CVA, Diverticulitis, Homicidal, Suicidal, threat to staff... and all critical care pts) @ -Yes, worsening altered mental status any check in lead to sepsis, permanent organ damage and possible . Diagnosis/symptom? @ -MAGDA, hyponatremia Acute, or Chronic, or Acute on Chronic? @ -Acute Uncomplicated (without systemic symptoms) or Complicated (systemic symptoms)? @ -Complicated Side effects of treatment? @ -none Exacerbation, Progression, or Severe Exacerbation] @ -no Poses a threat to life or bodily function? @ -Yes, can lead to worsening permanent kidney damage Diagnosis/symptom? @ -Large left hip hematoma and contusion Acute, or Chronic, or Acute on Chronic? @ -Acute Uncomplicated (without systemic symptoms) or Complicated (systemic symptoms)? @ -Complicated Side effects of treatment? @ -none Exacerbation, Progression, or Severe Exacerbation] @ -no Poses a threat to life or bodily function? @ -no - Lab Data Result diagrams: 05/20/22 21:55 05/20/22 21:55 Lab Results 05/20/22 05/20/22 05/20/22 Range/Units 21:53 21:55 21:55 WBC 10.0 (3.8-10.6) k/uL RBC 2.56 L (3.80-5.40) m/uL Hgb 8.1 L D (11.4-16.0) gm/dL Hct 24.0 L (34.0-46.0) % MCV 94.0 (80.0-100.0) fL MCH 31.8 (25.0-35.0) pg MCHC 33.8 (31.0-37.0) g/dL RDW 14.6 (11.5-15.5) % Plt Count 293 (150-450) k/uL MPV 8.6 Neutrophils % 74 % Lymphocytes % 17 % Monocytes % 6 % Eosinophils % 0 % Basophils % 0 % Neutrophils # 7.5 (1.3-7.7) k/uL Lymphocytes # 1.7 (1.0-4.8) k/uL Monocytes # 0.6 (0-1.0) k/uL Eosinophils # 0.0 (0-0.7) k/uL Basophils # 0.0 (0-0.2) k/uL PT (9.0-12.0) sec INR (<1.2) APTT (22.0-30.0) sec Sodium 128 L (137-145) mmol/L Potassium 4.8 (3.5-5.1) mmol/L Chloride 99 (98-107) mmol/L Carbon Dioxide 23 (22-30) mmol/L Anion Gap 6 mmol/L BUN 43 H (7-17) mg/dL Creatinine 3.34 H (0.52-1.04) mg/dL Est GFR (CKD-EPI)AfAm 14 (>60 ml/min/1.73 sqM) Est GFR (CKD-EPI)NonAf 13 (>60 ml/min/1.73 sqM) Glucose 115 H (74-99) mg/dL POC Glucose (mg/dL) 137 H (70-110) mg/dL POC Glu Operational Assistant ID Bouchra Hernandez Calcium 8.8 (8.4-10.2) mg/dL Magnesium 1.8 (1.6-2.3) mg/dL Total Bilirubin 1.5 H (0.2-1.3) mg/dL AST 20 (14-36) U/L ALT 20 (4-34) U/L Alkaline Phosphatase 48 (38-126) U/L Total Protein 5.3 L (6.3-8.2) g/dL Albumin 2.9 L (3.5-5.0) g/dL Lipase 128 (23-300) U/L Urine Color Urine Appearance (Clear) Urine pH (5.0-8.0) Ur Specific Bentley (1.001-1.035) Urine Protein (Negative) Urine Glucose (UA) (Negative) Urine Ketones (Negative) Urine Blood (Negative) Urine Nitrite (Negative) Urine Bilirubin (Negative) Urine Urobilinogen (<2.0) mg/dL Ur Leukocyte Esterase (Negative) Urine RBC (0-5) /hpf Urine WBC (0-5) /hpf Urine WBC Clumps (None) /hpf Ur Squamous Epith Cells (0-4) /hpf Amorphous Sediment (None) /hpf Urine Bacteria (None) /hpf Hyaline Casts (0-2) /lpf Urine Mucus (None) /hpf 05/20/22 05/20/22 Range/Units 21:55 22:09 WBC (3.8-10.6) k/uL RBC (3.80-5.40) m/uL Hgb (11.4-16.0) gm/dL Hct (34.0-46.0) % MCV (80.0-100.0) fL MCH (25.0-35.0) pg MCHC (31.0-37.0) g/dL RDW (11.5-15.5) % Plt Count (150-450) k/uL MPV Neutrophils % % Lymphocytes % % Monocytes % % Eosinophils % % Basophils % % Neutrophils # (1.3-7.7) k/uL Lymphocytes # (1.0-4.8) k/uL Monocytes # (0-1.0) k/uL Eosinophils # (0-0.7) k/uL Basophils # (0-0.2) k/uL PT 10.7 (9.0-12.0) sec INR 1.0 (<1.2) APTT 24.4 (22.0-30.0) sec Sodium (137-145) mmol/L Potassium (3.5-5.1) mmol/L Chloride (98-107) mmol/L Carbon Dioxide (22-30) mmol/L Anion Gap mmol/L BUN (7-17) mg/dL Creatinine (0.52-1.04) mg/dL Est GFR (CKD-EPI)AfAm (>60 ml/min/1.73 sqM) Est GFR (CKD-EPI)NonAf (>60 ml/min/1.73 sqM) Glucose (74-99) mg/dL POC Glucose (mg/dL) (70-110) mg/dL POC Glu Operational Assistant ID Calcium (8.4-10.2) mg/dL Magnesium (1.6-2.3) mg/dL Total Bilirubin (0.2-1.3) mg/dL AST (14-36) U/L ALT (4-34) U/L Alkaline Phosphatase (38-126) U/L Total Protein (6.3-8.2) g/dL Albumin (3.5-5.0) g/dL Lipase (23-300) U/L Urine Color Dark Brown Urine Appearance Cloudy H (Clear) Urine pH 6.0 (5.0-8.0) Ur Specific Bentley 1.017 (1.001-1.035) Urine Protein 3+ H (Negative) Urine Glucose (UA) Negative (Negative) Urine Ketones Negative (Negative) Urine Blood Trace H (Negative) Urine Nitrite Positive H (Negative) Urine Bilirubin 1+ H (Negative) Urine Urobilinogen 2.0 (<2.0) mg/dL Ur Leukocyte Esterase Large H (Negative) Urine RBC 9 H (0-5) /hpf Urine WBC >182 H (0-5) /hpf Urine WBC Clumps Many H (None) /hpf Ur Squamous Epith Cells <1 (0-4) /hpf Amorphous Sediment Rare H (None) /hpf Urine Bacteria Many H (None) /hpf Hyaline Casts 11 H (0-2) /lpf Urine Mucus Rare H (None) /hpf Disposition Clinical Impression: Hyponatremia, MAGDA (acute kidney injury), Hematoma, AMS (altered mental status), UTI (urinary tract infection) Disposition: ADMITTED IP TO THIS HOSP Condition: Stable Is patient prescribed a controlled substance at d/c from ED?: No Time of Disposition: 23:00 Decision to Admit Reason: Admit from EC Decision Date: 05/20/22 Decision Time: 23:00
--- NOTE | 2022-05-20 23:23 | CT ---
EXAMINATION TYPE: CT hip LT wo con CT DLP: 1113.9 mGycm, Automated exposure control for dose reduction was used. DATE OF EXAM: 05/20/2022 10:57 PM COMPARISON: None CLINICAL INDICATION:Female, 81 years old with history of Pain, contusion; PHH, ams, fall, large lt hi p contusion TECHNIQUE: Axial images were obtained of the left hip . Additional coronal and sagittal reformatted images and soft tissue and bone window were obtained for review. 3-D reconstruction was created on a separate workstation. Contrast used: None Oral contrast used: None FINDINGS: There is no evidence of fracture, subluxation, or dislocation. Left lateral thigh soft tis melonie hematoma measuring 9.3 x 4.7 x 8.6 cm. No focal muscular atrophy or edema is identified. No radio paque foreign body identified. Scattered colonic diverticula seen within the sigmoid colon. Moderate atherosclerosis of the arterial vasculature. Fat-containing umbilical hernia. Dilation of the left renal pelvis. Multilevel disc degeneration changes are seen throughout the spine. There is grade 1 anterolisthesis of L4 and L5. Multilevel facet joint arthropathy are present. At least moderate spinal canal stenosis at L4-L5. Multilevel neural foraminal narrowing is present. IMPRESSION: 1. Left lateral thigh hematoma measuring up to 9.3 cm without evidence of fracture. 2. Mild left hydronephrosis with renal sinus dilation partially visualized. Further evaluation recom mended 3. Colonic diverticulosis. 4. Moderate to severe arterial atherosclerosis.
[2022-05-21] MEDS ORDERED: NALOXONE 0.4 MG/ML 1 ML VIAL IV PRN (00:10)
[2022-05-21] MEDS ORDERED: MORPHINE SULFATE 4 MG/ML SYRINGE IVP STA (00:39)
[2022-05-21] MEDS ORDERED: MORPHINE SULFATE 2 MG/ML SYRINGE IVP STA ×2 (00:39→01:13)
[2022-05-21 01:15] LABS: Partial Thromboplastin Time 24.4 sec (22.0-30.0); Prothrombin Time 10.7 sec (9.0-12.0)
[2022-05-21] MEDS ORDERED: ORPHENADRINE 30 MG/ML 2 ML VIAL IVP STA (01:48)
[2022-05-21] MEDS: SODIUM CHLORIDE 0.9% 1,000 ML IV SCH ×2 (01:59→14:26)
[2022-05-21 05:46] LABS: Glucose,Whole Blood 139 mg/dL (70-110)
--- NOTE | 2022-05-21 09:25 | US ---
EXAMINATION TYPE: US kidneys/renal and bladder DATE OF EXAM: 05/21/2022 COMPARISON: 03/23/2022 CLINICAL HISTORY: alex. no symptoms EXAM MEASUREMENTS: Right Kidney: 10.3 x 4.6 x 4.9 cm Left Kidney: 10.4 x 4.5 x 4.9 cm Right Kidney: dilated pyramid versus cyst seen Left Kidney: hypoechoic lesion, seen previously, = 1.6 x 1.6 x 1.5cm Bladder: wnl Bilateral Jets seen: Yes No hydronephrosis or nephrolithiasis. Renal cortex is preserved. Cortical medullary differentiation p reserved. IMPRESSION: Left renal hypoechoic lesion indeterminate ultrasound stable from prior most likely related to cyst.
[2022-05-21 10:38] LABS: African American GFR (CKD) 16 (>60 ml/min/1.73 sqM); Anion Gap 7 mmol/L; Blood Urea Nitrogen 39 mg/dL (7-17); Calcium 8.5 mg/dL (8.4-10.2); Carbon Dioxide 23 mmol/L (22-30); Chloride 104 mmol/L (98-107); Glucose 137 mg/dL (74-99); Magnesium 1.8 mg/dL (1.6-2.3); Non-African American GFR(CKD) 14 (>60 ml/min/1.73 sqM); Potassium 4.5 mmol/L (3.5-5.1); Sodium 134 mmol/L (137-145)
[2022-05-21] MEDS ORDERED: HYDROmorphone 1 MG/ML 1 ML SYRINGE IVP PRN (10:57)
--- NOTE | 2022-05-21 12:44 | P.GSCN ---
History of Present Illness Consult date: 05/21/22 History of present illness: CHIEF COMPLAINT: Left hip pain HISTORY OF PRESENT ILLNESS: This is a 81-year-old female who presented to to the ER from a [facility] due to altered mental status and left hip contusion. Apparently per patient's daughter patient has been having multiple falls and has been falling at the [facility]. Patient's left hip contusion was first noted on Friday. And since then the hematoma has increased in size. Patient does report tenderness in that left hip. She is on Eliquis due to history of atrial fibrillation, PE and stroke. Patient did have a drop in her hemoglobin from March she was around 11 and hemoglobin on admission was 8.1. Computed tomography scan completed had shown a left lateral thigh hematoma measuring 9.3 cm. Patient also had evidence of acute kidney injury with a UTI. Daughter reports that patient's mental status has declined over the last 3 months. Patient seen and examined in ER with Dr. Alfaro PAST MEDICAL HISTORY: See below PAST SURGICAL HISTORY: See below MEDICATIONS: See below ALLERGIES: See below SOCIAL HISTORY: No illicit drug use. REVIEW OF SYSTEMS: CONSTITUTIONAL: Denies fever or chills. HEENT: Denies blurred vision, vision changes, or eye pain. Denies hemoptysis CARDIOVASCULAR: Denies chest pain or pressure. RESPIRATORY: No shortness of breath. GASTROINTESTINAL: See HPI for pertinent findings HEMATOLOGIC: Denies bleeding disorders. GENITOURINARY: Denies any blood in urine or increased urinary frequency. SKIN: Denies pruitis. Denies rash. PHYSICAL EXAM: VITAL SIGNS: Reviewed GENERAL: Well-developed in no acute distress. ABDOMEN: Soft. Nondistended. Nontender NEUROLOGIC: Alert and oriented x 1, name only LABORATORY DATA: WBC is 10.0 Hgb 8.1 platelets 293 INR 1.0 Sodium 128 up to 134 potassium 4.5 creatinine 3.34 down to 2.99 Urinalysis positive for UTI IMAGING: Computed tomography scan left hip shows left lateral thigh hematoma measuring up to 9.3 cm without evidence of fracture. Mild left hydronephrosis with renal sinus dilation partially visualized. Colonic diverticulosis. Moderate to severe arterial atherosclerosis. Left renal hypoechoic lesion indeterminate ultrasound stable from prior most likely related to cyst ASSESSMENT: 1. Left hip hematoma due to history of falls and being on Eliquis 2. Anemia due to acute blood loss from hematoma 3. Altered mental status 4. UTI 5. Acute kidney injury PLAN: -Recommend orthopedic consult for further evaluation regarding left hip pain and hematoma -Continue to hold Eliquis -Continue to monitor hemoglobin -Barnum and IV Dilaudid for pain control -Continue supportive care -Continue treatment of UTI per medicine -Okay for regular diet -No surgical intervention planned Physician Spring Coverer note has been reviewed by physician. Signing provider agrees with the documented findings, assessment, and plan of care. Past Medical History Past Medical History: Atrial Fibrillation, Diabetes Mellitus, Hyperlipidemia, Hypertension, Memory Impairment, Osteoarthritis (OA), Skin Disorder, Thyroid Disorder Additional Past Medical History / Comment(s): Seasonal allergies, psoriasis. 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; Cataract surgery on right eye Feb 26; left eye on Mar 12 with lens implants Past Anesthesia/Blood Transfusion Reactions: No Reported Reaction Additional Past Anesthesia/Blood Transfusion Reaction / Comm: Claustrophobia Past Psychological History: Anxiety Smoking Status: Never smoker Past Alcohol Use History: Occasional Past Drug Use History: None Reported - Past Family History Mother Family Medical History: No Reported History Additional Family Medical History / Comment(s): Valve replacement, CAD Medications and Allergies Home Medications Medication Instructions Recorded Confirmed Type Levothyroxine Sodium [Synthroid] 37.5 mcg PO DAILY 12/31/13 05/20/22 History Apixaban [Eliquis] 5 mg PO BID 05/31/21 05/20/22 History Cholecalciferol [Vitamin D3 (25 50 mcg PO DAILY 05/31/21 05/20/22 History Mcg = 1000 Iu)] Folic Acid 0.8 mg PO DAILY 05/31/21 05/20/22 History Insulin Glargine,Hum.rec.anlog 30 unit SQ HS 05/31/21 05/20/22 History [Lantus Solostar Pen] Metoprolol Tartrate [Lopressor] 50 mg PO BID 05/31/21 05/20/22 History metFORMIN HCL [Glucophage] 500 mg PO BID 05/31/21 05/20/22 History Furosemide [Lasix] 20 mg PO DAILY tab 03/25/22 05/20/22 Rx Losartan [Cozaar] 50 mg PO BID tab 03/25/22 05/20/22 Rx Spironolactone [Aldactone] 25 mg PO DAILY tab 03/25/22 05/20/22 Rx Acetaminophen [Tylenol 8 Hour] 650 mg PO Q8H PRN 05/20/22 05/20/22 History Loperamide HCl [Loperamide HCl 7.5 mg PO Q12H PRN 05/20/22 05/20/22 History Oral Susp] Oxybutynin Chloride [Ditropan XL] 5 mg PO DAILY 05/20/22 05/20/22 History Tirzepatide [Mounjaro] 5 mg SQ FR 05/20/22 05/20/22 History Allergies Allergy/AdvReac Type Severity Reaction Status Date / Time adhesive AdvReac peels skin Verified 05/20/22 22:14 off Sulfa (Sulfonamide AdvReac Diarrhea Verified 05/20/22 22:14 Antibiotics) Surgical - Exam Vital Signs Pulse Resp BP Pulse Ox 66 22 138/61 100 05/20/22 21:54 05/20/22 21:54 05/20/22 21:54 05/20/22 21:54 Results - Labs 05/20/22 21:55 05/21/22 09:59 Abnormal Lab Results - Last 24 Hours (Table) 05/20/22 05/20/22 05/20/22 Range/Units 21:53 21:55 21:55 RBC 2.56 L (3.80-5.40) m/uL Hgb 8.1 L D (11.4-16.0) gm/dL Hct 24.0 L (34.0-46.0) % Sodium 128 L (137-145) mmol/L BUN 43 H (7-17) mg/dL Creatinine 3.34 H (0.52-1.04) mg/dL Glucose 115 H (74-99) mg/dL POC Glucose (mg/dL) 137 H (70-110) mg/dL Total Bilirubin 1.5 H (0.2-1.3) mg/dL Total Protein 5.3 L (6.3-8.2) g/dL Albumin 2.9 L (3.5-5.0) g/dL Urine Appearance (Clear) Urine Protein (Negative) Urine Blood (Negative) Urine Nitrite (Negative) Urine Bilirubin (Negative) Ur Leukocyte Esterase (Negative) Urine RBC (0-5) /hpf Urine WBC (0-5) /hpf Urine WBC Clumps (None) /hpf Amorphous Sediment (None) /hpf Urine Bacteria (None) /hpf Hyaline Casts (0-2) /lpf Urine Mucus (None) /hpf 05/20/22 05/21/22 05/21/22 Range/Units 22:09 05:44 09:59 RBC (3.80-5.40) m/uL Hgb (11.4-16.0) gm/dL Hct (34.0-46.0) % Sodium 134 L (137-145) mmol/L BUN 39 H (7-17) mg/dL Creatinine 2.99 H (0.52-1.04) mg/dL Glucose 137 H (74-99) mg/dL POC Glucose (mg/dL) 139 H (70-110) mg/dL Total Bilirubin (0.2-1.3) mg/dL Total Protein (6.3-8.2) g/dL Albumin (3.5-5.0) g/dL Urine Appearance Cloudy H (Clear) Urine Protein 3+ H (Negative) Urine Blood Trace H (Negative) Urine Nitrite Positive H (Negative) Urine Bilirubin 1+ H (Negative) Ur Leukocyte Esterase Large H (Negative) Urine RBC 9 H (0-5) /hpf Urine WBC >182 H (0-5) /hpf Urine WBC Clumps Many H (None) /hpf Amorphous Sediment Rare H (None) /hpf Urine Bacteria Many H (None) /hpf Hyaline Casts 11 H (0-2) /lpf Urine Mucus Rare H (None) /hpf Diabetes panel 05/20/22 05/21/22 Range/Units 21:55 09:59 Sodium 128 L 134 L (137-145) mmol/L Potassium 4.8 4.5 (3.5-5.1) mmol/L Chloride 99 104 (98-107) mmol/L Carbon Dioxide 23 23 (22-30) mmol/L BUN 43 H 39 H (7-17) mg/dL Creatinine 3.34 H 2.99 H (0.52-1.04) mg/dL Glucose 115 H 137 H (74-99) mg/dL Calcium 8.8 8.5 (8.4-10.2) mg/dL AST 20 (14-36) U/L ALT 20 (4-34) U/L Alkaline Phosphatase 48 (38-126) U/L Total Protein 5.3 L (6.3-8.2) g/dL Albumin 2.9 L (3.5-5.0) g/dL Calcium panel 05/20/22 05/21/22 Range/Units 21:55 09:59 Calcium 8.8 8.5 (8.4-10.2) mg/dL Albumin 2.9 L (3.5-5.0) g/dL Pituitary panel 05/20/22 05/21/22 Range/Units 21:55 09:59 Sodium 128 L 134 L (137-145) mmol/L Potassium 4.8 4.5 (3.5-5.1) mmol/L Chloride 99 104 (98-107) mmol/L Carbon Dioxide 23 23 (22-30) mmol/L BUN 43 H 39 H (7-17) mg/dL Creatinine 3.34 H 2.99 H (0.52-1.04) mg/dL Glucose 115 H 137 H (74-99) mg/dL Calcium 8.8 8.5 (8.4-10.2) mg/dL Adrenal panel 05/20/22 05/21/22 Range/Units 21:55 09:59 Sodium 128 L 134 L (137-145) mmol/L Potassium 4.8 4.5 (3.5-5.1) mmol/L Chloride 99 104 (98-107) mmol/L Carbon Dioxide 23 23 (22-30) mmol/L BUN 43 H 39 H (7-17) mg/dL Creatinine 3.34 H 2.99 H (0.52-1.04) mg/dL Glucose 115 H 137 H (74-99) mg/dL Calcium 8.8 8.5 (8.4-10.2) mg/dL Total Bilirubin 1.5 H (0.2-1.3) mg/dL AST 20 (14-36) U/L ALT 20 (4-34) U/L Alkaline Phosphatase 48 (38-126) U/L Total Protein 5.3 L (6.3-8.2) g/dL Albumin 2.9 L (3.5-5.0) g/dL
--- NOTE | 2022-05-21 12:54 | P.HPIM ---
History of Present Illness 81-year-old female came in with left hip contusion.. Patient is on eliquis and has been falling patient has a extensive bruise and hematoma in the left hip area imaging did not show any fracture. Patient is also found to be in acute renal failure baseline creatinine of around 1.3 present creatinine of around 3.5 and admission which has come down to 2.5. She does have history of atrial fibrillation and history of strokes in the past. 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 Hemoglobin did drop from 11-8 and patient is admitted for monitoring patient initially was reported to have altered mental status although patient mental status appears to be baseline patient did have cognitive decline for few months. REVIEW OF SYSTEMS: All other review of systems is negative PHYSICAL EXAMINATION: GENERAL: The patient is alert and oriented x2-3, not in any acute distress. Well developed, well nourished. HEENT: Pupils are round and equally reacting to light. EOMI. No scleral icterus. No conjunctival pallor. Normocephalic, atraumatic. No pharyngeal erythema. No thyromegaly. CARDIOVASCULAR: S1 and S2 present. No murmurs, rubs, or gallops. PULMONARY: Chest is clear to auscultation, no wheezing or crackles. ABDOMEN: Soft, nontender, nondistended, normoactive bowel sounds. No palpable organomegaly. MUSCULOSKELETAL: No joint swelling or deformity. EXTREMITIES: No cyanosis, clubbing, or pedal edema. NEUROLOGICAL: Patient doesn't have any new focal deficits but does have generalized weakness SKIN: Large hematoma and bruise in the left hip area Assessment and plan -Large hematoma in the hip no further intervention at this time monitor hemoglobin hold off on anticoagulation. -Acute renal failure probably secondary to intravascular depletion patient does have history of congestive heart failure for which patient is on diuretics and losartan which will be held for now patient will be started on IV fluids. -Atrial fibrillation paroxysmal: Patient will continued on rate control medications patient is presently rate controlled and sinus rhythm. Next Congestive heart failure chronic systolic dysfunction without any acute exacerbation patient is bit volume depleted, diuretics and losartan will be held next line-chronic kidney disease stage III secondary to diabetic nephropathy -Type 2 diabetes mellitus: Patient will be started on slightly low-dose of long- acting insulin and sliding scale pre-meal insulin -History of CVA in the past -Hypertension next 1 hyperlipidemia -Hypothyroidism DVT prophylaxis: Anti-Coagulation being held. Because of large hematoma in the left hip area Past Medical History Past Medical History: Atrial Fibrillation, Diabetes Mellitus, Hyperlipidemia, Hypertension, Memory Impairment, Osteoarthritis (OA), Skin Disorder, Thyroid Disorder Additional Past Medical History / Comment(s): Seasonal allergies, psoriasis. 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; Cataract surgery on right eye Feb 26; left eye on Mar 12 with lens implants Past Anesthesia/Blood Transfusion Reactions: No Reported Reaction Additional Past Anesthesia/Blood Transfusion Reaction / Comment(s): Claustrophobia Past Psychological History: Anxiety Smoking Status: Never smoker Past Alcohol Use History: Occasional Past Drug Use History: None Reported - Past Family History Mother Family Medical History: No Reported History Additional Family Medical History / Comment(s): Valve replacement, CAD Medications and Allergies Home Medications Medication Instructions Recorded Confirmed Type Levothyroxine Sodium [Synthroid] 37.5 mcg PO DAILY 12/31/13 05/20/22 History Apixaban [Eliquis] 5 mg PO BID 05/31/21 05/20/22 History Cholecalciferol [Vitamin D3 (25 50 mcg PO DAILY 05/31/21 05/20/22 History Mcg = 1000 Iu)] Folic Acid 0.8 mg PO DAILY 05/31/21 05/20/22 History Insulin Glargine,Hum.rec.anlog 30 unit SQ HS 05/31/21 05/20/22 History [Lantus Solostar Pen] Metoprolol Tartrate [Lopressor] 50 mg PO BID 05/31/21 05/20/22 History metFORMIN HCL [Glucophage] 500 mg PO BID 05/31/21 05/20/22 History Furosemide [Lasix] 20 mg PO DAILY tab 03/25/22 05/20/22 Rx Losartan [Cozaar] 50 mg PO BID tab 03/25/22 05/20/22 Rx Spironolactone [Aldactone] 25 mg PO DAILY tab 03/25/22 05/20/22 Rx Acetaminophen [Tylenol 8 Hour] 650 mg PO Q8H PRN 05/20/22 05/20/22 History Loperamide HCl [Loperamide HCl 7.5 mg PO Q12H PRN 05/20/22 05/20/22 History Oral Susp] Oxybutynin Chloride [Ditropan XL] 5 mg PO DAILY 05/20/22 05/20/22 History Tirzepatide [Mounjaro] 5 mg SQ FR 05/20/22 05/20/22 History Allergies Allergy/AdvReac Type Severity Reaction Status Date / Time adhesive AdvReac peels skin Verified 05/20/22 22:14 off Sulfa (Sulfonamide AdvReac Diarrhea Verified 05/20/22 22:14 Antibiotics) Physical Exam Vitals: Vital Signs Temp Pulse Resp BP Pulse Ox 05/21/22 12:36 73 18 125/59 98 05/21/22 04:03 65 18 101/78 100 05/21/22 02:20 65 18 122/84 94 L 05/21/22 00:18 97.6 F 05/20/22 21:54 66 22 138/61 100 Intake and Output 05/20/22 05/21/22 05/21/22 22:59 06:59 14:59 Other: Weight 89.811 kg Results CBC & Chem 7: 05/20/22 21:55 05/21/22 09:59 Labs: Abnormal Lab Results - Last 24 Hours (Table) 05/20/22 05/20/22 05/20/22 Range/Units 21:53 21:55 21:55 RBC 2.56 L (3.80-5.40) m/uL Hgb 8.1 L D (11.4-16.0) gm/dL Hct 24.0 L (34.0-46.0) % Sodium 128 L (137-145) mmol/L BUN 43 H (7-17) mg/dL Creatinine 3.34 H (0.52-1.04) mg/dL Glucose 115 H (74-99) mg/dL POC Glucose (mg/dL) 137 H (70-110) mg/dL Total Bilirubin 1.5 H (0.2-1.3) mg/dL Total Protein 5.3 L (6.3-8.2) g/dL Albumin 2.9 L (3.5-5.0) g/dL Urine Appearance (Clear) Urine Protein (Negative) Urine Blood (Negative) Urine Nitrite (Negative) Urine Bilirubin (Negative) Ur Leukocyte Esterase (Negative) Urine RBC (0-5) /hpf Urine WBC (0-5) /hpf Urine WBC Clumps (None) /hpf Amorphous Sediment (None) /hpf Urine Bacteria (None) /hpf Hyaline Casts (0-2) /lpf Urine Mucus (None) /hpf 05/20/22 05/21/22 05/21/22 Range/Units 22:09 05:44 09:59 RBC (3.80-5.40) m/uL Hgb (11.4-16.0) gm/dL Hct (34.0-46.0) % Sodium 134 L (137-145) mmol/L BUN 39 H (7-17) mg/dL Creatinine 2.99 H (0.52-1.04) mg/dL Glucose 137 H (74-99) mg/dL POC Glucose (mg/dL) 139 H (70-110) mg/dL Total Bilirubin (0.2-1.3) mg/dL Total Protein (6.3-8.2) g/dL Albumin (3.5-5.0) g/dL Urine Appearance Cloudy H (Clear) Urine Protein 3+ H (Negative) Urine Blood Trace H (Negative) Urine Nitrite Positive H (Negative) Urine Bilirubin 1+ H (Negative) Ur Leukocyte Esterase Large H (Negative) Urine RBC 9 H (0-5) /hpf Urine WBC >182 H (0-5) /hpf Urine WBC Clumps Many H (None) /hpf Amorphous Sediment Rare H (None) /hpf Urine Bacteria Many H (None) /hpf Hyaline Casts 11 H (0-2) /lpf Urine Mucus Rare H (None) /hpf
--- NOTE | 2022-05-21 13:51 | XR ---
EXAMINATION TYPE: XR chest 1V DATE OF EXAM: 05/21/2022 1:39 PM COMPARISON: Chest radiographs from 03/20/2022 TECHNIQUE: XR chest 1V Portable AP radiograph of the chest. CLINICAL INDICATION:Female, 81 years old with history of chf; FINDINGS: Lungs/Pleura: There is no evidence of pleural effusion, focal consolidation, or pneumothorax. Pulmonary vascularity: Unremarkable. Heart/mediastinum: Cardiomediastinal silhouette is enlarged and stable. Atherosclerotic calcificatio ns are seen in the aorta. Musculoskeletal: No acute osseous pathology. Dextrocurvature of the thoracic spine. IMPRESSION: Persistent cardiomegaly without pulmonary vascular congestion or effusions to suggest CHF exacerbatio n.
[2022-05-21 15:51] LABS: % Iron Saturation 21.76 (12.00-45.00); Iron 59 ug/dL (50-170); Total Iron Binding Capacity 270 ug/dL (228-460)
--- NOTE | 2022-05-21 15:57 | P.NPCON ---
History of Present Illness - Reason for Consult acute renal failure, chronic renal failure - History of Present Illness Reason for consultation: Acute kidney injury on chronic kidney disease History of present illness: Patient is a 81-year-old female seen in renal consultation for acute kidney injury on chronic kidney disease. Patient has chronic kidney disease stage III with baseline creatinine in the range of 1.1-1.3. Creatinine this admission was 3.34 and was 2.99 today. Patient presented to the hospital due to altered mental status. Patient states she fell by tripping doesn't remember anything else. She does take antihypertensives at home which are currently held. She was also on diuretics which are helped. She has long-standing history of diabetes. She is currently receiving IV fluids. Blood pressure stable. No fever. Denies vomiting or diarrhea. States oral intake has been fair. Denies history of heart disease. Renal ultrasound showed no hydronephrosis. CAT scan showed mild left-sided hydronephrosis. No evidence of fluid overload noted on chest x-ray. Patient has history of chronic systolic CHF with ejection fraction of 40-45% and mild to moderate pulmonary hypertension. This echocardiogram is from November 2020. Patient did fall on her hip and CAT scan showed left lateral thigh hematoma. Hemoglobin 8.1 on admission. Vital signs are stable. General: No acute distress. HEENT: Head exam is unremarkable. LUNGS: No audible rhonchi or wheezes. HEART: Rate and Rhythm are regular. ABDOMEN: Nontender. No distention. EXTREMITITES: No edema. Past Medical History Past Medical History: Atrial Fibrillation, Diabetes Mellitus, Hyperlipidemia, Hypertension, Memory Impairment, Osteoarthritis (OA), Skin Disorder, Thyroid Disorder Additional Past Medical History / Comment(s): Seasonal allergies, psoriasis. 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; Cataract surgery on right eye Feb 26; left eye on Mar 12 with lens implants Past Anesthesia/Blood Transfusion Reactions: No Reported Reaction Additional Past Anesthesia/Blood Transfusion Reaction / Comment(s): Claustrophobia Past Psychological History: Anxiety Smoking Status: Never smoker Past Alcohol Use History: Occasional Past Drug Use History: None Reported - Past Family History Mother Family Medical History: No Reported History Additional Family Medical History / Comment(s): Valve replacement, CAD Medications and Allergies Home Medications Medication Instructions Recorded Confirmed Type Levothyroxine Sodium [Synthroid] 37.5 mcg PO DAILY 12/31/13 05/20/22 History Apixaban [Eliquis] 5 mg PO BID 05/31/21 05/20/22 History Cholecalciferol [Vitamin D3 (25 50 mcg PO DAILY 05/31/21 05/20/22 History Mcg = 1000 Iu)] Folic Acid 0.8 mg PO DAILY 05/31/21 05/20/22 History Insulin Glargine,Hum.rec.anlog 30 unit SQ HS 05/31/21 05/20/22 History [Lantus Solostar Pen] Metoprolol Tartrate [Lopressor] 50 mg PO BID 05/31/21 05/20/22 History metFORMIN HCL [Glucophage] 500 mg PO BID 05/31/21 05/20/22 History Furosemide [Lasix] 20 mg PO DAILY tab 03/25/22 05/20/22 Rx Losartan [Cozaar] 50 mg PO BID tab 03/25/22 05/20/22 Rx Spironolactone [Aldactone] 25 mg PO DAILY tab 03/25/22 05/20/22 Rx Acetaminophen [Tylenol 8 Hour] 650 mg PO Q8H PRN 05/20/22 05/20/22 History Loperamide HCl [Loperamide HCl 7.5 mg PO Q12H PRN 05/20/22 05/20/22 History Oral Susp] Oxybutynin Chloride [Ditropan XL] 5 mg PO DAILY 05/20/22 05/20/22 History Tirzepatide [Mounjaro] 5 mg SQ FR 05/20/22 05/20/22 History Allergies Allergy/AdvReac Type Severity Reaction Status Date / Time adhesive AdvReac peels skin Verified 05/20/22 22:14 off Sulfa (Sulfonamide AdvReac Diarrhea Verified 05/20/22 22:14 Antibiotics) Physical Exam Vitals: Vital Signs Temp Pulse Resp BP Pulse Ox 05/21/22 14:06 68 16 110/63 100 05/21/22 12:36 73 18 125/59 98 05/21/22 04:03 65 18 101/78 100 05/21/22 02:20 65 18 122/84 94 L 05/21/22 00:18 97.6 F 05/20/22 21:54 66 22 138/61 100 Results - Lab Results Most recent lab results Calcium 8.5 mg/dL (8.4-10.2) 05/21/22 09:59 Magnesium 1.8 mg/dL (1.6-2.3) 05/21/22 09:59 05/20/22 21:55 05/21/22 09:59 Assessment and Plan Plan: Assessment: 1. Acute kidney injury mostly prerenal secondary to diuresis and further worsened with the use of losartan. Creatinine 3.34 on admission and is 2.99 today. Mild hydronephrosis noted on CAT scan. 2. Status post fall with left thigh hematoma. Surgery following. Anticoagulation held. 3. Hypovolemic hyponatremia improved with IV hydration. 4. Diabetes mellitus. 5. Acute blood loss anemia. 6. Chronic kidney disease stage III with baseline creatinine in the range of 1- 1.3. Suspect diabetic kidney disease as has proteinuria. Further workup outpatient. 7. Hypertension with chronic kidney disease. Stable. 8. Pyuria on antibiotics. Urine culture pending. 9. Chronic systolic CHF with ejection fraction of 40-45% with mild to moderate pulmonary hypertension. Plan: Maintain IV fluids. Continue to hold diuretics and losartan. Check iron studies. Avoid nephrotoxins. Continue to monitor renal function and urine output. Consult urology for hydronephrosis. Thank you for the consultation. I will continue to follow patient with you during her hospital stay.
[2022-05-21] MEDS ORDERED: INSULIN DETEMIR (LEVEMIR) 100 UNIT/ML SYR SQ SCH (21:00)
[2022-05-21 22:09] LABS: Glucose,Whole Blood 194 mg/dL (70-110)
[2022-05-21] MEDS: INSULIN DETEMIR (LEVEMIR) 100 UNIT/ML SYR SQ SCH (22:17)
[2022-05-21] MEDS: METOPROLOL TARTRATE 50 MG TAB PO SCH (22:18)
[2022-05-21] MEDS ORDERED: HALOPERIDOL LACTATE 5 MG/ML 1 ML VIAL IM PRN (23:11)
[2022-05-22] MEDS: HYDROcodone/APAP 5-325MG 1 EACH TAB PO PRN ×2 (00:56→06:22)
[2022-05-22 05:49] LABS: Glucose,Whole Blood 156 mg/dL (70-110)
[2022-05-22] MEDS: LEVOTHYROXINE 75 MCG TAB PO SCH (06:22)
[2022-05-22] MEDS: SODIUM CHLORIDE 0.9% 1,000 ML IV SCH ×2 (08:05→16:50)
[2022-05-22 09:52] LABS: HCT 21.3 % (34.0-46.0); HGB 7.2 gm/dL (11.4-16.0); MCH 32.8 pg (25.0-35.0); MCHC 33.6 g/dL (31.0-37.0); MCV 97.5 fL (80.0-100.0); Mean Platelet Volume 8.3; Platelet Count 244 k/uL (150-450); RBC 2.19 m/uL (3.80-5.40); RDW 14.7 % (11.5-15.5); WBC 6.9 k/uL (3.8-10.6)
--- NOTE | 2022-05-22 10:09 | P.GSCN ---
History of Present Illness Consult date: 05/22/22 Reason for Consult: Left hydronephrosis Requesting physician: Fransico Santana History of present illness: The patient is a 81-year-old female with a past medical history of A. fib, diabetes mellitus, hyperlipidemia, hypertension, CVA, and vascular dementia.. She presented to the emergency department from a custodial on 05/20/22 for AMS and a left hip contusion. The patient had an unknown fall and suffered a contusi on over the left hip that had been x-rayed several times without any known pathology noted. The patient had a large contusion noted and had tenderness with a hematoma noted. The patient cannot provide any further history at this time nor was there any further history obtained by EMS. Patient had evidence of acute kidney injury with a UTI. Left hip CT without contrast shows a left lateral thigh hematoma, measuring up to 9.3 cm without evidence of fracture, mild left hydronephrosis with renal sinus dilation partially visualized, colonic diverticulosis, and moderate to severe arterial arthrosclerosis. Urology service was consulted regarding the patient's hydronephrosis. Review of Systems - Constitutional Denies chills, Denies fever - Gastrointestinal Denies abdominal pain - Genitourinary Genitourinary: Denies dysuria, Denies flank pain, Denies hematuria Past Medical History Past Medical History: Atrial Fibrillation, Diabetes Mellitus, Hyperlipidemia, Hypertension, Memory Impairment, Osteoarthritis (OA), Skin Disorder, Thyroid Disorder Additional Past Medical History / Comment(s): Seasonal allergies, psoriasis. 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; Cataract surgery on right eye Feb 26; left eye on Mar 12 with lens implants Past Anesthesia/Blood Transfusion Reactions: No Reported Reaction Additional Past Anesthesia/Blood Transfusion Reaction / Comm: Claustrophobia Past Psychological History: Anxiety Smoking Status: Unknown if ever smoked Past Alcohol Use History: Occasional Past Drug Use History: None Reported - Past Family History Mother Family Medical History: No Reported History Additional Family Medical History / Comment(s): Valve replacement, CAD Medications and Allergies Home Medications Medication Instructions Recorded Confirmed Type Levothyroxine Sodium [Synthroid] 37.5 mcg PO DAILY 12/31/13 05/20/22 History Apixaban [Eliquis] 5 mg PO BID 05/31/21 05/20/22 History Cholecalciferol [Vitamin D3 (25 50 mcg PO DAILY 05/31/21 05/20/22 History Mcg = 1000 Iu)] Folic Acid 0.8 mg PO DAILY 05/31/21 05/20/22 History Insulin Glargine,Hum.rec.anlog 30 unit SQ HS 05/31/21 05/20/22 History [Lantus Solostar Pen] Metoprolol Tartrate [Lopressor] 50 mg PO BID 05/31/21 05/20/22 History metFORMIN HCL [Glucophage] 500 mg PO BID 05/31/21 05/20/22 History Furosemide [Lasix] 20 mg PO DAILY tab 03/25/22 05/20/22 Rx Losartan [Cozaar] 50 mg PO BID tab 03/25/22 05/20/22 Rx Spironolactone [Aldactone] 25 mg PO DAILY tab 03/25/22 05/20/22 Rx Acetaminophen [Tylenol 8 Hour] 650 mg PO Q8H PRN 05/20/22 05/20/22 History Loperamide HCl [Loperamide HCl 7.5 mg PO Q12H PRN 05/20/22 05/20/22 History Oral Susp] Oxybutynin Chloride [Ditropan XL] 5 mg PO DAILY 05/20/22 05/20/22 History Tirzepatide [Mounjaro] 5 mg SQ FR 05/20/22 05/20/22 History Allergies Allergy/AdvReac Type Severity Reaction Status Date / Time adhesive AdvReac peels skin Verified 05/20/22 22:14 off Sulfa (Sulfonamide AdvReac Diarrhea Verified 05/20/22 22:14 Antibiotics) Surgical - Exam Vital Signs Pulse Resp BP Pulse Ox 66 22 138/61 100 05/20/22 21:54 05/20/22 21:54 05/20/22 21:54 05/20/22 21:54 General: Well developed, well nourished. No acute distress. HEENT: Head is atraumatic, normocephalic. Lungs: Respirations even and nonlabored. Abdomen/GI: Soft, non-distended. No guarding, rigidity, or abdominal tenderness. : Gomez catheter in place draining clear yellow urine Skin: Warm and dry, left hip ecchymosis Psychiatric: Agitated Results - Labs 05/22/22 08:46 05/22/22 08:46 Abnormal Lab Results - Last 24 Hours (Table) 05/21/22 05/21/22 05/22/22 Range/Units 09:59 22:08 05:47 Sodium 134 L (137-145) mmol/L BUN 39 H (7-17) mg/dL Creatinine 2.99 H (0.52-1.04) mg/dL Glucose 137 H (74-99) mg/dL POC Glucose (mg/dL) 194 H 156 H (70-110) mg/dL Transferrin 193.0 L (204.0-354.0) mg/dL Microbiology - Last 24 Hours (Table) 05/20/22 22:09 Urine Culture - Preliminary Urine,Voided Diabetes panel 05/21/22 Range/Units 09:59 Sodium 134 L (137-145) mmol/L Potassium 4.5 (3.5-5.1) mmol/L Chloride 104 (98-107) mmol/L Carbon Dioxide 23 (22-30) mmol/L BUN 39 H (7-17) mg/dL Creatinine 2.99 H (0.52-1.04) mg/dL Glucose 137 H (74-99) mg/dL Calcium 8.5 (8.4-10.2) mg/dL Calcium panel 05/21/22 Range/Units 09:59 Calcium 8.5 (8.4-10.2) mg/dL Pituitary panel 05/21/22 Range/Units 09:59 Sodium 134 L (137-145) mmol/L Potassium 4.5 (3.5-5.1) mmol/L Chloride 104 (98-107) mmol/L Carbon Dioxide 23 (22-30) mmol/L BUN 39 H (7-17) mg/dL Creatinine 2.99 H (0.52-1.04) mg/dL Glucose 137 H (74-99) mg/dL Calcium 8.5 (8.4-10.2) mg/dL Adrenal panel 05/21/22 Range/Units 09:59 Sodium 134 L (137-145) mmol/L Potassium 4.5 (3.5-5.1) mmol/L Chloride 104 (98-107) mmol/L Carbon Dioxide 23 (22-30) mmol/L BUN 39 H (7-17) mg/dL Creatinine 2.99 H (0.52-1.04) mg/dL Glucose 137 H (74-99) mg/dL Calcium 8.5 (8.4-10.2) mg/dL - Imaging US - kidney/bladder: report reviewed Assessment and Plan Assessment: The patient is resting in bed with a sitter present for safety. The patient denies any history of kidney stones, urological surgeries, or cancer. She denies any prior difficulties with urination, hematuria or dysuria. Nephrology following for MAGDA. Serum creatinine trending down and was 2.99 yesterday. Today's labs are pending. Kidney/bladder ultrasound showed no evidence of hydronephrosis or nephrolithiasis. No surgical intervention warranted at this time. Recommend maintaining Gomez catheter until kidney function improves. (1) Hydronephrosis Current Visit: Yes Status: Acute Code(s): N13.30 - UNSPECIFIED HYDRONEPHROSIS SNOMED Code(s): 55836604 Plan: - No obstructive uropathy identified, no surgical intervention warranted - Maintain Gomez catheter until kidney function improves Thank you for this consultation Impression and plan of care have been directed as dictated by the signing physician. Radha Bonner nurse practitioner acting as scribe for signing physician. Radha Bonner [facility] Palliative Care/Urology [facility] [id number] Email: [email or web address] I personally performed and participated in the history, physical, the decision making, I agree with the assessment and plan of P[employer]CH[employer]ECT. Ultrasound revealed no hydronephrosis. Given normal follow-up ultrasound no intervention from urology standpoint, hydronephrosis has resolved.
[2022-05-22 10:13] LABS: African American GFR (CKD) 21 (>60 ml/min/1.73 sqM); Anion Gap 6 mmol/L; Blood Urea Nitrogen 35 mg/dL (7-17); Calcium 8.7 mg/dL (8.4-10.2); Carbon Dioxide 23 mmol/L (22-30); Chloride 104 mmol/L (98-107); Glucose 228 mg/dL (74-99); Non-African American GFR(CKD) 18 (>60 ml/min/1.73 sqM); Potassium 4.8 mmol/L (3.5-5.1); Sodium 133 mmol/L (137-145)
[2022-05-22] MEDS: METOPROLOL TARTRATE 50 MG TAB PO SCH ×2 (10:28→21:01)
--- NOTE | 2022-05-22 11:03 | P.PN ---
Subjective Patient is seen in follow-up for acute kidney injury on chronic kidney disease. Renal function improving. Patient was quite agitated earlier this morning and was given Haldol. Currently sitting. Sitter present at bedside. Has Gomez catheter. Nonoliguric. Receiving IV fluids. Vital signs are stable. General: No acute distress. HEENT: Head exam is unremarkable. LUNGS: No audible rhonchi or wheezes. HEART: Rate and Rhythm are regular. ABDOMEN: No distention noted. EXTREMITITES: No edema. Objective - Vital Signs Vital signs: Vital Signs Temp 97.3 F L 05/22/22 07:25 Pulse 102 H 05/22/22 07:25 Resp 18 05/22/22 07:25 BP 156/67 05/22/22 07:25 Pulse Ox 97 05/22/22 07:25 FiO2 Intake & Output 05/21/22 05/22/22 05/22/22 18:59 06:59 18:59 Output Total 0 300 Balance 0 -300 Weight 89.811 kg Output: Urine 0 300 Other: Voiding Method Indwelling Catheter - Labs CBC & Chem 7: 05/22/22 08:46 05/22/22 08:46 Labs: Abnormal Lab Results - Last 24 Hours (Table) 05/21/22 05/21/22 05/22/22 Range/Units 09:59 22:08 05:47 RBC (3.80-5.40) m/uL Hgb (11.4-16.0) gm/dL Hct (34.0-46.0) % Sodium (137-145) mmol/L BUN (7-17) mg/dL Creatinine (0.52-1.04) mg/dL Glucose (74-99) mg/dL POC Glucose (mg/dL) 194 H 156 H (70-110) mg/dL Transferrin 193.0 L (204.0-354.0) mg/dL 05/22/22 05/22/22 Range/Units 08:46 08:46 RBC 2.19 L (3.80-5.40) m/uL Hgb 7.2 L (11.4-16.0) gm/dL Hct 21.3 L (34.0-46.0) % Sodium 133 L (137-145) mmol/L BUN 35 H (7-17) mg/dL Creatinine 2.46 H (0.52-1.04) mg/dL Glucose 228 H (74-99) mg/dL POC Glucose (mg/dL) (70-110) mg/dL Transferrin (204.0-354.0) mg/dL Microbiology - Last 24 Hours (Table) 05/20/22 22:09 Urine Culture - Preliminary Urine,Voided Assessment and Plan Plan: Assessment: 1. Acute kidney injury mostly prerenal secondary to diuresis and further worsened with the use of losartan. Creatinine 3.34 on admission and is 2.46 today. Mild hydronephrosis noted on CAT scan. No interventions planned per urology. 2. Status post fall with left thigh hematoma. Surgery following. Anticoagulation held. 3. Hypovolemic hyponatremia improved with IV hydration. Stable. 4. Diabetes mellitus. 5. Acute blood loss anemia. Hemoglobin 7.2 today. 6. Chronic kidney disease stage III with baseline creatinine in the range of 1- 1.3. Suspect diabetic kidney disease as has proteinuria. Further workup out patient. 7. Hypertension with chronic kidney disease. Stable. 8. Chronic systolic CHF with ejection fraction of 40-45% with mild to moderate pulmonary hypertension. Plan: Maintain IV fluids. Continue to hold diuretics and losartan. Add IV iron. Defer blood transfusion to surgery. Avoid nephrotoxins. Continue to monitor renal function and urine output. Maintain Gomez catheter for now.
[2022-05-22 11:08] LABS: Glucose,Whole Blood 250 mg/dL (70-110)
[2022-05-22] MEDS: SODIUM FERRIC GLUCONAT-SUCROSE 125 MG in SODIUM CHLORIDE 0.9% 100 ML IVPB SCH (12:02)
--- NOTE | 2022-05-22 13:37 | P.CNOR ---
History of Present Illness - HPI Consult date: 05/22/22 Consult reason: other History of present illness: Patient is a pleasant 81 yo female admitted through the ED yesterday. She is seen at bedside this am in consultation for left hip pain/contusion/hematoma. She continues to have pain at the left hip. She denies new complaints including numbness, calf pain, fever, chills, chest pain. HPI: "This is a 81-year-old female who presented to to the ER from a [place] [facility] due to altered mental status and left hip contusion. Apparently per patient's daughter patient has been having multiple falls and has been falling at the [place] [facility]. Patient's left hip contusion was first noted on Friday. And since then the hematoma has increased in size. Patient does report tenderness in that left hip. She is on Eliquis due to history of atrial fibrillation, PE and stroke. Patient did have a drop in her hemoglobin from March she was around 11 and hemoglobin on admission was 8.1. Computed tomography scan completed had shown a left lateral thigh hematoma measuring 9.3 cm. Patient also had evidence of acute kidney injury with a UTI. Daughter reports that patient's mental status has declined over the last 3 months" Review of Systems ROS unobtainable: due to mental status Past Medical History Past Medical History: Atrial Fibrillation, Diabetes Mellitus, Hyperlipidemia, Hypertension, Memory Impairment, Osteoarthritis (OA), Skin Disorder, Thyroid Disorder Additional Past Medical History / Comment(s): Seasonal allergies, psoriasis. 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; Cataract surgery on right eye Feb 26; left eye on Mar 12 with lens implants Past Anesthesia/Blood Transfusion Reactions: No Reported Reaction Additional Past Anesthesia/Blood Transfusion Reaction / Comm: Claustrophobia Past Psychological History: Anxiety Smoking Status: Unknown if ever smoked Past Alcohol Use History: Occasional Past Drug Use History: None Reported - Past Family History Mother Family Medical History: No Reported History Additional Family Medical History / Comment(s): Valve replacement, CAD Medications and Allergies Home Medications Medication Instructions Recorded Confirmed Type Levothyroxine Sodium [Synthroid] 37.5 mcg PO DAILY 12/31/13 05/20/22 History Apixaban [Eliquis] 5 mg PO BID 05/31/21 05/20/22 History Cholecalciferol [Vitamin D3 (25 50 mcg PO DAILY 05/31/21 05/20/22 History Mcg = 1000 Iu)] Folic Acid 0.8 mg PO DAILY 05/31/21 05/20/22 History Insulin Glargine,Hum.rec.anlog 30 unit SQ HS 05/31/21 05/20/22 History [Lantus Solostar Pen] Metoprolol Tartrate [Lopressor] 50 mg PO BID 05/31/21 05/20/22 History metFORMIN HCL [Glucophage] 500 mg PO BID 05/31/21 05/20/22 History Furosemide [Lasix] 20 mg PO DAILY tab 03/25/22 05/20/22 Rx Losartan [Cozaar] 50 mg PO BID tab 03/25/22 05/20/22 Rx Spironolactone [Aldactone] 25 mg PO DAILY tab 03/25/22 05/20/22 Rx Acetaminophen [Tylenol 8 Hour] 650 mg PO Q8H PRN 05/20/22 05/20/22 History Loperamide HCl [Loperamide HCl 7.5 mg PO Q12H PRN 05/20/22 05/20/22 History Oral Susp] Oxybutynin Chloride [Ditropan XL] 5 mg PO DAILY 05/20/22 05/20/22 History Tirzepatide [Mounjaro] 5 mg SQ FR 05/20/22 05/20/22 History Allergies Allergy/AdvReac Type Severity Reaction Status Date / Time adhesive AdvReac peels skin Verified 05/20/22 22:14 off Sulfa (Sulfonamide AdvReac Diarrhea Verified 05/20/22 22:14 Antibiotics) Physical Examination Inspection of the left lower extremity shows no deformity. There is large diffuse echymosis at the left lateral hip/thigh. It is tender to palpation. It is not overly hot to touch. No fluctuance or localized fluid collection. There is mild pain with PROM of the hip at the lateral hip/thigh. No groin pain with IR/ER. The knee, ankle and foot are nontender and have painless ROM. Motor and sensation is grossly intact throughout the left lower extremity. Calf is SNT. 2+ DP pulse and less than 2 sec cap refill. Results - Labs Labs: Abnormal Lab Results - Last 24 Hours (Table) 05/21/22 05/21/22 05/22/22 Range/Units 09:59 22:08 05:47 RBC (3.80-5.40) m/uL Hgb (11.4-16.0) gm/dL Hct (34.0-46.0) % Sodium (137-145) mmol/L BUN (7-17) mg/dL Creatinine (0.52-1.04) mg/dL Glucose (74-99) mg/dL POC Glucose (mg/dL) 194 H 156 H (70-110) mg/dL Transferrin 193.0 L (204.0-354.0) mg/dL 05/22/22 05/22/22 05/22/22 Range/Units 08:46 08:46 11:07 RBC 2.19 L (3.80-5.40) m/uL Hgb 7.2 L (11.4-16.0) gm/dL Hct 21.3 L (34.0-46.0) % Sodium 133 L (137-145) mmol/L BUN 35 H (7-17) mg/dL Creatinine 2.46 H (0.52-1.04) mg/dL Glucose 228 H (74-99) mg/dL POC Glucose (mg/dL) 250 H (70-110) mg/dL Transferrin (204.0-354.0) mg/dL Microbiology - Last 24 Hours (Table) 05/20/22 22:09 Urine Culture - Preliminary Urine,Voided H & H 05/20/22 05/22/22 Range/Units 21:55 08:46 Hgb 8.1 L D 7.2 L (11.4-16.0) gm/dL Hct 24.0 L 21.3 L (34.0-46.0) % Coagulation 05/20/22 Range/Units 21:55 INR 1.0 (<1.2) Result Diagrams: 05/22/22 08:46 05/22/22 08:46 - Diagnostic results Hip CT: report reviewed, image reviewed (no fracture) Assessment and Plan (1) Contusion, hip Narrative/Plan: Patient and studies have been reviewed with Dr. Arias. There is no evidence of fracture and no plans for surgical intervention from orthopedic standpoint. Recommend rest, time, pain management, DVT prophylaxis, and using walker at all times. We will sign off for now. She may f/u as outpatient. Thank you Current Visit: Yes Status: Acute Priority: Medium Code(s): S70.00XA - CONTUSION OF UNSPECIFIED HIP, INITIAL ENCOUNTER SNOMED Code(s): 42024693 Time with Patient: Less than 30
[2022-05-22] MEDS ORDERED: DEXTROSE 50% SYRINGE 50 ML IVP PRN ×2 (14:34)
--- NOTE | 2022-05-22 14:53 | P.PN ---
Subjective Progress Note Date: 05/22/22 CHIEF COMPLAINT: Left hip hematoma HISTORY OF PRESENT ILLNESS: Patient was agitated through the night she did receive Haldol. Surgical service following in regards to patient's left hip hematoma. Recommended ortho consult. And no surgical intervention planned recommended conservative management. Afebrile. WBC is 6.9 Hgb 8.1 down to 7.2 platelets 244 sodium 133 potassium 4.8 creatinine 2.46 PHYSICAL EXAM: VITAL SIGNS: Reviewed. GENERAL: Well-developed in no acute distress. HEENT: No sclera icterus. Extraocular movements grossly intact. Moist buccal mucosa. Head is atraumatic, normocephalic. ABDOMEN: Soft. Nondistended. Nontender. NEUROLOGIC: Alert and oriented. Cranial nerves II through XII grossly intact. Extremities: Left hip hematoma ASSESSMENT: 1. Left hip hematoma due to history of falls and being on Eliquis 2. Anemia due to acute blood loss from hematoma PLAN: -No surgical intervention planned -Orthopedic recommendations noted. No surgery. Recommended rest and pain management -Continue to hold Eliquis -Continue pain management Physician Informatics Nurse Specialist note has been reviewed by physician. Signing provider agrees with the documented findings, assessment, and plan of care. Objective - Vital Signs Vital signs: Vital Signs Temp 98.2 F 05/22/22 14:00 Pulse 61 05/22/22 14:00 Resp 18 05/22/22 14:00 BP 133/64 05/22/22 14:00 Pulse Ox 99 05/22/22 14:00 FiO2 Intake & Output 05/21/22 05/22/22 05/22/22 18:59 06:59 18:59 Output Total 0 300 Balance 0 -300 Weight 89.811 kg Output: Urine 0 300 Other: Voiding Method Indwelling Catheter - Labs CBC & Chem 7: 05/22/22 08:46 05/22/22 08:46 Labs: Abnormal Lab Results - Last 24 Hours (Table) 05/21/22 05/21/22 05/22/22 Range/Units 09:59 22:08 05:47 RBC (3.80-5.40) m/uL Hgb (11.4-16.0) gm/dL Hct (34.0-46.0) % Sodium (137-145) mmol/L BUN (7-17) mg/dL Creatinine (0.52-1.04) mg/dL Glucose (74-99) mg/dL POC Glucose (mg/dL) 194 H 156 H (70-110) mg/dL Transferrin 193.0 L (204.0-354.0) mg/dL 05/22/22 05/22/22 05/22/22 Range/Units 08:46 08:46 11:07 RBC 2.19 L (3.80-5.40) m/uL Hgb 7.2 L (11.4-16.0) gm/dL Hct 21.3 L (34.0-46.0) % Sodium 133 L (137-145) mmol/L BUN 35 H (7-17) mg/dL Creatinine 2.46 H (0.52-1.04) mg/dL Glucose 228 H (74-99) mg/dL POC Glucose (mg/dL) 250 H (70-110) mg/dL Transferrin (204.0-354.0) mg/dL Microbiology - Last 24 Hours (Table) 05/20/22 22:09 Urine Culture - Preliminary Urine,Voided Gram Neg Bacilli
[2022-05-22] MEDS ORDERED: ALPRAZolam 0.25 MG TAB PO PRN (15:26)
--- NOTE | 2022-05-22 15:39 | CT ---
EXAMINATION TYPE: CT brain wo con DATE OF EXAM: 05/22/2022 COMPARISON: 03/14/2022 HISTORY: ams CT DLP: 1147.4 mGycm Automated exposure control for dose reduction was used. FINDINGS: There is no acute intracranial hemorrhage or midline shift identified. There is mild to moderate diff use ventricular and sulcal prominence consistent with diffuse age-related cerebral atrophy. There is mild to moderate low-attenuation in the periventricular white matter consistent with chronic small vessel ischemic change. The globes are intact and the visualized sinuses are clear. IMPRESSION: DEGENERATIVE AND NONSPECIFIC WHITE MATTER CHANGE WITH NO EVIDENCE OF ACUTE HEMORRHAGE, MASS EFFECT OR MIDLINE SHIFT
[2022-05-22 16:10] LABS: Glucose,Whole Blood 190 mg/dL (70-110)
[2022-05-22] MEDS: INSULIN ASPART (NovoLOG) 100 UNIT/ML VIAL SQ SCH ×2 (16:49→21:01)
[2022-05-22 20:43] LABS: Glucose,Whole Blood 182 mg/dL (70-110)
[2022-05-22] MEDS: QUEtiapine 25 MG TAB PO SCH (21:01)
[2022-05-22] MEDS: INSULIN DETEMIR (LEVEMIR) 100 UNIT/ML SYR SQ SCH (21:02)
--- NOTE | 2022-05-22 22:07 | P.PN ---
Subjective Progress Note Date: 05/22/22 81-year-old female came in with left hip contusion.. Patient is on eliquis and has been falling patient has a extensive bruise and hematoma in the left hip area imaging did not show any fracture. Patient is also found to be in acute renal failure baseline creatinine of around 1.3 present creatinine of around 3.5 and admission which has come down to 2.5. She does have history of atrial fibrillation and history of strokes in the past. 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 Hemoglobin did drop from 11-8 and patient is admitted for monitoring patient initially was reported to have al tered mental status although patient mental status appears to be baseline patient did have cognitive decline for few months. 05/22/2022 Patient seen and evaluated in follow-up this morning currently lethargic as nursing staff reports she was extremely agitated and requiring Haldol. Family is concerned patient had a stroke and persistent and adamant she receives a CT of the brain. Family is very concerned with her overall care she had been receiving at the [facility] and working with case management and other accepting facilities once patient is stabilized and discharged. Patient is reporting garrett quency in urination and urine preliminary culture showing gram-negative bacilli. Will add ceftriaxone and await cultures. Patient is maintained on gentle IV hydration and will continue with follow-up labs in the a.m. as patient was maintained on diuretics although extremely dehydrated with multiple electrolyte abnormalities. Patient is currently afebrile with no reports of chest pain or shortness of breath. Patient does continue with confusion per family at bedside although reports her mentation is somewhat improved from when she was initially brought in to the emergency department. Patient does have dementia as well and family report she has had a steady decline over the last 3 months. REVIEW OF SYSTEMS: All other review of systems is negative Active Medications Hydrocodone Bitart/Acetaminophen (Hydrocodone/Apap 5-325mg 1 Each Tab) 1 each PO Q4HR PRN PRN Reason: Severe Pain (Scale 7 to 10) Last Admin: 05/22/22 06:22 Dose: 1 each Alprazolam (Alprazolam 0.25 Mg Tab) 0.25 mg PO HS PRN PRN Reason: Anxiety Stop: 05/23/22 01:00 Dextrose/Water (Dextrose 50% Syringe 50 Ml) 25 ml IVP PER PROTOCOL PRN; Protocol PRN Reason: Hypoglycemia Dextrose/Water (Dextrose 50% Syringe 50 Ml) 50 ml IVP PER PROTOCOL PRN; Protocol PRN Reason: Hypoglycemia Haloperidol Lactate (Haloperidol Lactate 5 Mg/Ml 1 Ml Vial) 3 mg IM Q6HR PRN PRN Reason: Agitation or Acute Psychosis Last Admin: 05/22/22 07:22 Dose: 3 mg Sodium Chloride (Saline 0.9%) 1,000 mls @ 75 mls/hr IV .[id number] [facility] Last Admin: 05/22/22 16:50 Dose: 75 mls/hr Ferric Sodium Gluconate 125 mg (/ Sodium Chloride) 110 mls @ 100 mls/hr IVPB DAILY [facility] Stop: 05/24/22 12:01 Last Admin: 05/22/22 12:02 Dose: 100 mls/hr Ceftriaxone Sodium 2 gm/ (Sodium Chloride) 50 mls @ 100 mls/hr IVPB Q24HR [facility]; Protocol Last Admin: 05/22/22 16:49 Dose: 100 mls/hr Insulin Aspart (Insulin Aspart (Novolog) 100 Unit/Ml Vial) 0 unit SQ [facility]; Protocol Last Admin: 05/22/22 21:01 Dose: 2 unit Insulin Detemir (Insulin Detemir (Levemir) 100 Unit/Ml Syr) 20 unit SQ [facility] Last Admin: 05/22/22 21:02 Dose: 20 unit Levothyroxine Sodium (Levothyroxine 75 Mcg Tab) 37.5 mcg PO DAILY@0630 [facility] Last Admin: 05/22/22 06:22 Dose: 37.5 mcg Metoprolol Tartrate (Metoprolol Tartrate 50 Mg Tab) 50 mg PO BID [facility] Last Admin: 05/22/22 21:01 Dose: 50 mg Naloxone HCl (Naloxone 0.4 Mg/Ml 1 Ml Vial) 0.2 mg IV Q2M PRN PRN Reason: Opioid Reversal Quetiapine Fumarate (Quetiapine 25 Mg Tab) 25 mg PO [facility] Last Admin: 05/22/22 21:01 Dose: 25 mg Tramadol HCl (Tramadol 50 Mg Tab) 50 mg PO QID PRN PRN Reason: Moderate Pain (Scale 4 to 6) PHYSICAL EXAMINATION: GENERAL: The patient is alert and oriented x2, not in any acute distress. Well developed, well nourished. HEENT: Pupils are round and equally reacting to light. EOMI. No scleral icterus. No conjunctival pallor. Normocephalic, atraumatic. No pharyngeal erythema. No thyromegaly. CARDIOVASCULAR: S1 and S2 present. No murmurs, rubs, or gallops. PULMONARY: Chest is clear to auscultation, no wheezing or crackles. ABDOMEN: Soft, nontender, obese, nondistended, normoactive bowel sounds. No palpable organomegaly. MUSCULOSKELETAL: No joint swelling or deformity. EXTREMITIES: No cyanosis, clubbing, or pedal edema. NEUROLOGICAL: Patient doesn't have any new focal deficits but does have generalized weakness SKIN: Large hematoma and bruise in the left hip area, surrounding area is soft and palpable although center area is more tender and taut Assessment: -Large hematoma on the left hip no further intervention at this time monitor hemoglobin hold off on anticoagulation. -Acute renal failure probably secondary to intravascular depletion patient does have history of congestive heart failure for which patient is on diuretics and losartan which will be held for now patient will be continued on gentle IV hydration with follow-up labs -Atrial fibrillation paroxysmal: Patient will continued on rate control medica tions patient is presently rate controlled and sinus rhythm. Daughter is concerned as cardiology took her off amiodarone a week and a half ago and concerned her A. fib will become uncontrolled. Patient does have metoprolol continued and would recommend continued telemetry monitoring -Congestive heart failure chronic systolic dysfunction without any acute exacerbation, patient appears clinically volume depleted and dehydrated patient is bit volume depleted, diuretics and losartan will be held -chronic kidney disease stage III secondary to diabetic nephropathy -Type 2 diabetes mellitus -History of CVA in the past -Hypertension -hyperlipidemia -Hypothyroidism -DVT prophylaxis: Anti-Coagulation being held. Because of large hematoma in the left hip area, recommend SCDs Plan: Patient was on anticoagulation which is currently on hold with general surgery following with no plans for surgical intervention recommending orthopedic evaluation. Orthopedics did evaluate the patient and reviewed imaging with no plans for surgical intervention at this time. Will continue holding anticoagulant and monitor hemoglobin closely. Patient's hemoglobin is 7.2 today with nephrology following as well and has ordered IV iron. Will follow up on repeat labs and transfuse as 7 or less. Patient with some increased confusion and agitation with family at bedside requiring Haldol this morning and family reports this is the exact specific behavior she had when she had her stroke and will order CT brain Daughter at the bedside is also reporting that patient has been having frequency of urination and some irritation and has had frequent urinary tract infections in the past. Will await urine culture finalization is the preliminary is showing gram-negative bacilli and will start ceftriaxone and await cultures Recommend PT/OT therapy evaluation with case management following and will discuss further about discharge planning Patient is continued on gentle IV hydration and diuretics currently on hold showing some minimal improvement in kidney functions with nephrology following and will follow-up with repeat labs. Encouraged oral intake and supervision with meals and will continue monitoring b lood sugars before meals and at bedtime and treat with sliding scale along with long-acting and pre-meal insulin, recommend holding metformin for now given impaired kidney functions Will follow-up on repeat labs in the a.m. The impression and plan of care has been dictated by Lisa Frey, Nurse Practitioner as directed. Dr. Magnus MD I have performed a history and examination and MDM of this patient, discussed the same with the dictator, and agree with the dictator's assessment and plan as written ,documented as a scribe. Based on total visit time, I have performed more than 50% of the visit. Objective - Vital Signs Vital signs: Vital Signs Temp 97.3 F L 05/22/22 07:25 Pulse 102 H 05/22/22 07:25 Resp 18 05/22/22 07:25 BP 156/67 05/22/22 07:25 Pulse Ox 97 05/22/22 07:25 FiO2 Intake & Output 05/21/22 05/22/22 05/22/22 18:59 06:59 18:59 Output Total 0 300 Balance 0 -300 Weight 89.811 kg Output: Urine 0 300 Other: Voiding Method Indwelling Catheter - Labs CBC & Chem 7: 05/22/22 08:46 05/22/22 08:46 Labs: Abnormal Lab Results - Last 24 Hours (Table) 05/21/22 05/21/22 05/22/22 Range/Units 09:59 22:08 05:47 Sodium 134 L (137-145) mmol/L BUN 39 H (7-17) mg/dL Creatinine 2.99 H (0.52-1.04) mg/dL Glucose 137 H (74-99) mg/dL POC Glucose (mg/dL) 194 H 156 H (70-110) mg/dL Transferrin 193.0 L (204.0-354.0) mg/dL Microbiology - Last 24 Hours (Table) 05/20/22 22:09 Urine Culture - Preliminary Urine,Voided
[2022-05-23] MEDS: HYDROcodone/APAP 5-325MG 1 EACH TAB PO PRN (06:14)
[2022-05-23] MEDS: LEVOTHYROXINE 75 MCG TAB PO SCH (06:14)
[2022-05-23 06:15] LABS: Glucose,Whole Blood 109 mg/dL (70-110)
[2022-05-23] MEDS: INSULIN ASPART (NovoLOG) 100 UNIT/ML VIAL SQ SCH ×4 (06:16→20:44)
[2022-05-23 08:13] LABS: African American GFR (CKD) 29 (>60 ml/min/1.73 sqM); Anion Gap 4 mmol/L; Blood Urea Nitrogen 27 mg/dL (7-17); Calcium 8.9 mg/dL (8.4-10.2); Carbon Dioxide 24 mmol/L (22-30); Chloride 108 mmol/L (98-107); Glucose 102 mg/dL (74-99); Non-African American GFR(CKD) 25 (>60 ml/min/1.73 sqM); Potassium 4.8 mmol/L (3.5-5.1); Sodium 136 mmol/L (137-145)
[2022-05-23] MEDS: METOPROLOL TARTRATE 50 MG TAB PO SCH ×2 (10:26→20:33)
--- NOTE | 2022-05-23 11:16 | P.PN ---
Subjective Patient is seen in follow-up for acute kidney injury on chronic kidney disease. Renal function improving. Mentation better. Sitting up in chair. Denies chest pain or shortness of breath. Has Gomez catheter. Nonoliguric. Currently not receiving IV fluids as IV access not working. Vital signs are stable. General: No acute distress. HEENT: Head exam is unremarkable. LUNGS: No audible rhonchi or wheezes. HEART: Rate and Rhythm are regular. ABDOMEN: No distention noted. EXTREMITITES: No edema. Objective - Vital Signs Vital signs: Vital Signs Temp 97.5 F L 05/23/22 07:25 Pulse 51 L 05/23/22 07:25 Resp 16 05/23/22 08:00 BP 132/69 05/23/22 07:25 Pulse Ox 99 05/23/22 07:25 FiO2 Intake & Output 05/22/22 05/23/22 05/23/22 18:59 06:59 18:59 Output Total 575 Balance -575 Output: Urine 575 Other: Voiding Method Indwelling Catheter Indwelling Catheter Indwelling Catheter # Voids 800 # Bowel Movements 1 - Labs CBC & Chem 7: 05/22/22 08:46 05/23/22 06:50 Labs: Abnormal Lab Results - Last 24 Hours (Table) 05/22/22 05/22/22 05/22/22 Range/Units 08:46 16:08 20:41 Sodium (137-145) mmol/L Chloride (98-107) mmol/L BUN (7-17) mg/dL Creatinine (0.52-1.04) mg/dL Glucose (74-99) mg/dL POC Glucose (mg/dL) 190 H 182 H (70-110) mg/dL Hemoglobin A1c 7.5 H (0.0-6.0) % 05/23/22 Range/Units 06:50 Sodium 136 L (137-145) mmol/L Chloride 108 H (98-107) mmol/L BUN 27 H (7-17) mg/dL Creatinine 1.88 H (0.52-1.04) mg/dL Glucose 102 H (74-99) mg/dL POC Glucose (mg/dL) (70-110) mg/dL Hemoglobin A1c (0.0-6.0) % Microbiology - Last 24 Hours (Table) 05/20/22 22:09 Urine Culture - Preliminary Urine,Voided Gram Neg Bacilli Assessment and Plan Plan: Assessment: 1. Acute kidney injury mostly prerenal secondary to diuresis and further worsened with the use of losartan. Creatinine 3.34 on admission and is 1.88 today. Mild hydronephrosis noted on CAT scan. No interventions planned per urology. 2. Status post fall with left thigh hematoma. Surgery following. Anticoagulation held. 3. Hypovolemic hyponatremia improved with IV hydration. Improved. 4. Diabetes mellitus. 5. Acute blood loss anemia. Hemoglobin 7.2 yesterday. Surgery following. 6. Chronic kidney disease stage IIIa with baseline creatinine in the range of 1-1.3. Suspect diabetic kidney disease as has proteinuria. Further workup outpatient. 7. Hypertension with chronic kidney disease. Stable. 8. Chronic systolic CHF with ejection fraction of 40-45% with mild to moderate pulmonary hypertension. Plan: Maintain IV fluids. Continue to hold diuretics and losartan. Maintain IV iron. Defer blood transfusion to surgery. Avoid nephrotoxins. Continue to monitor renal function and urine output. Gomez catheter to be maintained until renal function improves per urology. Plan to do trial avoid tomorrow.
[2022-05-23 11:37] LABS: Glucose,Whole Blood 224 mg/dL (70-110)
[2022-05-23] MEDS: SODIUM FERRIC GLUCONAT-SUCROSE 125 MG in SODIUM CHLORIDE 0.9% 100 ML IVPB SCH (11:54)
--- NOTE | 2022-05-23 12:44 | P.PN ---
Progress Note - Text Progress Note Date: 05/23/22 Patient [place] stable. Patient's significant ecchymosis on her left hip. There is no new hemoglobin back today. On exam vital signs are still. Left hip pain and swelling is unchanged. Left hip ecchymosis and bruising due to fall on thinners. Patient will be medically managed. No surgical intervention is planned.
[2022-05-23] MEDS: SODIUM CHLORIDE 0.9% 1,000 ML IV SCH ×2 (13:13→22:32)
[2022-05-23 13:41] LABS: Basophils % (A) 0 %; Eosinophils # (A) 0.2 k/uL (0-0.7); Eosinophils % (A) 3 %; HCT 22.7 % (34.0-46.0); HGB 7.3 gm/dL (11.4-16.0); Lymphocytes # (A) 1.1 k/uL (1.0-4.8); Lymphocytes % (A) 14 %; MCH 31.5 pg (25.0-35.0); MCV 98.4 fL (80.0-100.0); Macrocytosis Slight; Mean Platelet Volume 9.6; Monocytes # (A) 0.5 k/uL (0-1.0); Monocytes % (A) 6 %; Neutrophils # (A) 5.9 k/uL (1.3-7.7); Neutrophils % (A) 75 %; Platelet Count 302 k/uL (150-450); RDW 15.4 % (11.5-15.5)
[2022-05-23 16:34] LABS: Glucose,Whole Blood 319 mg/dL (70-110)
[2022-05-23 20:20] LABS: Glucose,Whole Blood 270 mg/dL (70-110)
[2022-05-23] MEDS: QUEtiapine 25 MG TAB PO SCH (20:33)
--- NOTE | 2022-05-23 20:34 | P.PN ---
Subjective Progress Note Date: 05/23/22 81-year-old female came in with left hip contusion.. Patient is on eliquis and has been falling patient has a extensive bruise and hematoma in the left hip area imaging did not show any fracture. Patient is also found to be in acute renal failure baseline creatinine of around 1.3 present creatinine of around 3.5 and admission which has come down to 2.5. She does have history of atrial fibrillation and history of strokes in the past. 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 Hemoglobin did drop from 11-8 and patient is admitted for monitoring patient initially was reported to have al tered mental status although patient mental status appears to be baseline patient did have cognitive decline for few months. 05/22/2022 Patient seen and evaluated in follow-up this morning currently lethargic as nursing staff reports she was extremely agitated and requiring Haldol. Family is concerned patient had a stroke and persistent and adamant she receives a CT of the brain. Family is very concerned with her overall care she had been receiving at the [facility] and working with case management and other accepting facilities once patient is stabilized and discharged. Patient is reporting garrett quency in urination and urine preliminary culture showing gram-negative bacilli. Will add ceftriaxone and await cultures. Patient is maintained on gentle IV hydration and will continue with follow-up labs in the a.m. as patient was maintained on diuretics although extremely dehydrated with multiple electrolyte abnormalities. Patient is currently afebrile with no reports of chest pain or shortness of breath. Patient does continue with confusion per family at bedside although reports her mentation is somewhat improved from when she was initially brought in to the emergency department. Patient does have dementia as well and family report she has had a steady decline over the last 3 months. 05/23/2022 Patient is seen and evaluated in follow-up today and is maintained on ceftriaxone with urine cultures pulmonary showing gram-negative and half finalized with E. coli with sensitivities. Kidney functions are improving with nephrology following closely and maintained on gentle IV hydration. Patient continues to have waxing and waning of confusion and does have history of dementia. Recommend PT/OT therapy daily and planning on ECF on discharge. Currently working on [facility] with insurance authorization. Will follow-up with repeat labs and continue to monitor closely. Patient is much more calm and appropriate today and will continue Seroquel at night. REVIEW OF SYSTEMS: Unable to completely obtain as patient has episodes of confusion Active Medications Acetaminophen (Acetaminophen Tab 325 Mg Tab) 650 mg PO Q6HR PRN PRN Reason: Fever and/ or Pain Alprazolam (Alprazolam 0.25 Mg Tab) 0.25 mg PO HS PRN PRN Reason: Anxiety Dextrose/Water (Dextrose 50% Syringe 50 Ml) 25 ml IVP PER PROTOCOL PRN; Protocol PRN Reason: Hypoglycemia Dextrose/Water (Dextrose 50% Syringe 50 Ml) 50 ml IVP PER PROTOCOL PRN; Protocol PRN Reason: Hypoglycemia Haloperidol Lactate (Haloperidol Lactate 5 Mg/Ml 1 Ml Vial) 3 mg IM Q6HR PRN PRN Reason: Agitation or Acute Psychosis Last Admin: 05/22/22 07:22 Dose: 3 mg Sodium Chloride (Saline 0.9%) 1,000 mls @ 75 mls/hr IV .[id number] [facility] Last Admin: 05/23/22 13:13 Dose: 75 mls/hr Ferric Sodium Gluconate 125 mg (/ Sodium Chloride) 110 mls @ 100 mls/hr IVPB DAILY [facility] Stop: 05/24/22 12:01 Last Admin: 05/23/22 11:54 Dose: 100 mls/hr Ceftriaxone Sodium 2 gm/ (Sodium Chloride) 50 mls @ 100 mls/hr IVPB Q24HR [facility]; Protocol Last Admin: 05/23/22 13:12 Dose: 100 mls/hr Insulin Aspart (Insulin Aspart (Novolog) 100 Unit/Ml Vial) 0 unit SQ [facility]; Protocol Last Admin: 05/23/22 17:35 Dose: 100 unit Insulin Detemir (Insulin Detemir (Levemir) 100 Unit/Ml Syr) 20 unit SQ [facility] Last Admin: 05/22/22 21:02 Dose: 20 unit Levothyroxine Sodium (Levothyroxine 75 Mcg Tab) 37.5 mcg PO DAILY@0630 [facility] Last Admin: 05/23/22 06:14 Dose: 37.5 mcg Metoprolol Tartrate (Metoprolol Tartrate 50 Mg Tab) 50 mg PO BID [facility] Last Admin: 05/23/22 10:26 Dose: Not Given Naloxone HCl (Naloxone 0.4 Mg/Ml 1 Ml Vial) 0.2 mg IV Q2M PRN PRN Reason: Opioid Reversal Quetiapine Fumarate (Quetiapine 25 Mg Tab) 25 mg PO HS [facility] Last Admin: 05/22/22 21:01 Dose: 25 mg Tramadol HCl (Tramadol 50 Mg Tab) 50 mg PO QID PRN PRN Reason: Moderate Pain (Scale 4 to 6) PHYSICAL EXAMINATION: GENERAL: The patient is alert and oriented x2, not in any acute distress. Well developed, well nourished. HEENT: Pupils are round and equally reacting to light. EOMI. No scleral icterus. No conjunctival pallor. Normocephalic, atraumatic. No pharyngeal erythema. No thyromegaly. CARDIOVASCULAR: S1 and S2 present. No murmurs, rubs, or gallops. PULMONARY: Chest is clear to auscultation, no wheezing or crackles. ABDOMEN: Soft, nontender, obese, nondistended, normoactive bowel sounds. No palpable organomegaly. MUSCULOSKELETAL: No joint swelling or deformity. EXTREMITIES: No cyanosis, clubbing, or pedal edema. NEUROLOGICAL: Patient doesn't have any new focal deficits but does have generalized weakness SKIN: Large hematoma and bruise in the left hip area, surrounding area is soft and palpable although center area is more tender and taut Assessment: -Large hematoma on the left hip, no plans for surgical intervention at this time, monitor hemoglobin hold off on anticoagulation. -Acute renal failure probably secondary to intravascular depletion patient does have history of congestive heart failure for which patient is on diuretics and losartan which will be held for now patient will be continued on gentle IV hydration with follow-up labs -Atrial fibrillation paroxysmal: Patient will continued on rate control medications patient is presently rate controlled and sinus rhythm. -Congestive heart failure chronic systolic dysfunction without any acute exacerbation, patient appears clinically volume depleted and dehydrated patient is bit volume depleted, diuretics and losartan will be held -chronic kidney disease stage III secondary to diabetic nephropathy -Type 2 diabetes mellitus -History of CVA in the past -Hypertension -hyperlipidemia -Hypothyroidism -DVT prophylaxis: Anti-Coagulation being held. Because of large hematoma in the left hip area, recommend SCDs Plan: Patient was on anticoagulation which is currently on hold with general surgery following with no plans for surgical intervention recommending orthopedic evaluation. Orthopedics did evaluate the patient and reviewed imaging with no plans for surgical intervention at this time. Will continue holding anticoagu lant and monitor hemoglobin closely. Patient's hemoglobin is 7.4 today with nephrology following as well and receiving IV iron. Will follow up on repeat labs and transfuse as 7 or less. Patient's mentation improved although continues to have waxing and waning and recommend holding [facility] as she did receive an or cough early this morning and will continue Ultram or Tylenol as needed Urine culture has finalized with E. coli with multiple sensitivities and will continue ceftriaxone and transitioned to Ceftin for a short course Recommend PT/OT therapy evaluation with case management following and will discuss further about discharge planning, planning on possible [place] Patient is continued on gentle IV hydration and diuretics currently on hold showing some improvement in kidney functions with nephrology following and will follow-up with repeat labs. Encouraged oral intake and supervision with meals and will continue monitoring blood sugars before meals and at bedtime and treat with sliding scale along with long-acting and pre-meal insulin, recommend holding metformin for now given i mpaired kidney functions Will follow-up on repeat labs in the a.m. Possible discharge to ECF in the next 24-48 hours The impression and plan of care has been dictated by Lisa Frey, Nurse Practitioner as directed. Dr. Magnus MD I have performed a history and examination and MDM of this patient, discussed the same with the dictator, and agree with the dictator's assessment and plan as written ,documented as a scribe. Based on total visit time, I have performed more than 50% of the visit. Objective - Vital Signs Vital signs: Vital Signs Temp 97.9 F 05/23/22 14:00 Pulse 66 05/23/22 14:00 Resp 17 05/23/22 14:00 BP 149/72 05/23/22 14:00 Pulse Ox 98 05/23/22 14:00 FiO2 Intake & Output 05/22/22 05/23/22 05/23/22 18:59 06:59 18:59 Output Total 575 600 Balance -575 -600 Output: Urine 575 600 Other: Voiding Method Indwelling Catheter Indwelling Catheter Indwelling Catheter # Voids 800 # Bowel Movements 1 - Labs CBC & Chem 7: 05/23/22 06:00 05/23/22 06:50 Labs: Abnormal Lab Results - Last 24 Hours (Table) 05/22/22 05/22/22 05/22/22 Range/Units 08:46 16:08 20:41 RBC (3.80-5.40) m/uL Hgb (11.4-16.0) gm/dL Hct (34.0-46.0) % Sodium (137-145) mmol/L Chloride (98-107) mmol/L BUN (7-17) mg/dL Creatinine (0.52-1.04) mg/dL Glucose (74-99) mg/dL POC Glucose (mg/dL) 190 H 182 H (70-110) mg/dL Hemoglobin A1c 7.5 H (0.0-6.0) % 05/23/22 05/23/22 05/23/22 Range/Units 06:00 06:50 11:36 RBC 2.30 L (3.80-5.40) m/uL Hgb 7.3 L (11.4-16.0) gm/dL Hct 22.7 L (34.0-46.0) % Sodium 136 L (137-145) mmol/L Chloride 108 H (98-107) mmol/L BUN 27 H (7-17) mg/dL Creatinine 1.88 H (0.52-1.04) mg/dL Glucose 102 H (74-99) mg/dL POC Glucose (mg/dL) 224 H (70-110) mg/dL Hemoglobin A1c (0.0-6.0) % Microbiology - Last 24 Hours (Table) 05/20/22 22:09 Urine Culture - Final Urine,Voided Escherichia coli
[2022-05-23] MEDS: traMADol 50 MG TAB PO PRN (20:35)
[2022-05-23] MEDS: INSULIN DETEMIR (LEVEMIR) 100 UNIT/ML SYR SQ SCH (20:43)
[2022-05-23] MEDS: ALPRAZolam 0.25 MG TAB PO PRN (22:30)
[2022-05-24 06:07] LABS: Glucose,Whole Blood 124 mg/dL (70-110)
[2022-05-24 06:40] LABS: African American GFR (CKD) 29 (>60 ml/min/1.73 sqM); Anion Gap 2 mmol/L; Blood Urea Nitrogen 26 mg/dL (7-17); Calcium 8.4 mg/dL (8.4-10.2); Carbon Dioxide 24 mmol/L (22-30); Chloride 107 mmol/L (98-107); Glucose 101 mg/dL (74-99); Magnesium 1.9 mg/dL (1.6-2.3); Non-African American GFR(CKD) 25 (>60 ml/min/1.73 sqM); Potassium 4.5 mmol/L (3.5-5.1); Sodium 133 mmol/L (137-145)
[2022-05-24] MEDS: LEVOTHYROXINE 75 MCG TAB PO SCH (06:40)
[2022-05-24 08:21] LABS: Glucose,Whole Blood 132 mg/dL (70-110)
[2022-05-24] MEDS: INSULIN ASPART (NovoLOG) 100 UNIT/ML VIAL SQ SCH ×4 (09:17→20:21)
[2022-05-24] MEDS: METOPROLOL TARTRATE 50 MG TAB PO SCH ×2 (09:18→20:21)
[2022-05-24] MEDS: SODIUM FERRIC GLUCONAT-SUCROSE 125 MG in SODIUM CHLORIDE 0.9% 100 ML IVPB SCH (10:36)
[2022-05-24] MEDS: SODIUM CHLORIDE 0.9% 1,000 ML IV SCH (10:36)
--- NOTE | 2022-05-24 10:56 | P.PN ---
Subjective Patient is seen in follow-up for acute kidney injury on chronic kidney disease. Renal function improved from admission. Crit stable at 1.8 today. Mentation better. Sitting up in chair. Denies chest pain or shortness of breath. Has Gomez catheter. Nonoliguric. Receiving IV fluids. Vital signs are stable. General: No acute distress. HEENT: Head exam is unremarkable. LUNGS: No audible rhonchi or wheezes. HEART: Rate and Rhythm are regular. ABDOMEN: No distention noted. EXTREMITITES: No edema. Objective - Vital Signs Vital signs: Vital Signs Temp 97.3 F L 05/24/22 08:00 Pulse 51 L 05/24/22 08:00 Resp 13 05/24/22 08:00 BP 143/70 05/24/22 08:00 Pulse Ox 96 05/24/22 08:00 FiO2 Intake & Output 05/23/22 05/24/22 05/24/22 18:59 06:59 18:59 Output Total 600 725 Balance -600 -725 Output: Urine 600 725 Other: Voiding Method Indwelling Catheter Indwelling Catheter # Bowel Movements 1 - Labs CBC & Chem 7: 05/23/22 06:00 05/24/22 05:56 Labs: Abnormal Lab Results - Last 24 Hours (Table) 05/23/22 05/23/22 05/23/22 Range/Units 06:00 11:36 16:32 RBC 2.30 L (3.80-5.40) m/uL Hgb 7.3 L (11.4-16.0) gm/dL Hct 22.7 L (34.0-46.0) % Sodium (137-145) mmol/L BUN (7-17) mg/dL Creatinine (0.52-1.04) mg/dL Glucose (74-99) mg/dL POC Glucose (mg/dL) 224 H 319 H (70-110) mg/dL 05/23/22 05/24/22 05/24/22 Range/Units 20:18 05:56 06:04 RBC (3.80-5.40) m/uL Hgb (11.4-16.0) gm/dL Hct (34.0-46.0) % Sodium 133 L (137-145) mmol/L BUN 26 H (7-17) mg/dL Creatinine 1.88 H (0.52-1.04) mg/dL Glucose 101 H (74-99) mg/dL POC Glucose (mg/dL) 270 H 124 H (70-110) mg/dL 05/24/22 Range/Units 08:20 RBC (3.80-5.40) m/uL Hgb (11.4-16.0) gm/dL Hct (34.0-46.0) % Sodium (137-145) mmol/L BUN (7-17) mg/dL Creatinine (0.52-1.04) mg/dL Glucose (74-99) mg/dL POC Glucose (mg/dL) 132 H (70-110) mg/dL Microbiology - Last 24 Hours (Table) 05/20/22 22:09 Urine Culture - Final Urine,Voided Escherichia coli Assessment and Plan Plan: Assessment: 1. Acute kidney injury mostly prerenal secondary to diuresis and further worsened with the use of losartan. Creatinine 3.34 on admission and is stable at 1.88 today. Mild hydronephrosis noted on CAT scan. No interventions planned per urology. 2. Status post fall with left thigh hematoma. Surgery following. Anticoagulation held. 3. Hypovolemic hyponatremia improved with IV hydration. 4. Diabetes mellitus. 5. Acute blood loss anemia. Hemoglobin 7.3 yesterday. Surgery following. 6. Chronic kidney disease stage IIIa with baseline creatinine in the range of 1-1.3. Suspect diabetic kidney disease as has proteinuria. Further workup outpatient. 7. Hypertension with chronic kidney disease. Stable. 8. Chronic systolic CHF with ejection fraction of 40-45% with mild to moderate pulmonary hypertension. 9. E. coli UTI on antibiotics. Plan: Maintain IV fluids - decrease rate to 50 cc/hr. Encouraged oral intake. Continue to hold diuretics and losartan. Maintain IV iron. Defer blood transfusion to surgery. Avoid nephrotoxins. Continue to monitor renal function and urine output. Gomez catheter to be maintained until renal function improves per urology. Plan for trial of void today.
[2022-05-24 11:19] LABS: Glucose,Whole Blood 186 mg/dL (70-110)
[2022-05-24 11:38] LABS: MCHC 32.8 g/dL (32.0-37.0); MCV 100.5 fL (80.0-97.0); Mean Platelet Volume 9.7 fL (9.5-12.2); NRBC Per 100 WBC 0.3 /100 WBCS (0.0-0.0); Platelet Count 274 X 10*3/uL (140-440); RBC 1.88 X 10*6/uL (4.10-5.20); RDW 15.2 % (11.5-14.5); WBC 9.19 X 10*3/uL (4.50-10.00)
[2022-05-24 12:10] LABS: Basophils # (A) 0.02 X 10*3/uL (0.00-0.10); Basophils % (A) 0.2 %; Eosinophils % (A) 2.2 %; Immature Grans, Automated 1.6 %; Lymphocytes # (A) 1.41 X 10*3/uL (0.90-5.00); Lymphocytes % (A) 15.3 %; Monocytes # (A) 0.75 X 10*3/uL (0.20-1.00); Monocytes % (A) 8.2 %; Neutrophils # (A) 6.66 X 10*3/uL (1.80-7.70); Neutrophils % (A) 72.5 %
--- NOTE | 2022-05-24 12:12 | P.PN ---
Progress Note - Text Progress Note Date: 05/24/22 Patient remains stable. Her he will this morning is 6.2. She has been ordered a unit of packed cells. On exam vital signs are stable. Left thigh ecchymosis is stable. Anemia due to thigh trauma. Patient will continue receive supportive care.
--- NOTE | 2022-05-24 15:22 | P.PN ---
Subjective Progress Note Date: 05/24/22 81-year-old female came in with left hip contusion.. Patient is on eliquis and has been falling patient has a extensive bruise and hematoma in the left hip area imaging did not show any fracture. Patient is also found to be in acute renal failure baseline creatinine of around 1.3 present creatinine of around 3.5 and admission which has come down to 2.5. She does have history of atrial fibrillation and history of strokes in the past. 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 Hemoglobin did drop from 11-8 and patient is admitted for monitoring patient initially was reported to have al tered mental status although patient mental status appears to be baseline patient did have cognitive decline for few months. 05/22/2022 Patient seen and evaluated in follow-up this morning currently lethargic as nursing staff reports she was extremely agitated and requiring Haldol. Family is concerned patient had a stroke and persistent and adamant she receives a CT of the brain. Family is very concerned with her overall care she had been receiving at the [facility] and working with case management and other accepting facilities once patient is stabilized and discharged. Patient is reporting garrett quency in urination and urine preliminary culture showing gram-negative bacilli. Will add ceftriaxone and await cultures. Patient is maintained on gentle IV hydration and will continue with follow-up labs in the a.m. as patient was maintained on diuretics although extremely dehydrated with multiple electrolyte abnormalities. Patient is currently afebrile with no reports of chest pain or shortness of breath. Patient does continue with confusion per family at bedside although reports her mentation is somewhat improved from when she was initially brought in to the emergency department. Patient does have dementia as well and family report she has had a steady decline over the last 3 months. 05/23/2022 Patient is seen and evaluated in follow-up today and is maintained on ceftriaxone with urine cultures pulmonary showing gram-negative and half finalized with E. coli with sensitivities. Kidney functions are improving with nephrology following closely and maintained on gentle IV hydration. Patient continues to have waxing and waning of confusion and does have history of dementia. Recommend PT/OT therapy daily and planning on ECF on discharge. Currently working on [facility] with insurance authorization. Will follow-up with repeat labs and continue to monitor closely. Patient is much more calm and appropriate today and will continue Seroquel at night. 05/24/2022 Patient is seen and evaluated in follow-up today currently sitting up in the chair awake, alert and oriented 2 respond to questions and commands appropriately. Patient has been calm and cooperative in taking medications as prescribed. Patient has not required any Haldol as this was given as a one-time order when patient was confused when she initially came in and was not taking any of her oral medications. Patient does take Seroquel and will continue and has been taking them since. Patient also being followed closely for an acute urinary tract infection which showed E. coli on the finalized culture with sensitivities and will continue ceftriaxone and transitioned oral Ceftin on discharge. Patient with follow-up labs that were sent to [facility] showing a hemoglobin of 6.2 and concerned as this is a false reading and repeat hemoglobin was ordered as well as family request repeat as her daughter works in the lab and is concerned that this is a false reading as well. Patient does have chron ic kidney disease with chronic iron deficiency anemia and does have this left- sided hip hematoma with nephrology and orthopedics following. Patient is held on anticoagulation for now until hematoma resolves as instructed by orthopedics as well as surgery. No plans for surgical intervention and recommend close monitoring. Patient does continue with weakness and physical therapy is recommending rehab and patient's family would like her to go to [facility]. Patient is currently afebrile denies chest pain or shortness of breath with no reports of nausea or vomiting and is tolerating diet. Case management following working on insurance authorization and accepting facility. Review of systems: Constitutional: No reports of fatigue, fever, or chills Cardiovascular: No reports of chest pain or palpitations Respiratory: No reports of shortness of breath or cough GI: No reports of nausea, vomiting, or diarrhea : No reports of dysuria or retention Neurovascular: reports of generalized weakness All medications have been reviewed Active Medications Acetaminophen (Acetaminophen Tab 325 Mg Tab) 650 mg PO Q6HR PRN PRN Reason: Fever and/ or Pain Alprazolam (Alprazolam 0.25 Mg Tab) 0.25 mg PO HS PRN PRN Reason: Anxiety Last Admin: 05/23/22 22:30 Dose: 0.25 mg Dextrose/Water (Dextrose 50% Syringe 50 Ml) 25 ml IVP PER PROTOCOL PRN; Protocol PRN Reason: Hypoglycemia Dextrose/Water (Dextrose 50% Syringe 50 Ml) 50 ml IVP PER PROTOCOL PRN; Protocol PRN Reason: Hypoglycemia Sodium Chloride (Saline 0.9%) 1,000 mls @ 50 mls/hr IV .Q20H [facility] Last Admin: 05/24/22 10:36 Dose: 75 mls/hr Ceftriaxone Sodium 2 gm/ (Sodium Chloride) 50 mls @ 100 mls/hr IVPB Q24HR [facility]; Protocol Last Admin: 05/24/22 10:35 Dose: 100 mls/hr Insulin Aspart (Insulin Aspart (Novolog) 100 Unit/Ml Vial) 0 unit SQ [facility]; Protocol Last Admin: 05/24/22 12:41 Dose: 2 unit Insulin Detemir (Insulin Detemir (Levemir) 100 Unit/Ml Syr) 20 unit SQ [facility] Last Admin: 05/23/22 20:43 Dose: 20 unit Levothyroxine Sodium (Levothyroxine 75 Mcg Tab) 37.5 mcg PO DAILY@0630 [facility] Last Admin: 05/24/22 06:40 Dose: 37.5 mcg Metoprolol Tartrate (Metoprolol Tartrate 50 Mg Tab) 50 mg PO BID [facility] Last Admin: 05/24/22 09:18 Dose: Not Given Naloxone HCl (Naloxone 0.4 Mg/Ml 1 Ml Vial) 0.2 mg IV Q2M PRN PRN Reason: Opioid Reversal Quetiapine Fumarate (Quetiapine 25 Mg Tab) 25 mg PO [facility] Last Admin: 05/23/22 20:33 Dose: 25 mg Tramadol HCl (Tramadol 50 Mg Tab) 50 mg PO QID PRN PRN Reason: Moderate Pain (Scale 4 to 6) Last Admin: 05/23/22 20:35 Dose: 50 mg PHYSICAL EXAMINATION: GENERAL: The patient is alert and oriented x2, not in any acute distress current ly sitting up in the chair. Well developed, well nourished. Obese HEENT: Pupils are round and equally reacting to light. EOMI. No scleral icterus. No conjunctival pallor. Normocephalic, atraumatic. No pharyngeal erythema. No thyromegaly. CARDIOVASCULAR: S1 and S2 present. No murmurs, rubs, or gallops. PULMONARY: Chest is clear to auscultation, no wheezing or crackles. ABDOMEN: Soft, nontender, obese, nondistended, normoactive bowel sounds. No palpable organomegaly. MUSCULOSKELETAL: No joint swelling or deformity. EXTREMITIES: No cyanosis, clubbing, or pedal edema. NEUROLOGICAL: Patient doesn't have any new focal deficits but does have generalized weakness SKIN: Large hematoma and bruise in the left hip area, surrounding area is soft and palpable although center area is more tender and taut Assessment: -Large hematoma on the left hip, no plans for surgical intervention at this ti me, monitor hemoglobin hold off on anticoagulation. -Acute renal failure probably secondary to intravascular depletion as well as diuretic and losartan use, improving -Atrial fibrillation paroxysmal: Patient will continued on rate control medications patient is presently rate controlled and sinus rhythm. -Congestive heart failure chronic systolic dysfunction without any acute exacerbation, patient appears clinically volume depleted and dehydrated patient is bit volume depleted, diuretics and losartan will be held -chronic kidney disease stage III secondary to diabetic nephropathy -Chronic anemia due to CKD as well as iron deficiency anemia -Type 2 diabetes mellitus -History of CVA in the past -Hypertension -hyperlipidemia -Hypothyroidism -DVT prophylaxis: Anti-Coagulation being held. Because of large hematoma in the left hip area, recommend SCDs Plan: Patient was on anticoagulation which is currently on hold with general surgery following with no plans for surgical intervention recommending orthopedic evaluation. Orthopedics did evaluate the patient and reviewed imaging with no plans for surgical intervention at this time. Will continue holding anticoagulant and monitor hemoglobin closely. Patient's hemoglobin is 6.2 today and awaiting a stat repeat is concerned as this specimen is possibly false. Family requesting a repeat stat call prior to. This incision as well. Daughter works in the lab and is concerned that this is a false reading as this is a send out to [facility]. nephrology following as well and receiving IV iron. Will follow up on repeat labs and transfuse as 7 or less. Patient's mentation improved although continues to have waxing and waning due to dementia although much more alert today and able to answer questions and responds appropriately and follows commands appropriately. Patient is sitting up in the chair and reporting less pain in her hip. Patient is taking her medication and is continued on as needed Xanax at night low-dose as well as Seroquel. Patient has not required any Haldol and has not required a sitter. Urine culture has finalized with E. coli with multiple sensitivities and will continue ceftriaxone and transitioned to Ceftin for a short course Recommend PT/OT therapy evaluation with case management following and will discuss further about discharge planning to ECF and will require insurance authorization. Patient is continued on gentle IV hydration and diuretics currently on hold showing some improvement in kidney functions with nephrology following and will follow-up with repeat labs. Encouraged oral intake and supervision with meals and will continue monitoring blood sugars before meals and at bedtime and treat with sliding scale along with long-acting and pre-meal insulin, recommend holding metformin for now given impaired kidney functions Will follow-up on repeat labs in the a.m. Possible discharge to ECF in the next 24-48 hours The impression and plan of care has been dictated by Lisa Frey, Nurse Practitioner as directed. Dr. Henry MD I have performed a history and examination and MDM of this patient, discussed the same with the dictator, and agree with the dictator's assessment and plan as written ,documented as a scribe. Based on total visit time, I have performed more than 50% of the visit. Objective - Vital Signs Vital signs: Vital Signs Temp 97.4 F L 05/24/22 14:00 Pulse 59 L 05/24/22 14:00 Resp 14 05/24/22 14:00 BP 136/64 05/24/22 14:00 Pulse Ox 98 05/24/22 14:00 FiO2 Intake & Output 05/23/22 05/24/22 05/24/22 18:59 06:59 18:59 Output Total 600 725 Balance -600 -725 Output: Urine 600 725 Other: Voiding Method Indwelling Catheter Indwelling Catheter Indwelling Catheter # Bowel Movements 1 - Labs CBC & Chem 7: 05/24/22 05:56 05/24/22 05:56 Labs: Abnormal Lab Results - Last 24 Hours (Table) 05/23/22 05/23/22 05/24/22 Range/Units 16:32 20:18 05:56 RBC (4.10-5.20) X 10*6/uL Hgb (12.0-15.0) g/dL Hct (37.2-46.3) % MCV (80.0-97.0) fL MCH (27.0-32.0) pg RDW (11.5-14.5) % Absolute Nucleated RBC (0.00-0.00) X 10*3/uL Immature Gran # (0.00-0.04) X 10*3/uL NRBC/100 WBC Diff (0.0-0.0) /100 WBCS Sodium 133 L (137-145) mmol/L BUN 26 H (7-17) mg/dL Creatinine 1.88 H (0.52-1.04) mg/dL Glucose 101 H (74-99) mg/dL POC Glucose (mg/dL) 319 H 270 H (70-110) mg/dL Crossmatch 05/24/22 05/24/22 05/24/22 Range/Units 05:56 06:04 08:20 RBC 1.88 L (4.10-5.20) X 10*6/uL Hgb 6.2 L* (12.0-15.0) g/dL Hct 18.9 L* (37.2-46.3) % MCV 100.5 H (80.0-97.0) fL MCH 33.0 H (27.0-32.0) pg RDW 15.2 H (11.5-14.5) % Absolute Nucleated RBC 0.03 H (0.00-0.00) X 10*3/uL Immature Gran # 0.15 H (0.00-0.04) X 10*3/uL NRBC/100 WBC Diff 0.3 H (0.0-0.0) /100 WBCS Sodium (137-145) mmol/L BUN (7-17) mg/dL Creatinine (0.52-1.04) mg/dL Glucose (74-99) mg/dL POC Glucose (mg/dL) 124 H 132 H (70-110) mg/dL Crossmatch 05/24/22 05/24/22 Range/Units 11:18 12:48 RBC (4.10-5.20) X 10*6/uL Hgb (12.0-15.0) g/dL Hct (37.2-46.3) % MCV (80.0-97.0) fL MCH (27.0-32.0) pg RDW (11.5-14.5) % Absolute Nucleated RBC (0.00-0.00) X 10*3/uL Immature Gran # (0.00-0.04) X 10*3/uL NRBC/100 WBC Diff (0.0-0.0) /100 WBCS Sodium (137-145) mmol/L BUN (7-17) mg/dL Creatinine (0.52-1.04) mg/dL Glucose (74-99) mg/dL POC Glucose (mg/dL) 186 H (70-110) mg/dL Crossmatch See Detail Microbiology - Last 24 Hours (Table) 05/20/22 22:09 Urine Culture - Final Urine,Voided Escherichia coli
[2022-05-24 15:29] LABS: HCT 22.4 % (34.0-46.0); HGB 7.4 gm/dL (11.4-16.0); MCH 33.4 pg (25.0-35.0); MCHC 32.9 g/dL (31.0-37.0); MCV 101.5 fL (80.0-100.0); Macrocytosis Slight; Mean Platelet Volume 8.9; Platelet Count 316 k/uL (150-450); RBC 2.21 m/uL (3.80-5.40); RDW 15.8 % (11.5-15.5); WBC 9.2 k/uL (3.8-10.6)
[2022-05-24 15:36] LABS: Glucose,Whole Blood 227 mg/dL (70-110)
[2022-05-24 19:52] LABS: Glucose,Whole Blood 205 mg/dL (70-110)
[2022-05-24] MEDS: QUEtiapine 25 MG TAB PO SCH (20:21)
[2022-05-24] MEDS: INSULIN DETEMIR (LEVEMIR) 100 UNIT/ML SYR SQ SCH (20:21)
[2022-05-24] MEDS: ALPRAZolam 0.25 MG TAB PO PRN (20:23)
[2022-05-25] MEDS: LEVOTHYROXINE 75 MCG TAB PO SCH (06:02)
[2022-05-25 06:10] LABS: Glucose,Whole Blood 186 mg/dL (70-110)
[2022-05-25] MEDS: INSULIN ASPART (NovoLOG) 100 UNIT/ML VIAL SQ SCH ×4 (06:26→20:39)
[2022-05-25] MEDS: METOPROLOL TARTRATE 50 MG TAB PO SCH ×2 (07:50→20:39)
--- NOTE | 2022-05-25 09:54 | P.PN ---
Subjective Progress Note Date: 05/25/22 Principal diagnosis: Left thigh hematoma Patient says her pain is gradually improving. She is ambulating with a walker. No drainage from the skin site. Objective - Vital Signs Vital signs: Vital Signs Temp 98.6 F 05/25/22 07:05 Pulse 62 05/25/22 07:05 Resp 18 05/25/22 07:05 BP 153/69 05/25/22 07:05 Pulse Ox 99 05/25/22 07:05 FiO2 Intake & Output 05/24/22 05/25/22 05/25/22 18:59 06:59 18:59 Output Total 900 1100 Balance -900 -1100 Output: Urine 900 1100 Other: Voiding Method Indwelling Catheter Indwelling Catheter # Bowel Movements 1 - Exam Left thigh with large hematoma, skin is soft without tenseness, no necrosis of the skin - Labs CBC & Chem 7: 05/24/22 15:04 05/24/22 05:56 Labs: Abnormal Lab Results - Last 24 Hours (Table) 05/24/22 05/24/22 05/24/22 Range/Units 05:56 11:18 12:48 RBC 1.88 L (4.10-5.20) X 10*6/uL Hgb 6.2 L* (12.0-15.0) g/dL Hct 18.9 L* (37.2-46.3) % MCV 100.5 H (80.0-97.0) fL MCH 33.0 H (27.0-32.0) pg RDW 15.2 H (11.5-14.5) % Absolute Nucleated RBC 0.03 H (0.00-0.00) X 10*3/uL Immature Gran # 0.15 H (0.00-0.04) X 10*3/uL NRBC/100 WBC Diff 0.3 H (0.0-0.0) /100 WBCS POC Glucose (mg/dL) 186 H (70-110) mg/dL Crossmatch See Detail 05/24/22 05/24/22 05/24/22 Range/Units 15:04 15:35 19:51 RBC 2.21 L (4.10-5.20) X 10*6/uL Hgb 7.4 L (12.0-15.0) g/dL Hct 22.4 L (37.2-46.3) % MCV 101.5 H (80.0-97.0) fL MCH (27.0-32.0) pg RDW 15.8 H (11.5-14.5) % Absolute Nucleated RBC (0.00-0.00) X 10*3/uL Immature Gran # (0.00-0.04) X 10*3/uL NRBC/100 WBC Diff (0.0-0.0) /100 WBCS POC Glucose (mg/dL) 227 H 205 H (70-110) mg/dL Crossmatch 05/25/22 Range/Units 06:08 RBC (4.10-5.20) X 10*6/uL Hgb (12.0-15.0) g/dL Hct (37.2-46.3) % MCV (80.0-97.0) fL MCH (27.0-32.0) pg RDW (11.5-14.5) % Absolute Nucleated RBC (0.00-0.00) X 10*3/uL Immature Gran # (0.00-0.04) X 10*3/uL NRBC/100 WBC Diff (0.0-0.0) /100 WBCS POC Glucose (mg/dL) 186 H (70-110) mg/dL Crossmatch Assessment and Plan Plan: Patient seen to be gradually improving. Continue increasing activity.
--- NOTE | 2022-05-25 09:59 | P.PN ---
Subjective Progress Note Date: 05/25/22 Principal diagnosis: This is 81-year-old female followed up with acute kidney injury secondary to diuresis and losartan. Additionally she has chronic kidney disease, stage III with proteinuria of 9 and 38 mg/g of creatinine dated 03/22/2020, baseline 1.3 dated 03/25/2022 and 1.04 dated 03/18/2019 She came in after a fall and confusion. She does have a history of mild dementi a. She has a left thigh hematoma. A computed tomography scan suggested left-sided hydronephrosis but ultrasound says it's just a cyst. Patient denies any fever chills cough shortness of breath nausea vomiting. Complains of pain in her left thigh. She is known with diabetes mellitus with chronic kidney disease creatinine of 1.3 coronary myopathy ejection fraction 40% and pulmonary hypertension Objective - Vital Signs Vital signs: Vital Signs Temp 98.6 F 05/25/22 07:05 Pulse 62 05/25/22 07:05 Resp 18 05/25/22 07:05 BP 153/69 05/25/22 07:05 Pulse Ox 99 05/25/22 07:05 FiO2 Intake & Output 05/24/22 05/25/22 05/25/22 18:59 06:59 18:59 Output Total 900 1100 Balance -900 -1100 Output: Urine 900 1100 Other: Voiding Method Indwelling Catheter Indwelling Catheter # Bowel Movements 1 On examination awake alert oriented comfortable HEENT exam no facial asymmetry noted. Lungs are clear to auscultation good air entry Heart sounds unremarkable Abdomen soft nontender Extremity exam was left thigh hematoma. Trace edema otherwise Neurologically awake alert oriented - Labs CBC & Chem 7: 05/24/22 15:04 05/24/22 05:56 Labs: Abnormal Lab Results - Last 24 Hours (Table) 05/24/22 05/24/22 05/24/22 Range/Units 05:56 11:18 12:48 RBC 1.88 L (4.10-5.20) X 10*6/uL Hgb 6.2 L* (12.0-15.0) g/dL Hct 18.9 L* (37.2-46.3) % MCV 100.5 H (80.0-97.0) fL MCH 33.0 H (27.0-32.0) pg RDW 15.2 H (11.5-14.5) % Absolute Nucleated RBC 0.03 H (0.00-0.00) X 10*3/uL Immature Gran # 0.15 H (0.00-0.04) X 10*3/uL NRBC/100 WBC Diff 0.3 H (0.0-0.0) /100 WBCS POC Glucose (mg/dL) 186 H (70-110) mg/dL Crossmatch See Detail 05/24/22 05/24/22 05/24/22 Range/Units 15:04 15:35 19:51 RBC 2.21 L (4.10-5.20) X 10*6/uL Hgb 7.4 L (12.0-15.0) g/dL Hct 22.4 L (37.2-46.3) % MCV 101.5 H (80.0-97.0) fL MCH (27.0-32.0) pg RDW 15.8 H (11.5-14.5) % Absolute Nucleated RBC (0.00-0.00) X 10*3/uL Immature Gran # (0.00-0.04) X 10*3/uL NRBC/100 WBC Diff (0.0-0.0) /100 WBCS POC Glucose (mg/dL) 227 H 205 H (70-110) mg/dL Crossmatch 05/25/22 Range/Units 06:08 RBC (4.10-5.20) X 10*6/uL Hgb (12.0-15.0) g/dL Hct (37.2-46.3) % MCV (80.0-97.0) fL MCH (27.0-32.0) pg RDW (11.5-14.5) % Absolute Nucleated RBC (0.00-0.00) X 10*3/uL Immature Gran # (0.00-0.04) X 10*3/uL NRBC/100 WBC Diff (0.0-0.0) /100 WBCS POC Glucose (mg/dL) 186 H (70-110) mg/dL Crossmatch Assessment and Plan Assessment: Impression 1. Acute kidney injury secondary to diuresis and losartan. Peak creatinine 3.34 admission improved to 1.88 with IV fluids 2. Chronic kidney disease stage III diabetic nephropathy baseline creatinine about 1 with GFR in the chronic kidney disease stage III. 3. Status post fall with left thigh hematoma. 4. Anemia. 5. 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 E. coli UTI. Recommendation 1. Maintain current IV fluids, normal saline at 50 mL an hour. 2. Continue to monitor labs. 3. Unstable consider resuming losartan and possible use of as SGL T-2 inhibitors
[2022-05-25 10:00] LABS: Anisocytosis Slight; Basophils % (A) 0 %; Eosinophils # (A) 0.2 k/uL (0-0.7); Eosinophils % (A) 3 %; HCT 20.9 % (34.0-46.0); Lymphocytes # (A) 1.1 k/uL (1.0-4.8); Lymphocytes % (A) 15 %; MCH 33.3 pg (25.0-35.0); MCHC 32.5 g/dL (31.0-37.0); MCV 102.7 fL (80.0-100.0); Macrocytosis Slight; Mean Platelet Volume 8.5; Monocytes # (A) 0.4 k/uL (0-1.0); Monocytes % (A) 6 %; Neutrophils # (A) 5.3 k/uL (1.3-7.7); Neutrophils % (A) 74 %; Platelet Count 306 k/uL (150-450); RBC 2.04 m/uL (3.80-5.40); RDW 16.5 % (11.5-15.5); WBC 7.2 k/uL (3.8-10.6)
[2022-05-25 10:26] LABS: HGB 6.8 gm/dL (11.4-16.0)
[2022-05-25 11:07] LABS: Glucose,Whole Blood 204 mg/dL (70-110)
[2022-05-25 11:18] LABS: African American GFR (CKD) 32.7 (60.0-200.0); Anion Gap 6.7 mmol/L (10.00-18.00); BUN/Creat Ratio 14.18 Ratio (12.00-20.00); Blood Urea Nitrogen 24.1 mg/dL (9.0-27.0); Calcium 8.7 mg/dL (8.7-10.3); Carbon Dioxide 21.3 mmol/L (20.0-27.5); Magnesium 1.6 mg/dL (1.5-2.4); Non-African American GFR(CKD) 28.2 (60.0-200.0)
[2022-05-25 12:43] LABS: Anisocytosis Slight; Basophils % (A) 0 %; Eosinophils # (A) 0.2 k/uL (0-0.7); Eosinophils % (A) 3 %; HCT 22.2 % (34.0-46.0); HGB 7.3 gm/dL (11.4-16.0); Lymphocytes # (A) 0.9 k/uL (1.0-4.8); Lymphocytes % (A) 11 %; MCH 33.4 pg (25.0-35.0); MCHC 32.7 g/dL (31.0-37.0); MCV 101.9 fL (80.0-100.0); Macrocytosis Slight; Monocytes # (A) 0.4 k/uL (0-1.0); Monocytes % (A) 5 %; Neutrophils # (A) 5.8 k/uL (1.3-7.7); Neutrophils % (A) 78 %; Platelet Count 295 k/uL (150-450); RBC 2.18 m/uL (3.80-5.40); RDW 16.6 % (11.5-15.5); WBC 7.5 k/uL (3.8-10.6)
[2022-05-25] MEDS: ACETAMINOPHEN TAB 325 MG TAB PO PRN ×2 (13:30→19:09)
[2022-05-25] MEDS: SODIUM CHLORIDE 0.9% 1,000 ML IV SCH (13:37)
[2022-05-25 16:44] LABS: Glucose,Whole Blood 200 mg/dL (70-110)
--- NOTE | 2022-05-25 17:37 | P.PN ---
Subjective Progress Note Date: 05/25/22 81-year-old female came in with left hip contusion.. Patient is on eliquis and has been falling patient has a extensive bruise and hematoma in the left hip area imaging did not show any fracture. Patient is also found to be in acute renal failure baseline creatinine of around 1.3 present creatinine of around 3.5 and admission which has come down to 2.5. She does have history of atrial fibrillation and history of strokes in the past. 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 Hemoglobin did drop from 11-8 and patient is admitted for monitoring patient initially was reported to have al tered mental status although patient mental status appears to be baseline patient did have cognitive decline for few months. 05/22/2022 Patient seen and evaluated in follow-up this morning currently lethargic as nursing staff reports she was extremely agitated and requiring Haldol. Family is concerned patient had a stroke and persistent and adamant she receives a CT of the brain. Family is very concerned with her overall care she had been receiving at the [facility] and working with case management and other accepting facilities once patient is stabilized and discharged. Patient is reporting garrett quency in urination and urine preliminary culture showing gram-negative bacilli. Will add ceftriaxone and await cultures. Patient is maintained on gentle IV hydration and will continue with follow-up labs in the a.m. as patient was maintained on diuretics although extremely dehydrated with multiple electrolyte abnormalities. Patient is currently afebrile with no reports of chest pain or shortness of breath. Patient does continue with confusion per family at bedside although reports her mentation is somewhat improved from when she was initially brought in to the emergency department. Patient does have dementia as well and family report she has had a steady decline over the last 3 months. 05/23/2022 Patient is seen and evaluated in follow-up today and is maintained on ceftriaxone with urine cultures pulmonary showing gram-negative and half finalized with E. coli with sensitivities. Kidney functions are improving with nephrology following closely and maintained on gentle IV hydration. Patient continues to have waxing and waning of confusion and does have history of dementia. Recommend PT/OT therapy daily and planning on ECF on discharge. Currently working on [facility] with insurance authorization. Will follow-up with repeat labs and continue to monitor closely. Patient is much more calm and appropriate today and will continue Seroquel at night. 05/24/2022 Patient is seen and evaluated in follow-up today currently sitting up in the chair awake, alert and oriented 2 respond to questions and commands appropriately. Patient has been calm and cooperative in taking medications as prescribed. Patient has not required any Haldol as this was given as a one-time order when patient was confused when she initially came in and was not taking any of her oral medications. Patient does take Seroquel and will continue and has been taking them since. Patient also being followed closely for an acute urinary tract infection which showed E. coli on the finalized culture with sensitivities and will continue ceftriaxone and transitioned oral Ceftin on discharge. Patient with follow-up labs that were sent to [place] showing a hemoglobin of 6.2 and concerned as this is a false reading and repeat hemoglobin was ordered as well as family request repeat as her daughter works in the lab and is concerned that this is a false reading as well. Patient does have chron ic kidney disease with chronic iron deficiency anemia and does have this left- sided hip hematoma with nephrology and orthopedics following. Patient is held on anticoagulation for now until hematoma resolves as instructed by orthopedics as well as surgery. No plans for surgical intervention and recommend close monitoring. Patient does continue with weakness and physical therapy is recommending rehab and patient's family would like her to go to [facility]. Patient is currently afebrile denies chest pain or shortness of breath with no reports of nausea or vomiting and is tolerating diet. Case management following working on insurance authorization and accepting facility. 05/25/2022 Patient is seen in follow-up today currently awake and reporting she is continuing to have some discomfort of the left thigh although is reporting is slightly improved. Quite extensive hematoma with general surgery following no plans for surgical intervention. Patient is up and working with physical therapy and recommend continue daily. Patient's hemoglobin remained stable just above 7 and will monitor closely. Maintain holding anticoagulation for now. Nephrology following as well and will continue gentle IV hydration and decrease the dose to 50 mL's per hour and also monitor labs closely as kidney functions are slowly improving. Patient with weakness and is being planned for possibly [facility] and awaiting insurance authorization. Patient is afebrile denies chest pain or shortness of breath and patient does not report any nausea or vomiting. Per nursing staff patient reported having some nightmares at night and family requesting to hold Seroquel Review of systems: Constitutional: No reports of fatigue, fever, or chills, reporting some nightmares at night Cardiovascular: No reports of chest pain or palpitations Respiratory: No reports of shortness of breath or cough GI: No reports of nausea, vomiting, or diarrhea : No reports of dysuria or retention Neurovascular: reports of generalized weakness All medications have been reviewed Active Medications Acetaminophen (Acetaminophen Tab 325 Mg Tab) 650 mg PO Q6HR PRN PRN Reason: Fever and/ or Pain Last Admin: 05/25/22 13:30 Dose: 650 mg Alprazolam (Alprazolam 0.25 Mg Tab) 0.25 mg PO HS PRN PRN Reason: Anxiety Last Admin: 05/24/22 20:23 Dose: 0.25 mg Dextrose/Water (Dextrose 50% Syringe 50 Ml) 25 ml IVP PER PROTOCOL PRN; Protocol PRN Reason: Hypoglycemia Dextrose/Water (Dextrose 50% Syringe 50 Ml) 50 ml IVP PER PROTOCOL PRN; Protocol PRN Reason: Hypoglycemia Sodium Chloride (Saline 0.9%) 1,000 mls @ 50 mls/hr IV .Q20H [facility] Last Admin: 05/25/22 13:37 Dose: 50 mls/hr Ceftriaxone Sodium 2 gm/ (Sodium Chloride) 50 mls @ 100 mls/hr IVPB Q24HR [facility]; Protocol Last Admin: 05/25/22 07:50 Dose: 100 mls/hr Magnesium Sulfate/Dextrose 1 (gm/ IV Solution) 100 mls @ 100 mls/hr IVPB Q1H [facility] Stop: 05/25/22 19:29 Insulin Aspart (Insulin Aspart (Novolog) 100 Unit/Ml Vial) 0 unit SQ [facility]; Protocol Last Admin: 05/25/22 17:24 Dose: 4 unit Insulin Detemir (Insulin Detemir (Levemir) 100 Unit/Ml Syr) 20 unit SQ [facility] Last Admin: 05/24/22 20:21 Dose: 20 unit Levothyroxine Sodium (Levothyroxine 75 Mcg Tab) 37.5 mcg PO DAILY@0630 [facility] Last Admin: 05/25/22 06:02 Dose: 37.5 mcg Metoprolol Tartrate (Metoprolol Tartrate 50 Mg Tab) 50 mg PO BID [facility] Last Admin: 05/25/22 07:50 Dose: 50 mg Naloxone HCl (Naloxone 0.4 Mg/Ml 1 Ml Vial) 0.2 mg IV Q2M PRN PRN Reason: Opioid Reversal Tramadol HCl (Tramadol 50 Mg Tab) 50 mg PO QID PRN PRN Reason: Moderate Pain (Scale 4 to 6) Last Admin: 05/23/22 20:35 Dose: 50 mg PHYSICAL EXAMINATION: GENERAL: The patient is alert and oriented x2, not in any acute distress currently sitting up in the bed. Well developed, well nourished. Obese HEENT: Pupils are round and equally reacting to light. EOMI. No scleral icterus. No conjunctival pallor. Normocephalic, atraumatic. No pharyngeal erythema. No thyromegaly. CARDIOVASCULAR: S1 and S2 muffled PULMONARY: Diminished breath sounds bilaterally with no wheezing or crackles. ABDOMEN: Soft, nontender, obese, nondistended, normoactive bowel sounds. No palpable organomegaly. MUSCULOSKELETAL: No joint swelling or deformity. EXTREMITIES: No cyanosis, clubbing, or pedal edema. Large left hematoma noted on the left hip that extends down the left thigh with no significant change or anyone tell me what's wrong NEUROLOGICAL: Patient doesn't have any new focal deficits but does have generalized weakness SKIN: Large hematoma and bruise in the left hip area, surrounding area is soft and palpable although center area is more tender and taut Assessment: -Large hematoma on the left hip, no plans for surgical intervention at this time, monitor hemoglobin hold off on anticoagulation. -Acute renal failure probably secondary to intravascular depletion as well as diuretic and losartan use, improving -Atrial fibrillation paroxysmal: Patient will continued on rate control medications patient is presently rate controlled and sinus rhythm. -Congestive heart failure chronic systolic dysfunction without any acute exacerbation, patient appears clinically volume depleted and dehydrated patient is bit volume depleted, diuretics and losartan will be held -chronic kidney disease stage III secondary to diabetic nephropathy -Chronic anemia due to CKD as well as iron deficiency anemia -Type 2 diabetes mellitus -History of CVA in the past -Hypertension -hyperlipidemia -Hypothyroidism -DVT prophylaxis: Anti-Coagulation being held. Because of large hematoma in the left hip area, recommend SCDs Plan: Patient was on anticoagulation which is currently on hold with general surgery following with no plans for surgical intervention recommending orthopedic evaluation. Orthopedics did evaluate the patient and reviewed imaging with no plans for surgical intervention at this time. Will continue holding anticoagulant and monitor hemoglobin closely. Hemoglobin is above 7 and will continue to monitor closely. Patient's mentation improved although continues to have waxing and waning due to dementia although much more alert today and able to answer questions and responds appropriately and follows commands appropriately. Patient is sitting up in the chair and reporting less pain in her hip. Patient is taking her medication and is continued on as needed Xanax at night , family requesting to discontinue Seroquel as patient reports she is having nightmares from it.. Patient has not required any Haldol and has not required a sitter. Urine culture has finalized with E. coli with multiple sensitivities and will continue ceftriaxone and transitioned to Ceftin for a short course Recommend PT/OT therapy evaluation with case management following and will discuss further about discharge planning to [facility] and will require insurance authorization. Patient is continued on gentle IV hydration and diuretics currently on hold showing some improvement in kidney functions with nephrology following and will follow-up with repeat labs. Encouraged oral intake and supervision with meals and will continue monitoring blood sugars before meals and at bedtime and treat with sliding scale along with long-acting and pre-meal insulin, recommend holding metformin for now given impaired kidney functions Will follow-up on repeat labs in the a.m. Patient may be going to [facility] on the hope on discharge once stabilized and cleared by consultations. Due to multiple complex medical issues, prognosis is guarded. The impression and plan of care has been dictated by Lisa Frey, Nurse Practitioner as directed. Dr. Henry MD I have performed a history and examination and MDM of this patient, discussed the same with the dictator, and agree with the dictator's assessment and plan as written ,documented as a scribe. Based on total visit time, I have performed more than 50% of the visit. Objective - Vital Signs Vital signs: Vital Signs Temp 98.6 F 05/25/22 07:05 Pulse 62 05/25/22 07:05 Resp 18 05/25/22 07:05 BP 153/69 05/25/22 07:05 Pulse Ox 99 05/25/22 07:05 FiO2 Intake & Output 05/24/22 05/25/22 05/25/22 18:59 06:59 18:59 Output Total 900 1100 Balance -900 -1100 Output: Urine 900 1100 Other: Voiding Method Indwelling Catheter Indwelling Catheter # Bowel Movements 1 - Labs CBC & Chem 7: 05/25/22 12:20 05/25/22 05:51 Labs: Abnormal Lab Results - Last 24 Hours (Table) 05/24/22 05/24/22 05/24/22 Range/Units 05:56 11:18 12:48 RBC 1.88 L (4.10-5.20) X 10*6/uL Hgb 6.2 L* (12.0-15.0) g/dL Hct 18.9 L* (37.2-46.3) % MCV 100.5 H (80.0-97.0) fL MCH 33.0 H (27.0-32.0) pg RDW 15.2 H (11.5-14.5) % Absolute Nucleated RBC 0.03 H (0.00-0.00) X 10*3/uL Immature Gran # 0.15 H (0.00-0.04) X 10*3/uL NRBC/100 WBC Diff 0.3 H (0.0-0.0) /100 WBCS POC Glucose (mg/dL) 186 H (70-110) mg/dL Crossmatch See Detail 05/24/22 05/24/22 05/24/22 Range/Units 15:04 15:35 19:51 RBC 2.21 L (4.10-5.20) X 10*6/uL Hgb 7.4 L (12.0-15.0) g/dL Hct 22.4 L (37.2-46.3) % MCV 101.5 H (80.0-97.0) fL MCH (27.0-32.0) pg RDW 15.8 H (11.5-14.5) % Absolute Nucleated RBC (0.00-0.00) X 10*3/uL Immature Gran # (0.00-0.04) X 10*3/uL NRBC/100 WBC Diff (0.0-0.0) /100 WBCS POC Glucose (mg/dL) 227 H 205 H (70-110) mg/dL Crossmatch 05/25/22 Range/Units 06:08 RBC (4.10-5.20) X 10*6/uL Hgb (12.0-15.0) g/dL Hct (37.2-46.3) % MCV (80.0-97.0) fL MCH (27.0-32.0) pg RDW (11.5-14.5) % Absolute Nucleated RBC (0.00-0.00) X 10*3/uL Immature Gran # (0.00-0.04) X 10*3/uL NRBC/100 WBC Diff (0.0-0.0) /100 WBCS POC Glucose (mg/dL) 186 H (70-110) mg/dL Crossmatch
[2022-05-25] MEDS: MAGNESIUM SULFATE-D5W PMX 1 GM in DEXTROSE/WATER 1 100ML.BAG IVPB SCH ×2 (18:03→19:07)
[2022-05-25 20:23] LABS: Glucose,Whole Blood 287 mg/dL (70-110)
[2022-05-25] MEDS: INSULIN DETEMIR (LEVEMIR) 100 UNIT/ML SYR SQ SCH (20:39)
[2022-05-26] MEDS: SODIUM CHLORIDE 0.9% 1,000 ML IV SCH (02:50)
[2022-05-26] MEDS: LEVOTHYROXINE 75 MCG TAB PO SCH (04:57)
[2022-05-26] MEDS: traMADol 50 MG TAB PO PRN (04:58)
[2022-05-26 06:02] LABS: Glucose,Whole Blood 178 mg/dL (70-110)
[2022-05-26] MEDS: INSULIN ASPART (NovoLOG) 100 UNIT/ML VIAL SQ SCH ×4 (06:28→20:56)
[2022-05-26] MEDS: METOPROLOL TARTRATE 50 MG TAB PO SCH ×2 (07:55→20:56)
--- NOTE | 2022-05-26 10:19 | P.PN ---
Subjective Progress Note Date: 05/26/22 Principal diagnosis: Left thigh hematoma Patient doing well today. No significant pain. She is sitting in the chair. Says her left thigh pain is improved. Objective - Vital Signs Vital signs: Vital Signs Temp 97.6 F 05/26/22 07:15 Pulse 62 05/26/22 07:15 Resp 18 05/26/22 07:15 BP 167/80 05/26/22 07:15 Pulse Ox 100 05/26/22 07:15 FiO2 Intake & Output 05/25/22 05/26/22 05/26/22 18:59 06:59 18:59 Output Total 1325 950 320 Balance -1325 -950 -320 Output: Urine 1325 950 320 Other: Voiding Method Indwelling Catheter Indwelling Catheter # Bowel Movements 1 1 - Exam Left thigh with large hematoma, skin is soft without tenseness, no necrosis of the skin - Labs CBC & Chem 7: 05/25/22 12:20 05/25/22 05:51 Labs: Abnormal Lab Results - Last 24 Hours (Table) 05/24/22 05/25/22 05/25/22 Range/Units 12:48 05:51 05:51 RBC 2.04 L (3.80-5.40) m/uL Hgb 6.8 L* (11.4-16.0) gm/dL Hct 20.9 L (34.0-46.0) % MCV 102.7 H (80.0-100.0) fL RDW 16.5 H (11.5-15.5) % Lymphocytes # (1.0-4.8) k/uL Anion Gap 6.70 L (10.00-18.00) mmol/L Creatinine 1.7 H (0.6-1.5) mg/dL Est GFR (CKD-EPI)AfAm 32.7 L (60.0-200.0) Est GFR (CKD-EPI)NonAf 28.2 L (60.0-200.0) Glucose 156 H (70-110) mg/dL POC Glucose (mg/dL) (70-110) mg/dL Crossmatch See Detail 05/25/22 05/25/22 05/25/22 Range/Units 11:06 12:20 16:42 RBC 2.18 L (3.80-5.40) m/uL Hgb 7.3 L (11.4-16.0) gm/dL Hct 22.2 L (34.0-46.0) % MCV 101.9 H (80.0-100.0) fL RDW 16.6 H (11.5-15.5) % Lymphocytes # 0.9 L (1.0-4.8) k/uL Anion Gap (10.00-18.00) mmol/L Creatinine (0.6-1.5) mg/dL Est GFR (CKD-EPI)AfAm (60.0-200.0) Est GFR (CKD-EPI)NonAf (60.0-200.0) Glucose (70-110) mg/dL POC Glucose (mg/dL) 204 H 200 H (70-110) mg/dL Crossmatch 05/25/22 05/26/22 Range/Units 20:21 06:00 RBC (3.80-5.40) m/uL Hgb (11.4-16.0) gm/dL Hct (34.0-46.0) % MCV (80.0-100.0) fL RDW (11.5-15.5) % Lymphocytes # (1.0-4.8) k/uL Anion Gap (10.00-18.00) mmol/L Creatinine (0.6-1.5) mg/dL Est GFR (CKD-EPI)AfAm (60.0-200.0) Est GFR (CKD-EPI)NonAf (60.0-200.0) Glucose (70-110) mg/dL POC Glucose (mg/dL) 287 H 178 H (70-110) mg/dL Crossmatch Assessment and Plan (1) Hematoma Narrative/Plan: 81-year-old female doing well after her recent fall with left thigh hematoma. Hematoma exacerbated by anticoagulation. Continue increasing activity. No surgical intervention planned. Current Visit: Yes Status: Acute Code(s): T14.8XXA - OTHER INJURY OF UNSPECIFIED BODY REGION, INITIAL ENCOUNTER SNOMED Code(s): 737597721
--- NOTE | 2022-05-26 10:37 | P.PN ---
Subjective Progress Note Date: 05/26/22 Principal diagnosis: This is 81-year-old female followed up with acute kidney injury secondary to diuresis and losartan. came in with a creatinine of 3.34 Additionally she has chronic kidney disease, stage III with proteinuria of 938 mg/g of creatinine dated 03/22/2020, baseline 1.3 dated 03/25/2022 and 1.04 dated 03/18/2019 She came in after a fall and confusion. She does have a history of mild dementia. She has a left thigh hematoma. A computed tomography scan suggested left-sided hydronephrosis but ultrasound says it's just a cyst. Patient denies any fever chills cough shortness of breath nausea vomiting. pain in her left thigh has resolved. 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 Lungs are clear to auscultation good air entry Heart sounds unremarkable Abdomen soft nontender Extremity exam was left thigh hematoma. Trace edema otherwise Neurologically awake alert oriented - Labs CBC & Chem 7: 05/25/22 12:20 05/25/22 05:51 Labs: Abnormal Lab Results - Last 24 Hours (Table) 05/24/22 05/25/22 05/25/22 Range/Units 12:48 05:51 05:51 RBC 2.04 L (3.80-5.40) m/uL Hgb 6.8 L* (11.4-16.0) gm/dL Hct 20.9 L (34.0-46.0) % MCV 102.7 H (80.0-100.0) fL RDW 16.5 H (11.5-15.5) % Lymphocytes # (1.0-4.8) k/uL Anion Gap 6.70 L (10.00-18.00) mmol/L Creatinine 1.7 H (0.6-1.5) mg/dL Est GFR (CKD-EPI)AfAm 32.7 L (60.0-200.0) Est GFR (CKD-EPI)NonAf 28.2 L (60.0-200.0) Glucose 156 H (70-110) mg/dL POC Glucose (mg/dL) (70-110) mg/dL Crossmatch See Detail 05/25/22 05/25/22 05/25/22 Range/Units 11:06 12:20 16:42 RBC 2.18 L (3.80-5.40) m/uL Hgb 7.3 L (11.4-16.0) gm/dL Hct 22.2 L (34.0-46.0) % MCV 101.9 H (80.0-100.0) fL RDW 16.6 H (11.5-15.5) % Lymphocytes # 0.9 L (1.0-4.8) k/uL Anion Gap (10.00-18.00) mmol/L Creatinine (0.6-1.5) mg/dL Est GFR (CKD-EPI)AfAm (60.0-200.0) Est GFR (CKD-EPI)NonAf (60.0-200.0) Glucose (70-110) mg/dL POC Glucose (mg/dL) 204 H 200 H (70-110) mg/dL Crossmatch 05/25/22 05/26/22 Range/Units 20:21 06:00 RBC (3.80-5.40) m/uL Hgb (11.4-16.0) gm/dL Hct (34.0-46.0) % MCV (80.0-100.0) fL RDW (11.5-15.5) % Lymphocytes # (1.0-4.8) k/uL Anion Gap (10.00-18.00) mmol/L Creatinine (0.6-1.5) mg/dL Est GFR (CKD-EPI)AfAm (60.0-200.0) Est GFR (CKD-EPI)NonAf (60.0-200.0) Glucose (70-110) mg/dL POC Glucose (mg/dL) 287 H 178 H (70-110) mg/dL Crossmatch Assessment and Plan Assessment: Impression 1. Acute kidney injury secondary to diuresis and losartan. Peak creatinine 3.34 admission improved to 1.7 with IV fluids 2. Chronic kidney disease stage III diabetic nephropathy baseline creatinine about 1.3 with GFR in the chronic kidney disease stage III. 3. Status post fall with left thigh hematoma. pain-free 4. Anemia. milligrams stable at 7.3 , secondary to fall and hematoma in the time 5. Coronary artery disease ejection fraction 40% and pulmonary hypertension 6. E. coli UTI. Recommendation 1. May be discharged and discontinue IV fluids, 2. Continue to monitor labs. 3. when she is stable, consider resuming losartan and possible use of as SGL T-2 inhibitors
[2022-05-26 11:11] LABS: Glucose,Whole Blood 187 mg/dL (70-110)
[2022-05-26 11:12] LABS: African American GFR (CKD) 37.1 (60.0-200.0); BUN/Creat Ratio 14.31 Ratio (12.00-20.00); Blood Urea Nitrogen 21.9 mg/dL (9.0-27.0); Calcium 8.7 mg/dL (8.7-10.3); Carbon Dioxide 21.2 mmol/L (20.0-27.5); Potassium 4.9 mmol/L (3.5-5.5)
[2022-05-26 11:40] LABS: Anisocytosis Slight; HCT 22.6 % (34.0-46.0); HGB 7.2 gm/dL (11.4-16.0); MCH 32.6 pg (25.0-35.0); MCHC 31.8 g/dL (31.0-37.0); MCV 102.6 fL (80.0-100.0); Macrocytosis Moderate; Mean Platelet Volume 9.2; Platelet Count 315 k/uL (150-450); RDW 17.9 % (11.5-15.5); WBC 8.5 k/uL (3.8-10.6)
[2022-05-26 16:07] LABS: Glucose,Whole Blood 235 mg/dL (70-110)
[2022-05-26 20:22] LABS: Glucose,Whole Blood 225 mg/dL (70-110)
[2022-05-26] MEDS: INSULIN DETEMIR (LEVEMIR) 100 UNIT/ML SYR SQ SCH (20:55)
--- NOTE | 2022-05-26 22:09 | PN ---
PROGRESS NOTE DATE OF SERVICE: 05/26/2022 SUBJECTIVE: This is a 81-year-old woman, who was admitted with a large hematoma of the left hip, had anemia. The most recent hemoglobin is 7.2. No chest pain. No palpitation. OBJECTIVE: VITAL SIGNS: Pulse is 57, blood pressure 160/87, respirations 16. CHEST: Clear to auscultation. CARDIOVASCULAR: S1, S2 muffled. ABDOMEN: Soft. LEGS: Hematoma. LABORATORY DATA: Reviewed. ASSESSMENT: 1. Large hematoma of the left hip, on conservative management. 2. Acute renal failure. 3. Atrial fibrillation. 4. Multiple medical issues. RECOMMENDATIONS AND DISCUSSION: Recommend to continue current management. Continue symptomatic treatment. If hemoglobin is falling, then we will need transfusion. Repeat labs tomorrow. Prognosis guarded. Further recommendations to follow. MMODL / IJN: [id number] /
[2022-05-27] MEDS: traMADol 50 MG TAB PO PRN ×2 (05:11→21:25)
[2022-05-27] MEDS: LEVOTHYROXINE 75 MCG TAB PO SCH (05:12)
[2022-05-27 06:50] LABS: Glucose,Whole Blood 211 mg/dL (70-110)
[2022-05-27] MEDS: INSULIN ASPART (NovoLOG) 100 UNIT/ML VIAL SQ SCH ×4 (07:35→21:24)
[2022-05-27] MEDS: METOPROLOL TARTRATE 50 MG TAB PO SCH ×2 (08:22→21:25)
[2022-05-27 09:27] LABS: HCT 18.9 % (37.2-46.3); HGB 6.2 g/dL (12.0-15.0)
[2022-05-27 10:57] LABS: African American GFR (CKD) 41.3 (60.0-200.0); Anion Gap 9.7 mmol/L (10.00-18.00); BUN/Creat Ratio 11.79 Ratio (12.00-20.00); Blood Urea Nitrogen 16.5 mg/dL (9.0-27.0); Calcium 9.6 mg/dL (8.7-10.3); Carbon Dioxide 22.3 mmol/L (20.0-27.5); Non-African American GFR(CKD) 35.6 (60.0-200.0); Potassium 4.7 mmol/L (3.5-5.5)
[2022-05-27 11:10] LABS: Basophils # (A) 0.04 X 10*3/uL (0.00-0.10); Basophils % (A) 0.3 %; Eosinophils # (A) 0.29 X 10*3/uL (0.04-0.35); Eosinophils % (A) 2.5 %; HCT 23.2 % (37.2-46.3); HGB 7.3 g/dL (12.0-15.0); Immature Grans, Automated 3.6 %; Lymphocytes # (A) 1.13 X 10*3/uL (0.90-5.00); Lymphocytes % (A) 9.6 %; MCH 32.4 pg (27.0-32.0); MCHC 31.5 g/dL (32.0-37.0); MCV 103.1 fL (80.0-97.0); Mean Platelet Volume 9.6 fL (9.5-12.2); Monocytes # (A) 0.84 X 10*3/uL (0.20-1.00); Monocytes % (A) 7.1 %; NRBC Per 100 WBC 0.2 /100 WBCS (0.0-0.0); Neutrophils # (A) 9.07 X 10*3/uL (1.80-7.70); Neutrophils % (A) 76.9 %; Platelet Count 382 X 10*3/uL (140-440); RBC 2.25 X 10*6/uL (4.10-5.20)
[2022-05-27 11:32] LABS: Glucose,Whole Blood 227 mg/dL (70-110)
--- NOTE | 2022-05-27 12:25 | P.PN ---
Subjective Patient is seen for follow-up for acute kidney injury mostly prerenal currently improving. Underlying chronic kidney disease stage III a with baseline creatinine around 1- 1.3 mg/dL. No complaints today Currently not on any IV fluids or diuretics. Tolerating oral intake. Objective - Vital Signs Vital signs: Vital Signs Temp 97.6 F 05/27/22 07:26 Pulse 64 05/27/22 07:26 Resp 16 05/27/22 07:26 BP 179/70 05/27/22 07:26 Pulse Ox 98 05/27/22 07:26 FiO2 Intake & Output 05/26/22 05/27/22 05/27/22 18:59 06:59 18:59 Output Total 920 2100 Balance -920 -2100 Output: Urine 920 2100 Other: Voiding Method Indwelling Catheter Indwelling Catheter Indwelling Catheter # Bowel Movements 1 1 - Exam Awake, comfortable, in no acute distress Examination of the heart S1 and S2 Examination of the lungs bilateral breath sounds are heard Abdomen is soft nontender Examination off the lower extremities shows trace edema in the lower legs - Labs CBC & Chem 7: 05/27/22 05:57 05/27/22 05:57 Labs: Abnormal Lab Results - Last 24 Hours (Table) 05/24/22 05/26/22 05/26/22 Range/Units 05:56 16:05 20:20 WBC (4.50-10.00) X 10*3/uL RBC (4.10-5.20) X 10*6/uL Hgb 6.2 L* (12.0-15.0) g/dL Hct 18.9 L* (37.2-46.3) % MCV (80.0-97.0) fL MCH (27.0-32.0) pg MCHC (32.0-37.0) g/dL RDW (11.5-14.5) % Absolute Nucleated RBC (0.00-0.00) X 10*3/uL Immature Gran # (0.00-0.04) X 10*3/uL Neutrophils # (1.80-7.70) X 10*3/uL NRBC/100 WBC Diff (0.0-0.0) /100 WBCS Anion Gap (10.00-18.00) mmol/L Est GFR (CKD-EPI)AfAm (60.0-200.0) Est GFR (CKD-EPI)NonAf (60.0-200.0) BUN/Creatinine Ratio (12.00-20.00) Ratio Glucose (70-110) mg/dL POC Glucose (mg/dL) 235 H 225 H (70-110) mg/dL 05/27/22 05/27/22 05/27/22 Range/Units 05:57 05:57 06:48 WBC 11.80 H (4.50-10.00) X 10*3/uL RBC 2.25 L (4.10-5.20) X 10*6/uL Hgb 7.3 L (12.0-15.0) g/dL Hct 23.2 L (37.2-46.3) % MCV 103.1 H (80.0-97.0) fL MCH 32.4 H (27.0-32.0) pg MCHC 31.5 L (32.0-37.0) g/dL RDW 17.0 H (11.5-14.5) % Absolute Nucleated RBC 0.02 H (0.00-0.00) X 10*3/uL Immature Gran # 0.43 H (0.00-0.04) X 10*3/uL Neutrophils # 9.07 H (1.80-7.70) X 10*3/uL NRBC/100 WBC Diff 0.2 H (0.0-0.0) /100 WBCS Anion Gap 9.70 L (10.00-18.00) mmol/L Est GFR (CKD-EPI)AfAm 41.3 L (60.0-200.0) Est GFR (CKD-EPI)NonAf 35.6 L (60.0-200.0) BUN/Creatinine Ratio 11.79 L (12.00-20.00) Ratio Glucose 170 H (70-110) mg/dL POC Glucose (mg/dL) 211 H (70-110) mg/dL 05/27/22 Range/Units 11:31 WBC (4.50-10.00) X 10*3/uL RBC (4.10-5.20) X 10*6/uL Hgb (12.0-15.0) g/dL Hct (37.2-46.3) % MCV (80.0-97.0) fL MCH (27.0-32.0) pg MCHC (32.0-37.0) g/dL RDW (11.5-14.5) % Absolute Nucleated RBC (0.00-0.00) X 10*3/uL Immature Gran # (0.00-0.04) X 10*3/uL Neutrophils # (1.80-7.70) X 10*3/uL NRBC/100 WBC Diff (0.0-0.0) /100 WBCS Anion Gap (10.00-18.00) mmol/L Est GFR (CKD-EPI)AfAm (60.0-200.0) Est GFR (CKD-EPI)NonAf (60.0-200.0) BUN/Creatinine Ratio (12.00-20.00) Ratio Glucose (70-110) mg/dL POC Glucose (mg/dL) 227 H (70-110) mg/dL Assessment and Plan Assessment: 1. Acute kidney injury secondary to diuresis and losartan. Peak creatinine 3.34 admission improved to 1.4 with IV fluids 2. Chronic kidney disease stage III diabetic nephropathy baseline creatinine about 1.3 with GFR in the chronic kidney disease stage III. 3. Status post fall with left thigh hematoma. pain-free 4. Anemia. milligrams stable at 7.3 , secondary to fall and hematoma in the time 5. Coronary artery disease ejection fraction 40% and pulmonary hypertension 6. E. coli UTI. Plan: Continue to encourage increase oral intake Stable for discharge from nephrology standpoint
[2022-05-27 17:11] LABS: Glucose,Whole Blood 203 mg/dL (70-110)
[2022-05-27] MEDS: ALPRAZolam 0.25 MG TAB PO PRN (18:11)
[2022-05-27 20:23] LABS: Glucose,Whole Blood 291 mg/dL (70-110)
--- NOTE | 2022-05-27 20:51 | P.PN ---
Subjective Progress Note Date: 05/27/22 81-year-old female came in with left hip contusion.. Patient is on eliquis and has been falling patient has a extensive bruise and hematoma in the left hip area imaging did not show any fracture. Patient is also found to be in acute renal failure baseline creatinine of around 1.3 present creatinine of around 3.5 and admission which has come down to 2.5. She does have history of atrial fibrillation and history of strokes in the past. 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 Hemoglobin did drop from 11-8 and patient is admitted for monitoring patient initially was reported to have al tered mental status although patient mental status appears to be baseline patient did have cognitive decline for few months. 05/22/2022 Patient seen and evaluated in follow-up this morning currently lethargic as nursing staff reports she was extremely agitated and requiring Haldol. Family is concerned patient had a stroke and persistent and adamant she receives a CT of the brain. Family is very concerned with her overall care she had been [facility] and working with case management and other accepting facilities once patient is stabilized and discharged. Patient is reporting garrett quency in urination and urine preliminary culture showing gram-negative bacilli. Will add ceftriaxone and await cultures. Patient is maintained on gentle IV hydration and will continue with follow-up labs in the a.m. as patient was maintained on diuretics although extremely dehydrated with multiple electrolyte abnormalities. Patient is currently afebrile with no reports of chest pain or shortness of breath. Patient does continue with confusion per family at bedside although reports her mentation is somewhat improved from when she was initially brought in to the emergency department. Patient does have dementia as well and family report she has had a steady decline over the last 3 months. 05/23/2022 Patient is seen and evaluated in follow-up today and is maintained on ceftriaxone with urine cultures pulmonary showing gram-negative and half finalized with E. coli with sensitivities. Kidney functions are improving with nephrology following closely and maintained on gentle IV hydration. Patient continues to have waxing and waning of confusion and does have history of dementia. Recommend PT/OT therapy daily and planning on ECF on discharge. Currently working on [facility] with insurance authorization. Will follow-up with repeat labs and continue to monitor closely. Patient is much more calm and appropriate today and will continue Seroquel at night. 05/24/2022 Patient is seen and evaluated in follow-up today currently sitting up in the chair awake, alert and oriented 2 respond to questions and commands appropriately. Patient has been calm and cooperative in taking medications as prescribed. Patient has not required any Haldol as this was given as a one-time order when patient was confused when she initially came in and was not taking any of her oral medications. Patient does take Seroquel and will continue and has been taking them since. Patient also being followed closely for an acute urinary tract infection which showed E. coli on the finalized culture with sensitivities and will continue ceftriaxone and transitioned oral Ceftin on discharge. Patient with follow-up labs that were sent to [facility] showing a hemoglobin of 6.2 and concerned as this is a false reading and repeat hemoglobin was ordered as well as family request repeat as her daughter works in the lab and is concerned that this is a false reading as well. Patient does have chron ic kidney disease with chronic iron deficiency anemia and does have this left- sided hip hematoma with nephrology and orthopedics following. Patient is held on anticoagulation for now until hematoma resolves as instructed by orthopedics as well as surgery. No plans for surgical intervention and recommend close monitoring. Patient does continue with weakness and physical therapy is recommending rehab and patient's family would like her to go to [facility]. Patient is currently afebrile denies chest pain or shortness of breath with no reports of nausea or vomiting and is tolerating diet. Case management following working on insurance authorization and accepting facility. 05/25/2022 Patient is seen in follow-up today currently awake and reporting she is continuing to have some discomfort of the left thigh although is reporting is slightly improved. Quite extensive hematoma with general surgery following no plans for surgical intervention. Patient is up and working with physical therapy and recommend continue daily. Patient's hemoglobin remained stable just above 7 and will monitor closely. Maintain holding anticoagulation for now. Nephrology following as well and will continue gentle IV hydration and decrease the dose to 50 mL's per hour and also monitor labs closely as kidney functions are slowly improving. Patient with weakness and is being planned for possibly [facility] and awaiting insurance authorization. Patient is afebrile denies chest pain or shortness of breath and patient does not report any nausea or vomiting. Per nursing staff patient reported having some nightmares at night and family requesting to hold Seroquel 05/27/2022 Patient is seen in follow-up this morning currently sitting up in the chair reports to feeling well anxious about wanting to go home. Case management is following and insurance has requested a peer to peer insurance authorization for ECF for continued PT/OT therapy. Patient is currently afebrile with no reports of chest pain or shortness of breath. Patient continues to have left thigh pain although reports is improved and there is some improvement in extent of swelling of the left leg on exam. Patient is continued on ceftriaxone for UTI with E. coli and will continue. Family is concerned as she was supposed to have an ou tpatient MRI of the spine for further evaluation tomorrow and instructed family to reschedule as this is not ordered while inpatient and unsure if insurance will cover this. Family also working with a home health cna about long-term in ECF and awaiting to hear back. Patient would need to apply for Medicaid in case management is following. [facility] has accepted the patient although there are some financial barriers. Will follow up with case management in the a.m. Review of systems: Constitutional: No reports of fatigue, fever, or chills Cardiovascular: No reports of chest pain or palpitations Respiratory: No reports of shortness of breath or cough GI: No reports of nausea, vomiting, or diarrhea : No reports of dysuria or retention Neurovascular: reports of generalized weakness All medications have been reviewed PHYSICAL EXAMINATION: GENERAL: The patient is alert and oriented x2, not in any acute distress currently sitting up in the bed. Well developed, well nourished. Obese HEENT: Pupils are round and equally reacting to light. EOMI. No scleral icterus. No conjunctival pallor. Normocephalic, atraumatic. No pharyngeal erythema. No thyromegaly. CARDIOVASCULAR: S1 and S2 muffled PULMONARY: Diminished breath sounds bilaterally with no wheezing or crackles. ABDOMEN: Soft, nontender, obese, nondistended, normoactive bowel sounds. No palpable organomegaly. MUSCULOSKELETAL: No joint swelling or deformity. EXTREMITIES: No cyanosis, clubbing, or pedal edema. Large left hematoma noted on the left hip that extends down the left thigh with some improvements and less swelling NEUROLOGICAL: Patient doesn't have any new focal deficits but does have generalized weakness SKIN: Large hematoma and bruise in the left hip area, surrounding area is soft and palpable and less taut Assessment: -Large hematoma on the left hip, no plans for surgical intervention at this time, monitor hemoglobin hold off on anticoagulation. -Acute renal failure probably secondary to intravascular depletion as well as diuretic and losartan use, improving -Atrial fibrillation paroxysmal: Patient will continued on rate control medications patient is presently rate controlled and sinus rhythm. -Congestive heart failure chronic systolic dysfunction without any acute exacerbation, patient appears clinically volume depleted and dehydrated patient is bit volume depleted, diuretics and losartan will be held -Acute urinary tract infection, present on admission with E. coli on the cultures -chronic kidney disease stage III secondary to diabetic nephropathy -Chronic anemia due to CKD as well as iron deficiency anemia -Type 2 diabetes mellitus -History of CVA in the past -Hypertension -hyperlipidemia -Hypothyroidism -DVT prophylaxis: Anti-Coagulation being held. Because of large hematoma in the left hip area, recommend SCDs Plan: Patient was on anticoagulation which is currently on hold with general surgery following with no plans for surgical intervention recommending orthopedic ev aluation. Orthopedics did evaluate the patient and reviewed imaging with no plans for surgical intervention at this time. Will continue holding anticoagulant and monitor hemoglobin closely. Hemoglobin is above 7 and will continue to monitor closely. Patient's mentation improved although continues to have waxing and waning due to dementia although much more alert today and able to answer questions and responds appropriately and follows commands appropriately. Patient is sitting up in the chair and reporting less pain in her hip. Patient is taking her medication and is continued on as needed Xanax at night Urine culture has finalized with E. coli with multiple sensitivities and will continue ceftriaxone and transitioned to Ceftin for a short course Recommend PT/OT therapy evaluation with case management following and will discuss further about discharge planning to [facility] and will require insurance authorization. Insurance denied and requested a peer to peer a medical review committee denied the authorization for continued rehab and recommending long- term placement. Family working with a home health cna in regards to financial issues and will follow-up further with case management in the a.m. Encouraged oral intake and supervision with meals and will continue monitoring blood sugars before meals and at bedtime and treat with sliding scale along with long-acting and pre-meal insulin, recommend holding metformin for now given impaired kidney functions Will follow-up on repeat labs in the a.m. Patient may be going to [facility] on the [place] on discharge once stabilized and cleared by consultations. Due to multiple complex medical issues, prognosis is guarded. Possible discharge in the next 24-48 hours The impression and plan of care has been dictated by Lisa Frey, Nurse Practitioner as directed. Dr. Gina MD I have performed a history and examination and MDM of this patient, discussed the same with the dictator, and agree with the dictator's assessment and plan as written ,documented as a scribe. Based on total visit time, I have performed more than 50% of the visit. Objective - Vital Signs Vital signs: Vital Signs Temp 97.6 F 05/27/22 07:26 Pulse 64 05/27/22 07:26 Resp 16 05/27/22 07:26 BP 179/70 05/27/22 07:26 Pulse Ox 98 05/27/22 07:26 FiO2 Intake & Output 05/26/22 05/27/22 05/27/22 18:59 06:59 18:59 Output Total 920 2100 Balance -920 -2100 Output: Urine 920 2100 Other: Voiding Method Indwelling Catheter Indwelling Catheter Indwelling Catheter # Bowel Movements 1 1 - Labs CBC & Chem 7: 05/27/22 05:57 05/27/22 05:57 Labs: Abnormal Lab Results - Last 24 Hours (Table) 05/24/22 05/26/22 05/26/22 Range/Units 05:56 06:44 06:44 RBC 2.20 L (3.80-5.40) m/uL Hgb 6.2 L* 7.2 L (12.0-15.0) g/dL Hct 18.9 L* 22.6 L (37.2-46.3) % MCV 102.6 H (80.0-100.0) fL RDW 17.9 H (11.5-15.5) % Anion Gap 9.00 L (10.00-18.00) mmol/L Est GFR (CKD-EPI)AfAm 37.1 L (60.0-200.0) Est GFR (CKD-EPI)NonAf 32.0 L (60.0-200.0) Glucose 150 H (70-110) mg/dL POC Glucose (mg/dL) (70-110) mg/dL 05/26/22 05/26/22 05/26/22 Range/Units 11:10 16:05 20:20 RBC (3.80-5.40) m/uL Hgb (12.0-15.0) g/dL Hct (37.2-46.3) % MCV (80.0-100.0) fL RDW (11.5-15.5) % Anion Gap (10.00-18.00) mmol/L Est GFR (CKD-EPI)AfAm (60.0-200.0) Est GFR (CKD-EPI)NonAf (60.0-200.0) Glucose (70-110) mg/dL POC Glucose (mg/dL) 187 H 235 H 225 H (70-110) mg/dL 05/27/22 Range/Units 06:48 RBC (3.80-5.40) m/uL Hgb (12.0-15.0) g/dL Hct (37.2-46.3) % MCV (80.0-100.0) fL RDW (11.5-15.5) % Anion Gap (10.00-18.00) mmol/L Est GFR (CKD-EPI)AfAm (60.0-200.0) Est GFR (CKD-EPI)NonAf (60.0-200.0) Glucose (70-110) mg/dL POC Glucose (mg/dL) 211 H (70-110) mg/dL
[2022-05-27] MEDS: INSULIN DETEMIR (LEVEMIR) 100 UNIT/ML SYR SQ SCH (21:25)
[2022-05-28 06:16] LABS: Glucose,Whole Blood 102 mg/dL (70-110)
[2022-05-28] MEDS: INSULIN ASPART (NovoLOG) 100 UNIT/ML VIAL SQ SCH ×2 (06:21→12:16)
[2022-05-28] MEDS: LEVOTHYROXINE 75 MCG TAB PO SCH (06:29)
[2022-05-28] MEDS: traMADol 50 MG TAB PO PRN (06:35)
[2022-05-28 07:11] LABS: African American GFR (CKD) 48 (>60 ml/min/1.73 sqM); Anion Gap 1 mmol/L; Blood Urea Nitrogen 14 mg/dL (7-17); Calcium 8.9 mg/dL (8.4-10.2); Carbon Dioxide 27 mmol/L (22-30); Chloride 106 mmol/L (98-107); Glucose 100 mg/dL (74-99); Non-African American GFR(CKD) 42 (>60 ml/min/1.73 sqM); Potassium 4.5 mmol/L (3.5-5.1); Sodium 134 mmol/L (137-145)
[2022-05-28 07:12] LABS: Anisocytosis Slight; Basophils % (A) 0 %; Eosinophils # (A) 0.2 k/uL (0-0.7); Eosinophils % (A) 2 %; HCT 22.5 % (34.0-46.0); HGB 7.5 gm/dL (11.4-16.0); Lymphocytes % (A) 11 %; MCH 33.5 pg (25.0-35.0); MCHC 33.5 g/dL (31.0-37.0); MCV 99.9 fL (80.0-100.0); Macrocytosis Slight; Mean Platelet Volume 8.1; Monocytes # (A) 0.5 k/uL (0-1.0); Monocytes % (A) 6 %; Neutrophils # (A) 6.8 k/uL (1.3-7.7); Neutrophils % (A) 78 %; Platelet Count 341 k/uL (150-450); RBC 2.25 m/uL (3.80-5.40); RDW 17.5 % (11.5-15.5); WBC 8.7 k/uL (3.8-10.6)
[2022-05-28] MEDS: METOPROLOL TARTRATE 50 MG TAB PO SCH (07:51)
[2022-05-28 08:44] VITALS: BP 166/72; RESP 18; TEMP 97.5
--- NOTE | 2022-05-28 09:34 | P.PN ---
Subjective Progress Note Date: 05/28/22 Principal diagnosis: Hydronephrosis The patient is a 81-year-old female with a past medical history of A. fib, diabetes mellitus, hyperlipidemia, hypertension, CVA, and vascular dementia.. She presented to the emergency department from a assisted on 05/20/22 for AMS and a left hip contusion. The patient had an unknown fall and suffered a contusion over the left hip that had been x-rayed several times without any known pathology noted. The patient had a large contusion noted and had tenderness with a hematoma noted. The patient cannot provide any further history at this time nor was there any further history obtained by EMS. Patient had evidence of acute kidney injury with a UTI. Left hip CT without contrast shows a left lateral thigh hematoma, measuring up to 9.3 cm without evidence of fracture, mild left hydronephrosis with renal sinus dilation partially visua lized, colonic diverticulosis, and moderate to severe arterial arthrosclerosis. Urology service was consulted regarding the patient's hydronephrosis. 05/22 The patient is resting in bed with a sitter present for safety. The patient denies any history of kidney stones, urological surgeries, or cancer. She denies any prior difficulties with urination, hematuria or dysuria. Nephrology following for MAGDA. Serum creatinine trending down and was 2.99 yesterday. Today's labs are pending. Kidney/bladder ultrasound showed no evidence of hydronephrosis or nephrolithiasis. No surgical intervention warranted at this time. Recommend maintaining Gomez catheter until kidney function improves. Objective - Vital Signs Vital signs: Vital Signs Temp 97.5 F L 05/28/22 07:17 Pulse 65 05/28/22 09:00 Resp 18 05/28/22 07:17 BP 166/72 05/28/22 07:17 Pulse Ox 98 05/28/22 07:17 FiO2 Intake & Output 05/27/22 05/28/22 05/28/22 18:59 06:59 18:59 Intake Total 240 Output Total 1500 900 Balance -1500 -900 240 Intake: Oral 240 Output: Urine 1500 900 Other: Voiding Method Indwelling Catheter Indwelling Catheter - Exam General: Well developed, well nourished. No acute distress. HEENT: Head is atraumatic, normocephalic. Lungs: Respirations even and nonlabored. : Gomez catheter in place draining clear yellow urine Skin: Warm and dry - Labs CBC & Chem 7: 05/28/22 06:49 05/28/22 06:49 Labs: Abnormal Lab Results - Last 24 Hours (Table) 05/24/22 05/27/22 05/27/22 Range/Units 05:56 05:57 05:57 WBC 11.80 H (4.50-10.00) X 10*3/uL RBC 2.25 L (4.10-5.20) X 10*6/uL Hgb 6.2 L* 7.3 L (12.0-15.0) g/dL Hct 18.9 L* 23.2 L (37.2-46.3) % MCV 103.1 H (80.0-97.0) fL MCH 32.4 H (27.0-32.0) pg MCHC 31.5 L (32.0-37.0) g/dL RDW 17.0 H (11.5-14.5) % Absolute Nucleated RBC 0.02 H (0.00-0.00) X 10*3/uL Immature Gran # 0.43 H (0.00-0.04) X 10*3/uL Neutrophils # 9.07 H (1.80-7.70) X 10*3/uL NRBC/100 WBC Diff 0.2 H (0.0-0.0) /100 WBCS Sodium (137-145) mmol/L Anion Gap 9.70 L (10.00-18.00) mmol/L Creatinine (0.52-1.04) mg/dL Est GFR (CKD-EPI)AfAm 41.3 L (60.0-200.0) Est GFR (CKD-EPI)NonAf 35.6 L (60.0-200.0) BUN/Creatinine Ratio 11.79 L (12.00-20.00) Ratio Glucose 170 H (70-110) mg/dL POC Glucose (mg/dL) (70-110) mg/dL 05/27/22 05/27/22 05/27/22 Range/Units 11:31 17:09 20:20 WBC (4.50-10.00) X 10*3/uL RBC (4.10-5.20) X 10*6/uL Hgb (12.0-15.0) g/dL Hct (37.2-46.3) % MCV (80.0-97.0) fL MCH (27.0-32.0) pg MCHC (32.0-37.0) g/dL RDW (11.5-14.5) % Absolute Nucleated RBC (0.00-0.00) X 10*3/uL Immature Gran # (0.00-0.04) X 10*3/uL Neutrophils # (1.80-7.70) X 10*3/uL NRBC/100 WBC Diff (0.0-0.0) /100 WBCS Sodium (137-145) mmol/L Anion Gap (10.00-18.00) mmol/L Creatinine (0.52-1.04) mg/dL Est GFR (CKD-EPI)AfAm (60.0-200.0) Est GFR (CKD-EPI)NonAf (60.0-200.0) BUN/Creatinine Ratio (12.00-20.00) Ratio Glucose (70-110) mg/dL POC Glucose (mg/dL) 227 H 203 H 291 H (70-110) mg/dL 05/28/22 05/28/22 Range/Units 06:49 06:49 WBC (4.50-10.00) X 10*3/uL RBC 2.25 L (4.10-5.20) X 10*6/uL Hgb 7.5 L (12.0-15.0) g/dL Hct 22.5 L (37.2-46.3) % MCV (80.0-97.0) fL MCH (27.0-32.0) pg MCHC (32.0-37.0) g/dL RDW 17.5 H (11.5-14.5) % Absolute Nucleated RBC (0.00-0.00) X 10*3/uL Immature Gran # (0.00-0.04) X 10*3/uL Neutrophils # (1.80-7.70) X 10*3/uL NRBC/100 WBC Diff (0.0-0.0) /100 WBCS Sodium 134 L (137-145) mmol/L Anion Gap (10.00-18.00) mmol/L Creatinine 1.23 H (0.52-1.04) mg/dL Est GFR (CKD-EPI)AfAm (60.0-200.0) Est GFR (CKD-EPI)NonAf (60.0-200.0) BUN/Creatinine Ratio (12.00-20.00) Ratio Glucose 100 H (70-110) mg/dL POC Glucose (mg/dL) (70-110) mg/dL Assessment and Plan Assessment: The patient is sitting up in a chair and is alert. Her Gomez catheter is draining clear yellow urine. Urine culture has finalized with E. coli and is on ceftriaxone. She will be transitioned to Ceftin per medicine. The patient has stage III CKD with a baseline creatinine around 1-1.3. Nephrology has been following for MAGDA. Her creatinine was 3.34 upon admission and has improved to 1.23 today. Remove Gomez catheter this morning for a voiding trial and check PVR. (1) Hydronephrosis Status: Acute Code(s): N13.30 - UNSPECIFIED HYDRONEPHROSIS SNOMED Code(s): 37938528 Plan: - Remove Gomez catheter - Check PVR Thank you for this consultation Impression and plan of care have been directed as dictated by the signing physician. Radha Bonner nurse practitioner acting as scribe for signing physician. Radha Bonner [facility]iative [facility]/Urology Spectralink [email or web address] Email: [email or web address] I have personally seen and examined the patient, reviewed the documentation and agree with the assessment and plan as written. Number of minutes spent on the visit: 15. Leroy Garrido MD
[2022-05-28 11:06] LABS: Glucose,Whole Blood 164 mg/dL (70-110)
[2022-05-28 11:49] VITALS: BMI 35.0
--- NOTE | 2022-05-28 12:12 | P.PN ---
Subjective Patient is seen for follow-up for acute kidney injury mostly prerenal currently improving. Underlying chronic kidney disease stage III a with baseline creatinine around 1- 1.3 mg/dL. No complaints today Currently not on any IV fluids or diuretics. Tolerating oral intake. Patient is confused. Objective - Vital Signs Vital signs: Vital Signs Temp 97.5 F L 05/28/22 07:17 Pulse 65 05/28/22 09:00 Resp 18 05/28/22 09:48 BP 166/72 05/28/22 07:17 Pulse Ox 98 05/28/22 07:17 FiO2 Intake & Output 05/27/22 05/28/22 05/28/22 18:59 06:59 18:59 Intake Total 240 Output Total 5453 855 5860 Balance -4168 -900 -1760 Weight 89.811 kg Intake: Oral 240 Output: Urine 9476 436 6465 Uretheral (Gomez) 1000 Other: Voiding Method Indwelling Catheter Indwelling Catheter Indwelling Catheter - Exam Awake, comfortable, in no acute distress Pleasant she confused Examination of the heart S1 and S2 Examination of the lungs bilateral breath sounds are heard Abdomen is soft nontender Examination off the lower extremities shows trace edema in the lower legs - Labs CBC & Chem 7: 05/28/22 06:49 05/28/22 06:49 Labs: Abnormal Lab Results - Last 24 Hours (Table) 05/27/22 05/27/22 05/28/22 Range/Units 17:09 20:20 06:49 RBC 2.25 L (3.80-5.40) m/uL Hgb 7.5 L (11.4-16.0) gm/dL Hct 22.5 L (34.0-46.0) % RDW 17.5 H (11.5-15.5) % Sodium (137-145) mmol/L Creatinine (0.52-1.04) mg/dL Glucose (74-99) mg/dL POC Glucose (mg/dL) 203 H 291 H (70-110) mg/dL 05/28/22 05/28/22 Range/Units 06:49 11:05 RBC (3.80-5.40) m/uL Hgb (11.4-16.0) gm/dL Hct (34.0-46.0) % RDW (11.5-15.5) % Sodium 134 L (137-145) mmol/L Creatinine 1.23 H (0.52-1.04) mg/dL Glucose 100 H (74-99) mg/dL POC Glucose (mg/dL) 164 H (70-110) mg/dL Assessment and Plan Assessment: 1. Acute kidney injury secondary to diuresis and losartan. Peak creatinine 3.34 admission improved to 1.4 with IV fluids. Mild hydronephrosis noted on computed tomography scan. Currently with Gomez catheter. No further intervention planned as per urology. 2. Chronic kidney disease stage III diabetic nephropathy baseline creatinine about 1.3 with GFR in the chronic kidney disease stage III. 3. Status post fall with left thigh hematoma. pain-free 4. Anemia. milligrams stable at 7.3 , secondary to fall and hematoma in the time 5. Coronary artery disease ejection fraction 40% and pulmonary hypertension 6. E. coli UTI. Plan: Continue to encourage increase oral intake
[2022-05-28 12:40] VITALS: PULSE 58
--- NOTE | 2022-05-28 13:19 | P.PN ---
Subjective Progress Note Date: 05/28/22 CHIEF COMPLAINT: Left hip hematoma HISTORY OF PRESENT ILLNESS: Patient sitting up at bedside chair. She does still complain of pain in her left hip. The hematoma is showing improvement. Decrease in swelling and ecchymosis. Afebrile. Hemoglobin stable at 7.5. Patient scheduled for discharge to ECF today. PHYSICAL EXAM: VITAL SIGNS: Reviewed. GENERAL: Well-developed in no acute distress. HEENT: No sclera icterus. Extraocular movements grossly intact. Moist buccal mucosa. Head is atraumatic, normocephalic. ABDOMEN: Soft. Nondistended. Nontender. NEUROLOGIC: Alert and oriented. Cranial nerves II through XII grossly intact. Extremities: Left hip hematoma. Decreasing in size and decrease in swelling ASSESSMENT: 1. Left hip hematoma due to history of falls and being on Eliquis showing improvement 2. Anemia due to acute blood loss from hematoma PLAN: -No surgical intervention planned -Agree with discharge to ECF -Continue to hold Eliquis Physician Social Work Manager note has been reviewed by physician. Signing provider agrees with the documented findings, assessment, and plan of care. Objective - Vital Signs Vital signs: Vital Signs Temp 97.5 F L 05/28/22 07:17 Pulse 58 L 05/28/22 10:00 Resp 18 05/28/22 10:00 BP 166/72 05/28/22 07:17 Pulse Ox 98 05/28/22 07:17 FiO2 Intake & Output 05/27/22 05/28/22 05/28/22 18:59 06:59 18:59 Intake Total 240 Output Total 5799 981 6118 Balance -1500 900 -8084 Weight 89.811 kg Intake: Oral 240 Output: Urine 2483 137 5174 Uretheral (Gomez) 1000 Other: Voiding Method Indwelling Catheter Indwelling Catheter Indwelling Catheter - Labs CBC & Chem 7: 05/28/22 06:49 05/28/22 06:49 Labs: Abnormal Lab Results - Last 24 Hours (Table) 05/27/22 05/27/22 05/28/22 Range/Units 17:09 20:20 06:49 RBC 2.25 L (3.80-5.40) m/uL Hgb 7.5 L (11.4-16.0) gm/dL Hct 22.5 L (34.0-46.0) % RDW 17.5 H (11.5-15.5) % Sodium (137-145) mmol/L Creatinine (0.52-1.04) mg/dL Glucose (74-99) mg/dL POC Glucose (mg/dL) 203 H 291 H (70-110) mg/dL 05/28/22 05/28/22 Range/Units 06:49 11:05 RBC (3.80-5.40) m/uL Hgb (11.4-16.0) gm/dL Hct (34.0-46.0) % RDW (11.5-15.5) % Sodium 134 L (137-145) mmol/L Creatinine 1.23 H (0.52-1.04) mg/dL Glucose 100 H (74-99) mg/dL POC Glucose (mg/dL) 164 H (70-110) mg/dL
--- NOTE | 2022-05-28 13:48 | P.DS ---
Providers Date of admission: 05/21/22 00:10 Expected date of discharge: 05/28/22 Attending physician: Allison Figueroa Consults: 05/21/22 00:10 Consult Physician Routine Consulting Provider: Ochoa Alfaro Consult Reason/Comments: Left hip hematoma, contusion Do you want consulting provider notified?: Yes, Notify in am Consult Physician Routine Consulting Provider: Fransico Santana Consult Reason/Comments: hydronephrosis, MAGDA Do you want consulting provider notified?: Yes, Notify in am 05/21/22 15:51 Consult Physician Routine Consulting Provider: Valerio Perkins Consult Reason/Comments: left hydro Do you want consulting provider notified?: Yes Primary care physician: Ar Lofton Hospital Course: Final diagnosis -Large hematoma on the left hip, no plans for surgical intervention at this time, monitor hemoglobin hold off on anticoagulation. -Acute renal failure probably secondary to intravascular depletion as well as diuretic and losartan use, improving -Atrial fibrillation paroxysmal: Patient will continued on rate control medications patient is presently rate controlled and sinus rhythm. -Congestive heart failure chronic systolic dysfunction without any acute exacerbation, patient appears clinically volume depleted and dehydrated patient is bit volume depleted, diuretics and losartan will be held -Acute urinary tract infection, present on admission with E. coli on the cultures -chronic kidney disease stage III secondary to diabetic nephropathy -Chronic anemia due to CKD as well as iron deficiency anemia -Type 2 diabetes mellitus -History of CVA in the past -Hypertension -hyperlipidemia -Hypothyroidism -DVT prophylaxis Discharge disposition Patient is being discharged in a stable condition with guarded prognosis to [facility]. Patient will follow-up with Dr. Lofton in the outpatient setting upon discharge. Patient is to continue to hold diuretics and losartan for now and outpatient follow-up with nephrology along with labs in the next 2-3 days as scheduled. Patient to continue with oral Ceftin twice daily for the next 3 days to complete the course. Patient to continue holding anticoagulation until improving left leg hematoma is improved. Total time taken is greater than 35 minutes. Hospital course This is a 81-year-old female who was recently admitted with altered mental status acute kidney injury with UTI with E. coli being closely monitored. Patient also was noted to have a very large thigh hematoma on the left and was reported as patient had her leg on the side of the chair while transferring positions and [facility] denies that patient fell. Patient does have history of dementia and has not reported any falls. Patient's mentation is improved and has been cleared by consultations. Patient also evaluated by urology as patient did have some retention initially when coming in with acute kidney injury and had required a Gomez and Gomez catheter was removed and patient is awaiting to void. Please refer to other consultation notes for further HPI. Currently no reports of chest pain, shortness of breath, or palpitations. Patient is afebrile. No reports of nausea or vomiting and patient is tolerating diet. Would recommend continuing with sliding scale and Accu-Cheks before meals and at bedtime and continuing to hold metformin for now. Recommend consistent carb diet. Patient will be going to [facility]. today. Physical exam: Gen: This is a 81-year-old female who is awake, alert and oriented 2-3, well- developed, well-nourished, obese HEENT: Head is atraumatic, normocephalic. Pupils equal, round. Sclerae is anicteric. NECK: Supple. No JVD. No lymphadenopathy. No thyromegaly. LUNGS: Diminished breath sounds bilaterally with No wheezes or rhonchi. No intercostal retractions. HEART: S1, S2 are muffled ABDOMEN: Soft. Bowel sounds are present. No masses. No tenderness. EXTREMITIES: No pedal edema. No calf tenderness. Left hip hematoma with some improvement and soft and palpable and less painful on palpation NEUROLOGICAL: Patient is awake, alert and oriented x2-3 at baseline. Cranial nerves 2 through 12 are grossly intact. Diffusely weak Please refer to medication reconciliation sheet for a list of medications. The impression and plan of care has been dictated by Lisa Frey, Nurse Practitioner as directed. Dr. Gina MD I have performed a history and examination and MDM of this patient, discussed the same with the dictator, and agree with the dictator's assessment and plan as written ,documented as a scribe. Based on total visit time, I have performed more than 50% of the visit. Patient Condition at Discharge: Stable Plan - Discharge Summary Discharge Rx Participant: No New Discharge Prescriptions: New cefUROXime axetiL [Ceftin] 500 mg PO BID 3 Days #6 tab INSULIN ASPART (NovoLOG) [NovoLOG (formulary)] 0 unit SQ ACHS each Acetaminophen Tab [Tylenol] 650 mg PO Q6HR PRN tab PRN Reason: Fever And/ Or Pain traMADol HCl [Ultram] 50 mg PO QID PRN #4 tab PRN Reason: Moderate Pain (Scale 4 To 6) Insulin Detemir (Levemir) [Levemir] 20 unit SQ HS each ALPRAZolam [Xanax] 0.25 mg PO HS PRN #2 tab PRN Reason: Anxiety Continue Levothyroxine Sodium [Synthroid] 37.5 mcg PO DAILY Folic Acid 0.8 mg PO DAILY Cholecalciferol [Vitamin D3 (25 Mcg = 1000 Iu)] 50 mcg PO DAILY Spironolactone [Aldactone] 25 mg PO DAILY tab Oxybutynin Chloride [Ditropan XL] 5 mg PO DAILY Acetaminophen [Tylenol 8 Hour] 650 mg PO Q8H PRN PRN Reason: Pain Metoprolol Tartrate [Lopressor] 50 mg PO BID Loperamide HCl [Loperamide HCl Oral Susp] 7.5 mg PO Q12H PRN PRN Reason: Loose Stool Tirzepatide [Mounjaro] 5 mg SQ FR Discontinued Apixaban [Eliquis] 5 mg PO BID metFORMIN HCL [Glucophage] 500 mg PO BID Insulin Glargine,Hum.rec.anlog [Lantus Solostar Pen] 30 unit SQ HS Losartan [Cozaar] 50 mg PO BID tab Furosemide [Lasix] 20 mg PO DAILY tab Discharge Medication List Levothyroxine Sodium [Synthroid] 37.5 mcg PO DAILY 12/31/13 [History] Cholecalciferol [Vitamin D3 (25 Mcg = 1000 Iu)] 50 mcg PO DAILY 05/31/21 [History] Folic Acid 0.8 mg PO DAILY 05/31/21 [History] Metoprolol Tartrate [Lopressor] 50 mg PO BID 05/31/21 [History] Spironolactone [Aldactone] 25 mg PO DAILY tab 03/25/22 [Rx] Acetaminophen [Tylenol 8 Hour] 650 mg PO Q8H PRN 05/20/22 [History] Loperamide HCl [Loperamide HCl Oral Susp] 7.5 mg PO Q12H PRN 05/20/22 [History] Oxybutynin Chloride [Ditropan XL] 5 mg PO DAILY 05/20/22 [History] Tirzepatide [Mounjaro] 5 mg SQ FR 05/20/22 [History] ALPRAZolam [Xanax] 0.25 mg PO HS PRN #2 tab 05/28/22 [Rx] Acetaminophen Tab [Tylenol] 650 mg PO Q6HR PRN tab 05/28/22 [Rx] INSULIN ASPART (NovoLOG) [NovoLOG (formulary)] 0 unit SQ ACHS each 05/28/22 [Rx] Insulin Detemir (Levemir) [Levemir] 20 unit SQ HS each 05/28/22 [Rx] cefUROXime axetiL [Ceftin] 500 mg PO BID 3 Days #6 tab 05/28/22 [Rx] traMADol HCl [Ultram] 50 mg PO QID PRN #4 tab 05/28/22 [Rx] Follow up Appointment(s)/Referral(s): Ar Lofton MD [Primary Care Provider] - 1-2 days [facility] [place] [NON-STAFF] - As Needed Kathia Figueroa MD [STAFF PHYSICIAN] - 1 Week Ambulatory/Diagnostic Orders: Complete Blood Count w/diff [LAB.AMB] Time Frame: 3 Days, Location: None Selected Activity/Diet/Wound Care/Special Instructions: Patient is going to [facility] [place] Activity as tolerated Continue holding eliquis for now until left thigh hematoma is improved Follow-up with orthopedics outpatient as needed Follow-up with nephrology in one week Repeat labs of CBC, BMP, magnesium in 2-3 days Continue holding losartan and diuretics until repeat labs Continue Ceftin 500 mg twice daily for the next 3 days to complete the course and then may discontinue Recommend monitoring Accu-Cheks before meals and at bedtime and will continue sliding scale along with long-acting NovoLog sliding scale 0-150 equals 0 units 151-200 equals 2 units 201-250 equals 4 units 251-300 equals 6 units 301-350 equals 8 units 351-400 equals 10 units Please notify provider if blood sugar is 400 or above Follow-up primary care provider on discharge Discharge Disposition: TRANSFER TO SNF/ECF
== END 2022-05-28 15:09 | DRG 605 ==
LOC: EC 21:44 → 6NMEDSUR 05-21 00:10 → 4SSUR 05-21 01:26
PROVIDERS: ADMIT Hospitalist; ATTEND Hospitalist
PROC: 05HY33Z Insertion of Infusion Device into Upper Vein, Percutaneous Approach (ICD-10-PCS; principal; 2022-05-23 07:30)
DX: S70.02XA Contusion of left hip, initial encounter (principal); N39.0 Urinary tract infection, site not specified; D62 Acute posthemorrhagic anemia; E87.1 Hypo-osmolality and hyponatremia; F01.A Vascular dementia, mild; I13.0 Hypertensive heart and chronic kidney disease with heart failure and stage 1 through stage 4 chronic kidney disease, or unspecified chronic kidney disease; I50.22 Chronic systolic (congestive) heart failure; N17.9 Acute kidney failure, unspecified; N13.6 Pyonephrosis; D63.1 Anemia in chronic kidney disease; D50.9 Iron deficiency anemia, unspecified; S70.12XA Contusion of left thigh, initial encounter; T50.2X5A Adverse effect of carbonic-anhydrase inhibitors, benzothiadiazides and other diuretics, initial encounter; W01.0XXA Fall on same level from slipping, tripping and stumbling without subsequent striking against object, initial encounter; B96.20 Unspecified Escherichia coli [E. coli] as the cause of diseases classified elsewhere; E03.9 Hypothyroidism, unspecified; E66.9 Obesity, unspecified; Z68.35 Body mass index [BMI] 35.0-35.9, adult; E11.22 Type 2 diabetes mellitus with diabetic chronic kidney disease; E86.0 Dehydration; N18.31 Chronic kidney disease, stage 3a; I27.20 Pulmonary hypertension, unspecified; E86.1 Hypovolemia; F40.240 Claustrophobia; M19.90 Unspecified osteoarthritis, unspecified site; I25.10 Atherosclerotic heart disease of native coronary artery without angina pectoris; I48.0 Paroxysmal atrial fibrillation; R29.6 Repeated falls; T45.515A Adverse effect of anticoagulants, initial encounter; E78.5 Hyperlipidemia, unspecified; Y92.129 Unspecified place in nursing home as the place of occurrence of the external cause; Z91.81 History of falling; Z79.01 Long term (current) use of anticoagulants; Z79.84 Long term (current) use of oral hypoglycemic drugs; Z79.890 Hormone replacement therapy; Z79.899 Other long term (current) drug therapy; Z82.49 Family history of ischemic heart disease and other diseases of the circulatory system; Z86.73 Personal history of transient ischemic attack (TIA), and cerebral infarction without residual deficits; Z88.2 Allergy status to sulfonamides
CPT/HCPCS: 36410; 36415; 51798; 70450; 71045; 76770; 76937; 80048; 80053; 81001; 82728; 83036; 83540; 83550; 83690; 83735; 85025; 85027; 85610; 85730; 86850; 86900; 86901; 86920; 87077; 87086; 87186; 93005; 96361; 96365; 96366; 96375; 96376; 99285

== ENCOUNTER 2023-05-26 12:44 | Observation (INO) | payer MEDICARE ==
[2023-05-26] MEDS: METOPROLOL TARTRATE 5 MG/5 ML VIAL IVP STA ×2 (13:24→16:16)
[2023-05-26] MEDS: SODIUM CHLORIDE 0.9% 1,000 ML IV STA (13:25)
[2023-05-26 13:26] LABS: Basophils % (A) 1 %; Eosinophils # (A) 0.2 k/uL (0-0.7); Eosinophils % (A) 2 %; HCT 43.3 % (34.0-46.0); HGB 13.8 gm/dL (11.4-16.0); Lymphocytes # (A) 0.7 k/uL (1.0-4.8); Lymphocytes % (A) 9 %; MCH 32.5 pg (25.0-35.0); MCHC 31.7 g/dL (31.0-37.0); MCV 102.5 fL (80.0-100.0); Macrocytosis Slight; Mean Platelet Volume 8.7; Monocytes # (A) 0.5 k/uL (0-1.0); Monocytes % (A) 6 %; Neutrophils # (A) 6.2 k/uL (1.3-7.7); Neutrophils % (A) 81 %; Platelet Count 234 k/uL (150-450); RBC 4.23 m/uL (3.80-5.40); RDW 13.1 % (11.5-15.5); WBC 7.6 k/uL (3.8-10.6)
--- NOTE | 2023-05-26 13:29 | ED ---
General Adult HPI - General Chief complaint: Fall Stated complaint: Fall Time Seen by Provider: 05/26/23 12:46 Source: patient, EMS Mode of arrival: EMS - History of Present Illness Initial comments: Dictation was produced using [employer] dictation software. please excuse any grammatical, word or spelling errors. Chief Complaint: 82-year-old female presents after fall History of Present Illness: Patient is an 82-year-old female presents to the emergency department after fall. She went to let her dog out when all of a sudden she felt weak in her legs. Patient has history of A-fib on anticoagulation medications. States that she fell backwards. She was seemingly too weak to get up on her own. She was discovered on the ground by the [employer] delivery member who ended up calling EMS. She was on the ground for approximately 30 minutes. The ROS documented in this emergency department record has been reviewed and confirmed by me. Those systems with pertinent positive or negative responses have been documented in the HPI. All other systems are other negative and/or noncontributory. - Related Data Home Medications Medication Instructions Recorded Confirmed Levothyroxine Sodium [Synthroid] 37.5 mcg PO DAILY 12/31/13 05/20/22 Cholecalciferol [Vitamin D3 (25 50 mcg PO DAILY 05/31/21 05/20/22 Mcg = 1000 Iu)] Folic Acid 0.8 mg PO DAILY 05/31/21 05/20/22 Metoprolol Tartrate [Lopressor] 50 mg PO BID 05/31/21 05/20/22 Acetaminophen [Tylenol 8 Hour] 650 mg PO Q8H PRN 05/20/22 05/20/22 Loperamide HCl [Loperamide HCl 7.5 mg PO Q12H PRN 05/20/22 05/20/22 Oral Susp] Tirzepatide [Mounjaro] 5 mg SQ FR 05/20/22 05/20/22 oxyBUTYnin chloride [Ditropan XL] 5 mg PO DAILY 05/20/22 05/20/22 Previous Rx's Medication Instructions Recorded Spironolactone [Aldactone] 25 mg PO DAILY tab 03/25/22 ALPRAZolam [Xanax] 0.25 mg PO HS PRN #2 tab 05/28/22 Acetaminophen Tab [Tylenol] 650 mg PO Q6HR PRN tab 05/28/22 INSULIN ASPART (NovoLOG) [NovoLOG 0 unit SQ ACHS each 05/28/22 (formulary)] Insulin Detemir (Levemir) [Levemir] 20 unit SQ HS each 05/28/22 cefUROXime axetiL [Ceftin] 500 mg PO BID 3 Days #6 tab 05/28/22 traMADol HCl [Ultram] 50 mg PO QID PRN #4 tab 05/28/22 Allergies Allergy/AdvReac Type Severity Reaction Status Date / Time adhesive AdvReac peels skin Verified 05/26/23 12:55 off Sulfa (Sulfonamide AdvReac Diarrhea Verified 05/26/23 12:55 Antibiotics) Review of Systems ROS Statement: Those systems with pertinent positive or pertinent negative responses have been documented in the HPI. ROS Other: All systems not noted in ROS Statement are negative. Past Medical History Past Medical History: Atrial Fibrillation, Diabetes Mellitus, Hyperlipidemia, Hypertension, Memory Impairment, Osteoarthritis (OA), Skin Disorder, Thyroid Disorder Additional Past Medical History / Comment(s): Seasonal allergies, psoriasis. 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; Cataract surgery on right eye Feb 26; left eye on Mar 12 with lens implants Past Anesthesia/Blood Transfusion Reactions: No Reported Reaction Additional Past Anesthesia/Blood Transfusion Reaction / Comment(s): Claustrophobia Past Psychological History: Anxiety Smoking Status: Never smoker Past Alcohol Use History: Occasional Past Drug Use History: None Reported - Past Family History Mother Family Medical History: No Reported History Additional Family Medical History / Comment(s): Valve replacement, CAD General Exam - General Exam Comments Initial Comments: PHYSICAL EXAM: General Impression: Alert and oriented x3, not in acute distress HEENT: Abrasion to the occiput with no active bleeding, extra-ocular movements intact, pupils equal and reactive to light bilaterally, mucous membranes moist. Cardiovascular: Heart regular rate and rhythm Chest: Able to complete full sentences, no retractions, no tachypnea Abdomen: abdomen soft, non-tender, non-distended, no organomegaly Musculoskeletal: Pulses present and equal in all extremities, no peripheral edema Motor: no focal deficits noted Neurological: CN II-XII grossly intact, no focal motor or sensory deficits noted Skin: Intact with no visualized rashes Psych: Normal affect and mood Course Vital Signs 05/26/23 05/26/23 12:47 14:03 Temperature 97.8 F Pulse Rate 85 106 H Respiratory 16 18 Rate Blood Pressure 126/77 118/95 O2 Sat by Pulse 97 98 Oximetry EKG Findings - EKG Comments: EKG Findings:: My EKG interpretation: Ventricular rate 124, A-fib with RVR. No MO prolongation, no QTC prolongation, no ST or T-wave changes noted. EKG compared to May 20, 2022 showing no changes. Overall, this EKG is unremarkable Medical Decision Making - Medical Decision Making Was pt. sent in by a medical professional or institution (, PA, SHARED SERVICES AND OUTSOURCING MANAGER, urgent care, hospital, or shelter...) When possible be specific @ -No Did you speak to anyone other than the patient for history (EMS, parent, family, police, friend...)? What history was obtained from this source @ -No Did you review nursing and triage notes (agree or disagree)? Why? @ -I reviewed and agree with nursing and triage notes Were old charts reviewed (outside hosp., previous admission, EMS record, old EKG, old radiological studies, urgent care reports/EKG's, shelter records)? Report findings @ -No old charts were reviewed Differential Diagnosis (chest pain, altered mental status, abdominal pain women, abdominal pain men, vaginal bleeding, musculoskeletal, weakness, fever, dyspnea, syncope, headache, dizziness, GI bleed, back pain, seizure, CVA, palpatations, mental health)? @ - Differential Palpitations: Ventricular arrhythmias, atrial arrhythmias, myocardial infarction, anemia, thyrotoxicosis, electrolyte imbalance, hypokalemia, pulmonary embolism, pulmonary disease, drugs, alcohol, anxiety, stress.... This is not meant to be an all-inclusive list. EKG interpreted by me (3pts min.). @ -See above X-rays interpreted by me (1pt min.). @ -None done CT interpreted by me (1pt min.). @ -CT scan of the head and C-spine shows no acute processes U/S interpreted by me (1pt. min.). @ -None done What testing was considered but not performed or refused? (CT, X-rays, U/S, labs)? Why? @ -None What meds were considered but not given or refused? Why? @ -None Did you discuss the management of the patient with other professionals (professionals i.e. , PA, SHARED SERVICES AND OUTSOURCING MANAGER, lab, RT, psych nurse, perinatal social worker, features editor, teacher, interface control officer, director of casework)? Give summary @ -Case discussed with hospitalist for admission Was smoking cessation discussed for >3mins.? @ -No Was critical care preformed (if so, how long)? @ -Yes, 33 minutes Were there social determinants of health that impacted care today? How? (Homelessness, low income, unemployed, alcoholism, drug addiction, transportation, low edu. Level, literacy, decrease access to med. care, retirement, rehab)? @ -No Was there de-escalation of care discussed even if they declined (Discuss DNR or withdrawal of care, Hospice)? DNR status @ -No What co-morbidities impacted this encounter? (DM, HTN, Smoking, COPD, CAD, Cancer, CVA, ARF, Chemo, Hep., AIDS, mental health diagnosis, sleep apnea, morbid obesity)? @ -None Was patient admitted / discharged? Hospital course, mention meds given and route, prescriptions, significant lab abnormalities, going to OR and other per tinent info. @ -82-year-old female presents emergency department after fall. Vital signs upon arrival shows heart rate of 85, rest of vital signs within acceptable limits. Patient connected to the monitor found to be in A-fib with RVR. Laboratory evaluation obtained. CBC, coag panel metabolic panel within acceptable limits. Patient given IV and oral dose of metoprolol without any adequate rate control. Patient started on low-dose Cardizem drip will be admitted for cardiology consultation. Undiagnosed new problem with uncertain prognosis? @ -No Drug Therapy requiring intensive monitoring for toxicity (Heparin, Nitro, Insulin, Cardizem)? @ -No Were any procedures done? @ -No Diagnosis/symptom? Acute, or Chronic, or Acute on Chronic? Uncomplicated (without systemic symptoms) or Complicated (systemic symptoms)? @ -Fall, A-fib with RVR Side effects of treatment? @ -No Exacerbation, Progression, or Severe Exacerbation? @ -No Poses a threat to life or bodily function? How? (Chest pain, [place], [place], pneumonia, PE, COPD, DKA, ARF, appy, cholecystitis, CVA, Diverticulitis, Homicidal, Suicidal, threat to staff... and all critical care pts) @ -yes - Lab Data Result diagrams: 05/26/23 13:19 05/26/23 13:19 Lab Results 05/26/23 05/26/23 05/26/23 Range/Units 13:19 13:19 13:19 WBC 7.6 (3.8-10.6) k/uL RBC 4.23 (3.80-5.40) m/uL Hgb 13.8 (11.4-16.0) gm/dL Hct 43.3 (34.0-46.0) % MCV 102.5 H (80.0-100.0) fL MCH 32.5 (25.0-35.0) pg MCHC 31.7 (31.0-37.0) g/dL RDW 13.1 (11.5-15.5) % Plt Count 234 (150-450) k/uL MPV 8.7 Neutrophils % 81 % Lymphocytes % 9 % Monocytes % 6 % Eosinophils % 2 % Basophils % 1 % Neutrophils # 6.2 (1.3-7.7) k/uL Lymphocytes # 0.7 L (1.0-4.8) k/uL Monocytes # 0.5 (0-1.0) k/uL Eosinophils # 0.2 (0-0.7) k/uL Basophils # 0.0 (0-0.2) k/uL Macrocytosis Slight PT 11.8 (10.0-12.5) sec INR 1.1 (<1.2) APTT 26.3 (22.0-30.0) sec Sodium 135 L (137-145) mmol/L Potassium 4.9 (3.5-5.1) mmol/L Chloride 109 H (98-107) mmol/L Carbon Dioxide 17 L (22-30) mmol/L Anion Gap 9 mmol/L BUN 33 H (7-17) mg/dL Creatinine 1.67 H (0.52-1.04) mg/dL Est GFR (CKD-EPI)AfAm 33 (>60 ml/min/1.73 sqM) Est GFR (CKD-EPI)NonAf 29 (>60 ml/min/1.73 sqM) Glucose 361 H (74-99) mg/dL Calcium 9.3 (8.4-10.2) mg/dL Magnesium 1.6 (1.6-2.3) mg/dL Troponin I (0.000-0.034) ng/mL 05/26/23 Range/Units 13:19 WBC (3.8-10.6) k/uL RBC (3.80-5.40) m/uL Hgb (11.4-16.0) gm/dL Hct (34.0-46.0) % MCV (80.0-100.0) fL MCH (25.0-35.0) pg MCHC (31.0-37.0) g/dL RDW (11.5-15.5) % Plt Count (150-450) k/uL MPV Neutrophils % % Lymphocytes % % Monocytes % % Eosinophils % % Basophils % % Neutrophils # (1.3-7.7) k/uL Lymphocytes # (1.0-4.8) k/uL Monocytes # (0-1.0) k/uL Eosinophils # (0-0.7) k/uL Basophils # (0-0.2) k/uL Macrocytosis PT (10.0-12.5) sec INR (<1.2) APTT (22.0-30.0) sec Sodium (137-145) mmol/L Potassium (3.5-5.1) mmol/L Chloride (98-107) mmol/L Carbon Dioxide (22-30) mmol/L Anion Gap mmol/L BUN (7-17) mg/dL Creatinine (0.52-1.04) mg/dL Est GFR (CKD-EPI)AfAm (>60 ml/min/1.73 sqM) Est GFR (CKD-EPI)NonAf (>60 ml/min/1.73 sqM) Glucose (74-99) mg/dL Calcium (8.4-10.2) mg/dL Magnesium (1.6-2.3) mg/dL Troponin I <0.012 (0.000-0.034) ng/mL Disposition Clinical Impression: Atrial fibrillation with RVR Disposition: ADMITTED IP TO THIS HOSP Condition: Fair Referrals: Rolly,Ar, MD [Primary Care Provider] - 1-2 days Decision Time: 16:36
[2023-05-26 13:35] LABS: INR 1.1 (<1.2); Partial Thromboplastin Time 26.3 sec (22.0-30.0); Prothrombin Time 11.8 sec (10.0-12.5)
[2023-05-26 13:40] LABS: African American GFR (CKD) 33 (>60 ml/min/1.73 sqM); Anion Gap 9 mmol/L; Blood Urea Nitrogen 33 mg/dL (7-17); Calcium 9.3 mg/dL (8.4-10.2); Carbon Dioxide 17 mmol/L (22-30); Chloride 109 mmol/L (98-107); Glucose 361 mg/dL (74-99); Magnesium 1.6 mg/dL (1.6-2.3); Non-African American GFR(CKD) 29 (>60 ml/min/1.73 sqM); Potassium 4.9 mmol/L (3.5-5.1); Sodium 135 mmol/L (137-145)
[2023-05-26] MEDS: METOPROLOL TARTRATE 50 MG TAB PO STA (14:15)
--- NOTE | 2023-05-26 16:07 | CT ---
EXAMINATION TYPE: CT brain [place] wo con DATE OF EXAM: 05/26/2023 COMPARISON: 05/22/2022 HISTORY: fall, laceration on back of head CT DLP: 1378.2 mGycm, Automated exposure control for dose reduction was used. CONTRAST: None CT of the brain is performed utilizing 3 mm thick sections through the posterior fossa and 3 mm thick sections through the remaining calvarium. Study is performed within 24 hours of arrival to the hospital. No abnormal hyperdensity is present to suggest an acute intracranial hemorrhage. No mass lesion is evident. No acute infarcts are evident. There is patchy bilateral periventricular white matter hypodensity, l ikely on the basis of chronic white matter ischemic changes. Ventricles and sulci are prominent for the patient age. Paranasal sinuses and mastoid air cells within the [id number] are clear. IMPRESSIONS: 1. Atrophy with chronic appearing periventricular white matter ischemic changes. Findings are similar to comparison study. 2. No acute intracranial process. Follow-up MRI can be performed as clinically indicated. COMPARISON: None CT of the cervical spine is performed in the axial plane at 2 mm thick sections. Reconstructed image s in the coronal, and sagittal plane are reviewed on the computer. No acute fractures are evident. Vertebral body alignment is normal. Degenerative disc changes with loss of disc height is present throughout the cervical spine especiall y noted at C3-4 C4-5 C5-6. Vertebral body heights are preserved. Uncovertebral joint hypertrophy is contributing to foraminal stenosis C3-4 bilaterally, C4-5 bilatera lly from endplate spurring is present at C4-5 with mild anterior thecal sac compression. Uncovertebra l joint hypertrophy and endplate spurring is present C5-6. No spinal canal stenosis is present. IMPRESSION: 1. Degenerative disc changes with endplate spurring and uncovertebral joint hypertrophy. No stenosis is present. 2. No acute osseous abnormality cervical spine
[2023-05-26] MEDS ORDERED: NALOXONE 0.4 MG/ML 1 ML VIAL IV PRN (16:24)
[2023-05-26] MEDS: DILTIAZEM 125 MG in SODIUM CHLORIDE 0.9% 100 ML IV SCH (16:32)
[2023-05-26] MEDS: SODIUM CHLORIDE 0.9% 1,000 ML IV SCH (18:05)
[2023-05-26 23:04] LABS: Glucose,Whole Blood 297 mg/dL (70-110)
[2023-05-26] MEDS: APIXABAN 2.5 MG TABLET PO SCH (23:11)
[2023-05-26] MEDS: METOPROLOL TARTRATE 50 MG TAB PO SCH (23:11)
[2023-05-26] MEDS: ACETAMINOPHEN TAB 325 MG TAB PO PRN (23:12)
[2023-05-26] MEDS: INSULIN DETEMIR (LEVEMIR) 100 UNIT/ML SYR SQ SCH (23:12)
[2023-05-27] MEDS ORDERED: DEXTROSE 50% SYRINGE 50 ML IVP PRN ×2 (00:32)
--- NOTE | 2023-05-27 00:32 | P.HPIM ---
History of Present Illness H&P Date: 05/26/23 Chief Complaint: Fall Patient is a 82-year-old female with a past medical history of atrial fibrillation on anticoagulation with Eliquis, diabetes type 2 insulin-dependent, hypertension, hyperlipidemia, memory impairment, osteoarthritis and hypothyroidism and anxiety presents to ER status post fall. Patient states that she went to let her dog out when all of a sudden she felt weakness in bilateral lower extremities and legs gave way and fell. Denies any hitting her head. She felt to be to get up. She was found by [employer] mail delivery supervisor ended up calling EMS. Patient was on the ground for about 30 minutes. Patient otherwise denies any complaints of nausea or vomiting. No fever no chills. No cough or sputum production. No recent illnesses. Denies any headache. Denies any dizziness or lightheadedness. No chest pain or shortness of breath. Denies palpitations. Patient states that she was previous admitted to hospital and was sent to rehab. According to her family member at bedside she had a fall at the rehab and history of brain bleed as well due to that. On admission CT head and cervical spine was done. Showed atrophy with chronic appearing perivascular periventricular white matter ischemic changes. Findings similar to comparison study. No acute intracranial process. CT cervical spine showed degenerative disc disease changes with endplate spurring and vertebral joint hypertrophy. No stenosis is present. No acute osseous abnormality of the cervical spine. EKG showed atrial fibrillation with rapid rate with heart rate of 124 Laboratory data showed WBC 7.6 hemoglobin 10.8 and platelets 234 and MCV 102.5 Sodium 135 potassium 4.9 chloride 109 bicarb is 17 BUN 33 and creatinine 1.67 and blood sugar 361 and magnesium 1.6 Review of Systems Constitutional: Patient denies any fever or chills . No generalized weakness or weight loss. Abdomen: Patient denied nausea vomiting and diarrhea and abdominal pain. Cardiovascular: Patient denies any chest pain or short of breath no palpitations. Respiratory: patient denied any cough is from production. No shortness of breath Neurologic: Patient denied any numbness or tingling headache. Musculoskeletal: Patient denies any complaints of joint swelling or deformity. Skin: Negative Psychiatric: Negative Endocrine: No heat or cold intolerance. No recent weight gain. Genitourinary: No dysuria or hematuria. All other 14 point ROS negative except the above Past Medical History Past Medical History: Atrial Fibrillation, Diabetes Mellitus, Hyperlipidemia, Hypertension, Memory Impairment, Osteoarthritis (OA), Skin Disorder, Thyroid Disorder Additional Past Medical History / Comment(s): Seasonal allergies, psoriasis. 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; Cataract surgery on right eye Feb 26; left eye on Mar 12 with lens implants Past Anesthesia/Blood Transfusion Reactions: No Reported Reaction Additional Past Anesthesia/Blood Transfusion Reaction / Comment(s): Claustrophobia Past Psychological History: Anxiety Smoking Status: Never smoker Past Alcohol Use History: Occasional Past Drug Use History: None Reported - Past Family History Mother Family Medical History: No Reported History Additional Family Medical History / Comment(s): Valve replacement, CAD Medications and Allergies Home Medications Medication Instructions Recorded Confirmed Type Levothyroxine Sodium [Synthroid] 37.5 mcg PO DAILY 12/31/13 05/26/23 History Folic Acid 0.8 mg PO DAILY 05/31/21 05/26/23 History Metoprolol Tartrate [Lopressor] 50 mg PO BID 05/31/21 05/26/23 History oxyBUTYnin chloride [Ditropan XL] 5 mg PO DAILY 05/20/22 05/26/23 History Acetaminophen Tab [Tylenol] 650 mg PO Q6HR PRN tab 05/28/22 05/26/23 Rx Apixaban [Eliquis] 5 mg PO BID 05/26/23 05/26/23 History Insulin Glargine,Hum.rec.anlog 20 units SQ HS 05/26/23 05/26/23 History [Lantus Solostar Pen] Spironolactone [Aldactone] 50 mg PO DAILY 05/26/23 05/26/23 History Allergies Allergy/AdvReac Type Severity Reaction Status Date / Time adhesive AdvReac peels skin Verified 05/26/23 17:21 off Sulfa (Sulfonamide AdvReac Diarrhea Verified 05/26/23 17:21 Antibiotics) Physical Exam Vitals: Vital Signs Temp Pulse Resp BP Pulse Ox 05/26/23 18:05 92 16 123/82 96 05/26/23 14:03 106 H 18 118/95 98 05/26/23 12:47 97.8 F 85 16 126/77 97 Intake and Output 05/26/23 05/26/23 05/26/23 06:59 14:59 22:59 Other: Weight 90.718 kg PHYSICAL EXAMINATION: Patient is lying in the bed comfortably, no acute distress, awake alert and oriented.. HEENT: Normocephalic. Neck is supple. Pupils reactive. Nostrils clear. Oral cavity is moist. Neck reveals no JVD, carotid bruits, or thyromegaly. CHEST EXAMINATION: Trachea is central. Symmetrical expansion. Lung hilton clear to auscultation and percussion. CARDIAC: Normal S1, S2 with no gallops. Irregularly irregular rhythm. ABDOMEN: Soft. Bowel sounds normal. No organomegaly. No abdominal bruits. Extremities: reveal no edema. No clubbing or cyanosis Neurologically awake, alert, oriented x3 with well-coordinated movements. No focal deficits noted Skin: No rash or skin lesions. Psychiatric: Coperative. Nonsuicidal Musculoskeletal: No joint swelling or deformity. Normal range of motion. Results CBC & Chem 7: 05/27/23 10:10 05/27/23 10:10 Labs: Abnormal Lab Results - Last 24 Hours (Table) 05/26/23 05/26/23 Range/Units 13:19 13:19 MCV 102.5 H (80.0-100.0) fL Lymphocytes # 0.7 L (1.0-4.8) k/uL Sodium 135 L (137-145) mmol/L Chloride 109 H (98-107) mmol/L Carbon Dioxide 17 L (22-30) mmol/L BUN 33 H (7-17) mg/dL Creatinine 1.67 H (0.52-1.04) mg/dL Glucose 361 H (74-99) mg/dL Assessment and Plan Assessment: Atrial fibrillation with rapid ventricular rate Chronic atrial fibrillation on anticoagulation with Eliquis Status post fall MAGDA likely prerenal Hyperglycemia with uncontrolled diabetes type 2 insulin-dependent Hypertension Hyperlipidemia Memory impairment Osteoarthritis Hypothyroidism Generalized anxiety GI prophylaxis Plan: Patient will be continued on telemetry. Started on Cardizem drip for heart rate control. Patient will be started back on home dose of metoprolol and continue with IV hydration Spironolactone is on hold. Sliding scale for better blood sugar control. Continue with Lantus 20 units at bedtime. Fall precautions. Discussed with the family member at bedside in detail. Cardiology was consulted for further evaluation. Follow-up closely. Time with Patient: Greater than 30
[2023-05-27] MEDS: LEVOTHYROXINE 75 MCG TAB PO SCH (07:01)
[2023-05-27 08:11] LABS: Glucose,Whole Blood 194 mg/dL (70-110)
[2023-05-27] MEDS: INSULIN ASPART (NovoLOG) 100 UNIT/ML VIAL SQ SCH (08:45)
[2023-05-27] MEDS: OXYBUTYNIN XL 5 MG TAB.ER.24 PO SCH (08:45)
[2023-05-27] MEDS: METOPROLOL TARTRATE 25 MG TAB PO SCH (08:45)
[2023-05-27] MEDS: FOLIC ACID 1 MG TAB PO SCH (08:45)
[2023-05-27] MEDS: METOPROLOL TARTRATE 25 MG TAB PO STA (09:51)
[2023-05-27 10:42] LABS: Basophils % (A) 0 %; Eosinophils # (A) 0.2 k/uL (0-0.7); Eosinophils % (A) 3 %; Lymphocytes # (A) 0.8 k/uL (1.0-4.8); Lymphocytes % (A) 11 %; MCH 32.5 pg (25.0-35.0); MCHC 31.7 g/dL (31.0-37.0); MCV 102.3 fL (80.0-100.0); Macrocytosis Slight; Mean Platelet Volume 8.9; Monocytes # (A) 0.4 k/uL (0-1.0); Monocytes % (A) 6 %; Neutrophils % (A) 80 %; Platelet Count 257 k/uL (150-450); RDW 13.3 % (11.5-15.5); WBC 7.5 k/uL (3.8-10.6)
[2023-05-27 11:14] LABS: African American GFR (CKD) 35 (>60 ml/min/1.73 sqM); Anion Gap 9 mmol/L; Blood Urea Nitrogen 29 mg/dL (7-17); Carbon Dioxide 21 mmol/L (22-30); Chloride 106 mmol/L (98-107); Glucose 247 mg/dL (74-99); Non-African American GFR(CKD) 30 (>60 ml/min/1.73 sqM); Potassium 4.8 mmol/L (3.5-5.1); Sodium 136 mmol/L (137-145)
--- NOTE | 2023-05-27 13:21 | P.CRDCN ---
History of Present Illness Consult date: 05/27/23 Consult reason: atrial fibrillation (With RVR) History of present illness: History of present illness: This is an 82-year-old female patient of Dr. Venegas with past medical history of paroxysmal atrial fibrillation, idiopathic cardiomyopathy with EF 35%, hypertension, hyperlipidemia, diabetes mellitus type 2, mitral valve regurgitation. We have been asked to evaluate the patient for A-fib with RVR. She apparently felt weak in her legs fell down backwards injuring both arms. Patient was too weak to get up on her own and was discovered by the [employer] delivery room supervisor. She was on the ground for approximately 30 minutes. Also noted in attending documentation that family reported a fall at rehab in the past with brain bleed. Patient has been started on Cardizem drip at 5 mg/h and has been resumed on Eliquis from home. EKG atrial fibrillation with ventricular rate of 124. CT of the brain and cervical spine revealed atrophy white matter ischemic changes. No acute intracranial process. Degenerative disc disease with and pl ate spurring and uncovertebral joint hypertrophy. No stenosis. No acute abnormality in the cervical spine. WBC 7.5, hemoglobin 14. Sodium 136, potassium 4.8, BUN 29 creatinine 1.6. TSH 0.938. Troponin negative x 1. Home cardiac medications: Eliquis 5 mg twice daily, Lopressor 50 mg twice daily, Aldactone 50 mg daily, also on levothyroxine 37.5 mcg daily. Echocardiogram performed in the office on 06/06/2022 reveals EF of 55 to 60%, grade 2 diastolic dysfunction. Moderate left ventricular hypertrophy. Mild KRISTIN. Moderate to severe mitral regurgitation. Severe tricuspid regurgitation. Severely increased pulmonary artery systolic pressure of 63 mmHg. Mild to moderate pulmonic regurgitation. Lexiscan Cardiolite stress test performed in the office on 02/05/2021 revealed nondiagnostic electrocardiographic stress testing. Normal myocardial perfusion imaging with normal gated SPECT images. No evidence of stress-induced ischemia. Review Of Systems: At the time of my exam: CONSTITUTIONAL: Denies fever or chills. HEENT: Denies blurred vision, vision changes, or eye pain. Denies hemoptysis CARDIOVASCULAR: Denies chest pain. Denies orthopnea. Denies PND. Denies palpitations RESPIRATORY: Denies shortness of breath. GASTROINTESTINAL: Denies abdominal pain. Denies nausea or vomiting. HEMATOLOGIC: Denies bleeding disorders. GENITOURINARY: Denies any blood in urine. SKIN: Denies pruitis. Denies rash. Physical examination: Gen: This is an 82-year-old female in no acute distress VS: reviewed HEENT: Head is atraumatic, normocephalic. Pupils equal, round. Sclerae is anicteric. NECK: Supple. No JVD. LUNGS: Clear to auscultation. No wheezes or rhonchi. No intercostal retracti ons. HEART: Irregular rate and rhythm. 2/6 systolic ejection murmur at the base, 2/6 holosystolic murmur at the apex. ABDOMEN: Soft No tenderness. EXTREMITIES: No pedal edema. No calf tenderness. NEUROLOGICAL: Patient is awake, alert and oriented x3. Assessment: Paroxysmal atrial fibrillation, presenting with RVR Acute kidney injury Fall Idiopathic cardiomyopathy with recovered EF Hypertension Hyperlipidemia Diabetes mellitus type 2 Mitral valve regurgitation Plan: Resume patient's home cardiac medications Increase metoprolol tartrate to 75 mg twice daily Wean off Cardizem drip if heart rate is controlled by the afternoon No need to repeat echocardiogram Further recommendations to follow based upon clinical course Thank you kindly for this consultation. Nurse practitioner note has been reviewed, I agree with documented findings and plan of care. Patient was seen and examined. Past Medical History Past Medical History: Atrial Fibrillation, Diabetes Mellitus, Hyperlipidemia, Hypertension, Memory Impairment, Osteoarthritis (OA), Skin Disorder, Thyroid Disorder Additional Past Medical History / Comment(s): Seasonal allergies, psoriasis. 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; Cataract surgery on right eye Feb 26; left eye on Mar 12 with lens implants Past Anesthesia/Blood Transfusion Reactions: No Reported Reaction Additional Past Anesthesia/Blood Transfusion Reaction / Comment(s): Claustrophobia Past Psychological History: Anxiety Smoking Status: Never smoker Past Alcohol Use History: Occasional Past Drug Use History: None Reported - Past Family History Mother Family Medical History: No Reported History Additional Family Medical History / Comment(s): Valve replacement, CAD Medications and Allergies Home Medications Medication Instructions Recorded Confirmed Type Levothyroxine Sodium [Synthroid] 37.5 mcg PO DAILY 12/31/13 05/26/23 History Folic Acid 0.8 mg PO DAILY 05/31/21 05/26/23 History Metoprolol Tartrate [Lopressor] 50 mg PO BID 05/31/21 05/26/23 History oxyBUTYnin chloride [Ditropan XL] 5 mg PO DAILY 05/20/22 05/26/23 History Acetaminophen Tab [Tylenol] 650 mg PO Q6HR PRN tab 05/28/22 05/26/23 Rx Apixaban [Eliquis] 5 mg PO BID 05/26/23 05/26/23 History Insulin Glargine,Hum.rec.anlog 20 units SQ HS 05/26/23 05/26/23 History [Lantus Solostar Pen] Spironolactone [Aldactone] 50 mg PO DAILY 05/26/23 05/26/23 History Allergies Allergy/AdvReac Type Severity Reaction Status Date / Time adhesive AdvReac peels skin Verified 05/26/23 17:21 off Sulfa (Sulfonamide AdvReac Diarrhea Verified 05/26/23 17:21 Antibiotics) Physical Exam Vitals: Vital Signs Temp Pulse Pulse Resp BP BP Pulse Ox 05/27/23 04:00 98.0 F 79 19 118/72 05/27/23 00:00 97.9 F 66 19 05/26/23 20:00 97.9 F 79 19 117/82 94 L 05/26/23 18:05 92 16 123/82 96 05/26/23 14:03 106 H 18 118/95 98 05/26/23 12:47 97.8 F 85 16 126/77 97 Intake and Output 05/26/23 05/27/23 05/27/23 22:59 06:59 14:59 Other: # Voids 3 Weight 90.718 kg Results 05/27/23 10:10 05/27/23 10:10 Cardiac Enzymes 05/26/23 Range/Units 13:19 Troponin I <0.012 (0.000-0.034) ng/mL Coagulation 05/26/23 Range/Units 13:19 PT 11.8 (10.0-12.5) sec APTT 26.3 (22.0-30.0) sec CBC 05/26/23 Range/Units 13:19 WBC 7.6 (3.8-10.6) k/uL RBC 4.23 (3.80-5.40) m/uL Hgb 13.8 (11.4-16.0) gm/dL Hct 43.3 (34.0-46.0) % Plt Count 234 (150-450) k/uL Comprehensive Metabolic Panel 05/26/23 Range/Units 13:19 Sodium 135 L (137-145) mmol/L Potassium 4.9 (3.5-5.1) mmol/L Chloride 109 H (98-107) mmol/L Carbon Dioxide 17 L (22-30) mmol/L BUN 33 H (7-17) mg/dL Creatinine 1.67 H (0.52-1.04) mg/dL Glucose 361 H (74-99) mg/dL Calcium 9.3 (8.4-10.2) mg/dL Current Medications Generic Name Dose Route Start Last Admin Trade Name Freq PRN Reason Stop Dose Admin Acetaminophen 650 mg 05/26/23 21:09 05/26/23 23:12 Acetaminophen Tab 325 Mg Tab PO 650 mg Q6HR PRN Administration Fever and/ or Pain Apixaban 2.5 mg 05/26/23 21:15 05/26/23 23:11 Apixaban 2.5 Mg Tablet PO 2.5 mg BID GOVIND Administration Protocol Dextrose/Water 25 ml 05/27/23 00:32 Dextrose 50% Syringe 50 Ml IVP PER PROTOCOL PRN Hypoglycemia Protocol Dextrose/Water 50 ml 05/27/23 00:32 Dextrose 50% Syringe 50 Ml IVP PER PROTOCOL PRN Hypoglycemia Protocol Folic Acid 1 mg 05/27/23 09:00 Folic Acid 1 Mg Tab PO DAILY GOVIND Diltiazem HCl 125 mg/ Sodium 125 mls @ 5 mls/hr 05/26/23 16:30 05/26/23 16:32 Chloride IV 5 mg/hr .Q24H GOVIND 5 mls/hr Administration 5 MG/HR Sodium Chloride 1,000 mls @ 75 mls/hr 05/26/23 16:30 05/27/23 06:34 Saline 0.9% IV Not Given .[id number] GOVIND Insulin Aspart 0 unit 05/27/23 07:30 Insulin Aspart (Novolog) 100 Unit/Ml Vial SQ ACHS GOVIND Protocol Insulin Detemir 20 unit 05/26/23 21:15 05/26/23 23:12 Insulin Detemir (Levemir) 100 Unit/Ml Syr SQ 20 unit HS GOVIND Administration Levothyroxine Sodium 37.5 mcg 05/27/23 06:30 05/27/23 07:01 Levothyroxine 75 Mcg Tab PO 37.5 mcg 0630 GOVIND Administration Metoprolol Tartrate 50 mg 05/26/23 21:15 05/26/23 23:11 Metoprolol Tartrate 50 Mg Tab PO 50 mg BID GOVIND Administration Naloxone HCl 0.2 mg 05/26/23 16:24 Naloxone 0.4 Mg/Ml 1 Ml Vial IV Q2M PRN Opioid Reversal Oxybutynin Chloride 5 mg 05/27/23 09:00 Oxybutynin Xl 5 Mg Tab.Er.24 PO DAILY GOVIND Intake and Output 05/26/23 05/27/23 05/27/23 22:59 06:59 14:59 Other: # Voids 3 Weight 90.718 kg 05/26/23 13:19 05/26/23 13:19
[2023-05-27] MEDS: MAGNESIUM SULFATE-D5W PMX 1 GM in DEXTROSE/WATER 1 100ML.BAG IVPB SCH (15:18)
[2023-05-27 16:35] LABS: Glucose,Whole Blood 343 mg/dL (70-110)
[2023-05-27 20:02] LABS: Glucose,Whole Blood 189 mg/dL (70-110)
[2023-05-28 03:59] LABS: RBC 4.12 m/uL (3.80-5.40); WBC 7.3 k/uL (3.8-10.6)
[2023-05-28 04:00] LABS: Basophils % (A) 0 %; Eosinophils # (A) 0.3 k/uL (0-0.7); Eosinophils % (A) 4 %; HGB 13.2 gm/dL (11.4-16.0); Lymphocytes # (A) 1.2 k/uL (1.0-4.8); Lymphocytes % (A) 16 %; MCH 32.1 pg (25.0-35.0); MCHC 31.5 g/dL (31.0-37.0); MCV 101.8 fL (80.0-100.0); Macrocytosis Slight; Mean Platelet Volume 8.4; Monocytes # (A) 0.5 k/uL (0-1.0); Monocytes % (A) 7 %; Neutrophils # (A) 5.3 k/uL (1.3-7.7); Neutrophils % (A) 72 %; Platelet Count 204 k/uL (150-450)
[2023-05-28 04:09] LABS: African American GFR (CKD) 34 (>60 ml/min/1.73 sqM); Anion Gap 7 mmol/L; Blood Urea Nitrogen 30 mg/dL (7-17); Calcium 9.6 mg/dL (8.4-10.2); Carbon Dioxide 18 mmol/L (22-30); Chloride 110 mmol/L (98-107); Glucose 192 mg/dL (74-99); Non-African American GFR(CKD) 30 (>60 ml/min/1.73 sqM); Potassium 4.1 mmol/L (3.5-5.1); Sodium 135 mmol/L (137-145)
[2023-05-28 06:13] LABS: Glucose,Whole Blood 188 mg/dL (70-110)
[2023-05-28] MEDS: METOPROLOL TARTRATE 25 MG TAB PO STA (10:45)
[2023-05-28 11:29] LABS: Glucose,Whole Blood 364 mg/dL (70-110)
[2023-05-28 11:39] VITALS: BMI 30.4
--- NOTE | 2023-05-28 11:45 | P.PN ---
Subjective Progress Note Date: 05/27/23 Patient is a 82-year-old female with a past medical history of atrial fibrillation on anticoagulation with Eliquis, diabetes type 2 insulin-dependent, hypertension, hyperlipidemia, memory impairment, osteoarthritis and hypothyroidism and anxiety presents to ER status post fall. Patient states that she went to let her dog out when all of a sudden she felt weakness in bilateral lower extremities and legs gave way and fell. Denies any hitting her head. She felt to be to get up. She was found by [employer] service delivery analyst ended up calling EMS. Patient was on the ground for about 30 minutes. Patient otherwise denies any complaints of nausea or vomiting. No fever no chills. No cough or sputum production. No recent illnesses. Denies any headache. Denies any dizziness or lightheadedness. No chest pain or shortness of breath. Denies palpitations. Patient states that she was previous admitted to hospital and was sent to rehab. According to her family member at bedside she had a fall at the rehab and history of brain bleed as well due to that. On admission CT head and cervical spine was done. Showed atrophy with chronic appearing perivascular periventricular white matter ischemic changes. Findings similar to comparison study. No acute intracranial process. CT cervical spine showed degenerative disc disease changes with endplate spurring and vertebral joint hypertrophy. No stenosis is present. No acute osseous abnormality of the cervical spine. EKG showed atrial fibrillation with rapid rate with heart rate of 124 Laboratory data showed WBC 7.6 hemoglobin 10.8 and platelets 234 and MCV 102.5 Sodium 135 potassium 4.9 chloride 109 bicarb is 17 BUN 33 and creatinine 1.67 and blood sugar 361 and magnesium 1.6 05/27/2023 Patient is in the ER. Awake alert and oriented x 3. No complaint of chest pain. No palpitations. Patient's heart rate is still elevated. Continued on Cardizem drip. Metoprolol dose increased to 75 mg twice daily as per cardiology. Patient is also receiving IV hydration. Blood sugar is also elevated. No nausea vomiting abdominal pain or diarrhea. Laboratory data showed WBC 7.5 hemoglobin 14.0 and platelets 257 Sodium 136 potassium 4.8 chloride 106 bicarb is 21 BUN 29 and creatinine 1.60 Current medications reviewed. Objective - Vital Signs Vital signs: Vital Signs Temp 97.5 F L 05/27/23 11:05 Pulse 85 05/27/23 15:20 Resp 16 05/27/23 15:20 BP 130/94 05/27/23 15:20 Pulse Ox 97 05/27/23 15:20 FiO2 Intake & Output 05/26/23 05/27/23 05/27/23 18:59 06:59 18:59 Intake Total 118 Balance 118 Weight 90.718 kg 90.718 kg Intake: Oral 118 Other: # Voids 3 3 # Bowel Movements 3 - Exam PHYSICAL EXAMINATION: Patient is lying in the bed comfortably, no acute distress, awake alert and oriented.. HEENT: Normocephalic. Neck is supple. Pupils reactive. Nostrils clear. Oral cavity is moist. Neck reveals no JVD, carotid bruits, or thyromegaly. CHEST EXAMINATION: Trachea is central. Symmetrical expansion. Lung hilton clear to auscultation and percussion. CARDIAC: Normal S1, S2 with no gallops. Irregularly irregular rhythm. ABDOMEN: Soft. Bowel sounds normal. No organomegaly. No abdominal bruits. Extremities: reveal no edema. No clubbing or cyanosis Neurologically awake, alert, oriented x3 with well-coordinated movements. No focal deficits noted Skin: No rash or skin lesions. Psychiatric: Coperative. Nonsuicidal Musculoskeletal: No joint swelling or deformity. Normal range of motion. - Labs CBC & Chem 7: 05/28/23 03:39 05/28/23 03:39 Labs: Abnormal Lab Results - Last 24 Hours (Table) 05/26/23 05/27/23 05/27/23 Range/Units 23:02 08:05 10:10 MCV 102.3 H (80.0-100.0) fL Lymphocytes # 0.8 L (1.0-4.8) k/uL Sodium (137-145) mmol/L Carbon Dioxide (22-30) mmol/L BUN (7-17) mg/dL Creatinine (0.52-1.04) mg/dL Glucose (74-99) mg/dL POC Glucose (mg/dL) 297 H 194 H (70-110) mg/dL 05/27/23 05/27/23 Range/Units 10:10 16:33 MCV (80.0-100.0) fL Lymphocytes # (1.0-4.8) k/uL Sodium 136 L (137-145) mmol/L Carbon Dioxide 21 L (22-30) mmol/L BUN 29 H (7-17) mg/dL Creatinine 1.60 H (0.52-1.04) mg/dL Glucose 247 H (74-99) mg/dL POC Glucose (mg/dL) 343 H (70-110) mg/dL Assessment and Plan Assessment: Atrial fibrillation with rapid ventricular rate Chronic atrial fibrillation on anticoagulation with Eliquis Status post fall Acute on chronic kidney disease stage III with baseline creatinine 1.2-1.4 Hyperglycemia with uncontrolled diabetes type 2 insulin-dependent Hypertension Hyperlipidemia Memory impairment Osteoarthritis Hypothyroidism Generalized anxiety GI prophylaxis Plan: Patient will be continued on telemetry. Started on Cardizem drip for heart rate control. Continue with gentle IV hydration. Metoprolol dose increased to 75 mg twice daily Spironolactone is on hold. Sliding scale for better blood sugar control. Continue with Lantus 20 units at bedtime. Will add preprandial insulin. Follow-up A1c level. Fall precautions. Discussed with the family member at bedside in detail. Cardiology w is on board. Follow-up closely. Time with Patient: Greater than 30
[2023-05-28 12:23] VITALS: BP 131/76; PULSE 77; RESP 16; TEMP 98.1
[2023-05-28] MEDS: INSULIN ASPART (NovoLOG) 100 UNIT/ML VIAL SQ SCH (12:34)
--- NOTE | 2023-05-28 14:14 | P.PN ---
Subjective Progress Note Date: 05/28/23 Consult reason: atrial fibrillation (With RVR) History of present illness: This is an 82-year-old female patient of Dr. Venegas with past medical history of paroxysmal atrial fibrillation, idiopathic cardiomyopathy with EF 35%, hypertension, hyperlipidemia, diabetes mellitus type 2, mitral valve regurgitation. We have been asked to evaluate the patient for A-fib with RVR. She apparently felt weak in her legs fell down backwards injuring both arms. Marcell poe was too weak to get up on her own and was discovered by the [employer] delivery specialist. She was on the ground for approximately 30 minutes. Also noted in attending documentation that family reported a fall at rehab in the past with brain bleed. Patient has been started on Cardizem drip at 5 mg/h and has been resumed on Eliquis from home. EKG atrial fibrillation with ventricular rate of 124. CT of the brain and cervical spine revealed atrophy white matter ischemic changes. No acute intracranial process. Degenerative disc disease with and plate spurring and uncovertebral joint hypertrophy. No stenosis. No acute abnormality in the cervical spine. WBC 7.5, hemoglobin 14. Sodium 136, potassium 4.8, BUN 29 creatinine 1.6. TSH 0.938. Troponin negative x 1. Home cardiac medications: Eliquis 5 mg twice daily, Lopressor 50 mg twice daily, Aldactone 50 mg daily, also on levothyroxine 37.5 mcg daily. Echocardiogram performed in the office on 06/06/2022 reveals EF of 55 to 60%, grade 2 diastolic dysfunction. Moderate left ventricular hypertrophy. Mild KRISTIN. Moderate to severe mitral regurgitation. Severe tricuspid regurgitation. Severely increased pulmonary artery systolic pressure of 63 mmHg. Mild to moderate pulmonic regurgitation. Lexiscan Cardiolite stress test performed in the office on 02/05/2021 revealed nondiagnostic electrocardiographic stress testing. Normal myocardial perfusion imaging with normal gated SPECT images. No evidence of stress-induced ischemia. 05/27 Heart rate is running 97, telemetry atrial fibrillation, blood pressure 111/86. Patient is off Cardizem drip and has been on Lopressor that was increased yesterday to 75 mg twice daily. Patient denies having any palpitations. No lightheadedness or dizziness. Repeat blood work reveals BUN 30 creatinine 1.62, potassium 4.1. Physical examination: Gen: This is an 82-year-old female in no acute distress VS: reviewed HEENT: Head is atraumatic, normocephalic. Pupils equal, round. Sclerae is anicteric. NECK: Supple. No JVD. LUNGS: Clear to auscultation. No wheezes or rhonchi. No intercostal retractions. HEART: Irregular rate and rhythm. 2/6 systolic ejection murmur at the base, 2/6 holosystolic murmur at the apex. ABDOMEN: Soft No tenderness. EXTREMITIES: No pedal edema. No calf tenderness. NEUROLOGICAL: Patient is awake, alert and oriented x3. Assessment: Paroxysmal atrial fibrillation, presenting with RVR Acute kidney injury Fall Idiopathic cardiomyopathy with recovered EF Hypertension Hyperlipidemia Diabetes mellitus type 2 Mitral valve regurgitation Plan: Continue current cardiac medications including Eliquis Increase metoprolol tartrate to 100 mg twice daily No need to repeat echocardiogram Further recommendations to follow based upon clinical course Nurse practitioner note has been reviewed, I agree with documented findings and plan of care. Patient was seen and examined. Objective - Vital Signs Vital signs: Vital Signs Temp 97.7 F 05/28/23 08:00 Pulse 103 H 05/28/23 09:07 Resp 18 05/28/23 08:00 BP 111/86 05/28/23 08:00 Pulse Ox 97 05/28/23 08:00 FiO2 Intake & Output 05/27/23 05/28/23 05/28/23 18:59 06:59 18:59 Intake Total 118 540 560 Balance 118 540 560 Intake: Oral 118 540 560 Other: Voiding Method Toilet Toilet # Voids 3 3 1 # Bowel Movements 3 - Labs CBC & Chem 7: 05/28/23 03:39 05/28/23 03:39 Labs: Abnormal Lab Results - Last 24 Hours (Table) 05/27/23 05/27/23 05/27/23 Range/Units 10:10 10:10 16:33 MCV 102.3 H (80.0-100.0) fL Lymphocytes # 0.8 L (1.0-4.8) k/uL Sodium 136 L (137-145) mmol/L Chloride (98-107) mmol/L Carbon Dioxide 21 L (22-30) mmol/L BUN 29 H (7-17) mg/dL Creatinine 1.60 H (0.52-1.04) mg/dL Glucose 247 H (74-99) mg/dL POC Glucose (mg/dL) 343 H (70-110) mg/dL Hemoglobin A1c (<=6.0) % 05/27/23 05/28/23 05/28/23 Range/Units 19:42 03:39 03:39 MCV 101.8 H (80.0-100.0) fL Lymphocytes # (1.0-4.8) k/uL Sodium (137-145) mmol/L Chloride (98-107) mmol/L Carbon Dioxide (22-30) mmol/L BUN (7-17) mg/dL Creatinine (0.52-1.04) mg/dL Glucose (74-99) mg/dL POC Glucose (mg/dL) 189 H (70-110) mg/dL Hemoglobin A1c 11.3 H (<=6.0) % 05/28/23 05/28/23 Range/Units 03:39 06:07 MCV (80.0-100.0) fL Lymphocytes # (1.0-4.8) k/uL Sodium 135 L (137-145) mmol/L Chloride 110 H (98-107) mmol/L Carbon Dioxide 18 L (22-30) mmol/L BUN 30 H (7-17) mg/dL Creatinine 1.62 H (0.52-1.04) mg/dL Glucose 192 H (74-99) mg/dL POC Glucose (mg/dL) 188 H (70-110) mg/dL Hemoglobin A1c (<=6.0) %
[2023-05-28] MEDS ORDERED: METOPROLOL TARTRATE 50 MG TAB PO SCH (21:00)
== END 2023-05-28 15:28 | disposition home or self-care (01) ==
LOC: EC 12:44 → INTOOBSV 16:25 → 3SCARD 16:25
PROVIDERS: ADMIT Hospitalist; ATTEND Hospitalist
DX: I48.0 Paroxysmal atrial fibrillation (principal); N17.9 Acute kidney failure, unspecified; I42.9 Cardiomyopathy, unspecified; I34.0 Nonrheumatic mitral (valve) insufficiency; E11.65 Type 2 diabetes mellitus with hyperglycemia; E78.5 Hyperlipidemia, unspecified; I12.9 Hypertensive chronic kidney disease with stage 1 through stage 4 chronic kidney disease, or unspecified chronic kidney disease; N18.30 Chronic kidney disease, stage 3 unspecified; E11.22 Type 2 diabetes mellitus with diabetic chronic kidney disease; F41.1 Generalized anxiety disorder; E03.9 Hypothyroidism, unspecified; M19.90 Unspecified osteoarthritis, unspecified site; G31.84 Mild cognitive impairment of uncertain or unknown etiology; Z91.81 History of falling; Z79.01 Long term (current) use of anticoagulants; Z79.890 Hormone replacement therapy; Z79.899 Other long term (current) drug therapy; Z79.4 Long term (current) use of insulin; Z88.2 Allergy status to sulfonamides
CPT/HCPCS: 96365; 96366 ×2; 96367; 96375; 99285; 36415; 93005; 80048 ×3; 84443; 83735; 84484; 85025 ×3; 85610; 85730; 83036; 72125; 70450; G0378 ×3; J3475

== ENCOUNTER 2023-06-03 13:53 | Emergency (ER) | payer MEDICARE ==
[2023-06-03 14:39] VITALS: RESP 16; TEMP 98.1
[2023-06-03] MEDS: SILVER NITRATE APPLICATOR 1 EACH STICK..EA. TOPICAL STA ×2 (14:44→16:01)
[2023-06-03] MEDS: OXYMETAZOLINE 0.05% NASL SPRAY 1 SPRAY BOTTLE NASAL STA (14:47)
--- NOTE | 2023-06-03 15:03 | ED ---
ENT HPI - General Chief complaint: ENT Stated complaint: Nose bleed Time Seen by Provider: 06/03/23 15:02 Source: patient, family, RN notes reviewed Mode of arrival: wheelchair Limitations: no limitations - History of Present Illness Initial comments: 82-year-old female presented to the ER with a chief complaint of epistaxis. She reports that started around 1230 today. She reports it is only on the right side and reports mild drainage down the back of her throat. She does not currently take Eliquis as she has atrial fibrillation. She reports a developing headache. Denies any dizziness, lightheadedness, injuries, chest pain, shortness of breath. - Related Data Home Medications Medication Instructions Recorded Confirmed Levothyroxine Sodium [Synthroid] 37.5 mcg PO DAILY 12/31/13 05/26/23 Folic Acid 0.8 mg PO DAILY 05/31/21 05/26/23 oxyBUTYnin chloride [Ditropan XL] 5 mg PO DAILY 05/20/22 05/26/23 Apixaban [Eliquis] 5 mg PO BID 05/26/23 05/26/23 Insulin Glargine,Hum.rec.anlog 20 units SQ HS 05/26/23 05/26/23 [Lantus Solostar Pen] Spironolactone [Aldactone] 50 mg PO DAILY 05/26/23 05/26/23 Previous Rx's Medication Instructions Recorded Acetaminophen Tab [Tylenol] 650 mg PO Q6HR PRN tab 05/28/22 INSULIN ASPART (NovoLOG) [NovoLOG 0 unit SQ ACHS each 05/28/23 (formulary)] INSULIN ASPART (NovoLOG) [NovoLOG 6 unit SQ AC-TID 30 Days #4 each 05/28/23 (formulary)] Metoprolol Tartrate [Lopressor] 100 mg PO BID #120 tab 05/28/23 Allergies Allergy/AdvReac Type Severity Reaction Status Date / Time adhesive AdvReac peels skin Verified 06/03/23 14:11 off Sulfa (Sulfonamide AdvReac Diarrhea Verified 06/03/23 14:11 Antibiotics) Review of Systems ROS Statement: Those systems with pertinent positive or pertinent negative responses have been documented in the HPI. ROS Other: All systems not noted in ROS Statement are negative. Past Medical History Past Medical History: Atrial Fibrillation, Diabetes Mellitus, Hyperlipidemia, Hypertension, Memory Impairment, Osteoarthritis (OA), Skin Disorder, Thyroid Disorder Additional Past Medical History / Comment(s): Seasonal allergies, psoriasis. 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; Cataract surgery on right eye Feb 26; left eye on Mar 12 with lens implants Past Anesthesia/Blood Transfusion Reactions: No Reported Reaction Additional Past Anesthesia/Blood Transfusion Reaction / Comment(s): Claustrophobia Past Psychological History: Anxiety Smoking Status: Never smoker Past Alcohol Use History: Occasional Past Drug Use History: None Reported - Past Family History Mother Family Medical History: No Reported History Additional Family Medical History / Comment(s): Valve replacement, CAD General Exam Limitations: no limitations General appearance: alert, in no apparent distress Head exam: Present: atraumatic, normocephalic, normal inspection Eye exam: Present: normal appearance, PERRL, EOMI. Absent: scleral icterus, conjunctival injection, periorbital swelling ENT exam: Present: normal oropharynx (bleeding posterior pharynx.), other (Bleeding from right nostril. ) Neck exam: Present: normal inspection. Absent: tenderness, meningismus, lymphadenopathy Respiratory exam: Present: normal lung sounds bilaterally. Absent: respiratory distress, wheezes, rales, rhonchi, stridor Cardiovascular Exam: Present: regular rate, irregular rhythm, normal heart sounds Skin exam: Present: warm, dry, intact, normal color. Absent: rash Course Vital Signs 06/03/23 06/03/23 14:09 19:49 Temperature 98.1 F Pulse Rate 94 77 Respiratory 16 16 Rate Blood Pressure 122/93 143/87 O2 Sat by Pulse 99 98 Oximetry - Reevaluation(s) Reevaluation #1: 06/03/23 15:39 Reevaluation. Nose clamp removed with no active bleeding. Patient no signs of acute distress. 06/03/23 17:00 Reevaluation. Active bleeding present in right nostril. TXA mercerl placed. 06/03/23 17:40 Blood dripping for right nostril packing removed. 06/03/23 18:00 Rhino Rocket attempted to be placed by Dr. Bee which was unsuccessful. Constant pressure held. Medical Decision Making - Medical Decision Making Was pt. sent in by a medical professional or institution ([facility], [employer], urgent care, hospital, or retirement...) When possible be specific @ -No Did you speak to anyone other than the patient for history (EMS, parent, family, police, friend...)? What history was obtained from this source @ -No Did you review nursing and triage notes (agree or disagree)? Why? @ -I reviewed and agree with nursing and triage notes Were old charts reviewed (outside hosp., previous admission, EMS record, old EKG, old radiological studies, urgent care reports/EKG's, retirement records)? Report findings @ -No old charts were reviewed Differential Diagnosis (chest pain, altered mental status, abdominal pain women, abdominal pain men, vaginal bleeding, weakness, fever, dyspnea, syncope, headache, dizziness, GI bleed, back pain, seizure, CVA, palpatations, mental health, musculoskeletal)? @ -Epistaxis, septal hematoma, nasal bone fracture this list is not meant to be all-inclusive EKG interpreted by me (3pts min.). @ -None X-rays interpreted by me (1pt min.). @ -None done CT interpreted by me (1pt min.). @ -None done U/S interpreted by me (1pt. min.). @ -None done What testing was considered but not performed or refused? (CT, X-rays, U/S, labs)? Why? @ -None What meds were considered but not given or refused? Why? @ -None Did you discuss the management of the patient with other professionals (professionals i.e. [facility], [employer], lab, RT, psych nurse, rn social services, jacquard fixer, teacher, physics technical officer, case operator)? Give summary @ -No Was smoking cessation discussed for >3mins.? @ -No Was critical care preformed (if so, how long)? @ -No Were there social determinants of health that impacted care today? How? (Homelessness, low income, unemployed, alcoholism, drug addiction, transportation, low edu. Level, literacy, decrease access to med. care, shelter, rehab)? @ -No Was there de-escalation of care discussed even if they declined (Discuss DNR or withdrawal of care, Hospice)? DNR status @ -No What co-morbidities impacted this encounter? (DM, HTN, Smoking, COPD, CAD, Cancer, CVA, ARF, Chemo, Hep., AIDS, mental health diagnosis, sleep apnea, morbid obesity)? @ -A. fib on eliquis. Was patient admitted / discharged? Hospital course, mention meds given and route, prescriptions, significant lab abnormalities, going to OR and other pertinent info. @ -Discharged. 82 year old female presenting to the ER with a chief complaint of epistaxis. History and physical exam completed. Vitals stable. Patient in no signs of acute distress and non toxic appearing. Active bleeding from right nostril. Multiple attempts to stop bleeding including Afrin, nose clamp, TXA and pressure were unsuccessful. Rhino rocket was attempted to be placed and was unsuccessful. After readminstration of Afrin and constant pressure bleeding ceased. Patient monitored in ER for 1 hour after without rebleeding. Return parameters discussed. Patient discharged in stable condition with follow-up to PCP. Patient verbally expressed understanding and agreement with care plan. Case discussed with ED attending, Dr. Bee. Undiagnosed new problem with uncertain prognosis? @ -No Drug Therapy requiring intensive monitoring for toxicity (Heparin, Nitro, Insulin, Cardizem)? @ -No Were any procedures done? @ -No Diagnosis/symptom? @ -Epistaxis Acute, or Chronic, or Acute on Chronic? @ -Acute Uncomplicated (without systemic symptoms) or Complicated (systemic symptoms)? @ -Uncomplicated Side effects of treatment? @ -No Exacerbation, Progression, or Severe Exacerbation? @ -No Poses a threat to life or bodily function? How? (Chest pain, [place], [place], pneumonia, PE, COPD, DKA, ARF, appy, cholecystitis, CVA, Diverticulitis, Homicidal, Suicidal, threat to staff... and all critical care pts) @ -No Disposition Clinical Impression: Epistaxis Disposition: HOME SELF-CARE Condition: Stable Instructions (If sedation given, give patient instructions): Nosebleed (ED) Additional Instructions: If bleeding reoccurs hold steady pressure for 20 minutes. Follow-up with PCP in the next 1 to 2 days. Return to the ER for new or worse concerns. Is patient prescribed a controlled substance at d/c from ED?: No Referrals: Ar Lofton MD [Primary Care Provider] - 1-2 days Time of Disposition: 19:32
[2023-06-03] MEDS: ACETAMINOPHEN TAB 325 MG TAB PO STA (15:54)
[2023-06-03] MEDS: TRANEXAMIC ACID 1,000 MG/10 ML VIAL MISCELLANE ONE (17:15)
[2023-06-03] MEDS: cloNIDine HCL 0.1 MG TAB PO STA (18:31)
[2023-06-03 20:25] VITALS: BP 143/87; PULSE 77
== END 2023-06-03 19:51 | disposition home or self-care (01) ==
LOC: EC 13:53
DX: R04.0 Epistaxis (principal); I48.91 Unspecified atrial fibrillation; Z91.048 Other nonmedicinal substance allergy status; Z88.2 Allergy status to sulfonamides
CPT/HCPCS: 99283

== ENCOUNTER 2023-06-14 10:37 | Emergency (ER) | payer MEDICARE ==
[2023-06-14 11:07] VITALS: TEMP 98.2
--- NOTE | 2023-06-14 11:24 | ED ---
General Adult HPI - General Source: patient, RN notes reviewed Mode of arrival: ambulatory Limitations: no limitations <Archana Covington - Last Filed: 06/18/23 11:28> <Dawn Newell - Last Filed: 06/19/23 22:47> - General Chief complaint: ENT Stated complaint: Nose Bleed Time Seen by Provider: 06/14/23 11:07 - History of Present Illness Initial comments: 82-year-old female presents to the emergency department for evaluation of nosebleed. Patient states that this started around 2 hours prior to arrival to the emergency department today. She notes that this has been bleeding from the right side of her nose. She is on Eliquis for afib. Patient reports similar issue recently about 1 week ago in which she had to come to the emergency department for a nosebleed. They are unable to place packing due to difficulty with the nasal canal. She did not follow-up with ENT following this. (Archana Covington) - Related Data Home Medications Medication Instructions Recorded Confirmed Levothyroxine Sodium [Synthroid] 37.5 mcg PO DAILY 12/31/13 05/26/23 Folic Acid 0.8 mg PO DAILY 05/31/21 05/26/23 oxyBUTYnin chloride [Ditropan XL] 5 mg PO DAILY 05/20/22 05/26/23 Apixaban [Eliquis] 5 mg PO BID 05/26/23 05/26/23 Insulin Glargine,Hum.rec.anlog 20 units SQ HS 05/26/23 05/26/23 [Lantus Solostar Pen] Spironolactone [Aldactone] 50 mg PO DAILY 05/26/23 05/26/23 Previous Rx's Medication Instructions Recorded Acetaminophen Tab [Tylenol] 650 mg PO Q6HR PRN tab 05/28/22 INSULIN ASPART (NovoLOG) [NovoLOG 0 unit SQ ACHS each 05/28/23 (formulary)] INSULIN ASPART (NovoLOG) [NovoLOG 6 unit SQ AC-TID 30 Days #4 each 05/28/23 (formulary)] Metoprolol Tartrate [Lopressor] 100 mg PO BID #120 tab 05/28/23 Allergies Allergy/AdvReac Type Severity Reaction Status Date / Time adhesive AdvReac peels skin Verified 06/14/23 10:41 off Sulfa (Sulfonamide AdvReac Diarrhea Verified 06/14/23 10:41 Antibiotics) Review of Systems ROS Other: All systems not noted in ROS Statement are negative. <Archana Covington - Last Filed: 06/18/23 11:28> ROS Other: All systems not noted in ROS Statement are negative. <Dawn Newell Laura - Last Filed: 06/19/23 22:47> ROS Statement: Those systems with pertinent positive or pertinent negative responses have been documented in the HPI. Past Medical History Past Medical History: Atrial Fibrillation, Diabetes Mellitus, Hyperlipidemia, Hypertension, Memory Impairment, Osteoarthritis (OA), Skin Disorder, Thyroid Disorder Additional Past Medical History / Comment(s): Seasonal allergies, psoriasis. 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; Cataract surgery on right eye Feb 26; left eye on Mar 12 with lens implants Past Anesthesia/Blood Transfusion Reactions: No Reported Reaction Additional Past Anesthesia/Blood Transfusion Reaction / Comment(s): Claustrophobia Past Psychological History: Anxiety Smoking Status: Never smoker Past Alcohol Use History: Occasional Past Drug Use History: None Reported - Past Family History Mother Family Medical History: No Reported History Additional Family Medical History / Comment(s): Valve replacement, CAD <Octavio Covingtonsey - Last Filed: 06/18/23 11:28> General Exam Limitations: no limitations General appearance: alert, in no apparent distress Head exam: Present: atraumatic, normocephalic, normal inspection Eye exam: Present: normal appearance, PERRL, EOMI. Absent: scleral icterus, conjunctival injection, periorbital swelling ENT exam: Present: other (Bleeding from right nare with clotting present) Neck exam: Present: normal inspection. Absent: tenderness, meningismus, lymphadenopathy Respiratory exam: Present: normal lung sounds bilaterally. Absent: respiratory distress, wheezes, rales, rhonchi, stridor Cardiovascular Exam: Present: regular rate, normal rhythm, normal heart sounds. Absent: systolic murmur, diastolic murmur, rubs, gallop, clicks Neurological exam: Present: alert, oriented X3 Psychiatric exam: Present: normal affect, normal mood Skin exam: Present: warm, dry, normal color. Absent: rash <Archana Covington - Last Filed: 06/18/23 11:28> Course Vital Signs 06/14/23 06/14/23 06/14/23 10:39 12:37 13:30 Temperature 98.2 F Pulse Rate 69 68 100 Respiratory 20 16 16 Rate Blood Pressure 127/62 126/71 124/85 O2 Sat by Pulse 96 95 97 Oximetry Medical Decision Making <Archana Covington - Last Filed: 06/18/23 11:28> <Dawn Newell - Last Filed: 06/19/23 22:47> - Medical Decision Making Was pt. sent in by a medical professional or institution (Dr. PA, [employer], urgent care, hospital, or group home...) When possible be specific @ -No Did you speak to anyone other than the patient for history (EMS, parent, family, police, friend...)? What history was obtained from this source @ -No Did you review nursing and triage notes (agree or disagree)? Why? @ -I reviewed and agree with nursing and triage notes Were old charts reviewed (outside hosp., previous admission, EMS record, old EKG, old radiological studies, urgent care reports/EKG's, group home records)? Report findings @ -No old charts were reviewed Differential Diagnosis (chest pain, altered mental status, abdominal pain women, abdominal pain men, vaginal bleeding, weakness, fever, dyspnea, syncope, headache, dizziness, GI bleed, back pain, seizure, CVA, palpatations, mental health, musculoskeletal)? @ -Epistaxis, nasal malignancy, hypertension, this list is not all inclusive EKG interpreted by me (3pts min.). @ -None X-rays interpreted by me (1pt min.). @ -None done CT interpreted by me (1pt min.). @ -None done U/S interpreted by me (1pt. min.). @ -None done What testing was considered but not performed or refused? (CT, X-rays, U/S, labs)? Why? @ -None What meds were considered but not given or refused? Why? @ -None Did you discuss the management of the patient with other professionals (professionals i.e. DrLanre, PA, [employer], lab, RT, psych nurse, social media coordinator, weather reporter, teacher, forestry technical officer, bottle caser)? Give summary @ -No Was smoking cessation discussed for >3mins.? @ -No Was critical care preformed (if so, how long)? @ -No Were there social determinants of health that impacted care today? How? (Homelessness, low income, unemployed, alcoholism, drug addiction, transportation, low edu. Level, literacy, decrease access to med. care, usp, rehab)? @ -No Was there de-escalation of care discussed even if they declined (Discuss DNR or withdrawal of care, Hospice)? DNR status @ -No What co-morbidities impacted this encounter? (DM, HTN, Smoking, COPD, CAD, Cancer, CVA, ARF, Chemo, Hep., AIDS, mental health diagnosis, sleep apnea, morbid obesity)? @ -None Was patient admitted / discharged? Hospital course, mention meds given and ro javier, prescriptions, significant lab abnormalities, going to OR and other pertinent info. @ -Discharged. Patient presented to the emergency department for evaluation of nose bleed. Bleeding present from right nare. Afrin utilized and pressure applied. There is minimal residual bleeding following this. Nasal packing inserted with Merocel. Bleeding controlled. Advised follow up with ENT for removal on Friday. Patient understanding agreeable with this plan. Patient stable at time of discharge. Case discussed with Dr. Newell Undiagnosed new problem with uncertain prognosis? @ -No Drug Therapy requiring intensive monitoring for toxicity (Heparin, Nitro, Insulin, Cardizem)? @ -No Were any procedures done? @ -No Diagnosis/symptom? @ -Epistaxis Acute, or Chronic, or Acute on Chronic? @ -acute Uncomplicated (without systemic symptoms) or Complicated (systemic symptoms)? @ -uncomplicated Side effects of treatment? @ -No Exacerbation, Progression, or Severe Exacerbation? @ -No Poses a threat to life or bodily function? How? (Chest pain, [place], [place], pneumonia, PE, COPD, DKA, ARF, appy, cholecystitis, CVA, Diverticulitis, Homicidal, Suicidal, threat to staff... and all critical care pts) @ -No (Archana Covington) Procedure - placement of nasal packing (Damer,Dawn A) Disposition Is patient prescribed a controlled substance at d/c from ED?: No <Archana Covington - Last Filed: 06/18/23 11:28> <Dawn Newell - Last Filed: 06/19/23 22:47> Clinical Impression: Epistaxis not due to trauma Disposition: HOME SELF-CARE Condition: Stable Instructions (If sedation given, give patient instructions): Nosebleed (ED) Additional Instructions: Please follow up with ear, nose, and throat for removal of packing. Return to the emergency department for new or worsening symptoms. Referrals: Ar Lofton MD [Primary Care Provider] - 1-2 days Tripp Owen MD [STAFF PHYSICIAN] - 1-2 days
[2023-06-14] MEDS: OXYMETAZOLINE 0.05% NASL SPRAY 1 SPRAY BOTTLE NASAL STA (11:27)
[2023-06-14] MEDS: BACITRACIN OINT 1 EACH PACKET TOPICAL ONE (12:41)
[2023-06-14 13:06] VITALS: RESP 16
[2023-06-14 13:44] VITALS: BP 124/85; PULSE 100
== END 2023-06-14 13:31 | disposition home or self-care (01) ==
LOC: EC 10:37
DX: R04.0 Epistaxis (principal); Z88.2 Allergy status to sulfonamides; Z91.09 Other allergy status, other than to drugs and biological substances
CPT/HCPCS: 30903; 99283

== ENCOUNTER 2023-06-22 09:56 | Emergency (ER) | payer MEDICARE ==
[2023-06-22 10:26] VITALS: PULSE 84; TEMP 97.6
--- NOTE | 2023-06-22 11:07 | ED ---
ENT HPI - General Chief complaint: ENT Stated complaint: Bloody nose Time Seen by Provider: 06/22/23 10:04 Source: patient, family, RN notes reviewed Mode of arrival: wheelchair Limitations: no limitations - History of Present Illness Initial comments: This is an 82-year-old female who presents to the emergency department for a nosebleed. She was evaluated here 8 days ago for a nosebleed and had merocel packing placed. She called Dr. Owen's office, and he advised that he wanted the packing in place for at least 7 days. She has a follow up appointment with Dr. Owen in 2 days. Patient states that today she started to bleed around the area of packing. She takes Eliquis for atrial fibrillation. The family is concerned that this is the third nosebleed she has had in the past month. She is still taking her Eliquis. Not using saline nasal spray. MD complaint: epistaxis - Related Data Home Medications Medication Instructions Recorded Confirmed Levothyroxine Sodium [Synthroid] 37.5 mcg PO DAILY 12/31/13 05/26/23 Folic Acid 0.8 mg PO DAILY 05/31/21 05/26/23 oxyBUTYnin chloride [Ditropan XL] 5 mg PO DAILY 05/20/22 05/26/23 Apixaban [Eliquis] 5 mg PO BID 05/26/23 05/26/23 Insulin Glargine,Hum.rec.anlog 20 units SQ HS 05/26/23 05/26/23 [Lantus Solostar Pen] Spironolactone [Aldactone] 50 mg PO DAILY 05/26/23 05/26/23 Previous Rx's Medication Instructions Recorded Acetaminophen Tab [Tylenol] 650 mg PO Q6HR PRN tab 05/28/22 INSULIN ASPART (NovoLOG) [NovoLOG 0 unit SQ ACHS each 05/28/23 (formulary)] INSULIN ASPART (NovoLOG) [NovoLOG 6 unit SQ AC-TID 30 Days #4 each 05/28/23 (formulary)] Metoprolol Tartrate [Lopressor] 100 mg PO BID #120 tab 05/28/23 Allergies Allergy/AdvReac Type Severity Reaction Status Date / Time adhesive AdvReac peels skin Verified 06/14/23 10:41 off Sulfa (Sulfonamide AdvReac Diarrhea Verified 06/14/23 10:41 Antibiotics) Review of Systems ROS Statement: Those systems with pertinent positive or pertinent negative responses have been documented in the HPI. ROS Other: All systems not noted in ROS Statement are negative. Past Medical History Past Medical History: Atrial Fibrillation, Diabetes Mellitus, Hyperlipidemia, Hypertension, Memory Impairment, Osteoarthritis (OA), Skin Disorder, Thyroid Disorder Additional Past Medical History / Comment(s): Seasonal allergies, psoriasis. 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; Cataract surgery on right eye Feb 26; left eye on Mar 12 with lens implants Past Anesthesia/Blood Transfusion Reactions: No Reported Reaction Additional Past Anesthesia/Blood Transfusion Reaction / Comment(s): Claustrophobia Past Psychological History: Anxiety Smoking Status: Never smoker Past Alcohol Use History: Occasional Past Drug Use History: None Reported - Past Family History Mother Family Medical History: No Reported History Additional Family Medical History / Comment(s): Valve replacement, CAD General Exam Limitations: no limitations General appearance: alert, in no apparent distress Head exam: Present: atraumatic, normocephalic, normal inspection ENT exam: Present: other (Dried blood around the right naris without any active bleeding. No septal hematoma.) Respiratory exam: Present: normal lung sounds bilaterally. Absent: respiratory distress, wheezes, rales, rhonchi, stridor Cardiovascular Exam: Present: regular rate, normal rhythm, normal heart sounds. Absent: systolic murmur, diastolic murmur, rubs, gallop, clicks Neurological exam: Present: alert, oriented X3, CN II-XII intact Psychiatric exam: Present: normal affect, normal mood Skin exam: Present: warm, dry, intact, normal color. Absent: rash Course Vital Signs 06/22/23 06/22/23 09:58 13:13 Temperature 97.6 F Pulse Rate 84 84 Respiratory 20 18 Rate Blood Pressure 143/74 121/68 O2 Sat by Pulse 99 97 Oximetry Medical Decision Making - Medical Decision Making This is an 82 year old female who presents to the emergency department for a nosebleed. Was pt. sent in by a medical professional or institution? @ -No Did you speak to anyone other than the patient for history? @ -No Did you review nursing and triage notes? @ -Yes, and I agree, it is accurate with regards to the patient's symptoms. Were old charts reviewed? @ -No Differential Diagnosis? @ -Differential Epistaxis: Injury, coagulopathy, allergic rhinitis, this is not meant to be an all- inclusive list. EKG interpreted by me (3pts min.)? @ -Not obtained X-rays interpreted by me (1pt min.)? @ -Not obtained CT interpreted by me (1pt min.)? @ -Not obtained U/S interpreted by me (1pt. min.)? @ -Not obtained What testing was considered but not performed? (CT, X-rays, U/S, labs)? Why? @ -None What meds were considered but not given? Why? @ -None Did you discuss the management of the patient with other professionals? @ -No Did you reconcile home meds? @ -No Was smoking cessation discussed for >3mins.? @ -No Was critical care preformed (if so, how long)? @ -No Were there social determinants of health that impacted care today? How? (Homelessness, low income, unemployed, alcoholism, drug addiction, transportation, low edu. Level, literacy, decrease access to med. care, half-way, rehab)? @ -No Was there de-escalation of care discussed even if they declined? (Discuss DNR or withdrawal of care, Hospice)? @ -No What co-morbidities impacted this encounter? (DM, HTN, Smoking, COPD, CAD, Cancer, CVA, Hep., AIDS, mental health diagnosis, sleep apnea, morbid obesity)? @ -Atrial fibrillation Was patient admitted / discharged? @ -Discharged. Patient's Merocel packing was removed and there was essentially no residual bleeding afterwards. We did apply Afrin nasal spray and clamp the nose for approximately 20 minutes. The clamp was removed and the patient was monitored for approximately 1 hour. She had no additional bleeding afterwards. She is advised to hold her Eliquis for at least the next 1 to 2 days. Her follow-up appointment with Dr. Owen is in 2 days from now. Advised over-t he-counter saline nasal spray to moisten the nasal passages. She was also sent home with the Afrin nasal spray and nasal clamps with instructions on how to use them at home if the nosebleeds recur. Undiagnosed new problem with uncertain prognosis? @ -None Drug Therapy requiring intensive monitoring for toxicity (Heparin, Nitro, Insulin, Cardizem)? @ -None Were any procedures done? @ -None Diagnosis/symptom? @ -Epistaxis Acute, or Chronic, or Acute on Chronic? @ -Acute Uncomplicated (without systemic symptoms) or Complicated (systemic symptoms)? @ -Uncomplicated Side effects of treatment? @ -None Exacerbation, Progression, or Severe Exacerbation] @ -Not applicable Poses a threat to life or bodily function? @ -No Return precautions reviewed in depth, the patient is instructed to return to the emergency department with any new, worsening, or concerning symptoms. Patient verbalized understanding. This case was discussed in detail with the attending ED physician, Dr. Stanford. Presentation, findings, and treatment plan discussed in detail as well. Disposition Clinical Impression: Epistaxis Disposition: HOME SELF-CARE Instructions (If sedation given, give patient instructions): Nosebleed (ED) Additional Instructions: Return to the emergency department with any new, worsening, or concerning symptoms. Hold your Eliquis until you see Dr. Owen. Purchase [id number] saline nasal spray and use this several times each day to moisten the nasal passages and reduce the risk of recurrence. If you start to get another nasal bleed at home, use the Afrin nasal spray provided and then clamp the nose for 20 to 30 minutes. If this is not effective you can repeat this. Follow up with Dr. Owen as scheduled. Is patient prescribed a controlled substance at d/c from ED?: No Referrals: Ar Lofton MD [Primary Care Provider] - 1-2 days Time of Disposition: 13:02
[2023-06-22] MEDS: OXYMETAZOLINE 0.05% NASL SPRAY 1 SPRAY BOTTLE NASAL STA (11:12)
[2023-06-22 13:45] VITALS: BP 121/68; RESP 18
== END 2023-06-22 13:19 | disposition home or self-care (01) ==
LOC: EC 09:56
DX: R04.0 Epistaxis (principal); I48.91 Unspecified atrial fibrillation; Z88.2 Allergy status to sulfonamides; Z91.09 Other allergy status, other than to drugs and biological substances
CPT/HCPCS: 99283

== ENCOUNTER 2023-06-26 19:15 | Inpatient (IN) | payer MEDICARE ==
[2023-06-26 19:31] LABS: Glucose,Whole Blood 366 mg/dL (70-110)
[2023-06-26 20:51] LABS: Basophils % (A) 0 %; Eosinophils # (A) 0.3 k/uL (0-0.7); Eosinophils % (A) 3 %; HCT 44.2 % (34.0-46.0); HGB 14.2 gm/dL (11.4-16.0); Lymphocytes # (A) 1.1 k/uL (1.0-4.8); Lymphocytes % (A) 11 %; MCH 33.1 pg (25.0-35.0); MCHC 32.1 g/dL (31.0-37.0); MCV 103.1 fL (80.0-100.0); Macrocytosis Slight; Mean Platelet Volume 9.4; Monocytes # (A) 0.6 k/uL (0-1.0); Monocytes % (A) 6 %; Neutrophils # (A) 8.2 k/uL (1.3-7.7); Neutrophils % (A) 79 %; Platelet Count 264 k/uL (150-450); RBC 4.28 m/uL (3.80-5.40); RDW 13.5 % (11.5-15.5); WBC 10.4 k/uL (3.8-10.6)
--- NOTE | 2023-06-26 20:57 | ED ---
Weakness HPI - General Chief complaint: Weakness Stated complaint: Weakness Time Seen by Provider: 06/26/23 19:37 Source: EMS Mode of arrival: EMS - History of Present Illness Initial comments: 82-year-old female with past medical history of A-fib, diabetes, hypertension who presents emergency department with inability to care for self. Daughter is at bedside and helps provide the history. States that the patient has been more confused over the past 3 weeks. She continues to live at home however the daughter has hired a nurse to come into the house to check on her. The nurse has been checking on the patient 3 times a day as it has been difficult for her to care for herself. She has not been taking her medications appropriately or preparing meals for herself. Today the nurse was at the house around 2 PM. When she went over at 5 PM the patient was found on the floor. The patient states that she got up to use the restroom and lost her balance falling to the ground. She denies hitting her head. She is on Eliquis for her A-fib. The daughter feels as if she can no longer care for the patient at home even with home care and that the patient needs to be admitted to a rehab facility. Patient was off of her Eliquis from Friday through due to a nosebleed. She has had a previous stroke. There is no lateralizing deficits at this time. Patient denies any headaches or visual changes. She denies any chest pain or difficulty breathing. Patient arrives and is in A-fib with a rapid rate. She was recently just placed back on her Cardizem due to the elevated heart rate. No report of any fevers. Patient denies any neck or back pain. No injuries from her fall. No other alleviating, precipitating or modifying factors - Related Data Home Medications Medication Instructions Recorded Confirmed Levothyroxine Sodium [Synthroid] 37.5 mcg PO DAILY 12/31/13 06/27/23 Folic Acid 0.8 mg PO DAILY 05/31/21 06/27/23 oxyBUTYnin chloride [Ditropan XL] 5 mg PO DAILY 05/20/22 06/27/23 Apixaban [Eliquis] 5 mg PO Q12H 05/26/23 06/27/23 Spironolactone [Aldactone] 50 mg PO DAILY 05/26/23 06/27/23 Cephalexin [Keflex] 500 mg PO Q12HR 06/27/23 06/27/23 Cetirizine HCl [Zyrtec] 10 mg PO DAILY 06/27/23 06/27/23 Cholecalciferol [Vitamin D3 (25 50 mcg PO DAILY 06/27/23 06/27/23 Mcg = 1000 Iu)] Insulin Glargine,Hum.rec.anlog 20 units SQ HS 06/27/23 06/27/23 [Lantus Solostar Pen] Magnesium Gluconate Gummies 100 mg PO DAILY 06/27/23 06/27/23 Mupirocin 2% Oint [Bactroban 2% 1 applic EA NOSTRIL BID 06/27/23 06/27/23 Oint] Oxymetazoline 0.05% Nasl [place] 2 spray EA NOSTRIL BID 06/27/23 06/27/23 [Afrin 0.05% Nasal [place]] Zinc Gluconate [Zinc] 50 mg PO DAILY 06/27/23 06/27/23 dilTIAZem HCL 30 mg PO TID 06/27/23 06/27/23 Previous Rx's Medication Instructions Recorded Metoprolol Tartrate [Lopressor] 100 mg PO BID #120 tab 05/28/23 Allergies Allergy/AdvReac Type Severity Reaction Status Date / Time adhesive AdvReac peels skin Verified 06/27/23 07:48 off - paper tape ok Sulfa (Sulfonamide AdvReac Diarrhea Verified 06/27/23 07:48 Antibiotics) Review of Systems ROS Statement: Those systems with pertinent positive or pertinent negative responses have been documented in the HPI. ROS Other: All systems not noted in ROS Statement are negative. Past Medical History Past Medical History: Atrial Fibrillation, Diabetes Mellitus, Hyperlipidemia, Hypertension, Memory Impairment, Osteoarthritis (OA), Skin Disorder, Thyroid Disorder Additional Past Medical History / Comment(s): Seasonal allergies, psoriasis. 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; Cataract surgery on right eye Feb 26; left eye on Mar 12 with lens implants Past Anesthesia/Blood Transfusion Reactions: No Reported Reaction Additional Past Anesthesia/Blood Transfusion Reaction / Comment(s): Claustrophobia Past Psychological History: Anxiety Smoking Status: Never smoker Past Alcohol Use History: Occasional Past Drug Use History: None Reported - Past Family History Mother Family Medical History: No Reported History Additional Family Medical History / Comment(s): Valve replacement, CAD General Exam General appearance: alert, in no apparent distress Head exam: Present: atraumatic, normocephalic, normal inspection Eye exam: Present: normal appearance, PERRL, EOMI. Absent: scleral icterus, conjunctival injection, periorbital swelling ENT exam: Present: normal exam, mucous membranes moist Neck exam: Present: normal inspection. Absent: tenderness, meningismus, lymphadenopathy Respiratory exam: Present: normal lung sounds bilaterally. Absent: respiratory distress, wheezes, rales, rhonchi, stridor Cardiovascular Exam: Present: tachycardia, irregular rhythm, normal heart sounds. Absent: systolic murmur, diastolic murmur, rubs, gallop, clicks GI/Abdominal exam: Present: soft, normal bowel sounds. Absent: distended, tenderness, guarding, rebound, rigid Extremities exam: Present: normal inspection, full ROM, normal capillary refill. Absent: tenderness, pedal edema, joint swelling, calf tenderness Back exam: Present: normal inspection Neurological exam: Present: alert, oriented X3, CN II-XII intact Psychiatric exam: Present: normal affect, normal mood Skin exam: Present: warm, dry, intact, normal color. Absent: rash Course Vital Signs 06/26/23 06/26/23 06/27/23 19:17 21:40 00:00 Temperature 98.0 F Pulse Rate 115 H 93 86 Respiratory 18 13 18 Rate Blood Pressure 136/96 126/92 110/79 O2 Sat by Pulse 96 98 95 Oximetry 06/27/23 04:00 Temperature Pulse Rate 93 Respiratory 16 Rate Blood Pressure 115/86 O2 Sat by Pulse 95 Oximetry Medical Decision Making - Medical Decision Making Was pt. sent in by a medical professional or institution (, PA, IRONING WORKER, urgent care, hospital, or prison...) When possible be specific @ -No Did you speak to anyone other than the patient for history (EMS, parent, family, police, friend...)? What history was obtained from this source @ -Spoke with the patient's daughter for history Did you review nursing and triage notes (agree or disagree)? Why? @ -I reviewed and agree with nursing and triage notes Were old charts reviewed (outside hosp., previous admission, EMS record, old EKG, old radiological studies, urgent care reports/EKG's, prison records)? Report findings @ -I reviewed recent discharge summary for the patient was hospitalized for UTI and A-fib. Discharge summary was on May 27 Differential Diagnosis (chest pain, altered mental status, abdominal pain women, abdominal pain men, vaginal bleeding, weakness, fever, dyspnea, syncope, headache, dizziness, GI bleed, back pain, seizure, CVA, palpatations, mental health, musculoskeletal)? @ -Differential Altered Mental Status: Hypoglycemia, DKA, hypercapnia, ETOH, overdose, CO poisoning, trauma, myxedema coma, HTN encephalopathy, infection, encephalitis, psychosis, intercranial hemorrhage, hepatic encephalopathy, meningitis, CVA, this is not meant to be an all-inclusive list EKG interpreted by me (3pts min.). @ -Yes and demonstrates A-fib with a rate of 108. QRS 73. QTc of 377. Baseline artifact. No acute ST segment elevation X-rays interpreted by me (1pt min.). @ -Yes and demonstrates basilar airspace disease CT interpreted by me (1pt min.). @ -Yes and demonstrates no acute process U/S interpreted by me (1pt. min.). @ -None done What testing was considered but not performed or refused? (CT, X-rays, U/S, labs)? Why? @ -None What meds were considered but not given or refused? Why? @ -None Did you discuss the management of the patient with other professionals (professionals i.e. , PA, IRONING WORKER, lab, RT, psych nurse, social services specialist, trial lawyer, teacher, fisheries officer, pillowcase maker)? Give summary @ -Discussed the case with Lisa from [facility] who will hospitalize the patient Was smoking cessation discussed for >3mins.? @ -No Was critical care preformed (if so, how long)? @ -No Were there social determinants of health that impacted care today? How? (Ho melessness, low income, unemployed, alcoholism, drug addiction, transportation, low edu. Level, literacy, decrease access to med. care, m[facility], rehab)? @ -No Was there de-escalation of care discussed even if they declined (Discuss DNR or withdrawal of care, Hospice)? DNR status @ -No What co-morbidities impacted this encounter? (DM, HTN, Smoking, COPD, CAD, Cancer, CVA, ARF, Chemo, Hep., AIDS, mental health diagnosis, sleep apnea, morbid obesity)? @ -A-fib, recurrent UTIs Was patient admitted / discharged? Hospital course, mention meds given and route, prescriptions, significant lab abnormalities, going to OR and other pertinent info. @ -Upon arrival patient was seen and evaluated in room trauma 2. Thorough history and physical exam was performed. IV access was established. Laboratory studies are conducted. Patient was given her nighttime dose of Cardizem as she does have A-fib with RVR. Chest x-ray was performed. CT of the brain was performed. Results are reviewed and discussed with the family. Patient requires admission. Likely need placement. Cardiology will be consulted for the rapid A-fib. Patient was agreeable to this plan and admitted in stable condition Undiagnosed new problem with uncertain prognosis? @ -No Drug Therapy requiring intensive monitoring for toxicity (Heparin, Nitro, Insulin, Cardizem)? @ -No Were any procedures done? @ -No Diagnosis/symptom? @ -Acute encephalopathy, A-fib with RVR Acute, or Chronic, or Acute on Chronic? @ -Acute, recurrent Uncomplicated (without systemic symptoms) or Complicated (systemic symptoms)? @ -Complicated Side effects of treatment? @ -No Exacerbation, Progression, or Severe Exacerbation? @ -No Poses a threat to life or bodily function? How? (Chest pain, USA, IA, pneumonia, PE, COPD, DKA, ARF, appy, cholecystitis, CVA, Diverticulitis, Homicidal, Suicidal, threat to staff... and all critical care pts) @ -No - Lab Data Result diagrams: 06/28/23 04:43 06/28/23 04:43 Lab Results 06/26/23 06/26/23 06/26/23 Range/Units 19:30 20:38 20:38 WBC 10.4 (3.8-10.6) k/uL RBC 4.28 (3.80-5.40) m/uL Hgb 14.2 (11.4-16.0) gm/dL Hct 44.2 (34.0-46.0) % MCV 103.1 H (80.0-100.0) fL MCH 33.1 (25.0-35.0) pg MCHC 32.1 (31.0-37.0) g/dL RDW 13.5 (11.5-15.5) % Plt Count 264 (150-450) k/uL MPV 9.4 Neutrophils % 79 % Lymphocytes % 11 % Monocytes % 6 % Eosinophils % 3 % Basophils % 0 % Neutrophils # 8.2 H (1.3-7.7) k/uL Lymphocytes # 1.1 (1.0-4.8) k/uL Monocytes # 0.6 (0-1.0) k/uL Eosinophils # 0.3 (0-0.7) k/uL Basophils # 0.0 (0-0.2) k/uL Macrocytosis Slight PT 10.7 (10.0-12.5) sec INR 1.0 (<1.2) APTT 23.2 (22.0-30.0) sec Sodium (137-145) mmol/L Potassium (3.5-5.1) mmol/L Chloride (98-107) mmol/L Carbon Dioxide (22-30) mmol/L Anion Gap mmol/L BUN (7-17) mg/dL Creatinine (0.52-1.04) mg/dL Est GFR (CKD-EPI)AfAm (>60 ml/min/1.73 sqM) Est GFR (CKD-EPI)NonAf (>60 ml/min/1.73 sqM) Glucose (74-99) mg/dL POC Glucose (mg/dL) 366 H (70-110) mg/dL POC Glu Fabric Designer ID Johnnie, Julia Estimated Ave Glu mg/dL mg/dL Hemoglobin A1c (<=6.0) % Calcium (8.4-10.2) mg/dL Total Bilirubin (0.2-1.3) mg/dL AST (14-36) U/L ALT (4-34) U/L Alkaline Phosphatase (38-126) U/L Creatine Kinase (30-135) U/L Troponin I (0.000-0.034) ng/mL Total Protein (6.3-8.2) g/dL Albumin (3.5-5.0) g/dL Urine Color Urine Appearance (Clear) Urine pH (5.0-8.0) Ur Specific Vincent (1.001-1.035) Urine Protein (Negative) Urine Glucose (UA) (Negative) Urine Ketones (Negative) Urine Blood (Negative) Urine Nitrite (Negative) Urine Bilirubin (Negative) Urine Urobilinogen (<2.0) mg/dL Ur Leukocyte Esterase (Negative) Urine RBC (0-5) /hpf Urine WBC (0-5) /hpf Ur Squamous Epith Cells (0-4) /hpf Urine Bacteria (None) /hpf Urine Opiates Screen (NotDetected) Ur Oxycodone Screen (NotDetected) Urine Methadone Screen (NotDetected) Ur Barbiturates Screen (NotDetected) U Tricyclic Antidepress (NotDetected) Ur Phencyclidine Scrn (NotDetected) Ur Amphetamines Screen (NotDetected) U Methamphetamines Scrn (NotDetected) U Benzodiazepines Scrn (NotDetected) Urine Cocaine Screen (NotDetected) U Marijuana (THC) Screen (NotDetected) Serum Alcohol mg/dL 06/26/23 06/26/23 06/26/23 Range/Units 20:38 20:38 21:23 WBC (3.8-10.6) k/uL RBC (3.80-5.40) m/uL Hgb (11.4-16.0) gm/dL Hct (34.0-46.0) % MCV (80.0-100.0) fL MCH (25.0-35.0) pg MCHC (31.0-37.0) g/dL RDW (11.5-15.5) % Plt Count (150-450) k/uL MPV Neutrophils % % Lymphocytes % % Monocytes % % Eosinophils % % Basophils % % Neutrophils # (1.3-7.7) k/uL Lymphocytes # (1.0-4.8) k/uL Monocytes # (0-1.0) k/uL Eosinophils # (0-0.7) k/uL Basophils # (0-0.2) k/uL Macrocytosis PT (10.0-12.5) sec INR (<1.2) APTT (22.0-30.0) sec Sodium 133 L (137-145) mmol/L Potassium 5.2 H (3.5-5.1) mmol/L Chloride 105 (98-107) mmol/L Carbon Dioxide 18 L (22-30) mmol/L Anion Gap 10 mmol/L BUN 47 H (7-17) mg/dL Creatinine 1.64 H (0.52-1.04) mg/dL Est GFR (CKD-EPI)AfAm 34 (>60 ml/min/1.73 sqM) Est GFR (CKD-EPI)NonAf 29 (>60 ml/min/1.73 sqM) Glucose 361 H (74-99) mg/dL POC Glucose (mg/dL) (70-110) mg/dL POC Glu Fabric Designer ID Estimated Ave Glu mg/dL mg/dL Hemoglobin A1c (<=6.0) % Calcium 9.7 (8.4-10.2) mg/dL Total Bilirubin 1.0 (0.2-1.3) mg/dL AST 24 (14-36) U/L ALT 17 (4-34) U/L Alkaline Phosphatase 78 (38-126) U/L Creatine Kinase 42 (30-135) U/L Troponin I <0.012 (0.000-0.034) ng/mL Total Protein 6.9 (6.3-8.2) g/dL Albumin 4.0 (3.5-5.0) g/dL Urine Color Colorless Urine Appearance Clear (Clear) Urine pH 5.5 (5.0-8.0) Ur Specific Vincent 1.011 (1.001-1.035) Urine Protein 1+ H (Negative) Urine Glucose (UA) 4+ H (Negative) Urine Ketones Negative (Negative) Urine Blood Negative (Negative) Urine Nitrite Negative (Negative) Urine Bilirubin Negative (Negative) Urine Urobilinogen <2.0 (<2.0) mg/dL Ur Leukocyte Esterase Small H (Negative) Urine RBC 1 (0-5) /hpf Urine WBC 8 H (0-5) /hpf Ur Squamous Epith Cells <1 (0-4) /hpf Urine Bacteria Rare H (None) /hpf Urine Opiates Screen Not Detected (NotDetected) Ur Oxycodone Screen Not Detected (NotDetected) Urine Methadone Screen Not Detected (NotDetected) Ur Barbiturates Screen Not Detected (NotDetected) U Tricyclic Antidepress Not Detected (NotDetected) Ur Phencyclidine Scrn Not Detected (NotDetected) Ur Amphetamines Screen Not Detected (NotDetected) U Methamphetamines Scrn Not Detected (NotDetected) U Benzodiazepines Scrn Not Detected (NotDetected) Urine Cocaine Screen Not Detected (NotDetected) U Marijuana (THC) Screen Not Detected (NotDetected) Serum Alcohol <10 mg/dL 06/27/23 06/27/23 06/27/23 Range/Units 08:20 08:20 08:20 WBC 7.4 (3.8-10.6) k/uL RBC 4.15 (3.80-5.40) m/uL Hgb 13.6 (11.4-16.0) gm/dL Hct 42.8 (34.0-46.0) % MCV 103.2 H (80.0-100.0) fL MCH 32.8 (25.0-35.0) pg MCHC 31.8 (31.0-37.0) g/dL RDW 13.4 (11.5-15.5) % Plt Count 230 (150-450) k/uL MPV 10.0 Neutrophils % 74 % Lymphocytes % 13 % Monocytes % 6 % Eosinophils % 4 % Basophils % 0 % Neutrophils # 5.5 (1.3-7.7) k/uL Lymphocytes # 1.0 (1.0-4.8) k/uL Monocytes # 0.5 (0-1.0) k/uL Eosinophils # 0.3 (0-0.7) k/uL Basophils # 0.0 (0-0.2) k/uL Macrocytosis Slight PT (10.0-12.5) sec INR (<1.2) APTT (22.0-30.0) sec Sodium 136 L (137-145) mmol/L Potassium 4.4 (3.5-5.1) mmol/L Chloride 106 (98-107) mmol/L Carbon Dioxide 25 (22-30) mmol/L Anion Gap 5 mmol/L BUN 37 H (7-17) mg/dL Creatinine 1.45 H (0.52-1.04) mg/dL Est GFR (CKD-EPI)AfAm 39 (>60 ml/min/1.73 sqM) Est GFR (CKD-EPI)NonAf 34 (>60 ml/min/1.73 sqM) Glucose 228 H (74-99) mg/dL POC Glucose (mg/dL) (70-110) mg/dL POC Glu Fabric Designer ID Estimated Ave Glu mg/dL 280 mg/dL Hemoglobin A1c 11.4 H (<=6.0) % Calcium 9.8 (8.4-10.2) mg/dL Total Bilirubin (0.2-1.3) mg/dL AST (14-36) U/L ALT (4-34) U/L Alkaline Phosphatase (38-126) U/L Creatine Kinase (30-135) U/L Troponin I (0.000-0.034) ng/mL Total Protein (6.3-8.2) g/dL Albumin (3.5-5.0) g/dL Urine Color Urine Appearance (Clear) Urine pH (5.0-8.0) Ur Specific Vincent (1.001-1.035) Urine Protein (Negative) Urine Glucose (UA) (Negative) Urine Ketones (Negative) Urine Blood (Negative) Urine Nitrite (Negative) Urine Bilirubin (Negative) Urine Urobilinogen (<2.0) mg/dL Ur Leukocyte Esterase (Negative) Urine RBC (0-5) /hpf Urine WBC (0-5) /hpf Ur Squamous Epith Cells (0-4) /hpf Urine Bacteria (None) /hpf Urine Opiates Screen (NotDetected) Ur Oxycodone Screen (NotDetected) Urine Methadone Screen (NotDetected) Ur Barbiturates Screen (NotDetected) U Tricyclic Antidepress (NotDetected) Ur Phencyclidine Scrn (NotDetected) Ur Amphetamines Screen (NotDetected) U Methamphetamines Scrn (NotDetected) U Benzodiazepines Scrn (NotDetected) Urine Cocaine Screen (NotDetected) U Marijuana (THC) Screen (NotDetected) Serum Alcohol mg/dL 06/27/23 Range/Units 09:10 WBC (3.8-10.6) k/uL RBC (3.80-5.40) m/uL Hgb (11.4-16.0) gm/dL Hct (34.0-46.0) % MCV (80.0-100.0) fL MCH (25.0-35.0) pg MCHC (31.0-37.0) g/dL RDW (11.5-15.5) % Plt Count (150-450) k/uL MPV Neutrophils % % Lymphocytes % % Monocytes % % Eosinophils % % Basophils % % Neutrophils # (1.3-7.7) k/uL Lymphocytes # (1.0-4.8) k/uL Monocytes # (0-1.0) k/uL Eosinophils # (0-0.7) k/uL Basophils # (0-0.2) k/uL Macrocytosis PT (10.0-12.5) sec INR (<1.2) APTT (22.0-30.0) sec Sodium (137-145) mmol/L Potassium (3.5-5.1) mmol/L Chloride (98-107) mmol/L Carbon Dioxide (22-30) mmol/L Anion Gap mmol/L BUN (7-17) mg/dL Creatinine (0.52-1.04) mg/dL Est GFR (CKD-EPI)AfAm (>60 ml/min/1.73 sqM) Est GFR (CKD-EPI)NonAf (>60 ml/min/1.73 sqM) Glucose (74-99) mg/dL POC Glucose (mg/dL) 320 H (70-110) mg/dL POC Glu Fabric Designer ID Lisa Mendez Estimated [address] Glu mg/dL mg/dL Hemoglobin A1c (<=6.0) % Calcium (8.4-10.2) mg/dL Total Bilirubin (0.2-1.3) mg/dL AST (14-36) U/L ALT (4-34) U/L Alkaline Phosphatase (38-126) U/L Creatine Kinase (30-135) U/L Troponin I (0.000-0.034) ng/mL Total Protein (6.3-8.2) g/dL Albumin (3.5-5.0) g/dL Urine Color Urine Appearance (Clear) Urine pH (5.0-8.0) Ur Specific Vincent (1.001-1.035) Urine Protein (Negative) Urine Glucose (UA) (Negative) Urine Ketones (Negative) Urine Blood (Negative) Urine Nitrite (Negative) Urine Bilirubin (Negative) Urine Urobilinogen (<2.0) mg/dL Ur Leukocyte Esterase (Negative) Urine RBC (0-5) /hpf Urine WBC (0-5) /hpf Ur Squamous Epith Cells (0-4) /hpf Urine Bacteria (None) /hpf Urine Opiates Screen (NotDetected) Ur Oxycodone Screen (NotDetected) Urine Methadone Screen (NotDetected) Ur Barbiturates Screen (NotDetected) U Tricyclic Antidepress (NotDetected) Ur Phencyclidine Scrn (NotDetected) Ur Amphetamines Screen (NotDetected) U Methamphetamines Scrn (NotDetected) U Benzodiazepines Scrn (NotDetected) Urine Cocaine Screen (NotDetected) U Marijuana (THC) Screen (NotDetected) Serum Alcohol mg/dL Disposition Clinical Impression: Atrial fibrillation with RVR, Encephalopathy acute Disposition: ADMITTED IP TO THIS [facility] Condition: Serious Is patient prescribed a controlled substance at d/c from ED?: No Time of Disposition: 21:15 Decision to Admit Reason: Admit from EC Decision Date: 06/26/23 Decision Time: 21:15
[2023-06-26 21:00] LABS: Partial Thromboplastin Time 23.2 sec (22.0-30.0); Prothrombin Time 10.7 sec (10.0-12.5)
[2023-06-26 21:02] LABS: ALT 17 U/L (4-34); African American GFR (CKD) 34 (>60 ml/min/1.73 sqM); Alcohol <10 mg/dL; Anion Gap 10 mmol/L; Blood Urea Nitrogen 47 mg/dL (7-17); Calcium 9.7 mg/dL (8.4-10.2); Carbon Dioxide 18 mmol/L (22-30); Chloride 105 mmol/L (98-107); Creatine Kinase 42 U/L (30-135); Glucose 361 mg/dL (74-99); Non-African American GFR(CKD) 29 (>60 ml/min/1.73 sqM); Sodium 133 mmol/L (137-145); Total Protein 6.9 g/dL (6.3-8.2)
[2023-06-26 21:07] LABS: AST 24 U/L (14-36); Alkaline Phosphatase 78 U/L (38-126); Potassium 5.2 mmol/L (3.5-5.1)
[2023-06-26] MEDS ORDERED: NALOXONE 0.4 MG/ML 1 ML VIAL IV PRN (21:23)
[2023-06-26] MEDS ORDERED: DEXTROSE 50% SYRINGE 50 ML IVP PRN ×2 (21:24)
--- NOTE | 2023-06-26 21:39 | XR ---
EXAMINATION TYPE: XR chest 2V DATE OF EXAM: 06/26/2023 9:32 PM CLINICAL INDICATION:Female, 82 years old with history of altered mental status; [facility] COMPARISON: Chest radiographs from 05/21/2022 TECHNIQUE: XR chest 2V Frontal and lateral views of the chest. FINDINGS: Lungs/Pleura: Hazy bibasilar airspace opacities are identified. No pleural effusions or pneumothorax. Pulmonary vascularity: Unremarkable. Heart/mediastinum: Cardiomediastinal silhouette is unremarkable. Atherosclerotic calcifications are seen in the aorta. Musculoskeletal: No acute osseous pathology. IMPRESSION: Findings concerning for bibasilar airspace disease, most likely related to developing infectious/infl ammatory process.
--- NOTE | 2023-06-26 21:42 | CT ---
EXAMINATION TYPE: CT brain wo con CT DLP: 1156.4 mGycm, Automated exposure control for dose reduction was used. DATE OF EXAM: 06/26/2023 9:33 PM COMPARISON: CT brain 05/26/2023 CLINICAL INDICATION:Female, 82 years old with history of Altered mental status, ams TECHNIQUE: Brain: Axial CT images of the brain were obtained with coronal and sagittal reformats created and rev iewed. Contrast used: None. Oral contrast used: None. FINDINGS: Brain: Extra-axial spaces: No abnormal extra-axial fluid collections. Ventricular system: Within normal limits Cerebral parenchyma: No acute intraparenchymal hemorrhage or mass effect. The willams-white junction is well differentiated. Scattered hypoattenuating areas are seen within the white matter. Cerebellum: Unremarkable. Mass effect: No evidence of midline shift. Intracranial vasculature: Atherosclerotic calcifications of the intracranial vessels. Soft tissues: Normal. Calvarium/osseous structures: No depressed skull fracture. Paranasal sinuses and mastoid air cells: Mild scattered paranasal sinus disease. Visualized orbits: Bilateral aphakia IMPRESSION: 1. No acute intracranial process. 2. Nonspecific white matter changes, likely secondary to chronic small vessel ischemic disease.
[2023-06-26] MEDS: SODIUM CHLORIDE 0.9% 1,000 ML IV SCH (21:50)
[2023-06-26 21:53] LABS: Amphetamine Screen,Urine Not Detected (NotDetected); Appearance,Urine Clear (Clear); Bacteria,Urine Rare /hpf; Barbiturate Screen,Urine Not Detected (NotDetected); Benzodiazepines Screen,Urine Not Detected (NotDetected); Bilirubin,Urine Negative (Negative); Blood,Urine Negative (Negative); Cocaine Screen,Urine Not Detected (NotDetected); Color,Urine Colorless; Glucose,Urine (UA) 4+ (Negative); Ketones,Urine Negative (Negative); Leukocyte Esterase,Urine Small (Negative); Methadone Screen, Urine Not Detected (NotDetected); Nitrite,Urine Negative (Negative); Opiate Screen,Urine Not Detected (NotDetected); Oxycodone Screen, Urine Not Detected (NotDetected); PH, Urine 5.5 (5.0-8.0); Phencyclidine Screen,Urine Not Detected (NotDetected); Protein,Urine 1+ (Negative); RBC,Urine 1 /hpf (0-5); Specific Gravity,Urine 1.011 (1.001-1.035); Squamous Epithelial Cell,Urine <1 /hpf (0-4); Tricyclic Antidepressant,Urine Not Detected (NotDetected); Urn Cannabinoid Scrn Not Detected (NotDetected); Urobilinogen,Urine <2.0 mg/dL (<2.0); WBC,Urine 8 /hpf (0-5)
[2023-06-26] MEDS: DILTIAZEM ORAL 30 MG TAB PO STA (22:17)
[2023-06-27] MEDS: CEPHALEXIN 500 MG CAP PO SCH (00:08)
[2023-06-27] MEDS: APIXABAN 2.5 MG TABLET PO SCH (00:08)
[2023-06-27] MEDS: METOPROLOL TARTRATE 50 MG TAB PO SCH (00:08)
[2023-06-27] MEDS: INSULIN DETEMIR (LEVEMIR) 100 UNIT/ML SYR SQ SCH (00:08)
[2023-06-27] MEDS: OXYMETAZOLINE 0.05% NASL SPRAY 1 SPRAY BOTTLE NASAL SCH (00:10)
[2023-06-27] MEDS: MUPIROCIN 2% OINT 22 GM TUBE TOPICAL SCH (00:10)
[2023-06-27] MEDS: LEVOTHYROXINE 75 MCG TAB PO SCH (06:46)
[2023-06-27] MEDS ORDERED: INSULIN ASPART (NovoLOG) 100 UNIT/ML VIAL SQ SCH (07:30)
[2023-06-27] MEDS ORDERED: DILTIAZEM ORAL 30 MG TAB PO SCH (09:00)
[2023-06-27 09:12] LABS: Glucose,Whole Blood 320 mg/dL (70-110)
[2023-06-27] MEDS: SPIRONOLACTONE 25 MG TAB PO SCH (09:16)
[2023-06-27] MEDS: FOLIC ACID 1 MG TAB PO SCH (09:16)
[2023-06-27 09:18] LABS: African American GFR (CKD) 39 (>60 ml/min/1.73 sqM); Anion Gap 5 mmol/L; Blood Urea Nitrogen 37 mg/dL (7-17); Calcium 9.8 mg/dL (8.4-10.2); Carbon Dioxide 25 mmol/L (22-30); Chloride 106 mmol/L (98-107); Glucose 228 mg/dL (74-99); Non-African American GFR(CKD) 34 (>60 ml/min/1.73 sqM); Potassium 4.4 mmol/L (3.5-5.1); Sodium 136 mmol/L (137-145)
[2023-06-27] MEDS: INSULIN ASPART (NovoLOG) 100 UNIT/ML VIAL SQ SCH (09:19)
[2023-06-27 09:27] LABS: Basophils % (A) 0 %; Eosinophils # (A) 0.3 k/uL (0-0.7); Eosinophils % (A) 4 %; HCT 42.8 % (34.0-46.0); HGB 13.6 gm/dL (11.4-16.0); Lymphocytes % (A) 13 %; MCH 32.8 pg (25.0-35.0); MCHC 31.8 g/dL (31.0-37.0); MCV 103.2 fL (80.0-100.0); Macrocytosis Slight; Monocytes # (A) 0.5 k/uL (0-1.0); Monocytes % (A) 6 %; Neutrophils # (A) 5.5 k/uL (1.3-7.7); Neutrophils % (A) 74 %; Platelet Count 230 k/uL (150-450); RBC 4.15 m/uL (3.80-5.40); RDW 13.4 % (11.5-15.5); WBC 7.4 k/uL (3.8-10.6)
--- NOTE | 2023-06-27 09:55 | P.CRDCN ---
History of Present Illness History of present illness: HISTORY OF PRESENT ILLNESS: This is a 82-year-old female with a past medical history significant for atrial fibrillation, CVA, PE, valvular heart disease, hypertension, hyperlipidemia, and hypothyroidism. Patient follows in the office with Dr. Venegas. We have been asked to see the patient in consultation for A-fib. Patient examined at the bedside. Patient's daughter is present. She states that her mother was previously at [facility] for rehab and has been home since October 2022. She states over the past 4 to 5 weeks her mother has been very weak. She states that she has been sitting around a lot more and is less active. She states that she is having difficulty holding up her legs to ambulate. Over the past few weeks the patient has had 2 falls. She also reports that she has had 3 nosebleeds in the past 3 weeks. The daughter states she hired a nurse to help take care of her mother. The nurse came to her mother's house yesterday evening to help her prepare dinner and the patient was on the floor. She denies any loss of consciousness. She currently denies any chest pain or pressure. Denies any shortness of breath. Denies any palpitations. DIAGNOSTICS: - EKG reveals atrial fibrillation with no signs of acute ischemia - Chest xray findings concerning for bibasilar airspace disease, most likely related to developing infectious/inflammatory process. - Laboratory data: WBC 7.4. Hemoglobin 13.6. Platelet count 230. Sodium 136. Potassium 4.4. BUN 37. Creatinine 1.45. Troponin negative x 1 - Current home cardiac medications include Cardizem 30 mg 3 times daily, Aldactone 50 mg daily, Eliquis 5 mg twice a day, Toprol tartrate 100 mg twice a day. - Most recent echocardiogram obtained in May 2022 revealed normal EF, moderate to severe MR, severe TR, RVSP 63 mmHg -Patient underwent Lexiscan stress test in January 2021 which was negative for ischemia REVIEW OF SYSTEMS: At the time of my exam: CONSTITUTIONAL: Denies fever or chills. HEENT: Denies blurred vision, vision changes, or eye pain. Denies hemoptysis CARDIOVASCULAR: Denies chest pain. Denies orthopnea. Denies PND. Denies palpitations RESPIRATORY: Denies shortness of breath. GASTROINTESTINAL: Denies abdominal pain. Denies nausea or vomiting. HEMATOLOGIC: Denies bleeding disorders. GENITOURINARY: Denies any blood in urine. SKIN: Denies pruitis. Denies rash. PHYSICAL EXAM: VITAL SIGNS: Reviewed. GENERAL: Well-developed in no acute distress. HEENT: Head is normocephalic. Pupils are equal, round. Sclerae anicteric. Mucous membranes of the mouth are moist. Neck supple. No JVD or thyromegaly LUNGS: Respirations even and unlabored. Lungs essentially clear to auscultation bilaterally. HEART: Irregular rate and rhythm. S1 and S2 heard. Systolic murmur noted ABDOMEN: Soft. Nondistended. Nontender. EXTREMITIES: Normal range of motion. No clubbing or cyanosis. Peripheral pulses intact. No lower extremity edema NEUROLOGIC: Awake and alert. Oriented x 3. ASSESSMENT: Generalized weakness Mechanical fall x 2 Recent epistaxis Paroxysmal atrial fibrillation Hypertension Hyperlipidemia with statin intolerance Valvular heart disease History of CVA History of PE Hypothyroidism PLAN: Obtain 2D echo to assess cardiac structure and function Decrease Eliquis to 2.5 mg twice a day per Dr. Alas due to nosebleeds and recent falls Continue additional cardiac medications Continue telemetry monitoring Further recommendations pending patient course Nurse practitioner note has been reviewed by physician. Signing provider agrees with the documented findings, assessment, and plan of care documented by SENIOR MEDICAL WRITER as a scribe. Past Medical History Past Medical History: Atrial Fibrillation, Diabetes Mellitus, Hyperlipidemia, Hypertension, Memory Impairment, Osteoarthritis (OA), Skin Disorder, Thyroid Disorder Additional Past Medical History / Comment(s): Seasonal allergies, psoriasis. 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; Cataract surgery on right eye Feb 26; left eye on Mar 12 with lens implants Past Anesthesia/Blood Transfusion Reactions: No Reported Reaction Additional Past Anesthesia/Blood Transfusion Reaction / Comment(s): Claustrophobia Past Psychological History: Anxiety Smoking Status: Never smoker Past Alcohol Use History: Occasional Past Drug Use History: None Reported - Past Family History Mother Family Medical History: No Reported History Additional Family Medical History / Comment(s): Valve replacement, CAD Medications and Allergies Home Medications Medication Instructions Recorded Confirmed Type Levothyroxine Sodium [Synthroid] 37.5 mcg PO DAILY 12/31/13 06/27/23 History Folic Acid 0.8 mg PO DAILY 05/31/21 06/27/23 History oxyBUTYnin chloride [Ditropan XL] 5 mg PO DAILY 05/20/22 06/27/23 History Apixaban [Eliquis] 5 mg PO Q12H 05/26/23 06/27/23 History Spironolactone [Aldactone] 50 mg PO DAILY 05/26/23 06/27/23 History Metoprolol Tartrate [Lopressor] 100 mg PO BID #120 tab 05/28/23 06/27/23 Rx Cephalexin [Keflex] 500 mg PO Q12HR 06/27/23 06/27/23 History Cetirizine HCl [Zyrtec] 10 mg PO DAILY 06/27/23 06/27/23 History Cholecalciferol [Vitamin D3 (25 50 mcg PO DAILY 06/27/23 06/27/23 History Mcg = 1000 Iu)] Magnesium Gluconate Gummies 100 mg PO DAILY 06/27/23 06/27/23 History Mupirocin 2% Oint [Bactroban 2% 1 applic EA NOSTRIL BID 06/27/23 06/27/23 History Oint] Oxymetazoline 0.05% Nasl Pablo 2 spray EA NOSTRIL BID 06/27/23 06/27/23 History [Afrin 0.05% Nasal Pablo] Zinc Gluconate [Zinc] 50 mg PO DAILY 06/27/23 06/27/23 History dilTIAZem HCL 30 mg PO TID 06/27/23 06/27/23 History Allergies Allergy/AdvReac Type Severity Reaction Status Date / Time adhesive AdvReac peels skin Verified 06/27/23 07:48 off - paper tape ok Sulfa (Sulfonamide AdvReac Diarrhea Verified 06/27/23 07:48 Antibiotics) Physical Exam Vitals: Vital Signs Temp Pulse Resp BP Pulse Ox 06/27/23 04:00 93 16 115/86 95 06/27/23 00:00 86 18 110/79 95 06/26/23 21:40 93 13 126/92 98 06/26/23 19:17 98.0 F 115 H 18 136/96 96 Intake and Output 06/26/23 06/27/23 06/27/23 22:59 06:59 14:59 Other: Weight 90.718 kg Results 06/27/23 08:20 06/27/23 08:20 Cardiac Enzymes 06/26/23 06/26/23 Range/Units 20:38 20:38 AST 24 (14-36) U/L Troponin I <0.012 (0.000-0.034) ng/mL Coagulation 06/26/23 Range/Units 20:38 PT 10.7 (10.0-12.5) sec APTT 23.2 (22.0-30.0) sec CBC 06/26/23 Range/Units 20:38 WBC 10.4 (3.8-10.6) k/uL RBC 4.28 (3.80-5.40) m/uL Hgb 14.2 (11.4-16.0) gm/dL Hct 44.2 (34.0-46.0) % Plt Count 264 (150-450) k/uL Comprehensive Metabolic Panel 06/26/23 Range/Units 20:38 Sodium 133 L (137-145) mmol/L Potassium 5.2 H (3.5-5.1) mmol/L Chloride 105 (98-107) mmol/L Carbon Dioxide 18 L (22-30) mmol/L BUN 47 H (7-17) mg/dL Creatinine 1.64 H (0.52-1.04) mg/dL Glucose 361 H (74-99) mg/dL Calcium 9.7 (8.4-10.2) mg/dL AST 24 (14-36) U/L ALT 17 (4-34) U/L Alkaline Phosphatase 78 (38-126) U/L Total Protein 6.9 (6.3-8.2) g/dL Albumin 4.0 (3.5-5.0) g/dL Current Medications Generic Name Dose Route Start Last Admin Trade Name Freq PRN Reason Stop Dose Admin Acetaminophen 650 mg 06/26/23 23:24 Acetaminophen Tab 325 Mg Tab PO Q6HR PRN Fever and/ or Pain Apixaban 2.5 mg 06/26/23 23:30 06/27/23 00:08 Apixaban 2.5 Mg Tablet PO 2.5 mg BID GOVIND Administration Protocol Cephalexin 500 mg 06/26/23 23:30 06/27/23 00:08 Cephalexin 500 Mg Cap PO 500 mg BID GOVIND Administration Protocol Dextrose/Water 25 ml 06/26/23 21:24 Dextrose 50% Syringe 50 Ml IVP PER PROTOCOL PRN Hypoglycemia Protocol Dextrose/Water 50 ml 06/26/23 21:24 Dextrose 50% Syringe 50 Ml IVP PER PROTOCOL PRN Hypoglycemia Protocol Diltiazem HCl 30 mg 06/27/23 09:00 Diltiazem Oral 30 Mg Tab PO TID GOVIND Folic Acid 1 mg 06/27/23 09:00 Folic Acid 1 Mg Tab PO DAILY GOVIND Sodium Chloride 1,000 mls @ 75 mls/hr 06/26/23 21:30 06/26/23 21:50 Saline 0.9% IV 75 mls/hr .[id number] GOVIND Administration Insulin Aspart 0 unit 06/27/23 07:30 Insulin Aspart (Novolog) 100 Unit/Ml Vial SQ ACHS [facility] Protocol Insulin Aspart 6 unit 06/27/23 07:30 Insulin Aspart (Novolog) 100 Unit/Ml Vial SQ AC-TID [facility] Insulin Detemir 20 unit 06/26/23 23:45 06/27/23 00:08 Insulin Detemir (Levemir) 100 Unit/Ml Syr SQ 20 unit HS [facility] Administration Levothyroxine Sodium 37.5 mcg 06/27/23 06:30 06/27/23 06:46 Levothyroxine 75 Mcg Tab PO 37.5 mcg DAILY@0630 GOVIND Administration Metoprolol Tartrate 100 mg 06/26/23 23:30 06/27/23 00:08 Metoprolol Tartrate 50 Mg Tab PO 100 mg BID GOVIND Administration Mupirocin 1 applic 06/26/23 23:30 06/27/23 00:10 Mupirocin 2% Oint 22 Gm Tube TOPICAL 1 applic BID [facility] Administration Protocol Naloxone HCl 0.2 mg 06/26/23 21:23 Naloxone 0.4 Mg/Ml 1 Ml Vial IV Q2M PRN Opioid Reversal Oxybutynin Chloride 5 mg 06/27/23 09:00 Oxybutynin Xl 5 Mg Tab.Er.24 PO DAILY [facility] Oxymetazoline HCl 2 spray 06/26/23 23:30 06/27/23 00:10 Oxymetazoline 0.05% Nasl Pablo 1 Pablo Bottle NASAL 2 spray BID GOVIND Administration Spironolactone 25 mg 06/27/23 09:00 Spironolactone 25 Mg Tab PO DAILY GOVIND Intake and Output 06/26/23 06/27/23 06/27/23 22:59 06:59 14:59 Other: Weight 90.718 kg 06/26/23 20:38 06/26/23 20:38
[2023-06-27] MEDS: DILTIAZEM ORAL 30 MG TAB PO SCH (11:33)
[2023-06-27 12:14] LABS: Glucose,Whole Blood 328 mg/dL (70-110)
[2023-06-27] MEDS ORDERED: CEPHALEXIN 500 MG CAP PO SCH (13:30)
[2023-06-27] MEDS: OXYBUTYNIN XL 5 MG TAB.ER.24 PO SCH (13:44)
--- NOTE | 2023-06-27 14:29 | HP ---
HISTORY AND PHYSICAL CHIEF COMPLAINT: Weakness and nasal bleed. HISTORY OF PRESENT ILLNESS: This is an 82-year-old woman with a past medical history of multiple medical problems including atrial fibrillation with anticoagulation, was taken to [facility] with some confusion, weakness as well as nasal bleeding. Evaluation in the hospital showed creatinine 1.45. CT brain was unremarkable. Cardiology has reduced the dose of Eliquis. There is no history of any fever, rigors, or chills at this time. PAST MEDICAL HISTORY: Reviewed include atrial fibrillation, rest of the history and rest of the chart is also reviewed. HOME MEDICATIONS: Reviewed include Keflex, dose and rest of medications noted. ALLERGIES: Adhesive tape, sulfa. FAMILY HISTORY: History of valve replacement, CAD. SOCIAL HISTORY: Occasional alcohol. REVIEW OF SYSTEMS: A 14-point review is negative except as mentioned earlier. OBJECTIVE: VITAL SIGNS: Pulse is 91, blood pressure 150/90, respirations 16. CHEST: Clear to auscultation. CARDIOVASCULAR: S1, S2 irregular. RESPIRATIONS: Clear to auscultation. ABDOMEN: Soft, nontender. LEGS: No edema, no cyanosis. NERVOUS SYSTEM: Diffusely weak. LABORATORY DATA: Reviewed, sodium 136. ASSESSMENT: 1. Atrial fibrillation with rapid ventricular rate. 2. Nasal bleed. 3. Acute encephalopathy, metabolic, multifactorial with change in mental status. 4. Generalized weakness and atrial fibrillation. 5. Diabetes mellitus type 2. 6. Multiple complex medical issues. RECOMMENDATIONS AND DISCUSSION: This 82-year-old woman presented with multiple complex medical issues, we will monitor the patient closely. Continue the current medications, continue symptomatic treatment. Recommended PT/OT evaluation, DVT prophylaxis. CT scan and x-rays reviewed. Cardiology input appreciated. Prognosis guarded. Further recommendations to follow. ECF rehab also to be considered if the patient is deemed weak by PT, OT. Repeat labs will be ordered. MMODL / IJN: [id number] /
[2023-06-27 17:21] LABS: Glucose,Whole Blood 367 mg/dL (70-110)
[2023-06-27] MEDS: ACETAMINOPHEN TAB 325 MG TAB PO PRN (17:51)
--- NOTE | 2023-06-27 18:42 | CA ---
Transthoracic Echo Report Name: Ruth Schwarz Age: 82 Gender: F : 1940 Exam Date: 06/27/2023 11:14 Exam Location: [facility] Ht (in): 68 Wt (lb): 200 Ordering Physician: Julia Arthur Attending/Referring Phys: [id number], Jerson Vp Integration Tressa Navarro RDCS Procedure CPT: Indications: LV function, AF, weakness Cardiac Hx: Technical Quality: Good Contrast 1: Total Dose (mL): Contrast 2: Total Dose (mL): MEASUREMENTS (Male / Female) Normal Values 2D ECHO LV Diastolic Diameter PLAX 4.5 cm 4.2 - 5.9 / 3.9 - 5.3 cm LV Systolic Diameter PLAX 3.9 cm IVS Diastolic Thickness 2.2 cm 0.6 - 1.0 / 0.6 - 0.9 cm LVPW Diastolic Thickness 1.5 cm 0.6 - 1.0 / 0.6 - 0.9 cm LV Relative Wall Thickness 0.8 RV Internal Dim ED PLAX 3.5 cm LA Systolic Diameter LX 4.5 cm 3.0 - 4.0 / 2.7 - 3.8 cm LV Diastolic Volume MOD 4C 87.3 cm??? LV Systolic Volume MOD 4C 45.0 cm??? LV Ejection Fraction MOD 4C 48.5 % LV Cardiac Index MOD 4C 1943.9 cm???/min???m??? LV Diastolic Length 4C 7.1 cm LV Systolic Length 4C 6.1 cm LV Diastolic Volume MOD 2C 43.9 cm??? LV Systolic Volume MOD 2C 27.5 cm??? LV Ejection Fraction MOD 2C 37.4 % LV Cardiac Index MOD 2C 753.9 cm???/min???m??? LV Diastolic Length 2C 6.5 cm LV Systolic Length 2C 5.9 cm LA Volume 66.2 cm??? 18 - 58 / 22 - 52 cm??? LA Volume Index 31.3 cm???/m??? 16 - 28 cm???/m??? M-MODE Aortic Root Diameter MM 3.2 cm AV Cusp Separation MM 1.9 cm DOPPLER AV Peak Velocity 120.7 cm/s AV Peak Gradient 5.8 mmHg MV Area PHT 4.2 cm??? MV Deceleration Time 116.2 ms TR Peak Velocity 285.5 cm/s TR Peak Gradient 32.6 mmHg Right Ventricular Systolic Press 37.4 mmHg FINDINGS Left Ventricle Left ventricular ejection fraction is estimated at 40-45 %. Left ventricular cavity size normal. Severely increased septal wall thickness. Moderately increased posterior wall thickness. Right Ventricle Mild right ventricular dilatation. Mild pulmonary hypertension. Right Atrium Mild right atrial dilatation. Left Atrium Moderately increased left atrial diameter. Mildly increased left atrial volume. Mitral Valve Mitral valve thickened. Mild mitral regurgitation. Aortic Valve Thickened aortic valve without stenosis. No aortic regurgitation. Tricuspid Valve Structurally normal tricuspid valve. [id number] tricuspid regurgitation. Pulmonic Valve Structurally normal pulmonic valve. Mild pulmonic regurgitation. Pericardium No pericardial effusion. Aorta Normal size aortic root and proximal ascending aorta. CONCLUSIONS Mildly impaired LV function was EF between 40-45% Mild pulmonary hypertension. The pulmonary hypertension might be underestimated Moderate to severe tricuspid regurgitation Previewed by: Dr. Cesar Alas MD (Electronically Signed) Final Date: 27 Jun 2023 18:41
[2023-06-27 20:37] LABS: Glucose,Whole Blood 290 mg/dL (70-110)
[2023-06-28 06:03] LABS: Basophils % (A) 0 %; Eosinophils # (A) 0.4 k/uL (0-0.7); Eosinophils % (A) 5 %; HCT 38.9 % (34.0-46.0); Lymphocytes # (A) 1.2 k/uL (1.0-4.8); Lymphocytes % (A) 17 %; MCH 34.4 pg (25.0-35.0); MCHC 33.4 g/dL (31.0-37.0); Macrocytosis Slight; Monocytes # (A) 0.5 k/uL (0-1.0); Monocytes % (A) 6 %; Neutrophils # (A) 5.2 k/uL (1.3-7.7); Neutrophils % (A) 70 %; Platelet Count 224 k/uL (150-450); RBC 3.78 m/uL (3.80-5.40); RDW 13.4 % (11.5-15.5); WBC 7.5 k/uL (3.8-10.6)
[2023-06-28 06:15] LABS: ALT 15 U/L (4-34); AST 20 U/L (14-36); African American GFR (CKD) 40 (>60 ml/min/1.73 sqM); Albumin 3.3 g/dL (3.5-5.0); Albumin/Globulin Ratio 1.1; Alkaline Phosphatase 67 U/L (38-126); Anion Gap 6 mmol/L; Blood Urea Nitrogen 40 mg/dL (7-17); Calcium 9.7 mg/dL (8.4-10.2); Carbon Dioxide 22 mmol/L (22-30); Chloride 109 mmol/L (98-107); Globulin 2.9 g/dL; Glucose 142 mg/dL (74-99); Non-African American GFR(CKD) 34 (>60 ml/min/1.73 sqM); Potassium 4.9 mmol/L (3.5-5.1); Sodium 137 mmol/L (137-145); Total Bilirubin 0.9 mg/dL (0.2-1.3); Total Protein 6.2 g/dL (6.3-8.2)
[2023-06-28 06:28] LABS: Glucose,Whole Blood 164 mg/dL (70-110)
[2023-06-28] MEDS: MAGNESIUM OXIDE 400 MG TAB PO SCH (08:53)
[2023-06-28] MEDS: ZINC SULFATE 220 MG CAP PO SCH (08:53)
[2023-06-28] MEDS: CHOLECALCIFEROL 25 MCG (1000 IU) TABLET PO SCH (08:53)
[2023-06-28 12:28] LABS: Glucose,Whole Blood 487 mg/dL (70-110)
[2023-06-28 12:35] VITALS: BMI 30.4
--- NOTE | 2023-06-28 15:32 | P.PN ---
Subjective Progress Note Date: 06/28/23 HISTORY OF PRESENT ILLNESS: This is a 82-year-old female with a past medical history significant for atrial fibrillation, CVA, PE, valvular heart disease, hypertension, hyperlipidemia, and hypothyroidism. Patient follows in the office with Dr. Venegas. We have been asked to see the patient in consultation for A-fib. Patient examined at the bedside. Patient's daughter is present. She states that her mother was previously at [facility] for rehab and has been home since October 2022. She states over the past 4 to 5 weeks her mother has been very weak. She states that she has been sitting around a lot more and is less active. She states that she is having difficulty holding up her legs to ambulate. Over the past few weeks the patient has had 2 falls. She also reports that she has had 3 noseb jaimie in the past 3 weeks. The daughter states she hired a nurse to help take care of her mother. The nurse came to her mother's house yesterday evening to help her prepare dinner and the patient was on the floor. She denies any loss of consciousness. She currently denies any chest pain or pressure. Denies any shortness of breath. Denies any palpitations. DIAGNOSTICS: - EKG reveals atrial fibrillation with no signs of acute ischemia - Chest xray findings concerning for bibasilar airspace disease, most likely related to developing infectious/inflammatory process. - Laboratory data: WBC 7.4. Hemoglobin 13.6. Platelet count 230. Sodium 136. Potassium 4.4. BUN 37. Creatinine 1.45. Troponin negative x 1 - Current home cardiac medications include Cardizem 30 mg 3 times daily, Aldac tone 50 mg daily, Eliquis 5 mg twice a day, Toprol tartrate 100 mg twice a day. - Most recent echocardiogram obtained in May 2022 revealed normal EF, moderate to severe MR, severe TR, RVSP 63 mmHg -Patient underwent Lexiscan stress test in January 2021 which was negative for ischemia 06/28/2023 Reports that she is feeling about the same. She just feels tired and generalized weakness. She has not had any further nosebleeding. Echocardiogram 06/27/2023 with EF 40-45%, moderatesevere tricuspid regurgitation, RVSP 37, severe increased septal wall thickness. PHYSICAL EXAM: VITAL SIGNS: Reviewed. GENERAL: Well-developed in no acute distress. HEENT: Head is normocephalic. Pupils are equal, round. Sclerae anicteric. Mucous membranes of the mouth are moist. LUNGS: Respirations even and unlabored. Lungs essentially clear to auscultation bilaterally. HEART: Irregular rate and rhythm. S1 and S2 heard. Systolic murmur noted ABDOMEN: Soft. Nondistended. Nontender. EXTREMITIES: Normal range of motion. No clubbing or cyanosis. Peripheral pulses intact. Trace lower extremity edema NEUROLOGIC: Awake and alert. Oriented x 3. ASSESSMENT: Generalized weakness Mechanical fall x 2 Recent epistaxis Paroxysmal atrial fibrillation Hypertension Hyperlipidemia with statin intolerance Valvular heart disease History of CVA History of PE Hypothyroidism PLAN: Echo reviewed, relatively stable. Continue with current regimen. Stop IV fluids. No further recommendations from a cardiac standpoint. Cardiology to sign off, please call with any questions or concerns. Follow-up with Dr. Venegas in the office 1 to 2 weeks. Nurse practitioner note has been reviewed by physician. Signing provider agrees with the documented findings, assessment, and plan of care documented by WELDING MACHINE SETTER as a scribe. Objective - Vital Signs Vital signs: Vital Signs Temp 97.5 F L 06/28/23 07:35 Pulse 115 H 06/28/23 07:35 Resp 16 06/28/23 07:35 BP 134/83 06/28/23 07:35 Pulse Ox 97 06/28/23 07:35 FiO2 Intake & Output 06/27/23 06/28/23 06/28/23 18:59 06:59 18:59 Intake Total 250 Output Total 1200 400 Balance -950 -400 Intake: Oral 250 Output: Urine 1200 400 Other: Voiding Method External Catheter Bedside Commode # Voids 4 # Bowel Movements 1 - Labs CBC & Chem 7: 06/28/23 04:43 06/28/23 04:43 Labs: Abnormal Lab Results - Last 24 Hours (Table) 06/27/23 06/27/23 06/27/23 Range/Units 08:20 12:13 17:20 RBC (3.80-5.40) m/uL MCV (80.0-100.0) fL Chloride (98-107) mmol/L BUN (7-17) mg/dL Creatinine (0.52-1.04) mg/dL Glucose (74-99) mg/dL POC Glucose (mg/dL) 328 H 367 H (70-110) mg/dL Hemoglobin A1c 11.4 H (<=6.0) % Total Protein (6.3-8.2) g/dL Albumin (3.5-5.0) g/dL 06/27/23 06/28/23 06/28/23 Range/Units 20:35 04:43 04:43 RBC 3.78 L (3.80-5.40) m/uL MCV 103.0 H (80.0-100.0) fL Chloride 109 H (98-107) mmol/L BUN 40 H (7-17) mg/dL Creatinine 1.44 H (0.52-1.04) mg/dL Glucose 142 H (74-99) mg/dL POC Glucose (mg/dL) 290 H (70-110) mg/dL Hemoglobin A1c (<=6.0) % Total Protein 6.2 L (6.3-8.2) g/dL Albumin 3.3 L (3.5-5.0) g/dL 06/28/23 Range/Units 06:27 RBC (3.80-5.40) m/uL MCV (80.0-100.0) fL Chloride (98-107) mmol/L BUN (7-17) mg/dL Creatinine (0.52-1.04) mg/dL Glucose (74-99) mg/dL POC Glucose (mg/dL) 164 H (70-110) mg/dL Hemoglobin A1c (<=6.0) % Total Protein (6.3-8.2) g/dL Albumin (3.5-5.0) g/dL
[2023-06-28 17:21] LABS: Glucose,Whole Blood 189 mg/dL (70-110)
[2023-06-28] MEDS: INSULIN DETEMIR (LEVEMIR) 100 UNIT/ML SYR SQ STA (18:56)
--- NOTE | 2023-06-28 20:02 | PN ---
PROGRESS NOTE DATE OF SERVICE: 06/28/2023 SUBJECTIVE: This is an 82-year-old woman, who was admitted with atrial fibrillation, rapid ventricular rate, and nosebleed. She is being closely monitored. No chest pain. No palpitation. A 2D echo done today showed mild impaired LV function at 40% to 45%. No chest pain. No palpitation. OBJECTIVE: VITAL SIGNS: Pulse is 115, blood pressure is n, respirations 16. CHEST: A few scattered rhonchi. ABDOMEN: Soft. NERVOUS SYSTEM: Nonfocal. LABORATORY DATA: Accu-Cheks and creatinine is 1.44. REVIEW OF SYSTEMS: A 14-point review of systems is negative except as mentioned earlier. CURRENT MEDICATIONS: Reviewed include: 1. Keflex. 2. Eliquis. ASSESSMENT: 1. Atrial fibrillation with rapid ventricular rate. 2. Diabetes mellitus type 2, uncontrolled. 3. Nasal bleed. 4. Acute encephalopathy, metabolic, multifactorial, change in mental status. 5. Generalized weakness and tiredness. 6. Multiple complex medical issues. RECOMMENDATIONS: I recommended to continue current management and I would recommend to monitor blood sugars closely. The patient was taking Lantus 20 units subcu h.s., which I will restart and also 10 units Lantus now with scale. Otherwise, we will continue to monitor closely with Cardiology. No epistaxis reported. PT/OT evaluation. Possible ECF rehab. Guarded prognosis. See orders for details. MMODL / IJN: [id number] / MTDD
[2023-06-28 21:10] LABS: Glucose,Whole Blood 277 mg/dL (70-110)
[2023-06-28] MEDS: INSULIN DETEMIR (LEVEMIR) 100 UNIT/ML SYR SQ SCH (21:44)
[2023-06-29 06:27] LABS: Glucose,Whole Blood 197 mg/dL (70-110)
[2023-06-29 10:59] LABS: Basophils # (A) 0.03 X 10*3/uL (0.00-0.10); Basophils % (A) 0.4 %; Eosinophils # (A) 0.47 X 10*3/uL (0.04-0.35); Eosinophils % (A) 5.8 %; HCT 37.7 % (37.2-46.3); HGB 12.3 g/dL (12.0-15.0); Lymphocytes # (A) 1.28 X 10*3/uL (0.90-5.00); Lymphocytes % (A) 15.7 %; MCH 32.5 pg (27.0-32.0); MCHC 32.6 g/dL (32.0-37.0); MCV 99.7 FL (80.0-97.0); Mean Platelet Volume 10.7 FL (9.5-12.2); Monocytes # (A) 0.72 X 10*3/uL (0.20-1.00); Monocytes % (A) 8.8 %; NRBC Per 100 WBC 0 X 10*3/uL (0.00-0.01); Neutrophils # (A) 5.59 X 10*3/uL (1.80-7.70); Neutrophils % (A) 68.6 %; Platelet Count 226 X 10*3/uL (140-440); RBC 3.78 X 10*6/uL (4.10-5.20); RDW 13.2 % (11.5-14.5); WBC 8.15 X 10*3/uL (4.50-10.00)
[2023-06-29 11:24] LABS: BUN/Creat Ratio 19.18 Ratio (12.00-20.00); Blood Urea Nitrogen 32.6 mg/dL (9.0-27.0); Calcium 9.6 mg/dL (8.7-10.3); Carbon Dioxide 23.3 mmol/L (21.6-31.8); Chloride 103 mmol/L (96-109); Glucose 216 mg/dL (70-110); Potassium 4.7 mmol/L (3.5-5.5); Sodium 136 mmol/L (135-145)
[2023-06-29 12:43] LABS: Glucose,Whole Blood 343 mg/dL (70-110)
[2023-06-29 17:01] LABS: Glucose,Whole Blood 359 mg/dL (70-110)
[2023-06-29 19:43] LABS: Glucose,Whole Blood 349 mg/dL (70-110)
--- NOTE | 2023-06-29 22:44 | PN ---
PROGRESS NOTE DATE OF SERVICE: 06/29/2023 SUBJECTIVE: This is an 82-year-old woman, who was admitted with nosebleeds, atrial fibrillation, is being closely monitored. No chest pain. No palpitations. No fever. OBJECTIVE: VITAL SIGNS: Pulse is 116, blood pressure 116/79, orthostatic changes present. HEENT: Conjunctivae normal. NECK: No jugular venous distention. CARDIOVASCULAR: S1, S2. RESPIRATIONS: Diminished at the bases. ABDOMEN: Soft. LEGS: No edema, no swelling. NERVOUS SYSTEM: Nonfocal. LABORATORY DATA: Noted. Creatinine is 1.7. ASSESSMENT: 1. Atrial fibrillation with rapid ventricular rate. 2. Diabetes mellitus type 2, uncontrolled. 3. Orthostatic hypotension. 4. Nasal bleed. 5. Acute encephalopathy, metabolic multifactorial, change in mental status. 6. Generalized weakness and tiredness. 7. Multiple complex medical issues. RECOMMENDATIONS: Recommended to continue current management, continue symptomatic treatment. Otherwise at this time, I would monitor the patient closely. Continue the current medications. The patient is on diltiazem per Cardiology recommendations. We will continue to monitor. Further recommendations to follow. See orders for details. MMODL / IJN: [id number] /
[2023-06-30 05:46] LABS: Glucose,Whole Blood 118 mg/dL (70-110)
[2023-06-30 06:57] LABS: Basophils % (A) 0 %; Eosinophils # (A) 0.4 k/uL (0-0.7); Eosinophils % (A) 5 %; HCT 41.6 % (34.0-46.0); HGB 13.2 gm/dL (11.4-16.0); Lymphocytes # (A) 0.9 k/uL (1.0-4.8); Lymphocytes % (A) 12 %; MCH 32.7 pg (25.0-35.0); MCHC 31.7 g/dL (31.0-37.0); MCV 103.2 fL (80.0-100.0); Macrocytosis Slight; Mean Platelet Volume 8.2; Monocytes # (A) 0.6 k/uL (0-1.0); Monocytes % (A) 7 %; Neutrophils # (A) 5.9 k/uL (1.3-7.7); Neutrophils % (A) 74 %; Platelet Count 255 k/uL (150-450); RBC 4.03 m/uL (3.80-5.40); RDW 13.1 % (11.5-15.5); WBC 7.9 k/uL (3.8-10.6)
[2023-06-30 07:07] LABS: ALT 17 U/L (4-34); AST 19 U/L (14-36); African American GFR (CKD) 39 (>60 ml/min/1.73 sqM); Albumin 3.4 g/dL (3.5-5.0); Albumin/Globulin Ratio 1.2; Alkaline Phosphatase 67 U/L (38-126); Anion Gap 3 mmol/L; Blood Urea Nitrogen 30 mg/dL (7-17); Calcium 9.9 mg/dL (8.4-10.2); Carbon Dioxide 26 mmol/L (22-30); Chloride 109 mmol/L (98-107); Globulin 2.8 g/dL; Glucose 143 mg/dL (74-99); Non-African American GFR(CKD) 34 (>60 ml/min/1.73 sqM); Potassium 4.6 mmol/L (3.5-5.1); Sodium 138 mmol/L (137-145); Total Bilirubin 1.3 mg/dL (0.2-1.3); Total Protein 6.2 g/dL (6.3-8.2)
--- NOTE | 2023-06-30 13:22 | P.PN ---
Subjective Progress Note Date: 06/30/23 This is a pleasant 82-year-old female who was recently admitted with frequent nosebleeds with history of atrial fibrillation maintained on anticoagulation along with generalized weakness and falling. Patient evaluated by cardiology making adjustments to medications including making Eliquis 2.5 twice daily and recommending close outpatient follow-up. Patient denies any further nosebleeds at this time. Case management/social work also following and arranging for going to [facility]. Family will be transporting the patient on discharge. Currently awaiting insurance authorization. Patient is afebrile with no reports of chest pain or shortness of breath. Patient has been tolerating diet with no reported nausea or vomiting. Continue to monitor blood sugars before meals and at bedtime and will continue with current regimen. Review of systems: Constitutional: No reports of fatigue, fever, or chills Cardiovascular: No reports of chest pain or palpitations Respiratory: No reports of shortness of breath or cough GI: No reports of nausea, no reports of vomiting, no diarrhea : No reports of dysuria or retention Neurovascular: reports of generalized weakness All medications have been reviewed Active Medications Acetaminophen (Acetaminophen Tab 325 Mg Tab) 650 mg PO Q6HR PRN PRN Reason: Fever and/ or Pain Last Admin: 06/27/23 17:51 Dose: 650 mg Apixaban (Apixaban 2.5 Mg Tablet) 2.5 mg PO BID [facility]; Protocol Last Admin: 06/30/23 08:48 Dose: 2.5 mg Cephalexin (Cephalexin 500 Mg Cap) 500 mg PO BID [facility]; Protocol Last Admin: 06/30/23 08:48 Dose: 500 mg Cholecalciferol (Cholecalciferol 25 Mcg (1000 Iu) Tablet) 50 mcg PO DAILY [facility] Last Admin: 06/30/23 08:49 Dose: 50 mcg Dextrose/Water (Dextrose 50% Syringe 50 Ml) 25 ml IVP PER PROTOCOL PRN; Protocol PRN Reason: Hypoglycemia Dextrose/Water (Dextrose 50% Syringe 50 Ml) 50 ml IVP PER PROTOCOL PRN; Protocol PRN Reason: Hypoglycemia Diltiazem HCl (Diltiazem Oral 30 Mg Tab) 30 mg PO TID [facility] Last Admin: 06/30/23 08:48 Dose: 30 mg Folic Acid (Folic Acid 1 Mg Tab) 1 mg PO DAILY [facility] Last Admin: 06/30/23 08:48 Dose: 1 mg Insulin Aspart (Insulin Aspart (Novolog) 100 Unit/Ml Vial) 0 unit SQ ACHS [facility]; Protocol Last Admin: 06/30/23 05:46 Dose: Not Given Insulin Detemir (Insulin Detemir (Levemir) 100 Unit/Ml Syr) 20 unit SQ HS [facility] Last Admin: 06/29/23 21:53 Dose: 20 unit Levothyroxine Sodium (Levothyroxine 75 Mcg Tab) 37.5 mcg PO DAILY@0630 [facility] Last Admin: 06/30/23 06:05 Dose: 37.5 mcg Magnesium Oxide (Magnesium Oxide 400 Mg Tab) 400 mg PO DAILY [facility] Last Admin: 06/30/23 08:48 Dose: 400 mg Metoprolol Tartrate (Metoprolol Tartrate 50 Mg Tab) 100 mg PO BID [facility] Last Admin: 06/30/23 08:48 Dose: 100 mg Mupirocin (Mupirocin 2% Oint 22 Gm Tube) 1 applic TOPICAL BID [facility]; Protocol Last Admin: 06/30/23 08:49 Dose: 1 applic Naloxone HCl (Naloxone 0.4 Mg/Ml 1 Ml Vial) 0.2 mg IV Q2M PRN PRN Reason: Opioid Reversal Oxybutynin Chloride (Oxybutynin Xl 5 Mg Tab.Er.24) 5 mg PO DAILY [facility] Last Admin: 06/30/23 08:49 Dose: 5 mg Oxymetazoline HCl (Oxymetazoline 0.05% Nasl Harriman 1 [place]iman Bottle) 2 spray NASAL BID [facility] Last Admin: 06/30/23 08:49 Dose: 2 spray Spironolactone (Spironolactone 25 Mg Tab) 25 mg PO DAILY [facility] Last Admin: 06/30/23 08:48 Dose: 25 mg Zinc Sulfate (Zinc Sulfate 220 Mg Cap) 220 mg PO DAILY [facility] Last Admin: 06/30/23 08:49 Dose: 220 mg PHYSICAL EXAMINATION: GENERAL: The patient is alert and oriented x3, Well developed, well nourished elderly appearing, obese. HEENT: Pupils are round and equally reacting to light. EOMI. no scleral icterus. No conjunctival pallor. Normocephalic, atraumatic. No pharyngeal erythema. No thyromegaly. CARDIOVASCULAR: S1 and S2 muffled PULMONARY: diminished breath sounds bilaterally with no wheezing or rhonchi noted. ABDOMEN: soft. Nontender on exam. obese. non-distended, normoactive bowel sounds. No palpable organomegaly. MUSCULOSKELETAL: No joint swelling or deformity. EXTREMITIES: No cyanosis, clubbing, or pedal edema. NEUROLOGICAL: Gross neurological examination did not reveal any focal deficits. Diffuse weakness SKIN: No rashes. Assessment: Atrial fibrillation with rapid ventricular rate, currently rate controlled Diabetes mellitus, type II, uncontrolled with hyperglycemia Orthostatic hypotension Recurrent falls Hyperlipidemia history Hypertension history Nosebleed likely secondary to anticoagulation, improved Acute encephalopathy with change in mental status, metabolic and multifactorial. Generalized weakness and fatigue Memory impairment History of anxiety Obesity with a BMI of 30.1 GI prophylaxis DVT prophylaxis Full code Plan: Patient was seen and evaluated by cardiology with adjustments in medications including decreasing the dose of Eliquis and nosebleeds have subsided. Patient will need close outpatient follow-up with cardiology in the outpatient setting. Patient evaluated by PT/OT therapy recommending rehab and patient and family are agreeable Case management/social work following and plans are for [facility] and will await authorization. Family plans on transporting patient to the ECF on discharge Continue monitoring Accu-Cheks ACHS and continue with current regimen. Blood sugars were elevated and uncontrolled on admission. Due to multiple complex medical issues, prognosis is guarded Probable discharge in 24 hours to ECF. Patient has been accepted at [facility] on the [place] The impression and plan of care has been dictated by Lisa Frey, nurse practitioner as directed. Dr. Henry MD I have performed a history and examination and MDM of this patient, discussed the same with the dictator, and agree with the dictator's assessment and plan as written ,documented as a scribe. Based on total visit time, I have performed more than 50% of the visit. Any additional findings or plans will be noted. Objective - Vital Signs Vital signs: Vital Signs Temp 97.8 F 06/30/23 08:00 Pulse 105 H 06/30/23 08:00 Resp 16 06/30/23 08:00 BP 147/84 06/30/23 08:00 Pulse Ox 97 06/30/23 08:00 FiO2 Intake & Output 06/29/23 06/30/23 06/30/23 18:59 06:59 18:59 Intake Total 960 358 Output Total 56 Balance 904 358 Intake: Oral 960 358 Output: Post Void Residual 56 Other: Voiding Method Bedside Commode # Voids 3 2 5 # Bowel Movements 1 - Labs CBC & Chem 7: 06/30/23 06:38 06/30/23 06:38 Labs: Abnormal Lab Results - Last 24 Hours (Table) 06/29/23 06/29/23 06/30/23 Range/Units 16:59 19:41 05:45 MCV (80.0-100.0) fL Lymphocytes # (1.0-4.8) k/uL Chloride (98-107) mmol/L BUN (7-17) mg/dL Creatinine (0.52-1.04) mg/dL Glucose (74-99) mg/dL POC Glucose (mg/dL) 359 H 349 H 118 H (70-110) mg/dL Total Protein (6.3-8.2) g/dL Albumin (3.5-5.0) g/dL 06/30/23 06/30/23 Range/Units 06:38 06:38 MCV 103.2 H (80.0-100.0) fL Lymphocytes # 0.9 L (1.0-4.8) k/uL Chloride 109 H (98-107) mmol/L BUN 30 H (7-17) mg/dL Creatinine 1.46 H (0.52-1.04) mg/dL Glucose 143 H (74-99) mg/dL POC Glucose (mg/dL) (70-110) mg/dL Total Protein 6.2 L (6.3-8.2) g/dL Albumin 3.4 L (3.5-5.0) g/dL
[2023-06-30 13:24] LABS: Glucose,Whole Blood 314 mg/dL (70-110)
[2023-06-30 17:59] LABS: Glucose,Whole Blood 332 mg/dL (70-110)
[2023-06-30 20:51] LABS: Glucose,Whole Blood 364 mg/dL (70-110)
[2023-07-01 05:54] LABS: Glucose,Whole Blood 176 mg/dL (70-110)
[2023-07-01 07:35] VITALS: BP 131/81; PULSE 78; RESP 16; TEMP 98.1
--- NOTE | 2023-07-01 10:38 | P.DS ---
Providers Date of admission: 06/27/23 11:12 Expected date of discharge: 07/01/23 Attending physician: Allison Figueroa Primary care physician: Ar Lofton Hospital Course: Final diagnosis Atrial fibrillation with rapid ventricular rate, currently rate controlled Diabetes mellitus, type II, uncontrolled with hyperglycemia Orthostatic hypotension Recurrent falls Hyperlipidemia history Hypertension history Nosebleed likely secondary to anticoagulation, improved Acute encephalopathy with change in mental status, metabolic and multifactorial. Generalized weakness and fatigue Memory impairment History of anxiety Obesity with a BMI of 30.1 GI prophylaxis DVT prophylaxis Full code Discharge disposition Patient is being discharged in a stable condition with guarded prognosis to [facility]. Patient will follow-up with Dr. Lofton in the outpatient setting upon discharge. Patient is to continue with current medications as prescribed and close outpatient follow-up with cardiology as scheduled. Total time taken is greater than 35 minutes. Hospital course This is a 82-year-old female who was recently admitted with generalized weakness increased falls A-fib with RVR with uncontrolled diabetes being closely monitored. Patient was seen and evaluated by cardiology with adjustments to medications made and also decrease the dose of Eliquis as patient has been having nosebleeds and has not been taking her anticoagulation. Nosebleed has subsided. Patient evaluated by physical therapy recommending rehab and patient and family are agreeable. Insurance authorization was obtained and patient will be going to [facility]. Please refer to other consultation notes for further HPI. Patient is a diabetic recommend continue with heart healthy/diabetic diet. Currently no reports of chest pain, shortness of breath, or palpitations. Patient is afebrile. No reports of nausea or vomiting and patient is tolerating diet. Patient will be going to [facility] today. Guarded prognosis Physical exam: Gen: This is a 82-year-old female who is awake, alert and oriented x 2-3, well- developed, elderly appearing, obese HEENT: Head is atraumatic, normocephalic. Pupils equal, round. Sclerae is anicteric. NECK: Supple. No JVD. No lymphadenopathy. No thyromegaly. LUNGS: Diminished breath sounds bilaterally otherwise clear to auscultation. No wheezes or rhonchi. No intercostal retractions. HEART: S1, S2 are muffled ABDOMEN: Soft. Obese bowel sounds are present. No masses. No tenderness. EXTREMITIES: No pedal edema. No calf tenderness. NEUROLOGICAL: Patient is awake, alert and oriented x3. Cranial nerves 2 through 12 are grossly intact. Diffusely weak Please refer to medication reconciliation sheet for a list of medications. The impression and plan of care has been dictated by Lisa Frey, Nurse Practitioner as directed. Dr. Henry MD I have performed a history and examination and MDM of this patient, discussed the same with the dictator, and agree with the dictator's assessment and plan as written ,documented as a scribe. Based on total visit time, I have performed more than 50% of the visit. Patient Condition at Discharge: Fair Plan - Discharge Summary Discharge Rx Participant: No New Discharge Prescriptions: New Spironolactone [Aldactone] 25 mg PO DAILY tab Folic Acid 1 mg PO DAILY tab INSULIN ASPART (NovoLOG) [NovoLOG (formulary)] 0 unit SQ ACHS each Apixaban [Eliquis] 2.5 mg PO BID tab Acetaminophen Tab [Tylenol] 650 mg PO Q6HR PRN tab PRN Reason: Fever And/ Or Pain Continue Levothyroxine Sodium [Synthroid] 37.5 mcg PO DAILY oxyBUTYnin chloride [Ditropan XL] 5 mg PO DAILY Cephalexin [Keflex] 500 mg PO Q12HR Mupirocin 2% Oint [Bactroban 2% Oint] 1 applic EA NOSTRIL BID Cholecalciferol [Vitamin D3 (25 Mcg = 1000 Iu)] 50 mcg PO DAILY Insulin Glargine,Hum.rec.anlog [Lantus Solostar Pen] 20 units SQ HS Metoprolol Tartrate [Lopressor] 100 mg PO BID #120 tab Oxymetazoline 0.05% Nasl [place] [Afrin 0.05% Nasal [place]] 2 spray EA NOSTRIL BID Cetirizine HCl [Zyrtec] 10 mg PO DAILY Zinc Gluconate [Zinc] 50 mg PO DAILY Magnesium Gluconate Gummies 100 mg PO DAILY dilTIAZem HCL 30 mg PO TID Discontinued Folic Acid 0.8 mg PO DAILY Apixaban [Eliquis] 5 mg PO Q12H Spironolactone [Aldactone] 50 mg PO DAILY Discharge Medication List Levothyroxine Sodium [Synthroid] 37.5 mcg PO DAILY 12/31/13 [History] oxyBUTYnin chloride [Ditropan XL] 5 mg PO DAILY 05/20/22 [History] Metoprolol Tartrate [Lopressor] 100 mg PO BID #120 tab 05/28/23 [Rx] Cephalexin [Keflex] 500 mg PO Q12HR 06/27/23 [History] Cetirizine HCl [Zyrtec] 10 mg PO DAILY 06/27/23 [History] Cholecalciferol [Vitamin D3 (25 Mcg = 1000 Iu)] 50 mcg PO DAILY 06/27/23 [History] Insulin Glargine,Hum.rec.anlog [Lantus Solostar Pen] 20 units SQ HS 06/27/23 [History] Magnesium Gluconate Gummies 100 mg PO DAILY 06/27/23 [History] Mupirocin 2% Oint [Bactroban 2% Oint] 1 applic EA NOSTRIL BID 06/27/23 [History] Oxymetazoline 0.05% Nasl [place] [Afrin 0.05% Nasal [place]] 2 spray EA NOSTRIL BID 06/27/23 [History] Zinc Gluconate [Zinc] 50 mg PO DAILY 06/27/23 [History] dilTIAZem HCL 30 mg PO TID 06/27/23 [History] Acetaminophen Tab [Tylenol] 650 mg PO Q6HR PRN tab 07/01/23 [Rx] Apixaban [Eliquis] 2.5 mg PO BID tab 07/01/23 [Rx] Folic Acid 1 mg PO DAILY tab 07/01/23 [Rx] INSULIN ASPART (NovoLOG) [NovoLOG (formulary)] 0 unit SQ ACHS each 07/01/23 [Rx] Spironolactone [Aldactone] 25 mg PO DAILY tab 07/01/23 [Rx] Follow up Appointment(s)/Referral(s): Nursing,[place] [NON-STAFF] - Morenita Venegas MD [STAFF PHYSICIAN] - 1 Week Ar Lofton MD [Primary Care Provider] - 1-2 days Ambulatory/Diagnostic Orders: Basic Metabolic Panel [LAB.AMB] Time Frame: 3 Days, Location: None Selected Activity/Diet/Wound Care/Special Instructions: Patient is going to [facility] [place] Activity as tolerated Continue taking medications as prescribed Continue with heart healthy diabetic diet Continue monitoring Accu-Cheks before meals and at bedtime and continue with insulin regimen NovoLog sliding scale 0-150 equals 0 units 151-200 equals 2 units 201-250 equals 4 units 251-300 equals 6 units 301-350 equals 8 units 351-400 equals 10 units Please notify provider if blood sugar is 400 or above Follow-up with cardiology outpatient in 1 to 2 weeks Follow-up primary care provider on discharge Repeat labs of CBC, BMP, mag in 2 to 3 days Discharge Disposition: TRANSFER TO SNF/ECF
[2023-07-01 12:03] LABS: Glucose,Whole Blood 388 mg/dL (70-110)
== END 2023-07-01 13:03 | DRG 308 ==
LOC: EC 19:15 → 6NMEDSUR 21:24 → OBSVTOIN 06-27 11:12
PROVIDERS: ADMIT Hospitalist; ATTEND Hospitalist
DX: I48.0 Paroxysmal atrial fibrillation (principal); G93.41 Metabolic encephalopathy; D68.32 Hemorrhagic disorder due to extrinsic circulating anticoagulants; R04.0 Epistaxis; R53.1 Weakness; I10 Essential (primary) hypertension; I95.1 Orthostatic hypotension; E78.5 Hyperlipidemia, unspecified; Z86.711 Personal history of pulmonary embolism; E66.9 Obesity, unspecified; I07.1 Rheumatic tricuspid insufficiency; I27.20 Pulmonary hypertension, unspecified; Z68.30 Body mass index [BMI] 30.0-30.9, adult; E11.65 Type 2 diabetes mellitus with hyperglycemia; R29.6 Repeated falls; Z91.81 History of falling; X58.XXXA Exposure to other specified factors, initial encounter; F40.240 Claustrophobia; W01.0XXA Fall on same level from slipping, tripping and stumbling without subsequent striking against object, initial encounter; Z79.890 Hormone replacement therapy; Z79.01 Long term (current) use of anticoagulants; Z79.899 Other long term (current) drug therapy; Z82.49 Family history of ischemic heart disease and other diseases of the circulatory system; Z86.73 Personal history of transient ischemic attack (TIA), and cerebral infarction without residual deficits; Z87.440 Personal history of urinary (tract) infections; Z66 Do not resuscitate; Z59.6 Low income; Z90.710 Acquired absence of both cervix and uterus; Z91.148 Patient's other noncompliance with medication regimen for other reason; Z96.1 Presence of intraocular lens; Z88.2 Allergy status to sulfonamides; Z88.8 Allergy status to other drugs, medicaments and biological substances; Z98.42 Cataract extraction status, left eye; Z98.41 Cataract extraction status, right eye
CPT/HCPCS: 36415; 70450; 71046; 80048; 80053; 80306; 80320; 81001; 82550; 83036; 84484; 85025; 85610; 85730; 93005; 93306; 99285